=== PATIENT | female | born 1975 ===

== ENCOUNTER 2022-01-13 20:05 | Emergency (ER) | payer OTHER, SELFPAY ==
--- NOTE | ~2022-01-13 | CT_ITS ---
EXAMINATION: CT ANGIOGRAM OF THE CHEST WITH AND WITHOUT CONTRAST (CT PULMONARY ANGIOGRAM FOR PE) CLINICAL INFORMATION: Reason for Exam Syncope elevated D-dimer COMPARISON: None TECHNIQUE: Prior to contrast administration, noncontrast localization images were obtained. Subsequently, multidetector volumetric imaging was performed from the thoracic inlet to below the diaphragms following the administration of 71 mL Omnipaque 350 intravenous contrast. No contrast reaction reported Sagittal, coronal, and MIP oblique sagittal reformatted images were obtained on the CT workstation, uploaded to PACS, and reviewed. This CT examination was performed using dose optimization techniques as appropriate, variously including the following: *Automated exposure control *Adjustment of mA and/or kV according to patient size (this includes techniques or standardized protocols for targeted exams where dose is matched to indication/reason for exam; i.e. extremities or head) *Use of iterative reconstruction technique Total exam dose-length product 375 mGy-cm FINDINGS: QUALITY OF STUDY/CONTRAST BOLUS: Satisfactory. PULMONARY ARTERIES: No central or segmental pulmonary emboli. THORACIC AORTA: No aneurysm or dissection. LUNG: No focal consolidation, nodules or masses. PLEURA: No pleural effusion or pneumothorax. MEDIASTINUM: Normal heart size. No pericardial effusion. No hilar or mediastinal lymphadenopathy. No evidence of septal bowing or right heart strain. CHEST WALL/AXILLA: No axillary or internal mammary lymphadenopathy. OSSEOUS STRUCTURES: No acute or suspicious osseous abnormality. UPPER ABDOMEN: Unremarkable. No reflux of contrast into the hepatic veins to suggest elevated right heart pressures. CT/CT angio chest PE protocol IMPRESSION: No evidence of pulmonary emboli VTE: negative
[2022-01-13 20:19] VITALS: BP 166/106; PULSE 87; O2SAT 100; BMI 42.5
[2022-01-13 20:24] VITALS: BP 145/102; PULSE 74; RESP 16; TEMP 36.8; O2SAT 99
--- NOTE | 2022-01-13 20:36 | ED_ITS ---
HPI - Dizziness General Chief Complaint: Dizziness Stated Complaint: fall dizziness Time Seen by Provider: 01/13/22 20:36 Source: patient Mode of arrival: EMS Limitations: no limitations History of Present Illness HPI Narrative: Patient history of stable hypertension was at work today when she felt dizzy patient stood up felt lightheaded sat down got better an outer few minutes while other doing the chores felt lightheaded again and this time she passed out. 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 Patient complaining of mild headache on the right side blood pressure was elevated 145/102 with pulse rate of 74. No palpitation no chest pain also patient coming right thigh pain after the incident. No fever no cough no shortness of breath Related Data Allergies Allergy/AdvReac Type Severity Reaction Status Date / Time No Known Allergies Allergy Verified 01/13/22 20:54 Review of Systems Review of Systems: Yes all other systems are reviewed and are negative [facility] Social History Social History Alcohol intake: current Alcohol intake frequency: holidays/special occasions only Patient Tobacco Use Status: Former Tobacco user Use of substances other than those prescribed or required for medical reasons: No Advance Directives: No Advance Directives Information Provided: No Physical Exam Vital Signs: Vital Signs: Last Vital Signs Temp 98.2 F 01/13/22 20:24 Pulse 96 01/14/22 00:00 Resp 15 01/13/22 22:55 BP 208/125 H 01/14/22 00:00 Pulse Ox 98 01/13/22 22:55 O2 Del Method 01/13/22 22:55 BMI result Body Mass Index 42.5 Appearance: Alert. Oriented X3. No acute distress. Eyes: No pallor /icterus ENT: Pharynx normal. Oral Mucosa moist Neck: Normal inspection. Neck supple. CVS: Normal heart rate and rhythm. Pulses normal. Respiratory: No respiratory distress. Equal air entry bilateral, no wheezing/rales/rhonchi Abdomen: Soft and nontender. Bowel sounds are present, no mass palpable, no CVA tenderness Skin: Skin warm and dry. Normal skin color. Normal skin turgor. Extremities: No lower extremity edema. No calf tenderness Neuro: Oriented X 3. No motor deficit. No sensory deficit.No cerebellar signs , cranial nerves II-XII intact MDM - Dizziness MDM Narrative Medical decision making narrative: Patient likely with vasovagal episodes as she felt lightheaded with blurred vision before passing of no chest pain or palpitation in the past nursing observed during stay in the ER. Patient has slightly elevated D-dimer CTA chest of the lungs negative for PE patient had normal orthostatics no signs of infection patient feeling much better after arrival to the ER will discharge patient home advised to follow up with PCP likely had vasovagal episode Lab Data Attestation: I reviewed the patient's lab results. Result diagrams: 01/13/22 21:28 01/13/22 21: Labs: Lab Results 01/13/22 01/13/22 01/13/22 Range/Units 21:28 21: 21: WBC 8.7 (4.8-10.8) X10*3/uL RBC 4.64 (4.20-5.50) X10*6/uL Hgb 12.7 (12.0-16.0) g/dl Hct 37.6 (37.0-47.0) % MCV 81.0 (80.0-98.0) fL MCH 27.4 (27.0-33.0) pg MCHC 33.8 (31.0-35.0) g/dl RDW 15.1 (11.0-16.0) % Plt Count 441 H (160-400) X10*3/uL MPV 8.7 L (9.4-12.3) fL Immature Gran % (Auto) 0.3 (0.0-0.4) % Neut % (Auto) 52.3 (45-73) % Lymph % (Auto) 36.6 (20-40) % [place] % (Auto) 5.7 (2-11) % Eos % (Auto) 4.4 H (0-4) % Baso % (Auto) 0.7 (0-2) % Lymph # (Auto) 3.2 (1.2-4.9) X10*3/uL [place] # (Auto) 0.5 (0.1-1.2) X10*3/uL Eos # (Auto) 0.4 (0.0-0.4) X10*3/uL Baso # (Auto) 0.1 (0.0-0.2) X10*3/uL Abs Immat Gran (auto) 0.03 (0.00-0.03) X10*3/uL Absolute Neuts (auto) 4.5 (2.0-8.3) x10*3/uL Absolute Nucleated RBC 0.000 (0.0-0.012) X10*3/uL Nucleated RBC % (auto) 0.0 (0.0-0.2) /100WBC PT Cancelled INR Cancelled D-Dimer High Sensitivty NG/ML Sodium 138 (135-145) mmol/L Potassium 3.9 (3.3-5.1) mmol/L Chloride 102 (96-108) mmol/L Carbon Dioxide 27 (22-29) mmol/L Anion Gap 13 (12-20) BUN 16 (9-16) mg/dL Creatinine 0.80 (0.5-1.4) mg/dL Estim Creat Clear Calc 111.9 Estimated GFR > 60 Random Glucose 97 (60-115) mg/dL Calcium 9.7 (8.4-10.2) mg/dL Total Bilirubin < 0.2 (0.0-1.0) mg/dL AST 18 (5-31) U/L ALT 32 H (0-31) U/L Alkaline Phosphatase 76 (39-117) U/L Troponin I High Sens (<3.5-17.0) ng/L Total Protein 8.1 H (6.5-8.0) g/dL Albumin 4.3 (3.5-5.0) g/dL Urine Color Urine Appearance Urine pH (5.0-8.0) Ur Specific [place] (1.005-1.025) Urine Protein (NEG-TRACE) MG/DL Urine Glucose (UA) (NEG) MG/DL Urine Ketones (NEG) MG/DL Urine Blood (NEG) Urine Nitrite (NEG) Ur Leukocyte Esterase (NEG) COVID-19 (ALECIA) (Negative) COVID-19 Clin Com 01/13/22 01/13/22 01/13/22 Range/Units 21:28 21:28 21:28 WBC (4.8-10.8) X10*3/uL RBC (4.20-5.50) X10*6/uL Hgb (12.0-16.0) g/dl Hct (37.0-47.0) % MCV (80.0-98.0) fL MCH (27.0-33.0) pg MCHC (31.0-35.0) g/dl RDW (11.0-16.0) % Plt Count (160-400) X10*3/uL MPV (9.4-12.3) fL Immature Gran % (Auto) (0.0-0.4) % Neut % (Auto) (45-73) % Lymph % (Auto) (20-40) % [place] % (Auto) (2-11) % Eos % (Auto) (0-4) % Baso % (Auto) (0-2) % Lymph # (Auto) (1.2-4.9) X10*3/uL [place] # (Auto) (0.1-1.2) X10*3/uL Eos # (Auto) (0.0-0.4) X10*3/uL Baso # (Auto) (0.0-0.2) X10*3/uL Abs Immat Gran (auto) (0.00-0.03) X10*3/uL Absolute Neuts (auto) (2.0-8.3) x10*3/uL Absolute Nucleated RBC (0.0-0.012) X10*3/uL Nucleated RBC % (auto) (0.0-0.2) /100WBC PT 9.8 L INR 0.9 D-Dimer High Sensitivty 264 NG/ML Sodium (135-145) mmol/L Potassium (3.3-5.1) mmol/L Chloride (96-108) mmol/L Carbon Dioxide (22-29) mmol/L Anion Gap (12-20) BUN (9-16) mg/dL Creatinine (0.5-1.4) mg/dL Estim Creat Clear Calc Estimated GFR Random Glucose (60-115) mg/dL Calcium (8.4-10.2) mg/dL Total Bilirubin (0.0-1.0) mg/dL AST (5-31) U/L ALT (0-31) U/L Alkaline Phosphatase (39-117) U/L Troponin I High Sens 3.5 (<3.5-17.0) ng/L Total Protein (6.5-8.0) g/dL Albumin (3.5-5.0) g/dL Urine Color Urine Appearance Urine pH (5.0-8.0) Ur Specific [place] (1.005-1.025) Urine Protein (NEG-TRACE) MG/DL Urine Glucose (UA) (NEG) MG/DL Urine Ketones (NEG) MG/DL Urine Blood (NEG) Urine Nitrite (NEG) Ur Leukocyte Esterase (NEG) COVID-19 (ALECIA) Negative (Negative) COVID-19 Clin Com See Note 01/13/22 Range/Units 23:03 WBC (4.8-10.8) X10*3/uL RBC (4.20-5.50) X10*6/uL Hgb (12.0-16.0) g/dl Hct (37.0-47.0) % MCV (80.0-98.0) fL MCH (27.0-33.0) pg MCHC (31.0-35.0) g/dl RDW (11.0-16.0) % Plt Count (160-400) X10*3/uL MPV (9.4-12.3) fL Immature Gran % (Auto) (0.0-0.4) % Neut % (Auto) (45-73) % Lymph % (Auto) (20-40) % [place] % (Auto) (2-11) % Eos % (Auto) (0-4) % Baso % (Auto) (0-2) % Lymph # (Auto) (1.2-4.9) X10*3/uL [place] # (Auto) (0.1-1.2) X10*3/uL Eos # (Auto) (0.0-0.4) X10*3/uL Baso # (Auto) (0.0-0.2) X10*3/uL Abs Immat Gran (auto) (0.00-0.03) X10*3/uL Absolute Neuts (auto) (2.0-8.3) x10*3/uL Absolute Nucleated RBC (0.0-0.012) X10*3/uL Nucleated RBC % (auto) (0.0-0.2) /100WBC PT INR D-Dimer High Sensitivty NG/ML Sodium (135-145) mmol/L Potassium (3.3-5.1) mmol/L Chloride (96-108) mmol/L Carbon Dioxide (22-29) mmol/L Anion Gap (12-20) BUN (9-16) mg/dL Creatinine (0.5-1.4) mg/dL Estim Creat Clear Calc Estimated GFR Random Glucose (60-115) mg/dL Calcium (8.4-10.2) mg/dL Total Bilirubin (0.0-1.0) mg/dL AST (5-31) U/L ALT (0-31) U/L Alkaline Phosphatase (39-117) U/L Troponin I High Sens (<3.5-17.0) ng/L Total Protein (6.5-8.0) g/dL Albumin (3.5-5.0) g/dL Urine Color YELLOW Urine Appearance CLEAR Urine pH 6.0 (5.0-8.0) Ur Specific [place] 1.020 (1.005-1.025) Urine Protein NEG (NEG-TRACE) MG/DL Urine Glucose (UA) NEG (NEG) MG/DL Urine Ketones NEG (NEG) MG/DL Urine Blood NEG (NEG) Urine Nitrite NEG (NEG) Ur Leukocyte Esterase NEG (NEG) COVID-19 ([facility]ECIA) (Negative) COVID-19 Clin Com ECG Data Attestation: I personally reviewed and interpreted this ECG as follows: Interpretation: Normal sinus rhythm heart rate 79 beats per minute normal interval normal axis no acute ST changes no acute ischemia Discharge Plan Discharge Clinical Impression: Syncope Patient Disposition: Home, Self-Care Instructions: Syncope (ED) Additional Instructions: Cause of passing out episode is not clear likely vasovagal Drink plenty of fluids have meals on time Follow with PCP/cardiology for further workup including Holter monitoring Report to the ER if further episodes ofpassing out
--- NOTE | 2022-01-13 20:54 | ECG_ITS ---
Test Reason : DIZZYNESS Blood Pressure : / mmHG Vent. Rate : 079 BPM Atrial Rate : 079 BPM P-R Int : 150 ms QRS Dur : 084 ms QT Int : 378 ms P-R-T Axes : 055 022 066 degrees QTc Int : 433 ms Normal sinus rhythm Nonspecific T wave abnormality Borderline ECG No previous ECGs available Referred By: Bj Sy Electronically Signed By:HEMANT DUMONT
[2022-01-13 21:34] LABS: MANUAL DIFF FLAG NO
[2022-01-13 21:36] LABS: Basophils Absolute Auto 0.1 X10*3/uL (0.0-0.2); Basophils Percent Auto 0.7 % (0-2); Eosinophils Absolute Auto 0.4 X10*3/uL (0.0-0.4); Eosinophils Percent Auto 4.4 % (0-4); Hematocrit 37.6 % (37.0-47.0); Hemoglobin 12.7 g/dl (12.0-16.0); Imm Gran Abs Auto 0.03 X10*3/uL (0.00-0.03); Imm Gran Pct Auto 0.3 % (0.0-0.4); Lymphocytes Absolute Auto 3.2 X10*3/uL (1.2-4.9); Lymphocytes Percent Auto 36.6 % (20-40); Mean Corpuscular HGB Conc 33.8 g/dl (31.0-35.0); Mean Corpuscular Hemoglobin 27.4 pg (27.0-33.0); Mean Platelet Volume 8.7 fL (9.4-12.3); Monocytes Absolute Auto 0.5 X10*3/uL (0.1-1.2); Monocytes Percent Auto 5.7 % (2-11); Neutrophils Absolute Auto 4.5 x10*3/uL (2.0-8.3); Neutrophils Percent Auto 52.3 % (45-73); Platelet Count 441 X10*3/uL (160-400); Red Blood Count 4.64 X10*6/uL (4.20-5.50); Red Cell Distribution Width 15.1 % (11.0-16.0); White Blood Count 8.7 X10*3/uL (4.8-10.8)
[2022-01-13 21:48] LABS: INTERNATIONAL NORM RATIO 0.9 (0.9-1.1); Prothrombin Time 9.8 SEC (10.0-13.1)
[2022-01-13 21:50] LABS: D Dimer High Sensitivity 264 NG/ML
[2022-01-13 21:51] LABS: COVID-19 Test Negative (Negative)
[2022-01-13 21:58] LABS: Alanine Aminotransferase 32 U/L (0-31); Albumin Level 4.3 g/dL (3.5-5.0); Alkaline Phosphatase 76 U/L (39-117); Anion Gap 13 (12-20); Aspartate Amino Transferase 18 U/L (5-31); Bilirubin Total < 0.2 mg/dL (0.0-1.0); Blood Urea Nitrogen 16 mg/dL (9-16); Calcium 9.7 mg/dL (8.4-10.2); Carbon Dioxide 27 mmol/L (22-29); Chloride 102 mmol/L (96-108); Creatinine Clr Calc Pharmacy 111.9; Estimated Glomerular Filt Rate > 60; Glucose Random 97 mg/dL (60-115); Potassium 3.9 mmol/L (3.3-5.1); Sodium 138 mmol/L (135-145); Total Protein 8.1 g/dL (6.5-8.0); Troponin-I High Sensitivity 3.5 ng/L (<3.5-17.0)
[2022-01-13] MEDS: iohexoL 350 MG/ML 100 ML INFUS..BTL IV (22:37)
[2022-01-13 22:55] VITALS: BP 161/95; PULSE 98; RESP 15; O2SAT 98
[2022-01-13 23:11] LABS: Appearance Urine CLEAR; Color Urine YELLOW; Glucose Urine UA NEG (NEG); Leukocyte Esterase Urine NEG (NEG); Nitrite Urine NEG (NEG); Urine Blood NEG (NEG); Urine Ketones NEG (NEG); Urine Protein NEG (NEG-TRACE)
[2022-01-13 23:56] VITALS: BP 190/101; PULSE 86
[2022-01-13 23:59] VITALS: BP 182/113; PULSE 88
[2022-01-14] VITALS: BP 161/98; BP 208/125; PULSE 88; PULSE 96; RESP 25; TEMP 36.9; O2SAT 98
[2022-01-14] MEDS: Losartan Potassium 50 MG TABLET PO (00:23)
== END 2022-01-14 00:28 | disposition home or self-care (01) ==
PROVIDERS: Emergency Provider Internal Medicine
DX: R55 Syncope and collapse (principal); I10 Essential (primary) hypertension; R51.9 Headache, unspecified; M79.651 Pain in right thigh; Z79.899 Other long term (current) drug therapy; Z20.822 Contact with and (suspected) exposure to COVID-19
CPT/HCPCS: 36415; 71275; 80053; 81003; 84484; 85025; 85379; 85610; 87635; 93005; 99284; 99285; Q9967

== ENCOUNTER 2022-06-07 15:03 | Emergency (ER) | payer SELFPAY ==
--- NOTE | ~2022-06-07 | XR_ITS ---
Examination: XR knee RT 4V, XR hip RT w PEL1V Indication: Pain right knee/hip Comparison: No pertinent prior studies are currently available for comparison. Technique: Frontal view the pelvis with coned frontal and frog-leg lateral views of the right hip as well as 4 views of the right knee Findings: Right hip/pelvis: Femoral head is well-seated within the acetabulum. I do not appreciate any cortical disruption or trabecular irregularity to suggest underlying acute fracture. No dislocation. Mild degenerative changes with osteophyte formation along superolateral acetabulum. Contralateral left hip demonstrates mild degenerative changes as well. Unremarkable bowel gas pattern. Right knee: Postoperative changes are seen with 2 cortical screws along the inferior medial femoral articular surface. Mild degenerative changes are seen. There is loss of joint height in the medial compartment with small osteophyte formation. Small degenerative osteophytes seen in the patellofemoral compartment as well XR/XR hip RT w PEL1V Impression: Chronic appearing and degenerative changes but no acute fracture or dislocation seen. Postoperative changes to the right knee as described.
--- NOTE | ~2022-06-07 | XR_ITS ---
Examination: XR knee RT 4V, XR hip RT w PEL1V Indication: Pain right knee/hip Comparison: No pertinent prior studies are currently available for comparison. Technique: Frontal view the pelvis with coned frontal and frog-leg lateral views of the right hip as well as 4 views of the right knee Findings: Right hip/pelvis: Femoral head is well-seated within the acetabulum. I do not appreciate any cortical disruption or trabecular irregularity to suggest underlying acute fracture. No dislocation. Mild degenerative changes with osteophyte formation along superolateral acetabulum. Contralateral left hip demonstrates mild degenerative changes as well. Unremarkable bowel gas pattern. Right knee: Postoperative changes are seen with 2 cortical screws along the inferior medial femoral articular surface. Mild degenerative changes are seen. There is loss of joint height in the medial compartment with small osteophyte formation. Small degenerative osteophytes seen in the patellofemoral compartment as well XR/XR knee RT 4V Impression: Chronic appearing and degenerative changes but no acute fracture or dislocation seen. Postoperative changes to the right knee as described.
[2022-06-07 16:00] VITALS: BP 188/112; PULSE 77; RESP 18; TEMP 36.6; O2SAT 100; BMI 42.9
--- NOTE | 2022-06-07 16:02 | ED_ITS ---
HPI - Extremity Injury (Lower) General Chief Complaint: Extremity Injury, Lower Stated Complaint: knee inj Time Seen by Provider: 06/07/22 18:41 Source: patient Mode of arrival: ambulatory Limitations: no limitations History of Present Illness HPI Narrative: 46yoF c PMHx of a scope to her Right knee presenting to the ED c c/o right knee pain radiating hip x 2 weeks. Reports she does not recall certain injury alt girma might have injured it when she was at work when she stepped on harder was standing for too long. 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 She denies recent falls or any other symptoms complaints or concerns at this time. She reports she is unable to sleep due to this pain. MD complaint: hip injury and knee injury Onset (ago): week(s) (2) Injury: Right: hip and knee Severity: severe Severity scale (1-10): >10 Relieving factors: nothing Exacerbating factors: weight bearing, movement and palpation Context: other (Patient is unsure) Associated symptoms: swelling and able to partially bear weight Other symptoms: none Treatments prior to arrival: cold therapy, heat therapy, bandage, NSAIDS and splint Related Data Previous Rx's Medication Instructions Recorded losartan 50 mg tablet 50 mg PO DAILY #30 tabs 01/14/22 ibuprofen 800 mg tablet 800 mg PO Q8H PRN pain #14 tabs 06/07/22 oxycodone 5 mg tablet 5 mg PO Q6H PRN pain #14 tabs 06/07/22 prednisone 20 mg tablet 40 mg PO DAILY inflammation 5 days 06/07/22 #10 tabs Allergies Allergy/AdvReac Type Severity Reaction Status Date / Time No Known Allergies Allergy Verified 01/13/22 20:54 Review of Systems Review of Systems: Constitutional : No Weight loss, No Fever, No Chills, No Night Sweats, No Fatigue, No Malaise ENT/Mouth : No Hearing loss, No Ear Pain, No Nasal Congestion, No Sinus Pain, No Hoarseness, No sore throat, No Rhinorrhea, No Swallowing Difficulty Eyes: No Eye Pain, No Swelling, No Redness, No Foreign Body, No Discharge, No Vision Changes Cardiovascular : No Chest Pain, No SOB, No Dyspnea on Exertion, No Orthopnea, No Edema, No Palpitations Respiratory : No Cough, No Sputum, No Wheezing, No Smoke Exposure, No Dyspnea Gastrointestinal : No Nausea, No Vomiting, No Diarrhea, No Constipation, No abdominal Pain, No Hematochezia, No Melena Genitourinary : no irregular bleeding, No Dysuria, No Urinary Frequency, No Hematuria, No Urinary Incontinence, No Urgency, No Flank Pain, No Urinary Flow Changes, No Hesitancy Musculoskeletal : + Right hip/knee joint pain, No Myalgias, No Joint Swelling Skin : No Skin Lesions, No rash Neuro : No Weakness, No Numbness, No Paresthesias, No Loss of Consciousness, No Dizziness, No Headache Psych : No Anxiety/Panic, No Depression, No SI/HI/AH/VH, No Social Issues, Heme/Lymph: No Bruising, No Bleeding,No Lymphadenopathy Endocrine : No Polyuria, No Polydipsia, No Temperature Intolerance Yes all other systems are reviewed and are negative [facility] Past Medical History Attestation statement: The following information was validated with the patient. Source: old records reviewed, obtained from family and nursing notes reviewed Social History Social History Alcohol intake: current Alcohol intake frequency: holidays/special occasions only Patient Tobacco Use Status: Former Tobacco user Advance Directives: No Advance Directives Information Provided: No Physical Exam Vital Signs: Vital Signs: Last Vital Signs Temp 97.8 F 06/07/22 16:00 Pulse 77 06/07/22 16:00 Resp 18 06/07/22 16:00 BP 188/112 H 06/07/22 16:00 Pulse Ox 100 06/07/22 16:00 O2 Del Method 06/07/22 16:00 BMI result Body Mass Index 42.9 Vital signs reviewed. Blood pressure 188/112. Pulse normal. Respiration normal. Oxygen normal. Temperature normal. Appearance: Alert. Oriented X3. No acute distress. Head: Normal external exam. Normocephalic. Atraumatic. Eyes: PERRLA. EOMI. Conjunctiva and sclera normal. Eyelids normal. ENT: Pharynx normal. Uvula midline. Moist mucous membranes. No lesions/ulcerations or masses noted on the tongue. Normal voice. No trismus noted. No drooling noted. No muffled voice noted. Neck: Normal inspection. Neck supple. FROM. No adenopathy. Thyroid Normal. No meningeal signs. CVS: Normal heart rate and rhythm. Respiratory: No respiratory distress. Painless inspiration. Back: Nontender. Skin: Skin warm and dry. Normal skin color. Normal skin turgor. No rashes/lesions/lacerations noted. Extremities: Pt c TTP of right hip and Right knee with LROM of Right knee with mild soft tissue swelling. No obvious ligamentous or tendon injury noted although patient does not want to extend her knee completely reported that it was too painful. Not consistent with septic joint. Otherwise all other extremities exhibit normal range of motion and nontender. Neuro: Oriented X 3. No motor deficit. No sensory deficit. No focal neuro deficits noted. CN's II-XII intact bilaterally? Vascular: + radial pulses. Normal cap refill. No cyanosis noted to upper extremity nails Course Course Course Narrative: RME-16PM - 46yoF c PMHx of a scope to her Right knee presenting to the ED c c/o right knee pain radiating hip x 2 weeks. Reports she does not recall certain injury although might have injured it when she was at work when she stepped on harder was standing for too long. 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 She denies recent falls or any other symptoms complaints or concerns at this time. She reports she is u nable to sleep due to this pain. Patient has limited range of motion on extension of the knee due to pain/swelling questioning joint effusion otherwise not consistent with septic joint. She is in a wheelchair therefore gait not tested at this time. No obvious ligamentous or tendon injury noted. Plan: At this time patient will go back to the waiting room to be evaluated in [facility] a right knee and right hip x-ray ordered at this time. Reevaluation(s) Reevaluation #1: X-rays repeated chronic changes no acute processes noted. Therefore will DC home with symptomatic treatment instructions to follow-up with PCP and Orthopedics is symptoms persist. Patient understands agrees with this plan. Time: 20:54 Medications Administered Discontinued Medications Generic Name Dose Route Start Last Admin Trade Name Freq PRN Reason Stop Dose Admin Oxycodone HCl 5 mg 06/07/22 18:42 06/07/22 18:50 Oxycodone Hcl Immed Release 5 Mg Tablet PO 06/07/22 18:43 5 mg ONCE ONE Administration Medical Decision Making Independent Interpretation Interpretation: Right hip/pelvis/right knee x-ray Findings: Right hip/pelvis: Femoral head is well-seated within the acetabulum. I do not appreciate any cortical disruption or trabecular irregularity to suggest underlying acute fracture. No dislocation. Mild degenerative changes with osteophyte formation along superolateral acetabulum. Contralateral left hip demonstrates mild degenerative changes as well. Unremarkable bowel gas pattern. Right knee: Postoperative changes are seen with 2 cortical screws along the inferior medial femoral articular surface. Mild degenerative changes are seen. There is loss of joint height in the medial compartment with small osteophyte formation. Small degenerative osteophytes seen in the patellofemoral compartment as well XR/XR knee RT 4V Impression: Chronic appearing and degenerative changes but no acute fracture or dislocation seen. Postoperative changes to the right knee as described. Discharge Plan Discharge Clinical Impression: Arthritis of right knee, Arthritis of right hip Patient Disposition: Home, Self-Care Instructions: Osteoarthritis (ED) Additional Instructions: Please follow-up with her primary care provider for further evaluation treatment. Prescriptions: New ibuprofen 800 mg tablet 800 mg PO Q8H PRN (Reason: pain) Qty: 14 0RF oxycodone 5 mg tablet 5 mg PO Q6H PRN (Reason: pain) Qty: 14 0RF Rx Instructions: Partial Fill upon patient request. prednisone 20 mg tablet 40 mg PO DAILY 5 Days Qty: 10 0RF No Action losartan 50 mg tablet 50 mg PO DAILY Qty: 30 0RF Referrals: [facility] [place] Orthopedic Surgeons [Provider Group] (If you continue to have pain call to make a follow-up appointment) Stand Alone Forms: Work/School Release Interventions: ED Discharge Assessment Last Done: 06/07/22 18:51 Discharge Date/Time: 06/07/22 18:51
[2022-06-07] MEDS: oxyCODONE HCl Immed Release 5 MG TABLET PO (18:50)
== END 2022-06-07 18:51 | disposition home or self-care (01) ==
PROVIDERS: Emergency Provider Emergency Medicine
DX: M25.561 Pain in right knee (principal); M25.562 Pain in left knee; R10.2 Pelvic and perineal pain
CPT/HCPCS: 73502; 73564; 99283

== ENCOUNTER 2022-11-06 14:00 | Outpatient (REF) | payer MEDICAID, SELFPAY ==
--- NOTE | ~2022-11-06 | US_ITS ---
EXAMINATION: US PELVIS CLINICAL INFORMATION: Menorrhagia; the last menstrual period was on 11/04/2022. COMPARISON: None available. TECHNIQUE: Ultrasound of the pelvis is performed using both transabdominal and transvaginal transducers along with Doppler. Transvaginal imaging is performed due to inadequate visualization transabdominally. FINDINGS: Uterus: The uterus is anteverted and anteflexed. The uterus measures 9.5 x 4.9 x 6.0 cm. Nabothian cysts are seen within the cervix. The double wall endometrial thickness is 1.1 mm. There are endometrial calcifications, the largest measuring 3 mm. The uterus is smooth in contour and has normal myometrial echogenicity. No visible fibroid. Adnexa: Both ovaries are visualized. There is normal color flow to the adnexa. There is no ovarian torsion. There is a small amount of free fluid in the right adnexal region. Right ovary measures 3.1 x 1.5 x 1.5 cm, volume 3.6 mL. There are macrocalcifications, the largest measuring 4 mm. Left ovary measures 2.3 x 2.3 x 1.8 cm, volume 5.0 mL. A 1.8 cm in maximal diameter simple, dominant follicle is noted. US/US pelvic and transvaginal IMPRESSION: 1. Nabothian cysts are seen within the cervix. 2. Rare endometrial calcifications are seen. These are typically benign in etiology. No discrete mass is noted. 3. Ovarian macrocalcifications are noted, the largest measuring 4 mm. These may be associated with prior infection or inflammation, and ovarian calcifications can be seen in association with a dermoid tumor. Gynecology evaluation management is recommended. 4. A 1.8 cm benign, simple dominant left ovarian follicle is seen, for which no imaging follow-up is recommended.
== END 2022-11-06 14:01 | disposition home or self-care (01) ==
LOC: HO.US 14:00
PROVIDERS: Visit Provider Advanced Practice Midwife
DX: N92.0 Excessive and frequent menstruation with regular cycle (principal)
CPT/HCPCS: 76830; 76856

== ENCOUNTER 2022-11-23 | Outpatient (REF) | payer MEDICAID, SELFPAY ==
--- NOTE | ~2022-11-23 | XR_ITS ---
EXAMINATION: XR KNEE, RIGHT CLINICAL INFORMATION: Chronic knee pain. COMPARISON: June 07, 2022. TECHNIQUE: Four views of the right knee. FINDINGS: Examination demonstrates orthopedic screws with associated osteochondral defect at the medial femoral condyle, unchanged. Moderate joint space narrowing is present in this compartment, possibly slightly worse. There may be mild medial subluxation of the femur relative to the proximal tibia, also possibly slightly worse. There may be mild degenerative change at the patellofemoral compartment, similar compared with prior. There may be trace suprapatellar fluid, also similar. No fracture is appreciated. Bony mineralization appears preserved. XR/XR knee RT 4V IMPRESSION: Postoperative changes as seen on June 07, 2022. Degenerative changes, possibly slightly worse.
--- NOTE | ~2022-11-23 | XR_ITS ---
EXAMINATION: XR KNEE, LEFT CLINICAL INFORMATION: Chronic knee pain. COMPARISON: None available. TECHNIQUE: Four views of the left knee. FINDINGS: Examination demonstrates mild to moderate degenerative change predominantly involving the medial and patellofemoral compartments, with joint space narrowing and sclerosis. No effusion is seen. No fracture or dislocation is identified. Bony mineralization appears preserved. The soft tissues appear unremarkable. XR/XR knee LT 4V IMPRESSION: Degenerative changes.
== END 2022-11-23 00:01 ==
LOC: HO.XRAY
PROVIDERS: PCP Registered Nurse; Visit Provider Registered Nurse
DX: M25.561 Pain in right knee (principal); M25.562 Pain in left knee
CPT/HCPCS: 73564

== ENCOUNTER 2022-11-24 13:05 | Outpatient (REF) | payer MEDICAID, SELFPAY ==
--- NOTE | ~2022-11-24 | MM_ITS ---
EXAMINATION: MM DIAGNOSTIC DIGITAL BREAST TOMOSYNTHESIS, BILATERAL US DIAGNOSTIC ULTRASOUND BREAST, BILATERAL CLINICAL INFORMATION: 47-year-old with prior bilateral recurrent breast infection/inflammation with prior surgery/lumpectomy with excision nipples. Patient also notes enlarging chronic palpable area left supraclavicular area. Prior outside mammography from [place] currently unavailable. COMPARISON: None. TECHNIQUE: Digital breast tomosynthesis is performed in both the craniocaudal and mediolateral oblique views along with computer-aided detection (CAD). Synthesized 2D images are generated from the tomosynthesis. Ultrasound bilateral breasts is performed with interrogation of all 4 quadrants using grayscale imaging and color Doppler without and with harmonics. Additional imaging of the left supraclavicular area is included along with comparison imaging right supraclavicular region. FINDINGS: Mammography: There are scattered areas of fibroglandular density (ACR BI-RADS breast composition Category b). There is minor scarring consistent with the prior surgical history. There is no mass or architectural abnormality or abnormal calcifications. Background stromal markings appear normal. Skin contours are unremarkable. There is no skin thickening or coarsening of the Wilton's ligaments. There is benign rim calcification anterior left breast and benign coarse calcification mid 9:00 left breast. The axilla are unremarkable. Ultrasound: Bilateral breast ultrasound demonstrates no cystic or solid mass or architectural abnormality. No focal duct ectasia. No skin thickening or edema tracking in soft tissue planes. No hyperemia. Ultrasound, additional: Additional linear ultrasound chronic increasing soft tissue fullness noted by patient left supraclavicular region demonstrates a nonspecific isoechoic oval area soft tissue thickening measuring approximately 2 x 4 cm in the short axis and extending greater in length from posterior to anterior. Margins are smooth. There are benign-appearing internal stromal tissue planes. Finding is not visible on the contralateral right supraclavicular region. There is no adenopathy. Management: Results are discussed with the patient at time of visit. The mammography and breast ultrasound is unremarkable. There are no inflammatory changes. No mammographic or ultrasound evidence of malignancy. The soft tissue thickness left supraclavicular region is nonspecific, possibly lipoma. This may be further assessed with pre and postcontrast MRI or CT. MM/MM tomosynthesis diagnostic BI IMPRESSION: -No mammographic or ultrasound evidence of malignancy. -The soft tissue thickness left supraclavicular region is nonspecific, possibly lipoma. This may be further characterized with pre and postcontrast MRI or CT. ASSESSMENT: BI-RADS 2: Benign RECOMMENDATION: 1. Patient should be managed based on the clinical impression. The soft tissue thickness left supraclavicular region is nonspecific, possibly lipoma. This may be further characterized with pre and postcontrast MRI or CT. 2. Otherwise, routine annual screening mammography. This patient's information was entered into a reminder system with a target due date for their next mammogram.
== END 2022-11-24 13:06 | disposition home or self-care (01) ==
LOC: HO.MAMMO 13:05
PROVIDERS: PCP Registered Nurse; Visit Provider Registered Nurse
DX: N64.4 Mastodynia (principal)
CPT/HCPCS: 76642; 77062; 77066

== ENCOUNTER 2022-12-11 13:07 | Emergency (ER) | payer MEDICAID, SELFPAY ==
[2022-12-11 13:19] VITALS: BP 143/66; PULSE 85; RESP 18; TEMP 36.8; O2SAT 99; BMI 42.0
--- NOTE | 2022-12-11 13:20 | ED.GENADULT ---
HPI - General Adult General Chief complaint: Extremity Injury, Lower Stated complaint: knee pain Time Seen by Provider: 12/11/22 13:26 Source: patient and other (significant other) Mode of arrival: wheelchair Limitations: no limitations History of Present Illness HPI narrative: Patient is a 47 year old assigned female at with a history of chronic bilateral knee pain presenting to the emergency department today with continued bilateral knee pain. Patient states that the pain has gotten so bad she feels she is unable to walk. Patient states that she had x-rays on her knees done here on 11/23/2022 but has not been told results. Patient states that she does not have an appointment with orthopedics until 01/06/2023. Patient denies any dizziness, lightheadedness, abdominal pain, nausea, vomiting, fever, chills, blurry vision, double vision, loss of vision, chest pain, difficulty breathing, shortness of breath, back pain, night sweats, pain with urination, increased urinary frequency, increased urinary urgency, blood in her urine or stool, syncope or a near syncopal episode, recent trauma or falls, bowel incontinence, bladder incontinence, bowel retention, bladder retention, or any other complaints at this time. Onset (ago): month(s) Location: left, right and lower extremity Radiation: non-radiation Severity: mild Severity scale (1-10): 4 Quality: aching and dull Pain Consistency: constant Relieving factors: none Exacerbating factors: movement Associated symptoms: denies other symptoms Treatments prior to arrival: none Related Data Previous Rx's Medication Instructions Recorded losartan 50 mg tablet 50 mg PO DAILY #30 tabs 01/14/22 ibuprofen 800 mg tablet 800 mg PO Q8H PRN pain #14 tabs 06/07/22 oxycodone 5 mg tablet 5 mg PO Q6H PRN pain #14 tabs 06/07/22 prednisone 20 mg tablet 40 mg PO DAILY inflammation 5 days 06/07/22 #10 tabs Allergies Allergy/AdvReac Type Severity Reaction Status Date / Time No Known Allergies Allergy Verified 12/11/22 13:24 Review of Systems Constitutional: Constitutional: Reports no additional constitutional complaints, Denies chills, Denies fever(s) and Denies night sweats Eyes: Eyes: Reports no additional eye complaints, Denies blurry vision, Denies change in vision, Denies diplopia, Denies eye discharge, Denies loss of vision and Denies eye pain ENT: Denies dizziness Cardiovascular: Cardiovascular: Reports no additional cardiovascular complaints, Denies chest pain, Denies lightheadedness, Denies Loss of Consciousness and Denies dyspnea Respiratory: Respiratory: Reports no additional respiratory complaints and Denies dyspnea Gastrointestinal: Gastrointestinal: Reports no additional gastrointestinal complaints, Denies abdominal pain, Denies melena, Denies hematochezia, Denies change in bowel habits and Denies change in stool character Genitourinary: Genitourinary: Denies hematuria, Denies urinary frequency, Denies dysuria, Denies urinary incontinence, Denies urinary hesitancy and Denies urinary urgency Musculoskeletal: Musculoskeletal: Reports no additional musculoskeletal complaints, Denies numbness and Denies tingling Comments: bilateral knee pain Neurologic: Denies dizziness, Denies loss of vision, Denies numbness and Denies tingling Psychiatric: Psychiatric: Reports no additional psychiatric complaints Endocrine: Endocrine: Reports no additional endocrine complaints Hematologic/Lymphatic: Hematologic/Lymphatic: Reports no additional hematologic/lymphatic complaints Allergic/Immunologic: Allergic/Immunologic: Reports no additional allergic/immunologic complaints PMFSH Past Medical History Attestation statement: The following information was validated with the patient. Source: old records reviewed and nursing notes reviewed Social History Social History Alcohol intake: current Alcohol intake frequency: holidays/special occasions only Patient Tobacco Use Status: Former Tobacco user Advance Directives: No Advance Directives Information Provided: No Physical Exam ED Vital Signs: Vital Signs - 24 hr 12/11/22 13:19 Temperature 98.2 F Pulse Rate 85 Respiratory Rate 18 Blood Pressure 143/66 H Pulse Oximetry 99 Oxygen Delivery Method Room Air BMI result Body Mass Index 42.0 Const General: cooperative, no acute distress, alert and awake Nutritional Appearance: well nourished Orientation/consciousness: patient oriented x3 Limitations: no limitations HENMT Head: Yes normal to inspection and Yes atraumatic Ears: hearing grossly normal bilaterally and external ears normal General nose exam: Normal external nose present, no nasal discharge noted and no epistaxis Face and sinus: Yes normal facial exam, No abrasion and No laceration Mouth: Normal oral and palatal mucosa present, no drooling and no muffled voice Eyes General: appearance normal, both eyes and all related structures Periorbital: periorbital findings normal Eyelids: Yes eyelids normal Conjunctivae: conjunctivae normal Pupils: Equal, round and reactive pupils present EOM: EOMs intact bilaterally Neck Neck: Yes normal visual inspection, Yes full ROM and Yes no lymphadenopathy Chest Chest palpation & inspection: normal inspection of the chest Resp Effort & Inspection: normal respiratory effort and able to speak in complete sentences Auscultation: clear to auscultation bilaterally Cardio Rate: regular rate Rhythm: regular rhythm GI Inspection: Yes normal to inspection Neuro General: patient oriented x3 and moves all extremities Cranial nerves: Yes Equal, round and reactive pupils present Cognition (Neuro): normal cognition Motor exam (neuro): 5/5 motor strength present throughout Sensory Exam: Normal double simultaneous stimulation for sensation Coordination: [id number] test normal Extrem General: Yes normal to inspection, Yes full ROM and Yes capillary refill normal Psych Appearance: grossly normal Mental Status: mental status grossly normal Affect: normal affect Attitude: cooperative Thought process: Normal thought process present Thought content: Normal thought content present Insight: Good insight present (Psych) Medical Decision Making Medical Decision Making MDM Narrative: Patient is a 47 year old assigned female at with a history of bilateral knee pain presenting to the emergency department today with persistent bilateral knee pain. Patient's physical exam was unremarkable. Patient's knee x-rays from 11/23/2022 showed evidence of degenerative changes / osteoarthritis. I explained my physical exam findings as well as all test results to the patient and the patient's significant other. I answered all questions asked by the patient and the patient's significant other. I offered the patient oral NSAIDs and corticosteroids however, the patient declined. Patient states that they are going to a walk in orthopedic provider so they may get joint injections. I stressed the importance of the patient taking her medication as prescribed. I stressed the importance of the patient following up with her primary care provider. I stressed the importance of the patient returning to the emergency department immediately if her symptoms were to worsen or if she were to develop any dizziness, shortness of breath, difficulty breathing, chest pain, blurry vision, loss of vision, nausea, vomiting, abdominal pain, fever, chills, back pain, or any other complaints. Patient and the patient's significant other verbalized agreement and understanding with this treatment plan and discharge. Differential Diagnosis Differential Diagnoses: The differential diagnosis associated with the presentation includes osteoarthritis, chronic knee pain Independent Interpretation I performed an independent interpretation of an: Plain X-Ray Interpretation: My interpretation is in agreement with the radiologist's impression of these imaging studies from 11/23/2022. EXAMINATION: XR KNEE, LEFT CLINICAL INFORMATION: Chronic knee pain.? COMPARISON: None available.? TECHNIQUE: Four views of the left knee. FINDINGS: Examination demonstrates mild to moderate degenerative change predominantly involving the medial and patellofemoral compartments, with joint space narrowing and sclerosis. No effusion is seen. No fracture or dislocation is identified. Bony mineralization appears preserved. The soft tissues appear unremarkable. XR/XR knee LT 4V IMPRESSION: ? Degenerative changes. Dictated By: Justin Cruz Signed By: Electronically signed by Stephanie 12/10/22 1129 EXAMINATION: XR KNEE, RIGHT? CLINICAL INFORMATION: Chronic knee pain.? COMPARISON: June 07, 2022.? TECHNIQUE: Four views of the right knee. FINDINGS: Examination demonstrates orthopedic screws with associated osteochondral defect at the medial femoral condyle, unchanged. Moderate joint space narrowing is present in this compartment, possibly slightly worse. There may be mild medial subluxation of the femur relative to the proximal tibia, also possibly slightly worse. There may be mild degenerative change at the patellofemoral compartment, similar compared with prior. There may be trace suprapatellar fluid, also similar. No fracture is appreciated. Bony mineralization appears preserved. XR/XR knee RT 4V IMPRESSION: ? Postoperative changes as seen on June 07, 2022. ? Degenerative changes, possibly slightly worse. Dictated By: Justin Cruz Signed By: Electronically signed by Justin?Nancy 12/10/22 1134 Independent Historian Clinical information obtained from an independent historian. History obtained from or confirmed by: Other (patient's significant other provided additional history and confirmed the history provided by the patient.) External Record Review External record reviewed: Other (reviewed images from 11/23/2022) Discharge Plan Discharge Clinical Impression: Osteoarthritis Patient Disposition: Home, Self-Care Instructions: Osteoarthritis (DC) Additional Instructions: Follow up with your primary care provider and an orthopedic provider. Return to the emergency department immediately if your symptoms worsen or if you develop any dizziness, shortness of breath, difficulty breathing, chest pain, blurry vision, loss of vision, nausea, vomiting, abdominal pain, fever, chills, back pain, or any other complaints. Prescriptions: No Action ibuprofen 800 mg tablet 800 mg PO Q8H PRN (Reason: pain) Qty: 14 0RF oxycodone 5 mg tablet 5 mg PO Q6H PRN (Reason: pain) Qty: 14 0RF Rx Instructions: Partial Fill upon patient request. prednisone 20 mg tablet 40 mg PO DAILY 5 Days Qty: 10 0RF losartan 50 mg tablet 50 mg PO DAILY Qty: 30 0RF Referrals: [facility] [place]] (Call to establish and follow up with a primary care provider. If you already have a primary care provider, please follow up with them.) [facility] [[place] [facility]] (Call to establish and follow up with a primary care provider. If you already have a primary care provider, please follow up with them.) [facility] [[place] [facility]] (Call to establish and follow up with a primary care provider. If you already have a primary care provider, please follow up with them.) [facility] [place] Group] (Follow up with your orthopedic provider.) Stand Alone Forms: Work/School Release Interventions: ED Discharge Assessment Last Done: 12/11/22 13:35 Discharge Date/Time: 12/11/22 13:36 Print Language: Luxembourgish
== END 2022-12-11 13:36 | disposition home or self-care (01) ==
PROVIDERS: Emergency Provider Emergency Medicine
DX: M17.11 Unilateral primary osteoarthritis, right knee (principal); M25.562 Pain in left knee; Z87.891 Personal history of nicotine dependence
CPT/HCPCS: 99282

== ENCOUNTER 2022-12-28 10:45 | Outpatient (AMB) | payer MEDICAID, SELFPAY ==
[2022-12-28 11:06] VITALS: BP 136/79; PULSE 70; BMI 41.7
--- NOTE | 2022-12-28 11:06 | MHC.OFFVIS ---
Intake Vital Signs 12/28/22 11:06 Height 5 ft 4 in Weight 243 lb BMI 41.7 BP 136/79 Blood Pressure Location Rt brachial Position Sitting Pulse 70 Intake Visit Reasons: Skin nodule Intake Note: This patient presents for an assessment for skin nodule. Patient c/o; left clavicle, denies pain, increased in size. Field Assistant Required: No Accompanied by: Other Relationship Allergies No Known Allergies Allergy (Verified 12/11/22 13:24) Medication List - Last Reconciled 12/28/22 by Remington Boo MD amlodipine 5 mg PO QAM cetirizine 10 mg PO QAM lisinopril-hydrochlorothiazide 20-25 mg 1 tab PO QAM HPI Skin nodule HPI Details 47-year-old female referred for a mass on the left clavicular area. She says that he has had this for a couple of years but she feels that this is slowly increasing in size. She denies any pain or discomfort. She denies any skin changes. She denies any trauma to the area. [facility] Medical History (Updated 12/28/22 @ 11:49 by Remington Boo MD) Hypertension Morbid obesity Supraclavicular mass Family History Other Breast cancer Ovarian cancer Prostate cancer Stomach cancer Social History Alcohol intake: current Alcohol intake frequency: holidays/special occasions only Patient Tobacco Use Status: Former Tobacco user Review of Systems Const Denies chills and Denies fever(s) Card Denies chest pain, Denies dyspnea and Denies dyspnea on exertion Resp Denies cough, Denies dyspnea and Denies dyspnea on exertion GI Denies hematochezia and Denies change in bowel habits Denies hematuria Musc Denies back pain and Denies limited range of motion Neuro Denies focal weakness and Denies convulsions Psych Denies depression and Denies mood swings Physical Exam Vital Signs: Last Vital Signs Pulse 70 12/28/22 11:06 BP 136/79 12/28/22 11:06 BMI result Body Mass Index 41.7 Const Other: Appears morbidly obese General: comfortable and no acute distress Orientation/consciousness: patient oriented x3 Neck Other: Movable mass, well-defined in the subcutaneous layer, about 4 cm in diameter on the area of the clavicle, consistent with lipoma Neck: Yes no lymphadenopathy Resp Auscultation: clear to auscultation bilaterally Cardio Rhythm: regular rhythm GI Palpation (GI): Soft to palpation, nontender and no guarding Neuro General: patient oriented x3 Assessment & Plan Assessment & Plan (1) Supraclavicular mass: Code(s): R22.2 - Localized swelling, mass and lump, trunk Plan: 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 This was seen as well on her breast ultrasound. I am going to order for a CAT scan to further define this stoma and its relations with surrounding organs. I will see her again in the office thereafter. Orders: Orders CT soft tissue neck w IV con Today R22.2 - Localized swelling, mass and lump, trunk Blood Urea Nitrogen Today R22.2 - Localized swelling, mass and lump, trunk Creatinine Today R22.2 - Localized swelling, mass and lump, trunk Coding Level of Care Code New Pt Level 3 (32059) Diagnoses Supraclavicular mass R22.2
== END 2022-12-28 11:49 | disposition home or self-care (01) ==
PROVIDERS: PCP Registered Nurse; Visit Provider Surgery
DX: R22.2 Localized swelling, mass and lump, trunk (principal)
CPT/HCPCS: 99203

== ENCOUNTER 2022-12-28 10:45 | Outpatient (REF) | payer MEDICAID, SELFPAY ==
[2022-12-28 14:26] LABS: Blood Urea Nitrogen 21 mg/dL (9-16); Estimated Glomerular Filt Rate 51
== END 2022-12-28 10:46 | disposition home or self-care (01) ==
LOC: HO.LAB 10:45
PROVIDERS: PCP Registered Nurse; Visit Provider Surgery
DX: R22.2 Localized swelling, mass and lump, trunk (principal)
CPT/HCPCS: 36415; 82565; 84520; 99202

== ENCOUNTER 2022-12-30 08:25 | Outpatient (AMB) | payer MEDICAID, SELFPAY ==
--- NOTE | 2022-12-30 08:29 | MHC.OFFVIS ---
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 A pelvic ultrasound done in 11/11/2022 showed the following: Uterus: The uterus is anteverted and anteflexed. The uterus measures 9.5 x 4.9 x 6.0 cm.? Nabothian cysts are seen within the cervix. The double wall endometrial thickness is 1.1 mm. There are endometrial calcifications, the largest measuring 3 mm. The uterus is smooth in contour and has normal myometrial echogenicity. ? No visible fibroid. Adnexa: Both ovaries are visualized. There is normal color flow to the adnexa. There is no ovarian torsion. There is a small amount of free fluid in the right adnexal region. Right ovary measures 3.1 x 1.5 x 1.5 cm, volume 3.6 mL. There are macrocalcifications, the largest measuring 4 mm. Left ovary measures 2.3 x 2.3 x 1.8 cm, volume 5.0 mL. A 1.8 cm in maximal diameter simple, dominant follicle is noted. Last mammogram was BI-RADS 2 on 11/24/2022 Last co testing was negative on 11/10 GC and chlamydia negative on 11/10 PFSH Medical History Hypertension Morbid obesity Supraclavicular mass Surgical History History of ankle surgery History of tonsillectomy Hx of right knee surgery Hx of tubal ligation Family History Maternal Aunt Breast cancer Colon cancer Other Ovarian cancer Prostate cancer Stomach cancer Social History Alcohol intake: current Alcohol intake frequency: holidays/special occasions only Patient Tobacco Use Status: Former Tobacco user Female Reproductive History Menstrual Age of Menarche: 11 Duration of menses: 3-5 days Date of last menstrual period: 12/27/22 control method: permanent sterilization Total pregnancies: 5 Full term: 3 Number of Living Children: 3 Ab spontaneous: 2 Date of Mammogram: 11/24/22 Review of Systems Const All systems reviewed & are unremarkable except as noted in HPI and below Card Reports as per HPI Resp Reports as per HPI GI Reports as per HPI and Reports no additional complaints Reports as per HPI Physical Exam Vital Signs: Last Vital Signs BP 136/90 H 12/30/22 08:31 BMI result Body Mass Index 41.2 Declined but the patient today would like to have physical exam done next visit Const General: cooperative, healthy appearing and comfortable Chest Chest palpation & inspection: normal inspection of the chest and normal palpation of entire chest wall Breast/axilla inspection: normal inspection of the breasts and normal inspection of the axillae Breast/axilla palpation: normal palpation of the breasts, normal palpation of the axillae and no axillary lymphadenopathy Resp Effort & Inspection: normal respiratory effort Auscultation: clear to auscultation bilaterally Percussion: percussion normal Cardio Palpation: normal PMI Rate: regular rate Rhythm: regular rhythm Heart sounds: no murmurs and no rubs Peripheral pulses: Peripheral pulses 2+ throughout GI Inspection: Yes normal to inspection Palpation (GI): Soft to palpation, nontender, no guarding, not rigid and No hepatosplenomegaly present Percussion: Yes normal to percussion Auscultation: normal bowel sounds Rectal Exam - Female: deferred General: Yes bladder normal to palpation External Female Exam: No lesion Speculum Exam - Vagina: normal appearance of the vagina, normal palpation, normal vaginal discharge and not erythematous Speculum Exam - Cervix: normal appearance of the cervix and normal palpation Bimanual exam- vagina & uterus: normal bimanual exam, normal palpation, uterine size normal, bladder normal to palpation, consistency normal and normal palpation Bimanual Exam- Adnexa, other: normal adnexae, no masses and no tenderness Assessment & Plan Assessment & Plan (1) Abnormal uterine bleeding (AUB): Code(s): N93.9 - Abnormal uterine and vaginal bleeding, unspecified Plan: Co testing with GC and chlamydia and pelvic ultrasound recently done, will order CBC, TSH, HCG, FSH LH and practice. Discussed with the patient the different causes of abnormal bleeding including thyroid disorders, uterine and ovarian pathology, endometrial hyperplasia, carcinoma and other potential causes. Discussed with the patient the work up including CBC (to r/o anemia), TSH, pelvic Ultrasound, endometrial biopsy to r/o endometrial pathology. All questions answered and the patient verbalized understanding. Instructed the patient to schedule an appointment for an endometrial biopsy in 2 weeks. (2) Calcification of ovary: Code(s): N83.8 - Other noninflammatory disorders of ovary, fallopian tube and broad ligament Plan: Discussed with the patient the finding on ultrasound showing a right ovarian calcification, differential diagnosis discussed with the patient include but not limited previous ovarian cyst, scar tissue, infections, dermoid cyst or other precancer cancer , will repeat ultrasound check the results and treat accordingly. All questions answered, the patient verbalized understanding Orders: Orders US pelvic and transvaginal 2 Weeks N83.8 - Other noninflammatory disorders of ovary, fallopian tube and broad ligament Follicle Stimulating Hormone Today N93.9 - Abnormal uterine and vaginal bleeding, unspecified HCG Quantitative Today N93.9 - Abnormal uterine and vaginal bleeding, unspecified Lutenizing Hormone Today N93.9 - Abnormal uterine and vaginal bleeding, unspecified Prolactin Today N93.9 - Abnormal uterine and vaginal bleeding, unspecified TSH reflex Free T4 Today N93.9 - Abnormal uterine and vaginal bleeding, unspecified Complete Blood Count no Diff Today N93.9 - Abnormal uterine and vaginal bleeding, unspecified Coding Level of Care Code New Pt Level 3 (96135) Diagnoses Abnormal uterine bleeding (AUB) N93.9 Calcification of ovary N83.8
[2022-12-30 08:31] VITALS: BP 136/90; BMI 41.2
== END 2022-12-30 09:01 | disposition home or self-care (01) ==
LOC: HO.HWS 08:25
PROVIDERS: PCP Registered Nurse; Visit Provider Obstetrics & Gynecology
DX: N93.9 Abnormal uterine and vaginal bleeding, unspecified (principal); N83.8 Other noninflammatory disorders of ovary, fallopian tube and broad ligament
CPT/HCPCS: 99203

== ENCOUNTER 2022-12-30 08:25 | Outpatient (REF) | payer MEDICAID, SELFPAY ==
[2022-12-30 10:46] LABS: Hematocrit 39.8 % (37.0-47.0); Hemoglobin 13.3 g/dl (12.0-16.0); Mean Corpuscular HGB Conc 33.4 g/dl (31.0-35.0); Mean Corpuscular Hemoglobin 28.6 pg (27.0-33.0); Mean Corpuscular Volume 85.6 fL (80.0-98.0); Mean Platelet Volume 9.1 fL (9.4-12.3); Platelet Count 493 X10*3/uL (160-400); Red Blood Count 4.65 X10*6/uL (4.20-5.50); Red Cell Distribution Width 13.6 % (11.0-16.0); White Blood Count 8.4 X10*3/uL (4.8-10.8)
[2022-12-30 11:35] LABS: HCG Quantitative < 2 mIU/mL
[2022-12-30 11:54] LABS: TSH reflex Free T4 2.37 uIU/mL (0.32-4.0)
[2023-01-01 19:44] LABS: Follicle Stimulating Hormone 30.1 mIU/mL; Lutenizing Hormone 9.5 mIU/mL; Prolactin 7.9 ng/mL
== END 2022-12-30 08:26 | disposition home or self-care (01) ==
LOC: HO.LAB 08:25
PROVIDERS: PCP Registered Nurse; Visit Provider Obstetrics & Gynecology
DX: N93.9 Abnormal uterine and vaginal bleeding, unspecified (principal); N83.8 Other noninflammatory disorders of ovary, fallopian tube and broad ligament
CPT/HCPCS: 36415; 83001; 83002; 84146; 84443; 84702; 85027; 99202

== ENCOUNTER 2023-01-06 11:27 | Outpatient (REF) | payer MEDICAID, SELFPAY | END 2023-01-06 11:28 | disposition home or self-care (01) | LOC: HO.HOSX 11:27 | PROVIDERS: Visit Provider Physician Assistant | DX: Z13.89 Encounter for screening for other disorder (principal) ==

== ENCOUNTER 2023-01-06 13:02 | Outpatient (REF) | payer MEDICAID, SELFPAY ==
--- NOTE | ~2023-01-06 | US_ITS ---
EXAMINATION: US PELVIS CLINICAL INFORMATION: There are noninflammatory disorders of ovary, fallopian tube and broad ligament COMPARISON: Pelvic ultrasound 11/06/2022 TECHNIQUE: Ultrasound of the pelvis is performed using both transabdominal and transvaginal transducers along with Doppler. Transvaginal imaging is performed due to inadequate visualization transabdominally. FINDINGS: Uterus: The uterus is heterogeneous, anteverted and measures 8.5 x 4.2 x 4.7 cm. No focal fibroid The endometrial thickness is 0.7 cm The right adnexa is obscured by bowel gas. The right ovary is not seen. Left ovary is normal in appearance measures 2.1 x 1.9 x 1.6 cm. Volume 3.3 mL. US/US pelvic and transvaginal IMPRESSION: 1. Heterogeneous uterus without a focal fibroid. 2. Normal left ovary. 3. The right ovary is not seen.
== END 2023-01-06 13:03 | disposition home or self-care (01) ==
LOC: HO.US 13:02
PROVIDERS: PCP Registered Nurse; Visit Provider Obstetrics & Gynecology
DX: N83.8 Other noninflammatory disorders of ovary, fallopian tube and broad ligament (principal)
CPT/HCPCS: 76830; 76856

== ENCOUNTER 2023-01-12 14:10 | Outpatient (REF) | payer MEDICAID, SELFPAY ==
--- NOTE | ~2023-01-12 | CT_ITS ---
EXAMINATION: CT SOFT TISSUE NECK WITH CONTRAST CLINICAL INFORMATION: 47-year-old with localized swelling, mass and lump, trunk. COMPARISON: None available. TECHNIQUE: Following the intravenous administration of 100 mL of Omnipaque 350 intravenous contrast, helical imaging was performed in the axial plane with generation of coronal and sagittal reformatted images. This CT examination was performed using dose optimization techniques as appropriate, variously including the following: *Automated exposure control *Adjustment of mA and/or kV according to patient size (this includes techniques or standardized protocols for targeted exams where dose is matched to indication/reason for exam; i.e. extremities or head) *Use of iterative reconstruction technique DLP: 349 mGy-cm FINDINGS: Skull Base: Note is made of opacification of the left petrous apex, measuring 1.5 x 1.1 cm transverse dimension, along the medial border of the left carotid canal. Differential diagnostic considerations would include petrous apex inflammatory disease versus cholesterol granuloma. Recommend MRI of the IACs without and with contrast, including fat saturation postcontrast imaging for further assessment. Otherwise, the visualized intracranial soft tissue structures appear grossly unremarkable within the limitations of the exam. The visualized mastoids and middle ear cavities are otherwise clear. There are retained, partially aerosolized secretions in the right frontal sinus and there are a few opacified ethmoid air cells bilaterally, minor mucosal thickening and a tiny retention cyst in the left maxillary sinus. Suprahyoid Neck: The nasopharynx, retropharynx, bench worker apprentice and parapharyngeal spaces appear symmetric and within normal limits, with a normal appearance to the major salivary glands. The visualized oral tongue, base of the tongue and floor of the mouth structures appear symmetric and intact. The sublingual glands appear to enhance normally. There are small, nonenlarged bilateral submandibular space and submental lymph nodes. There are multiple nonenlarged bilateral IJ chain lymph nodes. Infrahyoid Neck: The hypopharynx is suboptimally evaluated but appears grossly within normal limits with a normal appearance to the larynx, within the limitations of the study. Thyroid gland enhances homogenously. Small, nonenlarged bilateral IJ chain lymph nodes are noted. Vascular: There is opacification of the major arterial and venous structures in the neck. Upper Chest: The visualized lung parenchyma appears grossly unremarkable. Slightly prominent fluid in the aortic recess is noted, which is nonspecific. Skeletal: Mild multilevel cervicothoracic spondylosis is noted. Other Comments: None. CT/CT soft tissue neck w IV con IMPRESSION: 1. No soft tissue mass or lymphadenopathy identified in the neck. 2. Lesion of the left petrous apex, as described above. Differential diagnostic considerations would include inflammatory disease, cholesterol granuloma and neoplasia. Recommend MRI of the IACs without and with contrast including fat saturation postcontrast imaging for further assessment. 3. Paranasal sinus inflammatory changes. 4. Slightly prominent mediastinal fluid in the aortic recess, which is nonspecific, but can be a normal variant. 5. Mild multilevel cervicothoracic spondylosis. The [facility] staff will call to confirm receipt of this report with acknowledgement of the findings and any recommendations.
[2023-01-12] MEDS: iohexoL 350 MG/ML 100 ML INFUS..BTL IV (15:22)
== END 2023-01-12 14:11 | disposition home or self-care (01) ==
LOC: HO.CT 14:10
PROVIDERS: PCP Registered Nurse; Visit Provider Surgery
DX: R22.2 Localized swelling, mass and lump, trunk (principal)
CPT/HCPCS: 70491; Q9967

== ENCOUNTER 2023-01-25 11:03 | Outpatient (AMB) | payer MEDICAID, SELFPAY ==
--- NOTE | 2023-01-25 11:17 | MHC.OFFVIS ---
Intake Intake Visit Reasons: Supraclavicular mass, CT results Intake Note: This patient presents for Ct-Scan results for supraclavicular mass. Patient denie complaints at this time. 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 I had sent for a CT scan in view of this. She is here to discuss the findings She denies any new complaints otherwise. She says she feels well overall. [facility] Medical History Hypertension Morbid obesity Supraclavicular mass Surgical History History of ankle surgery History of tonsillectomy Hx of right knee surgery Hx of tubal ligation Family History Maternal Aunt Breast cancer Colon cancer Other Ovarian cancer Prostate cancer Stomach cancer Social History Alcohol intake: current Alcohol intake frequency: holidays/special occasions only Patient Tobacco Use Status: Former Tobacco user Female Reproductive History Menstrual Age of Menarche: 11 Review of Systems Const Denies chills and Denies fever(s) Card Denies chest pain, Denies dyspnea and Denies dyspnea on exertion Resp Denies cough, Denies dyspnea and Denies dyspnea on exertion GI Denies hematochezia and Denies change in bowel habits Denies hematuria Musc Denies back pain and Denies limited range of motion Neuro Denies focal weakness and Denies convulsions Psych Denies depression and Denies mood swings Physical Exam Const Other: Obese General: comfortable and no acute distress HEENT Other: Soft mobile, well-defined mass on the left supraclavicular area, seems to be a lipoma Resp Effort & Inspection: normal respiratory effort Auscultation: clear to auscultation bilaterally Cardio Rate: regular rate GI Palpation (GI): Soft to palpation, not firm and nontender Assessment & Plan Assessment & Plan (1) Supraclavicular mass: Code(s): R22.2 - Localized swelling, mass and lump, trunk Plan: She has this palpable mass on the left supraclavicular area that seems to be a large subcutaneous lipoma. This is not seen on the CT scan.? Her CAT scan however shows a lesion on the left petrous apex which may be an inflammatory process, granuloma, or neoplasia. The radiologist had recommended an MRI so I am going to order for this. I will see her in the office to discuss the findings thereafter. She understands the plan well. We will hold off on excision of this supraclavicular mass for now. Coding Level of Care Code Est Pt Level 3 (11905) Diagnoses Supraclavicular mass R22.2
== END 2023-01-25 11:27 | disposition home or self-care (01) ==
PROVIDERS: PCP Registered Nurse; Visit Provider Surgery
DX: R22.2 Localized swelling, mass and lump, trunk (principal)
CPT/HCPCS: 99213

== ENCOUNTER → 2023-01-25 11:03 | Outpatient (BNVA) | payer MEDICAID, SELFPAY | PROVIDERS: PCP Registered Nurse; Visit Provider Surgery | DX: R22.2 Localized swelling, mass and lump, trunk (principal) | CPT/HCPCS: 99212 ==

== ENCOUNTER 2023-03-19 13:09 | Outpatient (REF) | payer MEDICAID, SELFPAY ==
--- NOTE | ~2023-03-19 | MR_ITS ---
EXAMINATION: MR BRAIN WITHOUT AND WITH CONTRAST CLINICAL INFORMATION: Lesion of the left petrous apex. COMPARISON: CT neck from 01/12/2023. TECHNIQUE: Multiplanar, multisequence MRI of the brain was obtained using a skull base protocol without and following the administration of 7.5 mL of Gadavist intravenous contrast. FINDINGS: There is nonenhancing opacification of the left petrous apex with material that is T1 isointense and T2 hyperintense with partial loss of signal on fat-saturated imaging, measuring 1.9 x 1.3 x 1.3 cm. No associated restricted diffusion. No focal restricted diffusion is demonstrated to suggest acute or subacute cerebral ischemia. No evidence of acute or chronic hemorrhagic products on heme-sensitive imaging. Normal parenchymal signal characteristics. The ventricles are normal in morphology and size. No abnormal mass effect. No midline shift. Normal appearance of the pituitary gland. Normal positioning of the cerebellar tonsils. No mass of the cerebellopontine angles. Normal appearance of the cranial nerve V, VII, and VIII nerve roots. No edema or vascular loops near the nerve root entry sites. Normal appearance of the internal auditory canals without enhancing mass lesions. No abnormal enhancement along the course of the facial nerves bilaterally. Normal appearance of the labyrinthine structures without loss of T2 signal or abnormal enhancement. Normal arterial and venous vascular flow voids are present. No abnormal intracranial contrast enhancement. Normal, homogeneous marrow signal. Mild mucosal thickening of the paranasal sinuses. No additional signal abnormalities within the mastoids. MR/MR head/brain wo/w con IMPRESSION: 1. Nonenhancing opacification of the left petrous apex with material that is T1 isointense and T2 hyperintense with partial loss of signal on fat-saturated imaging. 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 2. No acute intracranial abnormalities. No abnormal intracranial enhancement. 3. No additional MRI abnormalities to explain the patient's symptoms.
== END 2023-03-19 13:10 | disposition home or self-care (01) ==
LOC: HO.MRI 13:09
PROVIDERS: PCP Registered Nurse; Visit Provider Surgery
DX: R93.89 Abnormal findings on diagnostic imaging of other specified body structures (principal)
CPT/HCPCS: 70553

== ENCOUNTER → 2023-03-31 12:07 | Outpatient (BNVA) | payer MEDICAID, SELFPAY | PROVIDERS: PCP Registered Nurse; Visit Provider Surgery ==

== ENCOUNTER 2023-04-27 10:46 | Outpatient (AMB) | payer MEDICAID, SELFPAY ==
--- NOTE | 2023-04-27 10:55 | A.OFFVIS_ITS ---
Intake Vital Signs 04/27/23 10:56 Height 5 ft 4 in Weight 239 lb BMI 41.0 BP 144/89 H Blood Pressure Location Lt brachial Position Sitting Pulse 83 Intake Visit Reasons: Colonoscopy Screening Intake Note: Patient new consult for 2nd pre colonoscopy screening. Patient cc: abdominal pain with bloating, acid reflex ?? or heartburn on and off, last week she get shock with rice and between loose and hard stool. 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 However she has not had any further she alternating bowel pattern- stressed out- with her job. With works as [employer]- appetite is good- Son 27 y/o- has Crohns- fistula Mat aunt @ 50 colon cancer No nausea, vomiting, hematemesis, hematochezia fever chills She has no respiratory or cardiac issues [facility] Medical History (Updated 04/27/23 @ 11:48 by Ana Velasco PA-C) Cholesterol granuloma Abnormal CT scan Hypertension Morbid obesity Supraclavicular mass Surgical History History of tonsillectomy History of ankle surgery Hx of right knee surgery Hx of tubal ligation Family History Maternal Aunt Breast cancer Colon cancer Son Crohn's disease of both small and large intestine with fistula Other Ovarian cancer Prostate cancer Stomach cancer Social History (Updated 04/27/23 @ 11:27 by Ana Velasco PA-C) Household Members Other:: 3 kids Alcohol intake: current Alcohol intake frequency: holidays/special occasions only Patient Tobacco Use Status: Former Tobacco user Current occupational status: employed Current occupation: [employer] Female Reproductive History Menstrual Age of Menarche: 11 Review of Systems Const All systems reviewed & are unremarkable except as noted in HPI and below Card Denies chest pain and Denies dyspnea Resp Denies dyspnea GI Denies abdominal pain, Denies heartburn, Denies nausea, Denies vomiting and Reports other (ibs) Physical Exam Vital Signs: Last Vital Signs Pulse 83 04/27/23 10:56 BP 144/89 H 04/27/23 10:56 BMI result Body Mass Index 41.0 Const General: cooperative, healthy appearing, comfortable and no acute distress Orientation/consciousness: patient oriented x3 Limitations: no limitations Eyes Conjunctivae: conjunctival abnormal (injected- no drainage) bilateral Resp Effort & Inspection: normal respiratory effort and able to speak in complete sentences Auscultation: clear to auscultation bilaterally, no rales, no rhonchi and no wheezes Cardio Rate: regular rate Rhythm: regular rhythm Heart sounds: S1 normal heart sound present and S2 normal heart sound present GI Palpation (GI): Soft to palpation and nontender Auscultation: normal bowel sounds Skin General skin exam: no rashes or lesions noted Neuro General: patient oriented x3 Extrem General: Yes full ROM Psych Appearance: grossly normal and well kempt Mental Status: mental status grossly normal Speech and movement: Normal speech and movement present and Clear speech present Affect: normal affect Attitude: cooperative Thought process: Normal thought process present Thought content: Normal thought content present Insight: Good insight present (Psych) Judgement: Good judgement present (Psych) Assessment & Plan Assessment & Plan (1) Family history of colon cancer: Comment: Maternal aunt 50s Code(s): Z80.0 - Family history of malignant neoplasm of digestive organs (2) Family history of Crohn's disease: Comment: Son 27-fistulizing Crohn Code(s): Z83.79 - Family history of other diseases of the digestive system (3) Encounter for screening colonoscopy: Comment: History of rectal bleeding many years ago none further, likely hemorrhoid discussed procedure- rare risks, need for escort, prep Code(s): Z12.11 - Encounter for screening for malignant neoplasm of colon Plan Colonoscopy MG prep Orders: Orders Colonoscopy - GI Use Only Today Z12.11 - Encounter for screening for malignant neoplasm of colon, Z80.0 - Family history of malignant neoplasm of digestive organs, Z83.79 - Family history of other diseases of the digestive system Medications: New polyethylene glycol 3350 (Miralax) Take as directed by mouth the day before your procedure. 238 grams PO ONCE 1 day PRN 238 grams 0RF laxative effect bisacodyl (Dulcolax (bisacodyl)) Day before procedure, prep day Take 4 tablets by mouth upon awakening followed by large glass of water 20 mg (4 x 5 mg) PO ONCE 1 day 4 tabs 0RF colonoscopy prep Z12.11 - Encounter for screening for malignant neoplasm of colon Patient Instructions: Very pleasant 47-year-old female referred for screening colonoscopy. Family history internal on colon cancer, son 27 with fistulizing Crohn's. Aside from alternating stool pattern she has no GI complaints She will be scheduled for Colonoscopy Discussed procedure, rare risks, need for escorted due to anesthesia MG prep- literature given Encouraged to call questions or concerns Coding Level of Care Code New Pt Level 3 (98399) Diagnoses Family history of colon cancer Z80.0 Family history of Crohn's disease Z83.79 Encounter for screening colonoscopy Z12.11 Time Spent (min) 30
[2023-04-27 10:56] VITALS: BP 144/89; PULSE 83; BMI 41.0
== END 2023-04-27 11:44 | disposition home or self-care (01) ==
PROVIDERS: PCP Registered Nurse; Visit Provider Physician Assistant
DX: Z80.0 Family history of malignant neoplasm of digestive organs (principal); Z83.79 Family history of other diseases of the digestive system; Z12.11 Encounter for screening for malignant neoplasm of colon
CPT/HCPCS: 99203

== ENCOUNTER → 2023-04-27 10:46 | Outpatient (BNVA) | payer MEDICAID, SELFPAY | PROVIDERS: PCP Registered Nurse; Visit Provider Physician Assistant | DX: Z12.11 Encounter for screening for malignant neoplasm of colon (principal); Z80.0 Family history of malignant neoplasm of digestive organs; Z83.79 Family history of other diseases of the digestive system | CPT/HCPCS: 99212 ==

== ENCOUNTER 2023-06-03 13:18 | Outpatient (AMB) | payer MEDICAID, SELFPAY ==
--- NOTE | 2023-06-03 13:24 | A.OFFVIS_ITS ---
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 (Aidyn) Allergies No Known Allergies Allergy (Verified 06/03/23 13:34) Is last menstrual period known: Yes Last menstrual period: 05/08/23 Post menopausal: No HPI HPI Comments History of Present Illness Details Presenting for endometrial biopsy PFSH Medical History Cholesterol granuloma Abnormal CT scan Hypertension Morbid obesity Supraclavicular mass Surgical History History of tonsillectomy History of ankle surgery Hx of right knee surgery Hx of tubal ligation Family History Maternal Aunt Breast cancer Colon cancer Son Crohn's disease of both small and large intestine with fistula Other Ovarian cancer Prostate cancer Stomach cancer Social History Household Members Other:: 3 kids Alcohol intake: current Alcohol intake frequency: holidays/special occasions only Patient Tobacco Use Status: Former Tobacco user Current occupational status: employed Current occupation: [employer] Female Reproductive History Menstrual Age of Menarche: 11 Date of last menstrual period: 05/08/23 control method: permanent sterilization Review of Systems Const All systems reviewed & are unremarkable except as noted in HPI and below Reports as per HPI and Reports no additional complaints GI Reports no additional complaints Reports no additional complaints Physical Exam Vital Signs: Last Vital Signs BP 124/86 06/03/23 13:26 BMI result Body Mass Index 42.2 Office Procedures Endometrial Biopsy Details: The patient was counseled regarding the indication and benefits of endometrial sampling to rule out endometrial pathology including not limited to endometrial hyperplasia or endometrial cancer and others; The alternatives (Either do nothing vs. hysteroscopy D&C) & the risks were discussed with the patient including but not limited: pain, uterine perforation, bleeding, infection, possible injury to bladder, bowel, ureter, possible need for blood transfusion with all its possible risks. The patient verbalized understanding all questions answered and signed consent. Urine test done in the office was negative The patient was placed into the dorsal lithotomy position; a speculum was inserted in the vagina. Using aseptic technique for the procedure, the cervix was cleansed with Betadine. The anterior lip of the cervix was grasped with a single tooth tenaculum. The uterus was sounded to 7 cm with a 4 mm Pipelle was used. Tissues samples were obtained and placed in formalin, in a patient labeled container and sent to the pathology department. At the end of the procedure, there was minimal bleeding noted The patient tolerated the procedure well and was discharged in good condition with the following instructions: Nothing in the vagina until the bleeding stops. No sex until the bleeding stops, to call if any of the following occurs: fever (>100.4), flu-like symptoms, abdominal pain, heavy bleeding, four smelling vaginal discharge. The patient was instructed to schedule a Follow up appointment in 2 weeks to discuss pathology results of the biopsy and treatment options. This note was generated with a voice recognition program. Some errors may have been overlooked during the review of this note. Sometimes these errors may affect the content or meaning of a given sentence. [id number] Biopsy Assessment & Plan Assessment & Plan (1) Abnormal uterine bleeding (AUB): Code(s): N93.9 - Abnormal uterine and vaginal bleeding, unspecified Plan: EMB done, see procedure note Orders: Orders AMB Endometrial Biopsy Today N93.9 - Abnormal uterine and vaginal bleeding, unspecified Coding Level of Care Code Procedure Only Diagnoses Abnormal uterine bleeding (AUB) N93.9 CPT Codes Endometrial Biopsy - CPT: 01871-[id number] Biopsy ([id number])
[2023-06-03 13:26] VITALS: BP 124/86; BMI 42.2
== END 2023-06-03 15:09 | disposition home or self-care (01) ==
PROVIDERS: PCP Registered Nurse; Visit Provider Obstetrics & Gynecology
DX: Z32.02 Encounter for pregnancy test, result negative (principal); N93.9 Abnormal uterine and vaginal bleeding, unspecified
CPT/HCPCS: 58100

== ENCOUNTER 2023-06-03 13:18 | Outpatient (REF) | payer MEDICAID, SELFPAY | END 2023-06-03 13:19 | disposition home or self-care (01) | LOC: HO.LNP 13:18 | PROVIDERS: PCP Registered Nurse; Visit Provider Obstetrics & Gynecology | DX: N93.9 Abnormal uterine and vaginal bleeding, unspecified (principal) | CPT/HCPCS: 58100; 81025; 88305 ==

== ENCOUNTER 2023-08-25 12:25 | Outpatient (AMB) | payer MEDICAID, SELFPAY ==
[2023-08-25 12:28] VITALS: BP 126/78; BMI 42.2
--- NOTE | 2023-08-25 12:28 | MHC.OFFVIS ---
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 The patient has been struggling with weight loss and is requesting referral to a weight management program. The following workup was done.: H&H= 13.3/39.8 TSH, prolactin, hCG, GC were negative FSH 30.1 in the menopausal range, LH 9.5. Endometrial biopsy pathology showed benign proliferative endometrium with no evidence of hyperplasia and/or malignancy. Co testing was done in 11/10 [facility] was negative. Mammogram was BI-RADS 2 in 12/11. Pelvic ultrasound done in 12/11 showed the following: Uterus: The uterus is heterogeneous, anteverted and measures 8.5 x 4.2 x 4.7 cm. No focal fibroid The endometrial thickness is 0.7 cm The right adnexa is obscured by bowel gas. The right ovary is not seen. Left ovary is normal in appearance measures 2.1 x 1.9 x 1.6 cm. Volume 3.3 mL. [facility] Medical History Cholesterol granuloma Abnormal CT scan Hypertension Morbid obesity Supraclavicular mass Surgical History History of tonsillectomy History of ankle surgery Hx of right knee surgery Hx of tubal ligation Family History Maternal Aunt Breast cancer Colon cancer Son Crohn's disease of both small and large intestine with fistula Other Ovarian cancer Prostate cancer Stomach cancer Social History Household Members Other:: 3 kids Alcohol intake: current Alcohol intake frequency: holidays/special occasions only Patient Tobacco Use Status: Former Tobacco user Patient : No Current occupational status: employed Current occupation: [employer] Female Reproductive History Menstrual Age of Menarche: 11 Date of last menstrual period: 08/08/23 Review of Systems Const All systems reviewed & are unremarkable except as noted in HPI and below Reports as per HPI and Reports no additional complaints GI Reports no additional complaints Reports no additional complaints Physical Exam Vital Signs: Last Vital Signs BP 126/78 08/25/23 12:28 BMI result Body Mass Index 42.2 Assessment & Plan Assessment & Plan (1) Abnormal uterine bleeding (AUB): Code(s): N93.9 - Abnormal uterine and vaginal bleeding, unspecified Plan: Discussed with the patient the results of the work up done and options of treatment including Lysteda, BCP's, Mirena IUD, endometrial ablation and hysterectomy. All pros, cons, risks and benefits if each option was discussed with the patient and the patient decided to think about it and get back to us. All questions answered the patient verbalized understanding. (2) Morbid obesity: Code(s): E66.01 - Morbid (severe) obesity due to excess calories Plan: Since the patient has been struggling with weight loss and is interested in enrolling in a weight management program will refer to bariatric surgery Orders: Referrals Bariatric Surgery Referral E66.01 - Morbid (severe) obesity due to excess calories Coding Level of Care Code Est Pt Level 3 (96716) Diagnoses Abnormal uterine bleeding (AUB) N93.9 Morbid obesity E66.01
== END 2023-08-25 12:43 | disposition home or self-care (01) ==
LOC: HO.HWS 12:26
PROVIDERS: PCP Registered Nurse; Visit Provider Obstetrics & Gynecology
DX: N93.9 Abnormal uterine and vaginal bleeding, unspecified (principal); E66.01 Morbid (severe) obesity due to excess calories
CPT/HCPCS: 99213

== ENCOUNTER → 2023-08-25 12:25 | Outpatient (BNVA) | payer MEDICAID, SELFPAY | PROVIDERS: PCP Registered Nurse; Visit Provider Obstetrics & Gynecology | DX: N93.9 Abnormal uterine and vaginal bleeding, unspecified (principal); E66.01 Morbid (severe) obesity due to excess calories; Z68.41 Body mass index [BMI] 40.0-44.9, adult | CPT/HCPCS: 99212 ==

== ENCOUNTER 2023-08-31 10:58 | Day surgery (SDC) | payer MEDICAID, SELFPAY ==
[2023-08-31 12:50] VITALS: BP 110/64; PULSE 74; RESP 16; TEMP 36.3; O2SAT 98
--- NOTE | 2023-08-31 13:25 | W.PM.OPN ---
Operative Note Operative Note Date of Service: 08/31/23 Narrative: Operative Information Procedure Description: Colonoscopy Indication: screening Anesthesia: MAC COLONOSCOPY Instrument: Olympus variable stiffness pediatric scope 190L Colonoscopy Monitoring: Vital signs and clinical assessment, continuous EKG monitoring, Pulse oximetry, Carbon Dioxide monitoring and blood pressure monitoring were done throughout the procedure. Colon withdrawal time was 14 minutes. Procedure: The patient was placed in the left lateral decubitis position and pre-procedure medications were administered. After a digital rectal examination of the ano-rectum, the video colonoscope was inserted into the rectum and advanced through the colon to the cecum/TI. The colonoscope was slowly withdrawn in a retrograde panoramic fashion and the colon mucosa was carefully examined including a retroflexed view of the rectum. Findings and interventions are described below. Procedure Difficulty: easy Findings: Terminal Ileum-normal Cecum:normal Ascending Colon: normal Transverse Colon - 10 mm sessile polyp removed with cold snare Descending Colon:normal Sigmoid Colon: moderate diverticulosis including inverted tics, 10 mm sessile polyp removed from rectosigmoid junction Rectum: Retroflexion with small internal hemorrhoids seen, grade I Anorectum - normal Intervention: cold snare polypectomy Colon preparation: [place] Bowel Preparation Scale Right colon; 3 Transverse colon: 3 Left colon; 2 (0 = Unprepared colon segment with mucosa not seen due to solid stool that cannot be cleared. 1 = Portion of mucosa of the colon segment seen, but other areas of the colon segment not well seen due to staining, residual stool and/or opaque liquid. 2 = Minor amount of residual staining, small fragments of stool and/or opaque liquid, but mucosa of colon segment seen well. 3 = Entire mucosa of colon segment seen well with no residual staining, small fragments of stool or opaque liquid) Impression and Post Procedure Diagnosis: diverticulosis colon polyps internal hemorrhoids Plan: High fiber diet leaflet Avoid straining at stool, epsom salts and sitz bath, anusol supps or cream Repeat Colonoscopy in 4-5 years due to polyps or earlier if clinically indicated Above findings were reviewed with the patient and relevant handouts were provided if indicated.
--- NOTE | 2023-08-31 13:25 | MHC.SHP ---
Pre-Procedural Eval Section A - 24 Hr Update-Section A only Date of Service: 08/31/23 Section B - Complete if H&P > 30 days Chief Complaint: Family history of malignant neoplasm of digestive Details of Present Illness: maternal aunt CRC Relevant Family History (Specify if Yes): Yes Relevant Social History: None Present Medications: see Short Stay Collaborative assessment Medical History: Significant History (Cholesterol granuloma Abnormal CT scan Hypertension Morbid obesity Supraclavicular mass) History of Previous Operations: Relevant previous surgery/procedure and date(s) ( History of tonsillectomy History of ankle surgery Hx of right knee surgery Hx of tubal ligation) Allergies: Allergies Allergy/AdvReac Type Severity Reaction Status Date / Time No Known Allergies Allergy Verified 08/25/23 12:29 Review of Systems Sugical H&P ROS: Negative: Constitution, Cardiovascular, Respiratory, Neurological, Psychiatric, Hem-Onc, Allergic/Immunologic, Gastrointestinal, Genitourinary, Musculoskeletal, Integumentary, Endocrine and Eyes/Ears/Nose/Throat Exam Surgical H&P Exam: Normal: HEENT, Normal: Heart, Normal: Lungs, Normal: Extremities, Normal: Abdomen, Normal: Skin and Normal: Neurological Plan Diagnosis/Plan: Unchanged I have reviewed the history and physical and performed a pertinent physical examination on my patient. No changes have occurred unless specified. Time Spent With Patient Time: Total time managing care of this patient today ____ minutes.
--- NOTE | 2023-08-31 13:31 | HO.ANESPROP2 ---
HPI - Anesthesia Eval Consult details Narrative: for colon PMFSH Active Problems Active Problems: All Active Problems (Updated 04/27/23 @ 11:48 by Ana Velasco PA-C) Encounter for screening colonoscopy (Acute) Family history of Crohn's disease (Acute) Family history of colon cancer (Acute) Cholesterol granuloma (Acute) Abnormal CT scan (Acute) Calcification of ovary (Acute) Abnormal uterine bleeding (AUB) (Acute) Hypertension (Acute) Morbid obesity (Acute) Supraclavicular mass (Acute) Past Medical History Medical History Cholesterol granuloma Abnormal CT scan Hypertension Morbid obesity Supraclavicular mass Family History Family History Maternal Aunt Breast cancer Colon cancer Son Crohn's disease of both small and large intestine with fistula Other Ovarian cancer Prostate cancer Stomach cancer Family history of problems with anesthesia: No Surgical History Surgical History History of tonsillectomy History of ankle surgery Hx of right knee surgery Hx of tubal ligation History of Problems with Anesthesia: Yes Social History Social History Household Members Other:: 3 kids Alcohol intake: current Alcohol intake frequency: does not drink Patient Tobacco Use Status: Current someday Tobacco user Tobacco use type: Smokeless Tobacco Second Hand Smoke Exposure: No Use of substances other than those prescribed or required for medical reasons: No Are you DNR?: No Advance Directives: No Advance Directives Information Provided: Yes Advance Directives on File: No Current occupational status: employed Current occupation: [employer] Allergies Allergy/AdvReac Type Severity Reaction Status Date / Time No Known Allergies Allergy Verified 08/25/23 12:29 Home Medications Medication Instructions Recorded Confirmed Last Taken Type amlodipine 5 mg tablet 5 mg PO QAM 12/28/22 03/31/23 Unknown History lisinopril 20 1 tab PO QAM 12/28/22 03/31/23 Unknown History mg-hydrochlorothiazide 25 mg tablet Exam Height,Weight and Vital Signs: Height 5 ft 4 in Weight 116.318 kg Last Vital Signs Temp 97.4 F 08/31/23 12:50 Pulse 74 08/31/23 12:50 Resp 16 08/31/23 12:50 BP 110/64 08/31/23 12:50 Pulse Ox 98 08/31/23 12:50 O2 Del Method Room Air 08/31/23 12:50 Airway Mallampati Class: II TM Dist: >3cm Neck ROM: Full Heart: rrr Lungs: cta Assessment and Plan Assessment Anesthesia Assessment: Anesthesia Plan Discussed, Smoking Cess. Discussed (vapes) and Chart Reviewed Final Anesthetic Review Family History of Problems with Anesthesia: No History of Problems with Anesthesia: Yes NPO: Yes ASA Class: III Final Preanesthetic Review: No Changes in Pt Med Stat, Meds/Allgs Chart Reviewed, Consent Obtained/Reviewed and Anes Risks/Benef Reviewed Patient Risk: Intermediate Procedure Risk: Low Anesthetic Plan Anesthetic Plan: MAC: Disposition: Standard PACU
[2023-08-31 14:04] VITALS: BP 134/78; PULSE 94; RESP 18; TEMP 36; O2SAT 100
[2023-08-31 14:19] VITALS: BP 129/83; PULSE 85; RESP 18; TEMP 36.4; O2SAT 100
== END 2023-08-31 14:40 | disposition home or self-care (01) ==
PROVIDERS: PCP Nurse Practitioner Family; Visit Provider Internal Medicine Gastroenterology
PROC: 0DJD8ZZ Inspection of Lower Intestinal Tract, Via Natural or Artificial Opening Endoscopic (ICD-10-PCS; CPT 45378; principal; 2023-08-31 14:00)
DX: Z12.11 Encounter for screening for malignant neoplasm of colon (principal); K63.5 Polyp of colon; K62.1 Rectal polyp; K57.30 Diverticulosis of large intestine without perforation or abscess without bleeding; K64.0 First degree hemorrhoids; Z83.79 Family history of other diseases of the digestive system; I10 Essential (primary) hypertension; E66.9 Obesity, unspecified; Z68.41 Body mass index [BMI] 40.0-44.9, adult; Z87.891 Personal history of nicotine dependence; Z79.899 Other long term (current) drug therapy
CPT/HCPCS: 45385; 88305; J2704

== ENCOUNTER → 2023-08-31 10:58 | Outpatient (BNV) | payer MEDICAID, SELFPAY | PROVIDERS: PCP Nurse Practitioner Family; Visit Provider Internal Medicine Gastroenterology | DX: Z12.11 Encounter for screening for malignant neoplasm of colon (principal); K63.5 Polyp of colon; K57.90 Diverticulosis of intestine, part unspecified, without perforation or abscess without bleeding; K64.8 Other hemorrhoids | CPT/HCPCS: 45385 ==

== ENCOUNTER 2023-09-01 17:40 | Emergency (ER) | payer MEDICAID, SELFPAY ==
--- NOTE | ~2023-09-01 | CT_ITS ---
EXAMINATION: CT head/brain wo IV con CLINICAL INFORMATION: Reason for Exam Headache COMPARISON: MRI of the brain with and without contrast 03/19/2023 TECHNIQUE: Contiguous axial imaging was performed from the skull base to vertex without intravenous contrast. Sagittal and coronal reformatted images were obtained. This CT examination was performed using dose optimization techniques as appropriate, variously including the following: * Automated exposure control * Adjustment of mA and/or kV according to patient size (this includes techniques or standardized protocols for targeted exams where dose is matched to indication/reason for exam; i.e. extremities or head) Use of iterative reconstruction technique DLP: 609 mGy-cm FINDINGS: No acute osseous or soft tissue abnormality. The mastoid air cells and visualized portions of the paranasal sinuses are well aerated. Stable left petrous apex opacification. There is no evidence of acute intracranial hemorrhage or territorial infarction. No abnormal mass effect or midline shift is seen. Connolly to white matter differentiation is well preserved. No extra-axial fluid collections are identified. No hydrocephalus. No significant volume loss. There is no abnormal attenuation within the brain parenchyma. CT/CT head/brain wo IV con IMPRESSION: 1. No acute intracranial abnormality including hemorrhage, mass effect, hydrocephalus, or acute territorial edematous infarction. 2. Stable opacification of the left petrous apex which may reflect proteinaceous trapped fluid or cholesterol granuloma as characterized on prior MRI
[2023-09-01 18:10] VITALS: BP 142/93; PULSE 108; RESP 16; TEMP 36.6; O2SAT 98; BMI 42.0
--- NOTE | 2023-09-01 18:18 | ED.HA ---
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 had MRI 03/13 been followed by ENT nonsurgical not likely causing the headache no hearing deficit Related Data Home Medications Medication Instructions Recorded Confirmed amlodipine 5 mg tablet 5 mg PO QAM 12/28/22 03/31/23 lisinopril 20 1 tab PO QAM 12/28/22 03/31/23 mg-hydrochlorothiazide 25 mg tablet Previous Rx's Medication Instructions Recorded bisacodyl 5 mg tablet,delayed 20 mg (4 x 5 mg) PO ONCE 1 day #4 08/26/23 release (Dulcolax (bisacodyl)) tabs polyethylene glycol 3350 17 238 g PO ONCE 1 day #238 grams 08/26/23 gram/dose oral powder (Miralax) dfwmsatxpw-laqnekqzxbrhs-wmvjxqra 1 tab PO Q6H PRN haeadace #20 tabs 09/01/23 50 mg-325 mg-40 mg tablet Allergies Allergy/AdvReac Type Severity Reaction Status Date / Time No Known Allergies Allergy Verified 08/25/23 12:29 Review of Systems Review of Systems: Yes all other systems are reviewed and are negative PMFSH Past Medical History Medical History Cholesterol granuloma Abnormal CT scan Hypertension Morbid obesity Supraclavicular mass Surgical History History of tonsillectomy History of ankle surgery Hx of right knee surgery Hx of tubal ligation Family History Family History Maternal Aunt Breast cancer Colon cancer Son Crohn's disease of both small and large intestine with fistula Other Ovarian cancer Prostate cancer Stomach cancer Social History Social History Household Members Other:: 3 kids Alcohol intake: current Alcohol intake frequency: a few times a month Alcohol type: wine Patient Tobacco Use Status: Current someday Tobacco user Tobacco use type: Smokeless Tobacco Second Hand Smoke Exposure: No Current occupational status: employed Current occupation: [employer] Physical Exam Vital Signs: Vital Signs: Last Vital Signs Temp 98.1 F 09/01/23 22:15 Pulse 96 09/01/23 22:15 Resp 16 09/01/23 22:15 BP 134/68 09/01/23 22:15 Pulse Ox 100 09/01/23 22:15 O2 Del Method Room Air 09/01/23 22:15 BMI result Body Mass Index 42.0 Appearance: Alert. Oriented X3. No acute distress. Eyes: PERRLA, No Nystagmus ENT: Pharynx normal. Oral Mucosa moist no temporal artery tenderness no sinus tenderness Neck: Normal inspection. Neck supple. CVS: Normal heart rate and rhythm. Pulses normal. Respiratory: No respiratory distress. Equal air entry bilateral, no wheezing/rales/rhonchi Abdomen: Soft and nontender. Bowel sounds are present, no mass palpable, no CVA tenderness Skin: Skin warm and dry. Normal skin color. Normal skin turgor. Extremities: No lower extremity edema. No calf tenderness Neuro: Oriented X 3. No motor deficit. No sensory deficit.No cerebellar signs , cranial nerves II-XII intact Course Course Course Narrative: Patient complains of a left-sided headache over the last several weeks which has become persistent She associates it with a lipoma in her neck which was scanned by Dr. 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 As her headache symptoms over the last several weeks are new CT scan is ordered This is rapid medical exam done in triage pending full evaluation and dispo by ER provider Medical Decision Making Medical Decision Making MDM Narrative: Patient left-sided headache likely complex migraine CT scan negative for acute unlikely temporal arteritis will discharge patient home on [facility] Differential Diagnosis Differential Diagnoses: The differential diagnosis associated with the presentation includes As above Independent Interpretation I performed an independent interpretation of an: CT Scan Radiology Impression Discussion of test interpretation with radiology: I have reviewed the radiologist's reading. Radiologist Impression: CT/CT head/brain wo IV con IMPRESSION: 1. No acute intracranial abnormality including hemorrhage, mass effect, hydrocephalus, or acute territorial edematous infarction. 2. Stable opacification of the left petrous apex which may reflect proteinaceous trapped fluid or cholesterol granuloma as characterized on prior MRI Discharge Plan Discharge Clinical Impression: Headache Patient Disposition: Home, Self-Care Instructions: General Headache (ED) Additional Instructions: Your cause of headache is not clear possible complex migraine CT scan did not show any acute change Take medication for headache as prescribed and follow-up with PCP Prescriptions: New emvvhbomkt-tyohttbvszjah-umej 50-325-40 mg tablet 1 tab PO Q6H PRN (Reason: haeadace) Qty: 20 0RF No Action bisacodyl [Dulcolax (bisacodyl)] 5 mg tablet,delayed release (DR/EC) 20 mg PO ONCE 1 Days Qty: 4 0RF Rx Instructions: take at noon the day before colonoscopy polyethylene glycol 3350 [Miralax] 17 gram/dose powder 238 g PO ONCE 1 Days Qty: 238 0RF Rx Instructions: Take as directed by mouth the day before your procedure. amlodipine 5 mg tablet 5 mg PO QAM lisinopril-hydrochlorothiazide 20-25 mg tablet 1 tab PO QAM
[2023-09-01 20:18] VITALS: BP 133/88; PULSE 87; RESP 16; TEMP 36.7; O2SAT 99
[2023-09-01 22:15] VITALS: BP 134/68; PULSE 96; RESP 16; TEMP 36.7; O2SAT 100
[2023-09-01] MEDS: Ondansetron ODT 4 MG TAB.RAPDIS TRANSLINGU (23:46)
[2023-09-01] MEDS: Butalb/Acetamin/Caff 50/325/40 TABLET 1 TAB PO (23:46)
[2023-09-02 00:02] VITALS: BP 143/78; PULSE 89; RESP 16; TEMP 36.7; O2SAT 100
== END 2023-09-02 00:56 | disposition home or self-care (01) ==
PROVIDERS: Emergency Provider Internal Medicine; PCP Nurse Practitioner Family
DX: R51.9 Headache, unspecified (principal); F17.200 Nicotine dependence, unspecified, uncomplicated; Z71.6 Tobacco abuse counseling; Z79.899 Other long term (current) drug therapy
CPT/HCPCS: 70450; 99284

== ENCOUNTER 2023-10-20 11:36 | Outpatient (REF) | payer MEDICAID, SELFPAY ==
[2023-10-20 13:09] LABS: Estimated Average Glucose 123 mg/dL; Hemoglobin A1c % 5.9 % (<6.0)
== END 2023-10-20 11:37 | disposition home or self-care (01) ==
LOC: HO.HHCL 11:36
PROVIDERS: Visit Provider Advanced Practice Midwife
DX: R09.89 Other specified symptoms and signs involving the circulatory and respiratory systems (principal)
CPT/HCPCS: 36415; 83036

== ENCOUNTER 2023-11-19 12:38 | Outpatient (REF) | payer MEDICAID, SELFPAY ==
--- NOTE | ~2023-11-19 | MM_ITS ---
EXAMINATION: MM SCREENING DIGITAL BREAST TOMOSYNTHESIS, BILATERAL CLINICAL INFORMATION: Screening. Asymptomatic. The patient reports that she has had bilateral nipple surgery for cancer in the past. COMPARISON: Mammography: This study is compared with prior exams dating back to 2022. TECHNIQUE: Digital breast tomosynthesis is performed in both the craniocaudal and mediolateral oblique views along with computer-aided detection (CAD). Synthesized 2D images are generated from the tomosynthesis. FINDINGS: There are scattered areas of fibroglandular density (ACR BI-RADS breast composition Category b). There are no significant masses, abnormal calcifications, or other abnormalities. There are postsurgical changes in both periareolar regions and benign calcifications in each breast. MM/MM tomosynthesis screening BI IMPRESSION: No mammographic evidence of malignancy. ASSESSMENT: BI-RADS BI-RADS 2 - Benign Findings RECOMMENDATION: Routine annual mammography screening. 1 year F/U This examination should not preclude the clinical evaluation of a suspicious palpable abnormality. This patient's information was entered into a reminder system with a target due date for their next mammogram.
== END 2023-11-19 12:39 | disposition home or self-care (01) ==
LOC: HO.MAMMO 12:38
PROVIDERS: PCP Nurse Practitioner Family; Visit Provider Advanced Practice Midwife
DX: Z12.31 Encounter for screening mammogram for malignant neoplasm of breast (principal)
CPT/HCPCS: 77063; 77067

== ENCOUNTER → 2023-11-19 13:00 | Outpatient (BNV) | payer MEDICAID, SELFPAY | PROVIDERS: PCP Nurse Practitioner Family; Visit Provider Radiology Diagnostic Radiology | DX: Z12.31 Encounter for screening mammogram for malignant neoplasm of breast (principal) | CPT/HCPCS: 77063; 77067 ==

== ENCOUNTER 2023-11-30 10:57 | Outpatient (AMB) | payer MEDICAID, SELFPAY ==
--- NOTE | 2023-11-30 11:04 | MHC.OFFVIS ---
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 Complaining of pelvic pain more on the right side that started few weeks ago no associated symptoms no urinary frequency or dysuria no vaginal discharge or bleeding, no other associated symptoms. In addition the patient is complaining of perirectal hemorrhoids heavy use [id number] preparation at and hemorrhoidal medication to no avail. Last Pap/HPV was negative at [facility] in 11/10 Last Mammogram was done in 11/19/2023, the results are still pending Last Colonoscopy was done in 09/11, the recommendation was to repeat in 4-5 years [facility] Medical History Cholesterol granuloma Abnormal CT scan Hypertension Morbid obesity Supraclavicular mass Surgical History History of tonsillectomy History of ankle surgery Hx of right knee surgery Hx of tubal ligation Family History Maternal Aunt Breast cancer Colon cancer Son Crohn's disease of both small and large intestine with fistula Other Ovarian cancer Prostate cancer Stomach cancer Social History Household Members Other:: 3 kids Alcohol intake: current Alcohol intake frequency: a few times a month Alcohol type: wine Patient Tobacco Use Status: Current someday Tobacco user Tobacco use type: Smokeless Tobacco Second Hand Smoke Exposure: No Current occupational status: employed Current occupation: [employer] Female Reproductive History Menstrual Age of Menarche: 11 control method: permanent sterilization Total pregnancies: 4 Full term: 3 Number of Living Children: 3 Ab spontaneous: 1 Date of Mammogram: 11/19/23 Review of Systems Const All systems reviewed & are unremarkable except as noted in HPI and below Card Reports as per HPI Resp Reports as per HPI GI Reports as per HPI and Reports no additional complaints Reports as per HPI Physical Exam Vital Signs: BMI result Body Mass Index 42.0 Const General: cooperative, healthy appearing and comfortable Chest Chest palpation & inspection: normal inspection of the chest and normal palpation of entire chest wall Breast/axilla inspection: normal inspection of the breasts and normal inspection of the axillae Breast/axilla palpation: normal palpation of the breasts, normal palpation of the axillae and no axillary lymphadenopathy Resp Effort & Inspection: normal respiratory effort Auscultation: clear to auscultation bilaterally Percussion: percussion normal Cardio Palpation: normal PMI Rate: regular rate Rhythm: regular rhythm Heart sounds: no murmurs and no rubs Peripheral pulses: Peripheral pulses 2+ throughout GI Inspection: Yes normal to inspection Palpation (GI): Soft to palpation, nontender, no guarding, not rigid and No hepatosplenomegaly present Percussion: Yes normal to percussion Auscultation: normal bowel sounds Rectal Exam - Female: deferred Other: External hemorrhoids General: Yes bladder normal to palpation External Female Exam: No lesion Speculum Exam - Vagina: normal appearance of the vagina, normal palpation, normal vaginal discharge and not erythematous Speculum Exam - Cervix: normal appearance of the cervix and normal palpation Bimanual exam- vagina & uterus: normal bimanual exam, normal palpation, uterine size normal, bladder normal to palpation, consistency normal and normal palpation Bimanual Exam- Adnexa, other: normal adnexae, no masses and no tenderness Results AMB Urinalysis Dipstick UR Leukocytes Negative Last Edit by Caroline Mata CMA on 11/30/23 11:24 UR Nitrite Negative Last Edit by Caroline Mata CMA on 11/30/23 11:24 UR Urobilinogen Normal Last Edit by Caroline Mata CMA on 11/30/23 11:24 UR Protein Negative Last Edit by Caroline Mata CMA on 11/30/23 11:24 UR Ph 6.0 Last Edit by Caroline Mata CMA on 11/30/23 11:24 UR Blood Trace Last Edit by Caroline Mata CMA on 11/30/23 11:24 UR Specific [place] 1.015 Last Edit by Caroline Mata CMA on 11/30/23 11:24 UR Ketone Negative Last Edit by Caroline Mata CMA on 11/30/23 11:24 UR Bilirubin Negative Last Edit by Caroline Mata CMA on 11/30/23 11:24 UR Glucose Negative Last Edit by Caroline Mata CMA on 11/30/23 11:24 Assessment & Plan Assessment & Plan (1) Well woman exam: Code(s): Z01.419 - Encounter for gynecological examination (general) (routine) without abnormal findings Category: Medical Plan: Co testing not indicated this year. Counseled the patient about the recommended dietary allowance of 1200 mg of Calcium & 600 IU of vitamin D. Instructions given the patient to schedule next screening Mammogram in 11/12. The patient was instructed to perform monthly self-breast exams and schedule annual exam in a year. All questions answered and the patient verbalized understanding. (2) Microscopic hematuria: Code(s): R31.29 - Other microscopic hematuria Category: Medical Plan: Urine dip showed microscopic hematuria, urine culture sent. Will repeat urine dip in 2 weeks. Discussed with the patient the possible causes of microscopic hematuria including but not limited to: interstitial cystitis, polyps, stones, masses, urethral inflammatory processes and others. If Urine Culture is negative and repeat urine dip in 2 weeks shows persistent microscopic hematuria, will proceed with CT abdomen/pelvis and urology referral. Instructions given the patient to schedule a 2 week urine dip follow-up appointment. All questions answered and the patient verbalized understanding. (3) Pelvic pain: Code(s): R10.2 - Pelvic and perineal pain Category: Medical Plan: Urine dip showed microscopic hematuria. Urine test done in the office was negative. GC and chlamydia taken and pelvic ultrasound ordered. Discussed with the patient the differential diagnosis of pelvic pain including but not limited to adnexal, uterine masses, pelvic infections (PID), GI the (Irritable bowel syndrome, diverticulitis, others), musculoskeletal, myofascial pain abdominal wall , adhesions, endometriosis, psychological and others causes. Will check results and treat accordingly. All questions answered, the patient verbalized understanding. Instructed the patient to schedule follow-up appointment in 2 weeks (4) Hemorrhoids: Code(s): K64.9 - Unspecified hemorrhoids Category: Medical Plan: Will refer to general surgery for further management Orders: Orders Urine Culture Today R31.29 - Other microscopic hematuria AMB Urinalysis Dipstick Today R31.29 - Other microscopic hematuria US pelvic and transvaginal Today R10.2 - Pelvic and perineal pain Referrals General Surgery Referral K64.9 - Unspecified hemorrhoids Coding Level of Care Code Est Pt Prev Care 40-64y(72206) Diagnoses Well woman exam Z01.419 Microscopic hematuria R31.29 Pelvic pain R10.2 Hemorrhoids K64.9
[2023-11-30 11:05] VITALS: BP 110/72; BMI 42.0
== END 2023-11-30 11:45 | disposition home or self-care (01) ==
PROVIDERS: PCP Registered Nurse; Visit Provider Obstetrics & Gynecology
DX: Z01.419 Encounter for gynecological examination (general) (routine) without abnormal findings (principal); R31.29 Other microscopic hematuria; R10.2 Pelvic and perineal pain; K64.9 Unspecified hemorrhoids
CPT/HCPCS: 99396

== ENCOUNTER 2023-11-30 10:57 | Outpatient (REF) | payer MEDICAID, SELFPAY ==
[2023-11-30 18:41] LABS: CT PCR NOT DETECTED (Not Detect.); NG PCR NOT DETECTED (Not Detect.)
== END 2023-11-30 10:58 | disposition home or self-care (01) ==
LOC: HO.LNP 10:57
PROVIDERS: PCP Registered Nurse; Visit Provider Obstetrics & Gynecology
DX: Z01.419 Encounter for gynecological examination (general) (routine) without abnormal findings (principal); R31.29 Other microscopic hematuria; R10.2 Pelvic and perineal pain
CPT/HCPCS: 0353U; 81002; 87086; 99396

== ENCOUNTER 2023-12-06 13:04 | Outpatient (REF) | payer MEDICAID, SELFPAY ==
--- NOTE | ~2023-12-06 | US_ITS ---
EXAMINATION: US PELVIS CLINICAL INFORMATION: Pelvic and perineal pain. COMPARISON: Pelvic ultrasound 01/06/2023. TECHNIQUE: Ultrasound of the pelvis is performed using both transabdominal and transvaginal transducers along with Doppler. Transvaginal imaging is performed due to inadequate visualization transabdominally. FINDINGS: Uterus: The uterus is anteverted. The uterus measures 10.5 x 5.4 x 5.8 cm. The endometrial stripe is 7 mm. Heterogeneous myometrium without discrete fibroid. Adnexa: The right ovary measures 2.7 x 2.4 x 1.8 cm, volume 6 mL. Nonspecific 3 mm calcification is seen in the right ovary. Normal color flow is seen in the right ovary. Left ovary measures 2.8 x 1.5 x 1.4 cm, volume 3 mL. Normal color flow is seen in the left ovary. No free fluid. US/US pelvic and transvaginal IMPRESSION: Heterogeneous myometrium is nonspecific, but can be seen with adenomyosis. The appearance is similar to the pelvic ultrasound from 01/06/2023.
== END 2023-12-06 13:05 | disposition home or self-care (01) ==
LOC: HO.HMGCX 13:04
PROVIDERS: PCP Registered Nurse; Visit Provider Obstetrics & Gynecology
DX: R10.2 Pelvic and perineal pain (principal)
CPT/HCPCS: 76830; 76856

== ENCOUNTER 2023-12-16 09:20 | Outpatient (AMB) | payer MEDICAID, SELFPAY ==
[2023-12-16 09:26] VITALS: BP 128/84; BMI 42.0
--- NOTE | 2023-12-16 09:26 | A.OFFVIS_ITS ---
Vital Signs 12/16/23 09:26 Height 5 ft 4 in Weight 245 lb BMI 42.0 BP 128/84 Blood Pressure Location Rt brachial Position Sitting Intake Visit Reasons: Urine dip Allergies No Known Allergies Allergy (Verified 12/16/23 09:26) HPI Comments Details: The patient is presenting for ultrasound follow-up regarding pelvic pain and repeat urine dip. Last visit urine dip was positive for microscopic hematuria, urine culture was negative. GC/CT were negative. Pelvic ultrasound done recently showed the following: IMPRESSION: Heterogeneous myometrium is nonspecific, but can be seen with adenomyosis. The appearance is similar to the pelvic ultrasound from 01/06/2023. The patient is doing well with no complaints, her pelvic pain has completely resolved. [facility] Medical History Cholesterol granuloma Abnormal CT scan Hypertension Morbid obesity Supraclavicular mass Surgical History History of tonsillectomy History of ankle surgery Hx of right knee surgery Hx of tubal ligation Family History Maternal Aunt Breast cancer Colon cancer Son Crohn's disease of both small and large intestine with fistula Other Ovarian cancer Prostate cancer Stomach cancer Social History Household Members Other:: 3 kids Alcohol intake: current Alcohol intake frequency: a few times a month Alcohol type: wine Patient Tobacco Use Status: Current someday Tobacco user Tobacco use type: Smokeless Tobacco Second Hand Smoke Exposure: No Current occupational status: employed Current occupation: [employer] Female Reproductive History Menstrual Age of Menarche: 11 Review of Systems Const All systems reviewed & are unremarkable except as noted in HPI and below Reports as per HPI and Reports no additional complaints GI Reports no additional complaints Reports no additional complaints Physical Exam Vital Signs: Last Vital Signs BP 128/84 12/16/23 09:26 BMI result Body Mass Index 42.0 Results AMB Urinalysis, Automated UA Leukoctes 0 Bradley/uL Last Edit by Jenni Martinez CMA on 12/16/23 09:35 UA Nitrite Negative Last Edit by Jenni Martinez CMA on 12/16/23 09:35 UA Urobilinogen 3.5 mg/dL Last Edit by Jenni Martinez CMA on 12/16/23 09:35 UA Protein 0 mg/dL Last Edit by Jenni Martinez CMA on 12/16/23 09:35 UA pH 6.0 Last Edit by Jenni Martinez CMA on 12/16/23 09:35 UA Blood 0 Jovanny/uL Last Edit by Jenni Martinez CMA on 12/16/23 09:35 UA Specific [place] 1.015 Last Edit by Jenni Martinez CMA on 12/16/23 09:35 UA Ketone Negative Last Edit by Jenni Martinez CMA on 12/16/23 09:35 UA Bilirubin 0 mg/dL Last Edit by Jenni Martinez CMA on 12/16/23 09:35 UA Glucose 0 mg/dL Last Edit by Jenni Martinez CMA on 12/16/23 09:35 Results Reviewed Results Reviewed: Laboratory Last Values Urine pH (Auto) 6.0 12/16/23 09:34 Specific Shade (Auto) 1.015 12/16/23 09:34 Urine Protein (Auto) 0 mg/dL 12/16/23 09:34 Glucose (UA)(Auto) 0 mg/dL 12/16/23 09:34 Urine Ketones (Auto) Negative 12/16/23 09:34 Urine Blood (Auto) 0 Jovanny/uL 12/16/23 09:34 Urine Nitrite (Auto) Negative 12/16/23 09:34 Urine Bilirubin (Auto) 0 mg/dL 12/16/23 09:34 Urine Urobilinogen (Auto) 3.5 mg/dL 12/16/23 09:34 Leukocyte Esterase (Auto) 0 Bradley/uL 12/16/23 09:34 Assessment & Plan Assessment & Plan (1) Microscopic hematuria: Code(s): R31.29 - Other microscopic hematuria Category: Medical Plan: Repeat urine dip showed no evidence of microscopic hematuria, the patient was reassured. (2) Pelvic pain: Code(s): R10.2 - Pelvic and perineal pain Category: Medical Plan: Discussed with the patient the results of pelvic ultrasound, GC /CT and urine dip. Instructions given to patient to call in case of recurrence of her pelvic pain. All questions answered, the patient verbalized understanding Orders: Orders AMB Urinalysis Automated Today Z13.9 - Encounter for screening, unspecified Coding Level of Care Code Est Pt Level 3 (10987) Diagnoses Microscopic hematuria R31.29 Pelvic pain R10.2
== END 2023-12-16 09:48 | disposition home or self-care (01) ==
LOC: HO.HWS 09:20
PROVIDERS: PCP Registered Nurse; Visit Provider Obstetrics & Gynecology
DX: R31.29 Other microscopic hematuria (principal); R10.2 Pelvic and perineal pain; Z13.9 Encounter for screening, unspecified
CPT/HCPCS: 99213

== ENCOUNTER → 2023-12-16 09:20 | Outpatient (BNVA) | payer MEDICAID, SELFPAY | PROVIDERS: PCP Registered Nurse; Visit Provider Obstetrics & Gynecology | DX: R31.29 Other microscopic hematuria (principal); R10.2 Pelvic and perineal pain | CPT/HCPCS: 81003; 99212 ==

== ENCOUNTER 2023-12-20 10:47 | Outpatient (AMB) | payer MEDICAID, SELFPAY ==
[2023-12-20 10:49] VITALS: BP 138/82; PULSE 87; BMI 41.7
--- NOTE | 2023-12-20 10:49 | A.OFFVIS_ITS ---
Vital Signs 12/20/23 10:49 Height 5 ft 4 in Weight 243 lb BMI 41.7 BP 138/82 Blood Pressure Location Rt brachial Position Sitting Pulse 87 Intake Visit Reasons: Hemorrhoids Intake Note: This patient presents for an assessment for hemorrhoids. Pt c/o; reports mild constipation, reports no rectal bleeding at this time, reports occasional straining with bowel movements. Physician Primary Care Sports Medicine Required: No Guidance Services Coordinator: Guidance Services Coordinator Present (Jocelyne-YOCASTA) Accompanied by: Self / Same As Patient Allergies No Known Allergies Allergy (Verified 12/20/23 10:59) Medication List - Last Reconciled 12/20/23 by Remington Boo MD amlodipine 5 mg PO QAM bisacodyl (Dulcolax (bisacodyl)) 20 mg (4 x 5 mg) PO ONCE 1 day ejpuccuxam-myghcdvlpocpd-zmdd 50-325-40 mg 1 tab PO Q6H PRN lisinopril-hydrochlorothiazide 20-25 mg 1 tab PO QAM polyethylene glycol 3350 (Miralax) 238 grams PO ONCE 1 day HPI HPI Hemorrhoids: Details: [age] year old female referred for hemorrhoids. She says that she has had hemorrhoid issues for over 5 years. She describes frequent swelling and pain of her hemorrhoids and she feels these outside her anus.. She says that at times, she is unable to sit down comfortably. She says that her symptoms have been worsening over the years. She occasionally sees small amounts of blood on w iping. She denies being chronically constipated. She says that she wants her hemorrhoids removed because of the above symptoms. [facility] Medical History (Updated 12/20/23 @ 11:26 by Remington Boo MD) External hemorrhoids with complication Cholesterol granuloma Abnormal CT scan Hypertension Morbid obesity Supraclavicular mass Surgical History History of tonsillectomy History of ankle surgery Hx of right knee surgery Hx of tubal ligation Family History Maternal Aunt Breast cancer Colon cancer Son Crohn's disease of both small and large intestine with fistula Other Ovarian cancer Prostate cancer Stomach cancer Social History Household Members Other:: 3 kids Alcohol intake: current Alcohol intake frequency: a few times a month Alcohol type: wine Patient Tobacco Use Status: Current someday Tobacco user Tobacco use type: Smokeless Tobacco Second Hand Smoke Exposure: No Current occupational status: employed Current occupation: [employer] Female Reproductive History Menstrual Age of Menarche: 11 Review of Systems Const Denies chills and Denies fever(s) Card Denies chest pain, Denies dyspnea and Denies dyspnea on exertion Resp Denies cough, Denies dyspnea and Denies dyspnea on exertion GI Denies hematochezia and Denies change in bowel habits Denies hematuria Musc Denies back pain and Denies limited range of motion Neuro Denies focal weakness and Denies convulsions Psych Denies depression and Denies mood swings Physical Exam Vital Signs: Last Vital Signs Pulse 87 12/20/23 10:49 BP 138/82 12/20/23 10:49 BMI result Body Mass Index 41.7 Const Other: Morbidly obese General: comfortable and no acute distress Orientation/consciousness: patient oriented x3 Neck Neck: Yes no lymphadenopathy Resp Auscultation: clear to auscultation bilaterally Cardio Rhythm: regular rhythm GI Other: Rectal exam shows large external hemorrhoids, anteriorly and posteriorly Palpation (GI): Soft to palpation, nontender and no guarding Neuro General: patient oriented x3 Office Procedures Anoscopy She was in grisel-knife position. The anoscope was gently inserted. A full examination of the anal canal was done. There were small internal hemorrhoids. There were no other lesions. There was no fissure or any ulcer. There was no induration on digital exam. There were large external hemorrhoids on the anterior and posterior areas of the distal anal canal upon withdrawal of the scope. [id number] Assessment & Plan Assessment & Plan (1) External hemorrhoids with complication: Code(s): K64.4 - Residual hemorrhoidal skin tags Category: Medical Plan: She has large external hemorrhoids with worsening pain, bleeding and swelling. She wants to proceed with hemorrhoidectomy. I reviewed with the technique of exam under anesthesia and hemorrhoidectomy. I discussed the risks including but not limited to bleeding, infections, postop pain, as well as the benefits and alternatives. I reviewed with her what to expect postoperatively She says she really wants to proceed with hemorrhoidectomy because of her worsening symptoms. Coding Level of Care Code New Pt Level 3 (86859) Diagnoses External hemorrhoids with complication K64.4 CPT Codes Details - CPT: 00113-Flctxvds ([id number])
== END 2023-12-20 11:24 | disposition home or self-care (01) ==
PROVIDERS: PCP Registered Nurse; Referring Provider Obstetrics & Gynecology; Visit Provider Surgery
DX: K64.4 Residual hemorrhoidal skin tags (principal); K64.8 Other hemorrhoids
CPT/HCPCS: 46600; 99213

== ENCOUNTER → 2023-12-20 10:47 | Outpatient (BNVA) | payer MEDICAID, SELFPAY | PROVIDERS: PCP Registered Nurse; Referring Provider Obstetrics & Gynecology; Visit Provider Surgery | DX: K64.4 Residual hemorrhoidal skin tags (principal) | CPT/HCPCS: 46600; 99212 ==

== ENCOUNTER 2023-12-21 14:35 | Emergency (ER) | payer MEDICAID, SELFPAY ==
[2023-12-21 15:02] VITALS: BP 152/102; PULSE 90; RESP 18; TEMP 36.2; O2SAT 98; BMI 40.4
--- NOTE | 2023-12-21 15:09 | ED.GENADULT ---
HPI - General Adult General Chief complaint: General Medical Stated complaint: Nail inj Time Seen by Provider: 12/21/23 15:07 Source: patient Mode of arrival: ambulatory Limitations: no limitations History of Present Illness ED Provider: festus [facility] narrative: Patient is a 48-year-old right-hand dominant female presenting to the emergency department with complaint of partial avulsion of nail to left ring finger. Tripped last night and when she landed, put her hands out and the nail was pulled back. She taped it in place until today. Unknown last Tdap. Denies decreased ROM to finger. complaint: fingernail injury Onset (ago): hour(s) Severity: moderate Quality: aching Treatments prior to arrival: none Related Data Home Medications ?Medication ?Instructions ?Recorded ?Confirmed amlodipine 5 mg tablet 5 mg PO QAM 12/28/22 12/20/23 lisinopril 20 1 tab PO QAM 12/28/22 12/20/23 mg-hydrochlorothiazide 25 mg tablet Previous Rx's ?Medication ?Instructions ?Recorded bisacodyl 5 mg tablet,delayed 20 mg (4 x 5 mg) PO ONCE 1 day #4 08/26/23 release (Dulcolax (bisacodyl)) tabs polyethylene glycol 3350 17 238 g PO ONCE 1 day #238 grams 08/26/23 gram/dose oral powder (Miralax) uxkzekgfqo-vldictgnupnrs-lkxdslfk 1 tab PO Q6H PRN haeadace #20 tabs 09/01/23 50 mg-325 mg-40 mg tablet Allergies Allergy/AdvReac Type Severity Reaction Status Date / Time No Known Allergies Allergy Verified 12/21/23 15:05 Review of Systems Review of Systems: As per HPI. Yes all other systems are reviewed and are negative Constitutional: Constitutional: Reports as per HPI [facility] Past Medical History Medical History (Updated 12/21/23 @ 15:14 by Lakeisha Reddy NP) External hemorrhoids with complication Cholesterol granuloma Abnormal CT scan Hypertension Morbid obesity Supraclavicular mass Surgical History History of tonsillectomy History of ankle surgery Hx of right knee surgery Hx of tubal ligation Family History Family History Maternal Aunt Breast cancer Colon cancer Son Crohn's disease of both small and large intestine with fistula Other Ovarian cancer Prostate cancer Stomach cancer Social History Social History Household Members Other:: 3 kids Alcohol intake: current Alcohol intake frequency: a few times a month Alcohol type: wine Patient Tobacco Use Status: Current someday Tobacco user Tobacco use type: Smokeless Tobacco Second Hand Smoke Exposure: No Advance Directives: No Advance Directives Information Provided: No Do you have a plan to hurt others: No Plan Current occupational status: employed Current occupation: [employer] Physical Exam ED Vital Signs: Vital Signs - 24 hr 12/21/23 15:02 12/21/23 15:18 Temperature 97.1 F 97.1 F Pulse Rate 90 90 Respiratory Rate 18 18 Blood Pressure 152/102 H 152/102 H Pulse Oximetry 98 98 Oxygen Delivery Method Room Air Room Air BMI result Body Mass Index 40.4 Vital signs have been reviewed and appear to be correct. Blood pressure elevated. Heart rate normal. Respiratory rate normal. Temperature normal. Oxygen saturation normal. Const General: cooperative, healthy appearing and no acute distress Orientation/consciousness: oriented to person, oriented to place, oriented to time and patient oriented x3 Limitations: no limitations HENMT Head: Yes normocephalic and Yes atraumatic Ears: external ears normal General nose exam: Normal external nose present Face and sinus: Yes face symmetric Mouth: oropharynx normal and moist mucous membranes Throat: Yes uvula midline Eyes Pupils: Equal, round and reactive pupils present Neck Neck: Yes normal visual inspection and Yes supple Resp Effort & Inspection: normal respiratory effort and able to speak in complete sentences Auscultation: clear to auscultation bilaterally Cardio Rate: regular rate Rhythm: regular rhythm Heart sounds: S1 normal heart sound present and S2 normal heart sound present Skin General skin exam: elasticity normal and turgor normal Neuro General: oriented to person, oriented to place, oriented to time, patient oriented x3, moves all extremities, no focal motor deficits and CN's II-XI intact bilaterally Cranial nerves: Yes Equal, round and reactive pupils present Cognition (Neuro): normal cognition Extrem General: Yes full ROM, Yes no pedal edema and Yes no calf tenderness Hand/finger images: 1. Near partial avulsion of fingernail, still attached at cuticle, no surrounding erythema or warmth, no drainage Psych Mental Status: mental status grossly normal Affect: normal affect Thought process: Normal thought process present Medications Administered Discontinued Medications Generic Name Dose Route Start Last Admin Trade Name Jimmy PRN Reason Stop Dose Admin Diphtheria/Tetanus/Acell Pertussis 0.5 ml 12/21/23 15:07 12/21/23 15:11 Diphth,Pertus(Acell),Tet Adult 0.5 Ml Syringe IM 12/21/23 15:08 0.5 ml .ONCE ONE Administration Medical Decision Making Medical Decision Making [facility] Narrative: Patient is a 48-year-old right-hand dominant female presenting to the emergency department with complaint of partial avulsion of nail to left ring finger. On exam patient is awake, A+Ox3, VS WNL, afebrile, normal neurological exam without focal deficits, physical exam findings as above. Given reported symptoms and physical exam findings, initial differential includes fingernail avulsion. Discussed with patient that the most effective treatment is keeping the nail taped in place. Discussed that the nail will likely fall off on it's own in the upcoming days/weeks. Tdap updated. Advised patient to avoid submerging finger in water until healed. Return precautions discussed. Patient verbalized understanding of and agreement with plan. Differential Diagnosis Differential Diagnoses: The differential diagnosis associated with the presentation includes As per [facility] External Record Review External record reviewed: Inpatient record, Office record and Outpatient record Discharge Plan Discharge Clinical Impression: Avulsion of fingernail of left hand Patient Disposition: Home, Self-Care Instructions: Nail Avulsion (ED), Nail Removal (ED) Additional Instructions: You were seen in the emergency department for a fingernail injury. It is best to keep the nail in place with tape or band-aids. Avoid submerging this nail in water. Keep the area as clean as possible and assess the area daily for swelling, redness, thick yellow drainage and return if this occurs. Your tetanus vaccine (Tdap) was updated at today's visit. The nail will fall off on it's own in the next few days to weeks. Follow up with your PCP or return here if signs of infection occur. Prescriptions: No Action bisacodyl [Dulcolax (bisacodyl)] 5 mg tablet,delayed release (DR/EC) 20 mg PO ONCE 1 Days Qty: 4 0RF Rx Instructions: take at noon the day before colonoscopy polyethylene glycol 3350 [Miralax] 17 gram/dose powder 238 g PO ONCE 1 Days Qty: 238 0RF Rx Instructions: Take as directed by mouth the day before your procedure. ddxhllqpru-efxxucayixpmm-ihen 50-325-40 mg tablet 1 tab PO Q6H PRN (Reason: haeadace) Qty: 20 0RF amlodipine 5 mg tablet 5 mg PO QAM lisinopril-hydrochlorothiazide 20-25 mg tablet 1 tab PO QAM Interventions: ED Discharge Assessment Last Done: 12/21/23 15:18 Discharge Date/Time: 12/21/23 15:19 Print Language: [place]
[2023-12-21] MEDS: Diphth,Pertus(ACell),Tet Adult 0.5 ML SYRINGE IM (15:11)
[2023-12-21 15:18] VITALS: BP 152/102; PULSE 90; RESP 18; TEMP 36.2; O2SAT 98
== END 2023-12-21 15:19 | disposition home or self-care (01) ==
PROVIDERS: Emergency Provider Emergency Medicine; PCP Registered Nurse
DX: S61.305A Unspecified open wound of left ring finger with damage to nail, initial encounter (principal); X58.XXXA Exposure to other specified factors, initial encounter; Y93.9 Activity, unspecified; Y92.9 Unspecified place or not applicable; Y99.9 Unspecified external cause status; Z23 Encounter for immunization
CPT/HCPCS: 90471; 90715; 99282; 99284

== ENCOUNTER 2023-12-24 07:01 | Emergency (ER) | payer MEDICAID, SELFPAY ==
--- NOTE | ~2023-12-24 | XR_ITS ---
EXAMINATION: XR ANKLE, RIGHT CLINICAL INFORMATION: Status post fall. Right ankle pain. COMPARISON: None available. TECHNIQUE: AP, lateral, and mortise views of the right ankle. FINDINGS: Mildly displaced oblique fracture of the distal fibula above the level of the syndesmosis. 2 mm displacement at the fracture site. Marked lateral soft tissue swelling. Ankle mortise is maintained. The talar dome is intact. Posterior and plantar calcaneal spurs. XR/XR ankle RT 2V IMPRESSION: Mildly displaced fracture of the distal fibula above the syndesmosis.
[2023-12-24 07:13] VITALS: BP 116/78; PULSE 78; RESP 16; TEMP 36.9; O2SAT 97; BMI 40.3
[2023-12-24 09:24] VITALS: BP 129/84; PULSE 94; RESP 20; TEMP 36.3; O2SAT 93
[2023-12-24] MEDS: oxyCODONE HCl Immed Release 5 MG TABLET PO (09:44)
--- NOTE | 2023-12-24 09:52 | ED_ITS ---
HPI - General Adult General Chief complaint: Extremity Injury, Lower Stated complaint: R leg pain - fell down stairs Time Seen by Provider: 12/24/23 08:06 Source: patient Mode of arrival: ambulatory Limitations: no limitations History of Present Illness ED Provider: Mina Vela PA-C HPI narrative: 48-year-old female history of high blood pressure presents to ED for right ankle pain. Patient states while going up the stairs last night do twisted her ankle and felt pain immediately. Patient states not able to bear weight. Patient states [facility] but she was not [facility] so she came this ED. patient denies hitting head or loss of consciousness. Patient denies being on any blood thinners. Patient denies any chest pain, abdominal pain, or shortness of breath. Related Data Home Medications ?Medication ?Instructions ?Recorded ?Confirmed amlodipine 5 mg tablet 5 mg PO QAM 12/28/22 12/20/23 lisinopril 20 1 tab PO QAM 12/28/22 12/20/23 mg-hydrochlorothiazide 25 mg tablet Previous Rx's ?Medication ?Instructions ?Recorded bisacodyl 5 mg tablet,delayed 20 mg (4 x 5 mg) PO ONCE 1 day #4 08/26/23 release (Dulcolax (bisacodyl)) tabs polyethylene glycol 3350 17 238 g PO ONCE 1 day #238 grams 08/26/23 gram/dose oral powder (Miralax) [id number]-gyjgtsgghuenv-pibxvcae 1 tab PO Q6H PRN haeadace #20 tabs 09/01/23 50 mg-325 mg-40 mg tablet naproxen 500 mg tablet 500 mg PO BID PRN pain 7 days #14 12/24/23 tabs oxycodone 5 mg capsule 5 mg PO Q8H PRN pain 3 days #9 caps 12/24/23 Allergies Allergy/AdvReac Type Severity Reaction Status Date / Time No Known Allergies Allergy Verified 12/24/23 07:15 Review of Systems 2 Review of Systems: Right ankle pain Yes all other systems are reviewed and are negative PMF Past Medical History Medical History (Updated 12/25/23 @ 00:01 by Stone Crocker) External hemorrhoids with complication Cholesterol granuloma Abnormal CT scan Hypertension Morbid obesity Supraclavicular mass Surgical History History of tonsillectomy History of ankle surgery Hx of right knee surgery Hx of tubal ligation Family History Family History Maternal Aunt Breast cancer Colon cancer Son Crohn's disease of both small and large intestine with fistula Other Ovarian cancer Prostate cancer Stomach cancer Social History Social History Household Members Other:: 3 kids Alcohol intake: current Alcohol intake frequency: a few times a month Alcohol type: wine Patient Tobacco Use Status: Current someday Tobacco user Tobacco use type: Smokeless Tobacco Second Hand Smoke Exposure: No Advance Directives: Yes Advance Directives Information Provided: Yes Advance Directives on File: No Current occupational status: employed Current occupation: [employer] Physical Exam ED Vital Signs: Vital Signs - 24 hr 12/24/23 07:13 12/24/23 09:24 12/24/23 11:05 Temperature 98.5 F 97.4 F 98.4 F Pulse Rate 78 94 106 H Respiratory Rate 16 20 19 Blood Pressure 116/78 129/84 150/93 H Pulse Oximetry 97 93 98 Oxygen Delivery Method Room Air Room Air Room Air BMI result Body Mass Index 40.3 Const General: cooperative, healthy appearing, comfortable, no acute distress and well developed Orientation/consciousness: patient oriented x3 HENMT Head: Yes normal to inspection, Yes No palpable skull fracture present, Yes normocephalic, Yes atraumatic and No abrasion Eyes General: appearance normal, both eyes and all related structures Neck Neck: Yes normal visual inspection, Yes full ROM, Yes no lymphadenopathy, Yes no meningeal signs, Yes trachea midline, Yes supple, No anterior neck swelling and No tender Chest Chest palpation & inspection: normal inspection of the chest and normal palpation of entire chest wall Resp Effort & Inspection: normal respiratory effort and able to speak in complete sentences Auscultation: clear to auscultation bilaterally Cardio Jugular venous distension: no JVD Heart sounds: S1 normal heart sound present and S2 normal heart sound present GI Inspection: Yes normal to inspection Palpation (GI): Soft to palpation, not firm, nontender, no guarding and not rigid General: No CVA tenderness and Yes no CVA tenderness Back/Spine/Pelvis Back: no CVA tenderness, No CVA tenderness and No back tenderness Skin General skin exam: no rashes or lesions noted, elasticity normal and turgor normal Neuro General: patient oriented x3, gait normal, tone normal, moves all extremities, no meningeal signs, no focal motor deficits, CN's II-XI intact bilaterally and normal sensation to monofilament Extrem General: Yes normal to inspection, Yes full ROM and Yes capillary refill normal Ankle/foot/toe images: 2 1. positive for tenderness on palpation and swelling. negative for crepitus redness, bleeding, or deformity. Motor exam limited due to pain. vascular and neuro exam is intact. Psych Appearance: grossly normal, well kempt and not disheveled Medications Administered Discontinued Medications Generic Name Dose Route Start Last Admin Trade Name Freq PRN Reason Stop Dose Admin Ketorolac Tromethamine 30 mg 12/24/23 10:54 12/24/23 11:01 Ketorolac Tromethamine 30 Mg/Ml Vial IM 12/24/23 10:55 30 mg ONCE ONE Administration Ondansetron HCl 4 mg 12/24/23 11:36 12/24/23 11:41 Ondansetron Odt 4 Mg Tab.Rapdis TRANSLINGU 12/24/23 11:37 4 mg ONCE ONE Administration Oxycodone HCl 5 mg 12/24/23 09:40 12/24/23 09:44 Oxycodone Hcl Immed Release 5 Mg Tablet PO 12/24/23 09:41 5 mg ONCE ONE Administration Medical Decision Making Medical Decision Making [facility] Narrative: 48-year-old female presents to the ED increased pain. X-ray shows mildly displaced distal fibular fracture. Patient placed in posterior splint. Patient given oxycodone for pain. Patient given crutches. Patient informed to follow- up with orthopedic surgeon. Patient explained worrisome signs and informed to return to ED immediately if she has them Differential Diagnosis Differential Diagnoses: The differential diagnosis associated with the presentation includes ( ankle fracture. Ankle dislocation.) Admission/Observation Consideration of admission/observation: Escalation of care including admission/observation considered Independent Interpretation I performed an independent interpretation of an: Plain X-Ray Radiology Impression Discussion of test interpretation with radiology: I have reviewed the radiologist's reading. Independent Historian Clinical information obtained from an independent historian. History obtained from or confirmed by: Other ( Patient) External Record Review External record reviewed: Other ( prior visits) Prescription Management I considered prescription management with: Pain Medication Discharge Plan Discharge Clinical Impression: Fracture of distal end of fibula Patient Disposition: Home, Self-Care Instructions: Leg Fracture (ED), Crutch Instructions (ED) Additional Instructions: Recommend follow up with orthopedic surgeon. Return to the ED immediately for severe pain, leg swelling, bluish black discoloration of toes, numbness/ tingling, fever, chills, chest pain, shortness of breath, or any other concerning symptoms. Prescriptions: New naproxen 500 mg tablet 500 mg PO BID PRN (Reason: pain) 7 Days Qty: 14 0RF oxycodone 5 mg capsule 5 mg PO Q8H PRN (Reason: pain) 3 Days Qty: 9 0RF Rx Instructions: Partial Fill upon patient request. Side effects is drowsiness. do not take at work or while driving No Action bisacodyl [Dulcolax (bisacodyl)] 5 mg tablet,delayed release (DR/EC) 20 mg PO ONCE 1 Days Qty: 4 0RF Rx Instructions: take at noon the day before colonoscopy polyethylene glycol 3350 [Miralax] 17 gram/dose powder 238 g PO ONCE 1 Days Qty: 238 0RF Rx Instructions: Take as directed by mouth the day before your procedure. qcidmegphi-fglxoujizfogh-dkix 50-325-40 mg tablet 1 tab PO Q6H PRN (Reason: haeadace) Qty: 20 0RF amlodipine 5 mg tablet 5 mg PO QAM lisinopril-hydrochlorothiazide 20-25 mg tablet 1 tab PO QAM Referrals: [facility] [Provider Group] ( right distal fibular nondisplaced fracture.) Interventions: ED Discharge Assessment Last Done: 12/24/23 13:17 Discharge Date/Time: 12/24/23 13:18 Print Language: Slovenian
[2023-12-24] MEDS: Ketorolac Tromethamine 30 MG/ML VIAL IM (11:01)
[2023-12-24 11:05] VITALS: BP 150/93; PULSE 106; RESP 19; TEMP 36.9; O2SAT 98
[2023-12-24] MEDS: Ondansetron ODT 4 MG TAB.RAPDIS TRANSLINGU (11:41)
--- NOTE | 2023-12-24 11:42 | PC.NURSE ---
pt medicated per order
--- NOTE | 2023-12-24 11:50 | PC.NURSE ---
pt was to discharge when she began c/o nausea and feeling as though she was going to vomit. provider notified pt medicated with zofran. additionally pt was attempting to call for a ride to be picked up and her cell phone before being able to do so and does not have the number memorized and it is not listed in our system as a contact. the patients cell phone was brought to the secretaries desk in the main ed to charge for a period of time so she is able to make a call. in the mean time pt will remain in emc to observe and make sure her nausea resolves as well. pt had RLE splint placed by provider and crutch training performed.
[2023-12-24 13:17] VITALS: BP 138/76; PULSE 96; RESP 18; TEMP 36.8; O2SAT 97
== END 2023-12-24 13:18 | disposition home or self-care (01) ==
PROVIDERS: Emergency Provider Emergency Medicine Emergency Medical Services; PCP Registered Nurse
DX: S82.431A Displaced oblique fracture of shaft of right fibula, initial encounter for closed fracture (principal); X50.1XXA Overexertion from prolonged static or awkward postures, initial encounter; Y93.89 Activity, other specified; Y92.9 Unspecified place or not applicable; Y99.9 Unspecified external cause status
CPT/HCPCS: 29515; 73600; 96372; 99284; J1885

== ENCOUNTER 2023-12-31 11:42 | Outpatient (AMB) | payer MEDICAID, SELFPAY ==
--- NOTE | 2023-12-31 12:01 | MHC.OFFVIS ---
Vital Signs 12/31/23 12:03 Height 5 ft 5 in Weight 243 lb BMI 40.4 Intake Visit Reasons: FC - Right Fx of distal end of fibula-DOI 12/24/23 Intake Note: Yue is a 48 year old female who presents today with her fiance for right Fracture of distal end of fibula s/p DOI: 12/23/23. Patient reports she was walking up the stairs the on 12/23/23 when she twisted her ankle resulting in immediate pain after and she was unable to bear weight after. She was seen in [facility] ED on 12/24/23 for this injury where they placed her in a splint, gave her crutches and advised her to remain NWB until her follow up with orthopedics. Patient is afraid she may need surgery and does not want that. Says she will do any other treatment to get better. Accompanied by: Significant Other Allergies No Known Allergies Allergy (Verified 12/31/23 12:07) HPI HPI FC - Right Fx of distal end of fibula-DOI 12/24/23: Details: Patient is a 48-year-old female who presents for evaluation of right distal fibula fracture, date of injury 12/23/2023. patient reports that she tripped while going flight of stairs, and proceeded to fall down said stairs. Patient immediately began to experience right lower extremity pain, and presented to the emergency room the following day for evaluation, and was placed in a splint and made nonweightbearing. Patient was put in a X-rays taken in the emergency room revealed minimally displaced Swartz C fracture of the distal fibula, with no widening of the ankle mortise noted. Today, the patient reports that she has been totally nonweightbearing since evaluation in the emergency department, has remained in the splint at all times, and then her pain and swelling have decreased significantly since date of injury. [facility] Medical History (Updated 12/31/23 @ 15:59 by RANULFO Apple) External hemorrhoids with complication Cholesterol granuloma Abnormal CT scan Hypertension Morbid obesity Supraclavicular mass Surgical History History of tonsillectomy History of ankle surgery Hx of right knee surgery Hx of tubal ligation Family History Maternal Aunt Breast cancer Colon cancer Son Crohn's disease of both small and large intestine with fistula Other Ovarian cancer Prostate cancer Stomach cancer Social History Household Members Other:: 3 kids Alcohol intake: current Alcohol intake frequency: a few times a month Alcohol type: wine Patient Tobacco Use Status: Current someday Tobacco user Tobacco use type: Smokeless Tobacco Second Hand Smoke Exposure: No Current occupational status: employed Current occupation: [employer] Female Reproductive History Menstrual Age of Menarche: 11 Review of Systems Const All systems reviewed & are unremarkable except as noted in HPI and below Physical Exam Vital Signs: BMI result Body Mass Index 40.4 Const Other: Patient is alert, oriented, cooperative, and in no acute distress HEENT Head: Yes normocephalic and Yes atraumatic Resp Effort & Inspection: normal respiratory effort and able to speak in complete sentences Cardio Jugular venous distension: no JVD Neuro General: gait normal Cognition (Neuro): normal cognition Extrem Other: Patient is alert, oriented, and in no acute distress. Neuro: Sensation to the distal right lower extremity full and intact Vascular: Cap refill brisk Pain: Patient reports tenderness to palpation over the lateral distal right lower extremity, over the fracture site. Patient reports no other pain at this time ROM: Patient is able to flex and extend her toes fully and without difficulty Skin: No lacerations or abrasions. General: Noted ecchymosis and edema on the lateral aspect of the patient's right lower extremity and ankle Psych: Appears grossly normal Affect normal Attitude cooperative Psych Appearance: grossly normal Mental Status: mental status grossly normal Results Reviewed Results Reviewed: X-rays obtained in the office today and independently reviewed by me, Sourav Perez PA-C, demonstrate displaced fracture of the distal fibula with no mortise widening on stress view, slightly more displaced than previous films from the ED. Assessment & Plan Assessment & Plan (1) Fracture of distal end of right fibula: Code(s): S82.831A - Other fracture of upper and lower end of right fibula, initial encounter for closed fracture Category: Medical Qualifiers: Encounter type: initial encounter Fracture type: closed Fracture morphology: unspecified fracture morphology Qualified Code(s): S82.831A - Other fracture of upper and lower end of right fibula, initial encounter for closed fracture Plan 1. Right distal fibula fracture Date of injury 12/23/2023 Patient was discussed and evaluated with Dr. Nguyen, and a collaborative treatment plan was formed: Patient is educated on this fracture, and the complications associated with it Due to lack of mortise widening on stress view, surgery is not immediately indicated in this patient at this time Patient will be placed in a short-leg cast for 2 weeks Absolutely no weight-bearing on right lower extremity Patient is educated on cast care and precautions Patient will be seen in the office in 2 weeks for cast off, repeat x-rays and reassessment of fracture and ankle alignment. Orders: Orders XR ankle LT min 3V Today M25.572 - Pain in left ankle and joints of left foot XR ankle RT min 3V Today M25.571 - Pain in right ankle and joints of right foot Coding Level of Care Code New Pt Level 4 (98661) Diagnoses Closed fracture of distal end of right fibula, unspecified fracture morphology, initial encounter S82.831A Encounter type: initial encounter Fracture type: closed Fracture morphology: unspecified fracture morphology
[2023-12-31 12:03] VITALS: BMI 40.4
== END 2023-12-31 13:41 | disposition home or self-care (01) ==
PROVIDERS: PCP Registered Nurse
DX: S82.831A Other fracture of upper and lower end of right fibula, initial encounter for closed fracture (principal)
CPT/HCPCS: 27786; 99204

== ENCOUNTER 2023-12-31 12:39 | Outpatient (REF) | payer MEDICAID, SELFPAY ==
--- NOTE | ~2023-12-31 | XR_ITS ---
EXAMINATION: XR ANKLE, RIGHT CLINICAL INFORMATION: Pain in left ankle and joints of foot, distal fibula fracture. COMPARISON: 12/24/2023 TECHNIQUE: AP, lateral, and mortise views of the left ankle. FINDINGS: Redemonstration of mildly displaced oblique fracture of the distal shaft of the fibula, above the level of the syndesmosis. There is increased overriding and displacement of fracture fragments. Fracture lines are less distinct, suggesting some mild bridging callus formation. Soft tissue swelling and joint effusion. Plantar and posterior calcaneal spurs. XR/XR ankle LT min 3V IMPRESSION: Redemonstration of mildly displaced oblique fracture of the distal shaft of the fibula, above the level of the syndesmosis. There is increased overriding and displacement of fracture fragments. Fracture lines are less distinct, suggesting some mild bridging callus formation.
--- NOTE | ~2023-12-31 | XR_ITS ---
EXAMINATION: XR ANKLE, RIGHT CLINICAL INFORMATION: Pain in right ankle and joints of foot, stress view with technologist and Dr. Nguyen holding position. COMPARISON: 12/31/2023. TECHNIQUE: Single stress view obtained of the right ankle. FINDINGS: Redemonstration of mildly displaced oblique fracture of the distal shaft of the fibula, above the level of the syndesmosis. There is increased override and displacement of fracture fragments. Predominantly lateral soft tissue swelling. XR/XR ankle RT min 3V IMPRESSION: Redemonstration of mildly displaced oblique fracture of the distal shaft of the fibula, above the level of the syndesmosis. There is increased override and displacement of fracture fragments.
== END 2023-12-31 12:40 | disposition home or self-care (01) ==
LOC: HO.HOSX 12:39
DX: M25.572 Pain in left ankle and joints of left foot (principal); S82.831A Other fracture of upper and lower end of right fibula, initial encounter for closed fracture; W10.9XXA Fall (on) (from) unspecified stairs and steps, initial encounter; Y93.9 Activity, unspecified; Y92.9 Unspecified place or not applicable; Y99.9 Unspecified external cause status
CPT/HCPCS: 27786; 73610; 99212

== ENCOUNTER 2024-01-14 09:25 | Day surgery (SDC) | payer MEDICAID, SELFPAY ==
--- NOTE | 2024-01-12 13:18 | HO.ANESPROP2 ---
Documented by User: Erin Stephens NP 01/12/24 13:19 HPI - Anesthesia Eval Consult details Narrative: 48yo F for EUA,Hemorrhoidectomy 12/24/23 mildly displaced distal fibular fracture PMFSH Active Problems Active Problems: All Active Problems Fracture of distal end of right fibula (Acute) External hemorrhoids with complication (Acute) Hemorrhoids (Acute) Pelvic pain (Acute) Microscopic hematuria (Acute) Well woman exam (Acute) Encounter for screening colonoscopy (Acute) Family history of Crohn's disease (Acute) Family history of colon cancer (Acute) Cholesterol granuloma (Acute) Abnormal CT scan (Acute) Calcification of ovary (Acute) Abnormal uterine bleeding (AUB) (Acute) Hypertension (Acute) Morbid obesity (Acute) Supraclavicular mass (Acute) Past Medical History Medical History (Updated 12/31/23 @ 15:59 by RANULFO Apple) External hemorrhoids with complication Cholesterol granuloma Abnormal CT scan Hypertension Morbid obesity Supraclavicular mass Family History Family History Maternal Aunt Breast cancer Colon cancer Son Crohn's disease of both small and large intestine with fistula Other Ovarian cancer Prostate cancer Stomach cancer Family history of problems with anesthesia: No Surgical History Surgical History History of tonsillectomy History of ankle surgery Hx of right knee surgery Hx of tubal ligation History of Problems with Anesthesia: Yes Social History Social History Household Members Other:: 3 kids Alcohol intake: current Alcohol intake frequency: a few times a month Alcohol type: wine Patient Tobacco Use Status: Current someday Tobacco user Tobacco use type: Smokeless Tobacco Second Hand Smoke Exposure: No Advance Directives: No Advance Directives Information Provided: Yes Current occupational status: employed Current occupation: [employer] Allergies Allergy/AdvReac Type Severity Reaction Status Date / Time No Known Allergies Allergy Verified 12/31/23 12:07 Home Medications ?Medication ?Instructions ?Recorded ?Confirmed ?Last Taken ?Type amlodipine 5 mg tablet 5 mg PO QAM 12/28/22 01/14/24 01/14/24 History lisinopril 20 1 tab PO QAM 12/28/22 01/14/24 01/14/24 History mg-hydrochlorothiazide 25 mg tablet Assessment and Plan Assessment Anesthesia Assessment: Chart Reviewed Final Anesthetic Review Family History of Problems with Anesthesia: No History of Problems with Anesthesia: Yes Documented by User: Malorie Olvera MD 01/14/24 11:16 [facility] Past Medical History Medical History (Updated 12/31/23 @ 15:59 by RANULFO Apple) External hemorrhoids with complication Cholesterol granuloma Abnormal CT scan Hypertension Morbid obesity Supraclavicular mass Family History Family History Maternal Aunt Breast cancer Colon cancer Son Crohn's disease of both small and large intestine with fistula Other Ovarian cancer Prostate cancer Stomach cancer Surgical History Surgical History History of tonsillectomy History of ankle surgery Hx of right knee surgery Hx of tubal ligation Social History Social History Household Members Other:: 3 kids Alcohol intake: current Alcohol intake frequency: a few times a month Alcohol type: wine Patient Tobacco Use Status: Current someday Tobacco user Tobacco use type: Smokeless Tobacco Second Hand Smoke Exposure: No Advance Directives: No Advance Directives Information Provided: Yes Current occupational status: employed Current occupation: [employer] Allergies Allergy/AdvReac Type Severity Reaction Status Date / Time No Known Allergies Allergy Verified 12/31/23 12:07 Home Medications ?Medication ?Instructions ?Recorded ?Confirmed ?Last Taken ?Type amlodipine 5 mg tablet 5 mg PO QAM 12/28/22 01/14/24 01/14/24 History lisinopril 20 1 tab PO QAM 12/28/22 01/14/24 01/14/24 History mg-hydrochlorothiazide 25 mg tablet Exam Airway Mallampati Class: III (missing couple tteth) TM Dist: >3cm Neck ROM: Full Heart: rrr Lungs: cta Assessment and Plan Assessment Anesthesia Assessment: Anesthesia Plan Discussed Final Anesthetic Review NPO: Yes ASA Class: III Final Preanesthetic Review: No Changes in Pt Med Stat, Meds/Allgs Chart Reviewed and Consent Obtained/Reviewed Patient Risk: Low Procedure Risk: Low Anesthetic Plan Anesthetic Plan: GA Disposition: Standard PACU
[2024-01-12 13:56] VITALS: BMI 41.7
[2024-01-14] VITALS (9 sets, daily range): BP systolic 112–132; BP diastolic 63–89; PULSE 78–92; RESP 16–22; TEMP 36.1–36.9; O2SAT 94–100
--- NOTE | 2024-01-14 11:04 | MHC.SHP ---
Pre-Procedural Eval Section A - 24 Hr Update-Section A only Date of Service: 01/14/24 The patient is an INPATIENT: No Changes since office visit: No Cold of Flu in the past 2 weeks, No New Medical Problems, No Changes in Medication and No Patient answered all questions The patient has been examined within 24 hours of the surgical procedure. The History & Physical has been completed within 30 days and I have reviewed it.: Yes Section B - Complete if H&P > 30 days Chief Complaint: Residual hemorrhoidal skin tags Allergies: Allergies Allergy/AdvReac Type Severity Reaction Status Date / Time No Known Allergies Allergy Verified 12/31/23 12:07 Plan I have reviewed the history and physical and performed a pertinent physical examination on my patient. No changes have occurred unless specified. Time Spent With Patient Time: Total time managing care of this patient today ____ minutes.
[2024-01-14] MEDS: Lactated Ringers 1,000 ML 100 ML IVCONT (11:17)
--- NOTE | 2024-01-14 12:04 | P.OP_ITS ---
Operative Note Operative Note Date of Service: 01/14/24 Narrative: Preop diagnosis: Large external hemorrhoids, with pain Postop diagnosis: The same Procedure: Exam under anesthesia hemorrhoidectomy x2 columns Surgeon: Remington Boo MD Front Desk Supervisor: Charles Tony MS III The patient is a 48-year-old female with a long history of pain and discomfort with her large external internal hemorrhoids. She wanted to proceed with hemorrhoidectomy. She understood the technique of the planned procedure as well as the risks, benefits, and alternatives She was brought to the operating room. She was placed in prone grisel-knife position under general anesthesia via endotracheal tube. The buttocks were retracted with wide tape laterally. The perianal area was prepped and draped in usual sterile fashion. A surgical time-out was done. The patient received Cefotan 2 g IV preoperatively Examination of the anal orifice revealed large external hemorrhoids on the posterior aspect and anterior aspect. I inserted the Josep Carlisle retractor. I examined the anal canal circumferentially. There were no other lesions. There was no fissure or ulceration. These hemorrhoids as above were noted to be external with no significant internal component I applied a Murphy grasper at the hemorrhoidal column on the posterior aspect. I made a rakblj-fh-bamlj stitch at the pedicle at around the dentate line. I made an incision around this hemorrhoidal column to the perianal skin with a blade 15. I excised this hemorrhoidal column above the plane of the sphincters along this incision with scissors. I closed the incision with a running chromic 3-0 stitch. Additional hemostatic sutures were placed The same procedure was duplicated on the hemorrhoidal column anteriorly. Again this was retracted with a Murphy grasper. I made a etjujh-kt-dbhck stitch at the pedicle and made an incision around this hemorrhoidal column to the perianal skin with a blade 15. I excised this hemorrhoidal column above the plane of the sphincters with scissors and closed the incision with a running chromic 3-0 stitch. Additional hemostatic yowrol-vi-sozmx sutures were placed This hemostasis was confirmed, I proceeded to then infiltrated the perianal area with Marcaine 0.5% for postop analgesia. A rolled Gelfoam was applied into the anal canal. The procedure was completed The patient tolerated procedure well. There were no immediate complications. Estimated blood loss about 25 cc. The patient was extubated without difficulty and transferred to the recovery room with stable vital signs.
[2024-01-14] MEDS: fentaNYL citrate/PF 100 MCG/2 ML VIAL 50 MCG IVPUSH ×2 (12:36→12:41)
[2024-01-14] MEDS: diphenhydrAMINE HCL 50 MG/ML VIAL 12.5 MG IVPUSH (13:04)
[2024-01-14] MEDS: oxyCODONE HCl Immed Release 5 MG TABLET PO (13:10)
== END 2024-01-14 13:50 | disposition home or self-care (01) ==
PROVIDERS: PCP Registered Nurse; Visit Provider Surgery
PROC: (CPT 46250; principal; 2024-01-14 11:30)
DX: K64.4 Residual hemorrhoidal skin tags (principal); I10 Essential (primary) hypertension; H71.93 Unspecified cholesteatoma, bilateral; E66.01 Morbid (severe) obesity due to excess calories; Z68.41 Body mass index [BMI] 40.0-44.9, adult; Z79.899 Other long term (current) drug therapy; Z98.890 Other specified postprocedural states; F17.290 Nicotine dependence, other tobacco product, uncomplicated
CPT/HCPCS: 46250; 88304; J0330; J1100; J1200; J1885; J2250; J2405; J2704; J2795; J3010

== ENCOUNTER → 2024-01-14 09:25 | Outpatient (BNV) | payer MEDICAID, SELFPAY | PROVIDERS: PCP Registered Nurse; Visit Provider Surgery | DX: K64.8 Other hemorrhoids (principal) | CPT/HCPCS: 46250 ==

== ENCOUNTER 2024-01-17 08:13 | Outpatient (REF) | payer MEDICAID, SELFPAY ==
--- NOTE | ~2024-01-17 | XR_ITS ---
EXAMINATION: XR ANKLE, RIGHT CLINICAL INFORMATION: Pain in right ankle COMPARISON: Prior x-rays most recent 12/31/2023 TECHNIQUE: AP, lateral, and mortise views of the right ankle. FINDINGS: The minimally displaced spiral oblique fracture the distal diametaphysis of the fibula is redemonstrated with unchanged in alignment and overall appearance. Callus formation detected. The ankle mortise is intact. No additional fractures noted. XR/XR ankle RT min 3V IMPRESSION: distal fibular fracture unchanged in appearance and alignment.
== END 2024-01-17 08:14 | disposition home or self-care (01) ==
LOC: HO.HOSX 08:13
DX: S82.831A Other fracture of upper and lower end of right fibula, initial encounter for closed fracture (principal)
CPT/HCPCS: 29405; 73610; 99212

== ENCOUNTER 2024-01-17 11:39 | Outpatient (AMB) | payer MEDICAID, SELFPAY ==
--- NOTE | 2024-01-17 12:02 | MHC.OFFVIS ---
Vital Signs 01/17/24 12:03 Height 5 ft 4 in Weight 243 lb BMI 41.7 Intake Visit Reasons: Rt Fx of distal end of fibula w/ xray Intake Note: Yue is a 48 year old female who presents today for cast removal, reassessment of fracture and ankle alignment s/p right fracture of distal end of fibula, DOI: 12/23/23. Patient reports minimal pain, 2 on 0-10 pain scale. Previously taking Percocet for pain, now only using ibuprofen PRN with relief. Redness visible at the top of the right foot. Allergies No Known Allergies Allergy (Verified 01/17/24 12:09) HPI HPI Rt Fx of distal end of fibula w/ xray: Details: Patient is a 48-year-old female who presents for 2 week follow-up status post right distal fibula fracture, Swartz class C. The patient reports that she is feeling much better today than she did at previous presentation, and her pain is now controlled well with ibuprofen as needed. The patient reports that she has been totally nonweightbearing since last visit, and inquires if her x-rays reflect this, or if the bone has displaced. The patient also reports that her edema has gone down significantly since date of injury and date of presentation to the office previously. Denies any numbness or tingling in the distal right lower extremity. No other complaints or concerns at this time [facility] Medical History (Updated 12/31/23 @ 15:59 by RANULFO Apple) External hemorrhoids with complication Cholesterol granuloma Abnormal CT scan Hypertension Morbid obesity Supraclavicular mass Surgical History History of tonsillectomy History of ankle surgery Hx of right knee surgery Hx of tubal ligation Family History Maternal Aunt Breast cancer Colon cancer Son Crohn's disease of both small and large intestine with fistula Other Ovarian cancer Prostate cancer Stomach cancer Social History Household Members Other:: 3 kids Alcohol intake: current Alcohol intake frequency: former alcohol drinker Alcohol type: wine Patient Tobacco Use Status: Former Tobacco user Tobacco use type: Smokeless Tobacco Second Hand Smoke Exposure: No Current occupational status: employed Current occupation: [employer] Female Reproductive History Menstrual Age of Menarche: 11 Physical Exam Vital Signs: BMI result Body Mass Index 41.7 Extrem Other: On inspection, there is still edema on the lateral aspect of the right foot and ankle, but this has improved significantly since last presentation to the office. There is also still mild ecchymosis present on the lateral aspect of the right foot, also improved from last visit On palpation, there is tenderness over the R fibula at the level of the fracture No tenderness anywhere else ROM at the right foot intact Distal sensation intact Capillary refill brisk Office Procedures Fracture Care Details: Right distal fibula fracture Fracture Billing Code: Fracture Billing Code Results Reviewed Results Reviewed: X-rays obtained in the office today and independently reviewed by me, Sourav Perez PA-C, demonstrate minimally displaced Swartz class C distal fibula fracture on the right, largely unchanged from previous x-rays. Assessment & Plan Assessment & Plan (1) Fracture of distal end of right fibula: Code(s): S82.831A - Other fracture of upper and lower end of right fibula, initial encounter for closed fracture Category: Medical Qualifiers: Encounter type: initial encounter Fracture morphology: unspecified fracture morphology Fracture type: closed Qualified Code(s): S82.831A - Other fracture of upper and lower end of right fibula, initial encounter for closed fracture Plan 1. Swartz C right distal fibula fracture Date of injury 12/23/2023 Patient appears to be recovering well from her injury Patient is educated about the typical recovery course Patient is informed that she will be placed back into a cast for 4 more weeks Patient will also be totally nonweightbearing during this time Patient is amenable to this plan, and states that she has been able to get by fairly well with nonweightbearing measures Patient is educated about proper cast care and precautions Patient will follow-up in 4 weeks with repeat x-rays for reassessment of fracture, sooner with any acute concerns Orders: Orders XR ankle RT min 3V 01/17/24 M25.571 - Pain in right ankle and joints of right foot Coding Level of Care Code Est Pt Level 3 (55444) Diagnoses Closed fracture of distal end of right fibula, unspecified fracture morphology, initial encounter S82.831A Encounter type: initial encounter Fracture morphology: unspecified fracture morphology Fracture type: closed CPT Codes Fracture Care - Fracture Billing Code: Fracture Billing Code ([id number])
[2024-01-17 12:03] VITALS: BMI 41.7
== END 2024-01-17 13:02 | disposition home or self-care (01) ==
LOC: HO.HOS 11:39
PROVIDERS: PCP Registered Nurse
DX: S82.831A Other fracture of upper and lower end of right fibula, initial encounter for closed fracture (principal)
CPT/HCPCS: 29405; 99024

== ENCOUNTER 2024-01-27 11:23 | Outpatient (AMB) | payer MEDICAID, SELFPAY ==
--- NOTE | 2024-01-27 11:32 | A.OFFVIS_ITS ---
Intake Visit Reasons: S/P hemorrhoidectomy Intake Note: This patient presents for a post-op assessment status post hemorrhoidectomy. Pt c/o; reports no complaints. Marketing Automation Specialist Required: No Accompanied by: Other Relationship Allergies No Known Allergies Allergy (Verified 01/27/24 11:45) HPI HPI S/P hemorrhoidectomy: Details: She underwent hemorrhoidectomy x2 columns last 01/14/2024. She tolerated the procedure well. She says she had significant pain on the 1st few days postop This has been improving well. She denies any significant bleeding. [facility] Medical History External hemorrhoids with complication Cholesterol granuloma Abnormal CT scan Hypertension Morbid obesity Supraclavicular mass Surgical History (Updated 01/27/24 @ 11:46 by Jocelyne Porras [facility]) History of hemorrhoidectomy (~01/14/24) History of tonsillectomy History of ankle surgery Hx of right knee surgery Hx of tubal ligation Family History Maternal Aunt Breast cancer Colon cancer Son Crohn's disease of both small and large intestine with fistula Other Ovarian cancer Prostate cancer Stomach cancer Social History Household Members Other:: 3 kids Alcohol intake: current Alcohol intake frequency: former alcohol drinker Alcohol type: wine Patient Tobacco Use Status: Former Tobacco user Tobacco use type: Smokeless Tobacco Second Hand Smoke Exposure: No Current occupational status: employed Current occupation: [employer] Female Reproductive History Menstrual Age of Menarche: 11 Physical Exam Const General: comfortable and no acute distress GI Other: Rectal exam shows the hemorrhoidectomy sites to be healing well, dry, not infected with note of edema of the procedure area Assessment & Plan Assessment & Plan (1) External hemorrhoids with complication: Code(s): K64.4 - Residual hemorrhoidal skin tags Category: Medical Plan: Status post hemorrhoidectomy. Her surgical sites are healing well. She still has significant edema on the posterior perianal area. I will therefore see her again in about a month for another wound check. Her path report shows hemorrhoid tissue. I advised her to continue doing hot Sitz baths or warm soaks. I advised her to avoid straining and constipation. Coding Level of Care Code Global (47986) Diagnoses External hemorrhoids with complication K64.4
== END 2024-01-27 11:58 | disposition home or self-care (01) ==
PROVIDERS: PCP Registered Nurse; Visit Provider Surgery
DX: K64.4 Residual hemorrhoidal skin tags (principal)
CPT/HCPCS: 99024

== ENCOUNTER → 2024-01-27 11:23 | Outpatient (BNVA) | payer MEDICAID, SELFPAY | PROVIDERS: PCP Registered Nurse; Visit Provider Surgery | DX: K64.4 Residual hemorrhoidal skin tags (principal) | CPT/HCPCS: 99212 ==

== ENCOUNTER 2024-02-14 09:20 | Outpatient (AMB) | payer MEDICAID, SELFPAY ==
--- NOTE | 2024-02-14 09:30 | A.OFFVIS_ITS ---
Intake Visit Reasons: OV-Rt Fx of distal end of fibula-F/U Intake Note: Yue is a 48 year old female who presents to the office today for Rt Fx of distal end of fibula-F/U. Cast removed and Xrays updated. Pt states the pain has gotten better since last time and states she has been non weight bearing. Allergies No Known Allergies Allergy (Verified 02/14/24 09:31) HPI HPI OV-Rt Fx of distal end of fibula-F/U: Details: Patient is a 48 YO F who presents for 4 week follow-up of fracture of distal right fibula, date of injury 12/23/2023. Today, the patient reports that she is feeling very well, and is experiencing no pain at baseline in her right ankle. The patient does report that she feels a sensation of ?decompression? in her right ankle after removal from cast, But says that she would not describe this as pain. The patient reports that she has been compliant with nonweightbearing measures, with only 1 or 2 exceptions when she fell she lost her balance and needed to use the toes of her right foot to prevent herself from falling. The patient inquires if she will be able to be removed from a cast at this time. Patient denies any numbness or tingling in the distal right lower extremity. No other acute complaints or concerns at this time. [facility] Medical History External hemorrhoids with complication Cholesterol granuloma Abnormal CT scan Hypertension Morbid obesity Supraclavicular mass Surgical History (Updated 01/27/24 @ 11:46 by YOCASTA Bowman) History of hemorrhoidectomy (~01/14/24) History of tonsillectomy History of ankle surgery Hx of right knee surgery Hx of tubal ligation Family History Maternal Aunt Breast cancer Colon cancer Son Crohn's disease of both small and large intestine with fistula Other Ovarian cancer Prostate cancer Stomach cancer Social History Household Members Other:: 3 kids Alcohol intake: current Alcohol intake frequency: former alcohol drinker Alcohol type: wine Patient Tobacco Use Status: Former Tobacco user Tobacco use type: Smokeless Tobacco Second Hand Smoke Exposure: No Current occupational status: employed Current occupation: [employer] Female Reproductive History Menstrual Age of Menarche: 11 Review of Systems Const All systems reviewed & are unremarkable except as noted in HPI and below Physical Exam Extrem Other: On inspection, there is noted to be ieyl-cz-dlfzxgms edema about the lateral malleolus of the right ankle There is also some old, yellowed ecchymosis noted in the area. No erythema noted No lacerations, abrasions, open areas noted No evidence of infection Patient reports very mild tenderness to palpation at the level of the fracture in the distal right fibula No tenderness to palpation of the areas proximal or distal to the fracture No tenderness to palpation of the medial malleolus No tenderness to palpation of the foot noted Patient is able to flex and extend the digits of the right foot without difficulty During exam, patient plantar flexes and dorsiflexes the right foot without difficulty Distal sensation intact Capillary refill brisk Results Reviewed Results Reviewed: X-rays obtained in the office today and independently reviewed by me, Sourav Perez PA-C, demonstrate minimally displaced fracture of the distal right fibula, Swartz class C, with evidence of interval bony healing. Assessment & Plan Assessment & Plan (1) Fracture of distal end of right fibula: Code(s): S82.831A - Other fracture of upper and lower end of right fibula, initial encounter for closed fracture Category: Medical Qualifiers: Encounter type: initial encounter Fracture type: closed Fracture morphology: unspecified fracture morphology Qualified Code(s): S82.831A - Other fracture of upper and lower end of right fibula, initial encounter for closed fracture Plan 1. Fracture of distal right fibula Date of injury 12/23/2023 Patient was discussed with Dr. Nguyen, who was not available to see the patient in clinic at this time, and a collaborative treatment plan was formed: Patient appears to be recovering well from her injury Patient is educated about the typical recovery course At this time, patient is removed from a cast and is placed in a walking boot Patient can weight bear as tolerated on the right lower extremity Patient is educated that she should be in the boot whenever she is weight- bearing, but does not need to be in the boot for activities such as sleeping, resting, or bathing Patient is amenable to this plan Patient will follow-up in 4 weeks with repeat x-rays, sooner with any acute concerns Orders: Orders XR ankle RT min 3V Today M25.571 - Pain in right ankle and joints of right foot Coding Level of Care Code Global (52860) Diagnoses Closed fracture of distal end of right fibula, unspecified fracture morphology, initial encounter S82.831A Encounter type: initial encounter Fracture type: closed Fracture morphology: unspecified fracture morphology
== END 2024-02-14 11:09 | disposition home or self-care (01) ==
PROVIDERS: PCP Registered Nurse
DX: S82.831A Other fracture of upper and lower end of right fibula, initial encounter for closed fracture (principal)
CPT/HCPCS: 99024

== ENCOUNTER 2024-02-14 09:55 | Outpatient (REF) | payer MEDICAID, SELFPAY ==
--- NOTE | ~2024-02-14 | XR_ITS ---
EXAMINATION: XR ANKLE, RIGHT CLINICAL INFORMATION: Fracture. COMPARISON: Most recent right ankle radiographs dated 01/17/2024. TECHNIQUE: AP, lateral, and mortise views of the right ankle. FINDINGS: Oblique distal fibular metaphyseal fracture in unchanged anatomic alignment with interval new bone/callus formation when compared to the prior examination. The persistent fracture gap measures up to 0.3 cm distally. No new fracture or dislocation. The ankle mortise is maintained. No joint space narrowing or marginal osteophytes. Plantar and dorsal calcaneal spurs. Increased circumferential soft tissue swelling, most prominent laterally. XR/XR ankle RT min 3V IMPRESSION: 1. Distal fibular fracture in unchanged anatomic alignment with interval new bone/callus formation when compared to the prior examination. 2. Increased circumferential soft tissue swelling, most prominent laterally. Electronically signed by: Adryan Pino MD 02/18/2024 10:15 AM EDT
== END 2024-02-14 09:56 | disposition home or self-care (01) ==
LOC: HO.HOSX 09:55
PROVIDERS: PCP Internal Medicine
DX: M25.571 Pain in right ankle and joints of right foot (principal); S82.831D Other fracture of upper and lower end of right fibula, subsequent encounter for closed fracture with routine healing
CPT/HCPCS: 73610; 99212

== ENCOUNTER 2024-03-13 10:30 | Outpatient (REF) | payer MEDICAID, SELFPAY ==
--- NOTE | ~2024-03-13 | XR_ITS ---
EXAMINATION: XR ANKLE, RIGHT CLINICAL INFORMATION: Pain. COMPARISON: None available. TECHNIQUE: AP, lateral, and mortise views of the right ankle. FINDINGS: Bony alignment and mineralization are normal. There is a stable mild displacement of an oblique, spiral-type fracture of the distal right fibula. There is adjacent periosteal callus formation. The ankle mortise is intact. No fracture, dislocation or right ankle joint effusion is seen. Boehler's angle is normal. There are moderate posterior and minimal plantar calcaneal spurs. There is mild soft tissue swelling adjacent to the lateral malleolus. No soft tissue gas or foreign body is seen. XR/XR ankle RT min 3V IMPRESSION: 1. There is stable alignment of an oblique, spiral-type fracture of the distal right fibula. There is good periosteal callus formation. There is mild adjacent soft tissue swelling. 2. The ankle mortise is intact. 3. There are moderate posterior and minimal plantar calcaneal spurs. Electronically signed by: Zachary Baker MD 03/13/2024 05:27 PM EDT
== END 2024-03-13 10:31 | disposition home or self-care (01) ==
LOC: HO.HOSX 10:30
PROVIDERS: PCP Registered Nurse
DX: M25.571 Pain in right ankle and joints of right foot (principal); S82.831A Other fracture of upper and lower end of right fibula, initial encounter for closed fracture
CPT/HCPCS: 73610; 99212

== ENCOUNTER 2024-03-13 10:55 | Outpatient (AMB) | payer MEDICAID, SELFPAY ==
--- NOTE | 2024-03-13 11:05 | MHC.OFFVIS ---
Intake Visit Reasons: OV-Rt Fx of distal end of fibula w/ X-Rays Intake Note: Yue is a 48 year old female who presents today for a follow up of her right distal end of right fibula fracture, DOI: 12/23/2023. Patient reports she has not been having pain in her right ankle. Today she crossed her leg over her knee to put on her sock and says the pressure of her knee on her ankle caused some discomfort. She expresses she is always wearing her boot, when ever the boot is not on she says she doesn't have any pain. She would like to make sure her right ankle is healing correctly and she would like to discuss work status today. Allergies No Known Allergies Allergy (Verified 03/13/24 11:11) HPI HPI OV-Rt Fx of distal end of fibula w/ X-Rays: Details: Patient is a 48-year-old female who presents for follow-up evaluation of right distal fibula fracture, date of injury 12/23/2023. Today, the patient reports that she is feeling very well, and experiences no pain at baseline in her right ankle. Patient reports that she did have 1 episode of acute pain when she attempted to cross the right leg while sitting upright, and her right lateral malleolus was pressing against her left knee, but states that this resolved almost immediately when she got out of this position. The patient reports that she is looking to return to work at this time, as her job has assured her that they will be willing to accommodate any restrictions placed on her. No other acute complaints or concerns at this time. [facility] Medical History External hemorrhoids with complication Cholesterol granuloma Abnormal CT scan Hypertension Morbid obesity Supraclavicular mass Surgical History History of hemorrhoidectomy (~01/14/24) History of tonsillectomy History of ankle surgery Hx of right knee surgery Hx of tubal ligation Family History Maternal Aunt Breast cancer Colon cancer Son Crohn's disease of both small and large intestine with fistula Other Ovarian cancer Prostate cancer Stomach cancer Social History Household Members Other:: 3 kids Alcohol intake: current Alcohol intake frequency: former alcohol drinker Alcohol type: wine Patient Tobacco Use Status: Former Tobacco user Tobacco use type: Smokeless Tobacco Second Hand Smoke Exposure: No Current occupational status: employed Current occupation: [employer] Female Reproductive History Menstrual Age of Menarche: 11 Physical Exam Extrem Other: On inspection, there is noted to be no erythema, edema, ecchymosis of the right lateral malleolus No lacerations, abrasions, open areas noted No evidence of infection Patient reports no tenderness to palpation at the level of the fracture in the distal right fibula No tenderness to palpation of the areas proximal or distal to the fracture No tenderness to palpation of the medial malleolus No tenderness to palpation of the foot noted Patient is able to flex and extend the digits of the right foot without difficulty During exam, patient plantar flexes and dorsiflexes the right foot without difficulty Distal sensation intact Capillary refill brisk Results Reviewed Results Reviewed: X-rays obtained in the office today and independently reviewed by me, Sourav Perez PA-C, demonstrate minimally displaced fracture of the right distal fibula with evidence of good interval bony healing. Assessment & Plan Assessment & Plan (1) Fracture of distal end of right fibula: Code(s): S82.831A - Other fracture of upper and lower end of right fibula, initial encounter for closed fracture Category: Medical Qualifiers: Encounter type: initial encounter Fracture morphology: unspecified fracture morphology Fracture type: closed Qualified Code(s): S82.831A - Other fracture of upper and lower end of right fibula, initial encounter for closed fracture Plan 1. Fracture of right distal fibula Date of injury 12/23/2023 Patient appears to be recovering well from her injury Patient is educated about the typical recovery course At this time, the patient is educated that she no longer needs to wear the boot, and then she will be provided with a lace-up ankle brace to be worn during daytime activities Patient is advised that she can return to work on a limited basis, with frequent sitting breaks and times of nonweightbearing Patient is advised that if she begins to experience increases in pain, increases in swelling, or has any injury, she should immediately stop working and call our office for repeat evaluation Patient is also referred to physical therapy for range of motion, strengthening, stabilization of the right ankle Patient is amenable to this plan Patient will follow-up in 3-4 weeks with repeat x-rays if she is still experiencing any symptoms, sooner with any acute concerns Orders: Orders PT Evaluation and Treatment 03/13/24 S82.831A - Other fracture of upper and lower end of right fibula, initial encounter for closed fracture XR ankle RT min 3V 03/13/24 M25.571 - Pain in right ankle and joints of right foot Coding Level of Care Code Global (34130) Diagnoses Closed fracture of distal end of right fibula, unspecified fracture morphology, initial encounter S82.831A Encounter type: initial encounter Fracture morphology: unspecified fracture morphology Fracture type: closed
== END 2024-03-13 11:56 | disposition home or self-care (01) ==
PROVIDERS: PCP Internal Medicine
DX: S82.831A Other fracture of upper and lower end of right fibula, initial encounter for closed fracture (principal)
CPT/HCPCS: 99024

== ENCOUNTER 2024-04-10 08:29 | Outpatient (REF) | payer MEDICAID, SELFPAY | END 2024-04-10 08:30 | disposition home or self-care (01) | LOC: HO.HOSX 08:29 | DX: Z13.89 Encounter for screening for other disorder (principal) ==

== ENCOUNTER 2024-04-18 11:40 | Outpatient (REF) | payer MEDICAID, SELFPAY ==
[2024-04-18 13:25] LABS: MANUAL DIFF FLAG NO
[2024-04-18 13:46] LABS: Basophils Absolute Auto 0.1 X10*3/uL (0.0-0.2); Eosinophils Absolute Auto 0.6 X10*3/uL (0.0-0.4); Eosinophils Percent Auto 9.4 % (0-4); Hematocrit 34.5 % (37.0-47.0); Hemoglobin 11.7 g/dl (12.0-16.0); Imm Gran Abs Auto 0.02 X10*3/uL (0.00-0.03); Imm Gran Pct Auto 0.3 % (0.0-0.4); Lymphocytes Absolute Auto 2.6 X10*3/uL (1.2-4.9); Lymphocytes Percent Auto 38.5 % (20-40); Mean Corpuscular HGB Conc 33.9 g/dl (31.0-35.0); Mean Corpuscular Volume 85.4 fL (80.0-98.0); Mean Platelet Volume 9.5 fL (9.4-12.3); Monocytes Absolute Auto 0.4 X10*3/uL (0.1-1.2); Monocytes Percent Auto 5.6 % (2-11); Neutrophils Absolute Auto 3.1 x10*3/uL (2.0-8.3); Neutrophils Percent Auto 45.2 % (45-73); Platelet Count 410 X10*3/uL (160-400); Red Blood Count 4.04 X10*6/uL (4.20-5.50); Red Cell Distribution Width 14.2 % (11.0-16.0); White Blood Count 6.8 X10*3/uL (4.8-10.8)
[2024-04-18 13:58] LABS: Alanine Aminotransferase 50 U/L (0-31); Albumin Level 3.8 g/dL (3.5-5.0); Alkaline Phosphatase 80 U/L (39-117); Anion Gap 11 (12-20); Aspartate Amino Transferase 49 U/L (5-31); Bilirubin Total 0.1 mg/dL (0.0-1.0); Blood Urea Nitrogen 15 mg/dL (9-16); Calcium 8.8 mg/dL (8.4-10.2); Carbon Dioxide 22 mmol/L (22-29); Chloride 110 mmol/L (96-108); Cholesterol 186 mg/dL (<200); Estimated Glomerular Filt Rate > 60; Glucose Random 111 mg/dL (60-115); HDL Cholesterol 63 mg/dL (>40); LDL Cholesterol Calculated 105 mg/dL (<100); Sodium 139 mmol/L (135-145); Total Protein 7.3 g/dL (6.5-8.0); Triglycerides 91 mg/dL (<150)
[2024-04-18 14:13] LABS: Vitamin D 25-OH Total 39.5 ng/mL (>30)
[2024-04-18 18:46] LABS: Free T4 (Free Thyroxine) 0.89 ng/dL (0.71-1.85)
[2024-04-18 18:47] LABS: Reflex LDLD? No
[2024-04-19 10:13] LABS: HBS Num1 44.17 mIU/mL (0-7.99); HBc Num1 0.19 S/CO (0.00-0.79); Hepatitis B Core Antibody Nonreactive (Nonreactive); Hepatitis B Surface Antigen Negative (Negative); ~Hepatitis B Surface Antibody REACTIVE (Nonreactive)
[2024-04-20 08:17] LABS: Hepatitis A Antibody IgM 0.15 Index (0-0.79); ~HepC Num1 0.33 S/CO (0.00-0.79); ~Hepatitis A Antibody IgM Nonreactive (Nonreactive); ~Hepatitis C Antibody Nonreactive (Nonreactive)
== END 2024-04-18 11:41 | disposition home or self-care (01) ==
LOC: HO.HHCL 11:40
PROVIDERS: Visit Provider Internal Medicine
DX: E66.813 Obesity, class 3 (principal); E66.01 Morbid (severe) obesity due to excess calories; Z68.41 Body mass index [BMI] 40.0-44.9, adult; I10 Essential (primary) hypertension; R73.03 Prediabetes
CPT/HCPCS: 36415; 80053; 80061; 82306; 84439; 84443; 85025; 86704; 86706; 86709; 86803; 87340

== ENCOUNTER 2024-05-11 09:55 | Outpatient (REF) | payer MEDICAID, SELFPAY ==
[2024-05-11 12:00] LABS: Alanine Aminotransferase 34 U/L (0-31); Aspartate Amino Transferase 25 U/L (5-31); Gamma Glutamyl Transpeptidase 61 U/L (7-33)
[2024-05-11 12:07] LABS: Free T4 (Free Thyroxine) 1.08 ng/dL (0.71-1.85); T4 Thyroxine 8.1 ug/dL (4.5-12.0); Thyroid Stimulating Hormone 3.34 uIU/mL (0.32-4.0)
[2024-05-13 05:09] LABS: Triiodothyronine T3 Free 3.6 pg/mL (2.3-4.2); Triiodothyronine T3 Total 122 ng/dL (76-181)
== END 2024-05-11 09:56 | disposition home or self-care (01) ==
LOC: HO.HHCL 09:55
PROVIDERS: Visit Provider Internal Medicine
DX: R74.01 Elevation of levels of liver transaminase levels (principal); R94.6 Abnormal results of thyroid function studies
CPT/HCPCS: 36415; 82977; 84436; 84439; 84443; 84450; 84460; 84480; 84481

== ENCOUNTER 2024-07-03 15:19 | Outpatient (REF) | payer MEDICAID, SELFPAY | END 2024-07-03 15:20 | disposition home or self-care (01) | LOC: HO.HOSX 15:19 | DX: Z13.89 Encounter for screening for other disorder (principal) ==

== ENCOUNTER → 2024-07-26 07:49 | Outpatient (BNV) | payer MEDICAID, SELFPAY | PROVIDERS: PCP Internal Medicine; Visit Provider Internal Medicine Cardiovascular Disease | DX: I49.3 Ventricular premature depolarization (principal) | CPT/HCPCS: 93227; 93306 ==

== ENCOUNTER 2024-08-24 07:56 | Outpatient (REF) | payer MEDICAID, SELFPAY ==
--- NOTE | 2024-08-24 08:02 | EEG_ITS ---
This is a 16-channel EEG with an EKG lead. The patient is reported awake during the tracing. Background EEG rhythm is low amplitude fast with no obvious asymmetry or paroxysmal tendency. Photic stimulation does not produce any significant abnormality. Hyperventilation is unremarkable. No sharp wave spikes or paroxysmal tendency noted. Cardiac lead does not reveal any significant abnormality. IMPRESSION: Unremarkable EEG. MD ARCHANA Chase/GLORIA / [id number]
--- OUTSIDE RECORDS SUMMARY | 2024-08-24 08:03 | XMS_ITS | Encounter Summary ---
Author Organization [employer] Address [address] [facility] 7t [place] [address] Care Team Providers Care Direct Marketing Executive Name Role Phone Johana Allen MD Primary Care Provider + Blade Noel RN Unavailable [phone] Reason for Visit * Reason Comments Care Coordination SDOH Encounter Details Date Type Department Care Team (Latest Contact Info) Description 08/15/2024 Patient Outreach [facility] [address] [place], [place] [phone] Johana Allen MD 230 [place] [address] Care Coordination (SDOH) Social History Tobacco Use Types Packs/Day Years Used Date Smoking Tobacco: Former Smokeless Tobacco: Never Alcohol Use Standard Drinks/Week Comments Not Currently 0 (1 standard drink = 0.6 oz pur e alcohol) Depression Answer Date Recorded Patient Health Questionnaire-9 Score 0 08/01/2024 Patient Health Questionnaire-9 Score 0 08/01/2024 Last PHQ-9: Questionnaire Data Not on file 0 08/01/2024 Housing Stability Answer Date Recorded What is your housing situation today? I have ronni knowles 03/20/[address] you li ve. Do you have problems with any of the following? None of the above 03/20/2024 Food Insecurity Answer Date Recorded Within the past 12 months, y ou worried that your food would run out before you got money to buy more: Never True 03/20/2024 Within the past 12 months,th e food you bought just didn't last and you didn't have enough money to get more: Never True Transportation Answer Date Recorded In the past 12 months, has l ack of transportation kept you from medical appts, meetings, work or from getting things needed for daily living? No 03/20/2024 Utilities Answer Date Recorded In the past 12 months, has t he electric, gas, oil or water company threatened to shut off services in your home? No 03/20/2024 Depression Answer Date Recorded Patient Health Questionnaire-2 Score 0 08/01/2024 Internet Access Answer Date Recorded Internet Access Q1 Yes 08/01/2024 Internet Access Q2 I do not want or need it 07/22 Comments No Sex and Gender Information Value Date Recorded Sex Assigned at Female 10/09/2022 1:35 PM EDT Legal Sex Female 3:34 PM EST Gender Identity Female 10/09/2022 1:35 PM EDT Sexual Orientation Choose not to disclose 2022 5:26 PM EDT documented as of this encounter Progress Notes * Chiquita Thomason - 08/15/2024 9:46 AM EST CHW Chiquita Thomason/VANE Noel RN placed outbound call to patient to follow up on SDOH needs.Patient's name, and address confirmed. Patient states is doing well. No SDOH needed at this time. No further questions or concerns. CHW reinforced direct contact information or CM for any additional questions or concerns and extended clinic hours on Mondays and Wednesdays, and Walk-In Urgent Care Located in [facility] of [facility]. Patient provided with after-hours line for [facility], , which offer night time triage service and option to transfer to data acquisition technician provider if needed. Patient verbalizes understanding, and able to repeat back to senior writer. A follow up call willbe placed within 10 days, patient agrees with plan. documented in this encounter Plan of Treatment Upcoming Encounters Date Type Department Care Team (Late st Contact Info) Description 09/29/2024 9:45 AM EDT Office Visit [facility] [address] [place] [address] Johana Allen MD [address] [place] [address] documented as of this encounter Visit Diagnoses Not on filedocumented in this encounter Additional Health Concerns Assessment Noted Time PHQ-9 Depression Total Score: 0 08/01/19 25 9:09 AM EST documented as of this encounter Care Teams Direct Marketing Executive Relationship Specialty Start Date End Date Johana Allen MD [address] [place] [address] PCP - General Internal Medicine 12/20/23 Blade Noel RN [address] [place] [phone] Pbx MechanicAssistant Director 06/09/24 documented as of this encounter
--- OUTSIDE RECORDS SUMMARY | 2024-08-24 08:03 | XMS_ITS | Encounter Summary ---
Author Organization [employer] Address [address] [facility] [address] 7t [place] [address] Care Team Providers Care Operations Boardman Name Role Phone Johana Allen MD Primary Care Provider + Blade Noel RN Unavailable [phone] Reason for Visit * Reason Onset Date Comments Chart prep 07/28/2024 Encounter Details Date Type Department Care Team ([facility] st Contact Info) Description 07/28/2024 Telephone [facility] 230 [place] [address] Krista Méndez MA Chart prep Social History Tobacco Use Types Packs/Day Years Used Date Smoking Tobacco: Former Smokeless Tobacco: Never Alcohol Use Standard Drinks/Week Comments Not Currently 0 (1 standard drink = 0.6 oz pur e alcohol) Depression Answer Date Recorded Patient Health Questionnaire-9 Score 11 12/23/2022 Housing Stability Answer Date Recorded What is [...] Date Recorded Patient Health Questionnaire-2 Score 0 03/31/2024 Internet Access Answer Date Recorded Internet Access Q1 No 03/31/2024 Internet Access Q2 I do not want or need it 03/21 Comments No Sex and Gender Information Value Date Recorded Sex Assigned at Female 10/09/2022 1:35 PM EDT Legal Sex Female 3:34 PM EST Gender Identity Female 10/09/2022 1:35 PM EDT Sexual Orientation Choose not to disclose 2022 5:26 PM EDT documented as of this encounter Miscellaneous Notes * Telephone Encounter - Krista Méndez MA - 07/28/2024 3:24 PM EST Chart Prep Labs: done Images: done Vaccines due: yes Referrals: complete Screenings: colonoscopy Overdue care gaps: Up to date documented in this encounter Plan of Treatment Upcoming Encounters Date Type Department Care Team (Late st Contact Info) Description 09/29/2024 9:45 AM EDT Office Visit [facility] MEDICINE [address] [place] [address] Johana Allen MD [address] [place] [address] documented as of this encounter Visit Diagnoses Not on filedocumented in this encounter Additional Health Concerns Assessment Noted Time PHQ-9 Depression Total Score: 11 023 8:15 AM EDT documented as of this encounter Care Teams Operations Boardman Relationship Specialty Start Date End Date Johana Allen MD [address] [place] [address] PCP - General Internal Medicine 12/20/23 Blade Noel RN [address] [place] [phone] High School Business TeacherOracle R12 Developer 06/09/24 documented as of this encounter
--- OUTSIDE RECORDS SUMMARY | 2024-08-24 08:03 | XMS_ITS | Encounter Summary ---
Author Organization [facility] [employer] Address [address] [place] [address] 7t [place] [address] Care Team Providers Care Graphics Specialist Name Role Phone Lucrecia Mejia [facility] Primary Care Provider [phone] Gladys Sibley CHLOROBUTADIENE SCRUBBER OPERATOR Primary Care Provider [phone] Johana Allen MD Primary Care Provider + Blade Noel RN Unavailable [phone] Reason for Visit * Reason Onset Date Comments Med Refill 01/12/2023 Encounter Details Date Type Department Care Team (Late st Contact Info) Description 01/12/2023 Refill [facility] MED[facility]INE [address] [place] [address] Lucrecia Mejia [facility] [address] [facility] [place] [address] Primary hypertension Social History Tobacco Use Types Packs/Day Years Used Date Smoking Tobacco: Former Cigarettes Q uit: 10/20/2019 Smokeless Tobacco: Never Alcohol Use Standard Drinks/Week Comments Not Currently 0 (1 standard drink = 0.6 oz pur e alcohol) Depression Answer Date Recorded Patient Health Questionnaire-9 Score 11 12/23/2022 Depression Answer Date Recorded Patient Health Questionnaire-2 Score 2 12/23/2022 Comments No Sex and Gender Information Value Date Recorded Sex Assigned at Female 10/09/2022 1:35 PM EDT Legal Sex Female 3:34 PM EST Gender Identity Female 10/09/2022 1:35 PM EDT Sexual Orientation Choose not to disclose 2022 5:26 PM EDT COVID-19 Exposure Response Date Recorded In the last 10 days, have yo u been in contact with someone who was confirmed or suspected to have Coronavirus/COVID-19? No / Unsure 12/21/2022 10:23 AM EDT documented as of this encounter Plan of Treatment Upcoming Encounters Date Type Department Care Team (Late st Contact Info) Description 09/29/2024 9:45 AM EDT Office Visit [facility]INE [address] [place] [address] Johana Allen MD 230 [place] [address] documented as of this encounter Visit Diagnoses Diagnosis Primary hypertension Unspecified essential hypertension documented in this encounter Additional Health Concerns Assessment Noted Time PHQ-9 Depression Total Score: 11 023 8:15 AM EDT documented as of this encounter Care Teams Graphics Specialist Relationship Specialty Start Date End Date Lucrecia Mejia FNP PCP - General Family Medicine 11/18/22 03/29/23 Gladys Sibley FNP [address] [place] [address] PCP - General Family Medicine 03/30/23 12/19/23 Johana Allen MD 230 [place] [address] PCP - General Internal Medicine 12/20/23 Blade Noel RN [address] [place] [phone] Pollution Control EngineerArmament Repairer 06/09/24 documented as of this encounter
--- OUTSIDE RECORDS SUMMARY | 2024-08-24 08:03 | XMS_ITS | Encounter Summary ---
Author Organization [employer] Address [address] [facility] 7t [place] [address] Care Team Providers Care E Commerce Analyst Name Role Phone Johana Allen MD Primary Care Provider + Blade Noel RN Unavailable [phone] Encounter Details Date Type Department Care Team (Latest Contact Info) Description 08/01/2024 Travel Social History Tobacco Use Types Packs/Day Years [...] PM EDT documented as of this encounter Plan of Treatment Upcoming Encounters Date Type Department Care Team (Late st Contact Info) Description 09/29/2024 9:45 AM EDT Office Visit [facility] MED[facility]INE [address] [place] [address] Johana Allen MD [address] [place] [address] documented as of this encounter Visit Diagnoses Not on filedocumented in this encounter Additional Health Concerns Assessment Noted Time PHQ-9 Depression Total Score: 0 08/01/19 9:09 AM EST documented as of this encounter Care Teams E Commerce Analyst Relationship Specialty Start Date End Date Johana Allen MD [address] [place] [address] PCP - General Internal Medicine 12/20/23 Blade Noel, NANCY [address] [place] [phone] Demand Equipment RepairerCook Helper Meat 06/09/24 documented as of this encounter
--- OUTSIDE RECORDS SUMMARY | 2024-08-24 08:03 | XMS_ITS | Encounter Summary ---
Author Organization [employer] Address [address] [facility] 7t [place] [address] Care Team Providers Care Brattice Builder Name Role Phone Johana Allen MD Primary Care Provider + Blade Noel RN Unavailable [phone] Reason for Visit * Reason Comments Care Coordination Appt reminder Encounter Details Date Type Department Care Team (Latest Contact Info) Description 08/23/2024 Patient Outreach [facility] [address] [place], [place] [phone] Johana Allen MD [address] [place] [address] Care Coordination (Appt reminder) Social History Tobacco Use Types Packs/Day Years [...] encounter Progress Notes * Chiquita Thomason - 08/23/2024 1:06 PM EST CHW Chiquita Thomason placed call to patient to remind patient of appointment for EEG at [facility] on 08/24/24at 8:00am, patient stated she will attend. documented in this encounter Plan of Treatment Upcoming Encounters Date Type Department Care Team (Late st Contact Info) Description 09/29/2024 9:45 AM EDT Office Visit [facility] MED[facility]INE [address] [place] [address] Johana Allen MD [address] [place] [address] documented as of this encounter Visit Diagnoses Not on filedocumented in this encounter Additional Health Concerns Assessment Noted Time PHQ-9 Depression Total Score: 0 08/01/19 9:09 AM EST documented as of this encounter Care Teams Brattice Builder Relationship Specialty Start Date End Date Johana Allen MD [address] [place] [address] PCP - General Internal Medicine 12/20/23 Blade Noel RN [address] [place] [phone] Applications Project ManagerHealth Promotion Officer 06/09/24 documented as of this encounter
--- OUTSIDE RECORDS SUMMARY | 2024-08-24 08:03 | XMS_ITS | Encounter Summary ---
Author Organization [employer] Address [address] [facility] 7t [place] [address] Care Team Providers Care Dial Marker Name Role Phone Johana Allen MD Primary Care Provider + Blade Noel RN Unavailable Reason for Visit * Reason Onset Date Comments Med Refill 04/06/2024 Encounter Details Date Type Department Care Team ([facility] st Contact Info) Description 04/06/2024 Refill [facility] [address] [place], [place] [phone] Johana Allen MD 230 [place], [place] [phone] Class 3 severe obesity due to excess calories with serious comorbidity and body mass index (BMI) of 40.0 to 44.9 in adult (CMS/HCC) Social History Tobacco Use Types Packs/Day Years [...] 09/29/2024 9:45 AM EDT Office Visit [facility] [address] [place] [address] Johana Allen MD [address] [place] [address] documented as of this encounter Visit Diagnoses Diagnosis Class 3 severe obesity due to excess calories with serious comorbidity and body mass index (BMI) of 40.0 to 44.9 in adult (CMS/HCC) documented in this encounter Additional Health Concerns Assessment Noted Time PHQ-9 Depression Total Score: 11 023 8:15 AM EDT documented as of this encounter Care Teams Dial Marker Relationship Specialty Start Date End Date Johana Allen MD [address] [place] [address] PCP - General Internal Medicine 12/20/23 Blade Noel RN [address] [place] [phone] Welding Machine OperatorPricer 06/09/24 documented as of this encounter
--- OUTSIDE RECORDS SUMMARY | 2024-08-24 08:03 | XMS_ITS | Encounter Summary ---
Author Organization [employer] Address [address] [facility] 7t [place] [address] Care Team Providers Care Watch Train Assembler Name Role Phone Johana Allen MD Primary Care Provider + Blade Noel RN Unavailable [phone] Reason for Visit * Reason Onset Date Comments Care Management 08/15/2024 C3CM- f/u call Encounter Details Date Type Department Care Team ([facility] Contact Info) Description 08/15/2024 Telephone [facility]INE 230 [place], [place] [phone] Johana Allen MD [address] [place] [address] Care Management (C3CM- f/u call) Social History Tobacco Use Types Packs/Day Years [...] is your housing situation today? I have ronin knowles 03/20/[address] you [...] encounter Miscellaneous Notes * Telephone Encounter - Denice eSrrano RN - 08/17/2024 9:26 AM EST TC placed to pt to inform of below PCP message. RN informed pt of PCP message. Pt states she made an appointment with the suspect artist supervisor for October 26. RN stressed the importance of taking BP medicationsas prescribed and following up in WIC or ED for if having recurrent chest pain or palpitations. Advised pt to call office with any questions or concerns. Pt verbalized understanding and denies questions at this time. Johana Allen MD: Please call patient regarding Holter monitor on 07/26/2024 showed rare extra beats, no heart blocks or significant arrhythmias, underlying rhythm was normal (NSR at 93 bpm). Those extra beat sometimes could be related to severe pain, caffeine. Echocardiogram on 07/26/2024 showed mild , otherwise normal, I had discussed findings with the patient at last visit on 08/01/2024 and explained to her that that is the reason why her refer her to cardiology. Please tell her that I do not think there is a significant arrhythmia responsible for her syncope, however given mild aortic stenosis, she needs to follow-up with suspect artist supervisor to have additional testing. Please emphasize importance of taking BP meds and follow-up as needed walk-in center or ED if she has recurrent chest pain worsening NELSON or palpitations. * Telephone Encounter - Mile Barrett RN - 08/16/2024 1:42 PM EST TC placed to patient [phone] however no answer, RN left requesting CB to red team nurses. RN will re-attempt in AM. * Telephone Encounter - Johana Allen MD - 08/15/2024 6:26 PM EST Please call patient regarding Holter monitor on 07/26/2024 showed rare extra beats, no heart blocks or significant arrhythmias, underlying rhythm was normal (NSR at 93 bpm). Those extra beat sometimes could be related to severe pain, caffeine. Echocardiogram on 07/26/2024 showed mild , otherwise normal, I had discussed findings with the patient at last visit on 08/01/2024 and explained to her that that is the reason why her refer her to cardiology. Please tell her that I do not think there is a significant arrhythmia responsible for her syncope, however given mild aortic stenosis, she needs to follow-up with suspect artist supervisor to have additional testing. Please emphasize importance of taking BP meds and follow-up as needed walk-in center or ED if she has recurrent chest pain worsening NELSON or palpitations. * Telephone Encounter - Blade Noel RN - 08/15/2024 9:55 AM EST CM Blade Noel RN and MALINDA Thomason placed outbound call to patient. Patient's name, and address confirmed. Patient states is doing well with no recent illnesses or emergency room visits.Per patient, doing well emotionally. She states she missed her visit with her therapist yesterday but called the office and was able to reschedule the visit. Patient confirms that she completed the echo and holter. She states she has not been contacted with results. CM will forward to PCP to reviewand patient to be contacted with results. She agrees. Per patient, has not been contacted by Endo or Cardiology with appt. CM will contact the offices and will assist with appt scheduling. Will contact patient with appt details once available. She agrees. Patient states she started the increased dose of the Zepbound last week. She states she is taking the medication every Wednesday. Per patient, didexperience some abdominal pain and constipation last week. She states she was on her menstrual cycle so is not sure if the symptoms were related to her being on her menstrual or from the medication. Per patient, also recently started taking multivitamins and states she was not hydrating well last week. She is agreeable to increase fluid and fiber intake. Will continue to monitor and will f/u if symptoms persist or worsen. Per patient, working on diet and lifestyle modifications. She states she recently started prepping her meals and is also working on a fasting schedule. Patient states her blood pressure has been well controlled. She reports taking her medications as directed and denies anyconcerns or side effects. Patient is aware of her scheduled visit with PCP on 09/29/24 and denies any barriers to attending. Patient denies any immediate needs or concerns. She denies any SDOH needs. Based on CM assessment, patient does not need LTSS referral at this time. CM will continue to re- evaluate patient during subsequent telephone call and place a referral if needed. No further questions or concerns. CM reinforced direct contact information for any additional questions or concerns. Education provided on Walk-In Urgent Care located in [facility]. Patient provided with after-hours line for [facility], , which offer night time triage service and option to transfer to surgery consultant provider if needed. Patient verbalizes understanding, and able to r epeat back to underwriter solicitation director. A follow up call will be placed within 10 days, patient agrees with plan. CM called [facility] Endo. Left v/m requesting return call. Call to [facility] Cardiology. Informed the referral was received and advised that patient call the office directly to schedule an appt. CM contacted patient and advised that she contact each office to schedule an appt. CM provided her with office contact information and advised that she please contact CM if she is having any difficulties. She agrees. documented in this encounter Plan of Treatment Upcoming Encounters Date Type Department Care Team (Late st Contact Info) Description 09/29/2024 9:45 AM EDT Office Visit [facility] MEDICINE [address] [place] [address] Johana Allen MD [address] [place] [address] documented as of this encounter Visit Diagnoses Not on filedocumented in this encounter Additional Health Concerns Assessment Noted Time PHQ-9 Depression Total Score: 0 08/01/19 25 9:09 AM EST documented as of this encounter Care Teams Watch Train Assembler Relationship Specialty Start Date End Date Johana Allen MD [address] [place] [address] PCP - General Internal Medicine 12/20/23 Blade Noel RN [address] [place] [phone] Spinneret PersonLine Maintenance Technician 06/09/24 documented as of this encounter
--- OUTSIDE RECORDS SUMMARY | 2024-08-24 08:03 | XMS_ITS | Encounter Summary ---
Author Organization [employer] Address [address] [facility] 7t [place] [address] Care Team Providers Care Workers' Compensation Claims Examiner Name Role Phone Lucrecia Mejia Lamar SUPERIOR COURT CLERK Primary Care Provider [phone] CLERK Primary Care Provider [phone] Johana Allen MD Primary Care Provider + Blade Noel RN Unavailable [phone] Reason for Visit * Reason Onset Date Comments Med Refill 01/12/2023 Encounter Details Date Type Department Care Team (Late st Contact Info) Description 01/12/2023 Refill [facility] [address] [place] [phone] Keisha Gannon ANP 230 [place], [place] [phone] Primary hypertension Social History Tobacco Use Types [...] Description 09/29/2024 9:45 AM EDT Office Visit [facility] MEDICINE [address] [place] [address] Johana Allen MD [address] [place] [place] [phone] documented as of this encounter Visit Diagnoses Diagnosis Primary hypertension Unspecified essential hypertension documented in this encounter Additional Health Concerns Assessment Noted Time PHQ-9 Depression Total Score: 11 023 8:15 AM EDT documented as of this encounter Care Teams Workers' Compensation Claims Examiner Relationship Specialty Start Date End Date Lucrecia Mejia FNP PCP - General Family Medicine 11/18/22 03/29/23 Gladys Sibley FNP [address] [place] [phone] PCP - General Family Medicine 03/30/23 12/19/23 Johana Allen MD [address] [place] [address] PCP - General Internal Medicine 12/20/23 Blade Noel RN [address] [place] [phone] Gang Knife Fish ChopperEmployee Relations Specialist 06/09/24 documented as of this encounter
--- OUTSIDE RECORDS SUMMARY | 2024-08-24 08:03 | XMS_ITS | Clinical Summary ---
Author Organization [employer] Address [address] [place] [address] [address] [place] [address] Care Team Providers Care Earth Science Technician Name Role Phone Johana Allen MD Primary Care Provider + Blade Noel RN Unavailable [phone] Allergies No known active allergies Medications * This document contains information received from the source organization and may not represent a complete record from that organization. cetirizine (ZyrTEC) 10 MG tabletIndication s:Seasonal allergic rhinitis, unspecified trigger Take 1 tablet (10 mg) by mouth in the morning. 90 tablet 2 11/19/19 23 Active butalbital-aceta minophen-caffein e 50-325-40 MG tablet TAKE 1 TABLET BY MOUTH EVERY 6 HOURS NEEDED FOR HEADACHE 09/02/19 24 Active lisinopril-hydro CHLOROthiazide 20-25 MG tabletIndication s:Primary hypertension Take 1 tablet by mouth Once per day. 90 tablet 3 03/31/20 24 025 Active amLODIPine (Norvasc) 5 MG tabletIndication s:Primary hypertension Take 1 tablet (5 mg) by mouth Once per day. 90 tablet 2 03/31/20 24 Active fluticasone (Flonase) 50 MCG/ACT nasal spray Administer 1 spray into each nostril Once per day. 16 g 06/15/20 24 Active senna-docusate sodium (Senokot-S) 8.6-50 MG tablet Take 1 tablet by mouth Once per day. 90 tablet 06/16/20 24 025 Active Tirzepatide-Weig ht Management (Zepbound) 5 MG/0.5ML solution auto-injector Inject 0.5 mL (5 mg) under the skin 1 (one) time per week. 2 mL 1 08/01/19 25 025 Active Tirzepatide-Weig ht Management (Zepbound) 2.5 MG/0.5ML solution auto-injector Inject 0.5 mL (2.5 mg) under the skin 1 (one) time per week. 2 mL 06/15/20 025 Discontinued Active Problems Problem Noted Date Diagnosed Date Acanthosis nigricans 08/01/2024 Assessment & Plan (08/01/2024 9:37 AM EST): I discussed with pt that it is a marker for insulin resistance, will refer to mortgage underwriter and rule out hyper cortisol conditions. Nonrheumatic aortic valve stenosis 08/01/2024 Assessment & Plan (08/01/2024 12:50 PM EST): Mild, due to hx syncope, I will refer to cardiology. Syncope 06/15/2024 Assessment & Plan (06/15/2024 1:17 PM EST): Unclear if pt has seizures/absent seizure versus an Arrhythmia. Order EEG, Holter, and Echo. Advised pt to remain hydrated and avoid driving. Viral upper respiratory tract infection 06/15/20 Assessment & Plan (06/15/2024 2:17 PM EST): Viral tests were negative. Rest (sleep at least 8 hours a night). Hydrate with plenty of water (avoid caffeine and alcohol). Use saline nose drops to loosen mucus Take Acetaminophen (Tylenol??)/Ibuprofen as needed to reduce fever, headache, body aches or discomfort Gargle with salt water and use throat sprays/lozenges for throat pain. Use heated, humidified air. If you do not have a humidifier, take hot showers. Cover coughs and sneezes using the crook of your elbow. If you have a fever, stay home and away from others (self isolation) until fever-free for 72 hours (temperature should be less than 100??F without medication). High liver transaminase level 04/19/2024 Assessment & Plan (05/11/2024 3:44 PM EST): Likely related to fatty liver, advised to repeat labs today with addtl tests. Advised re weight reduction, avoid ETOH and continue working on decreasing risk of DM (see Pre DM) Abnormal thyroid function test 04/19/2024 Assessment & Plan (05/11/2024 3:44 PM EST): Repeat tests fasting. Prediabetes 04/06/2024 Assessment & Plan (08/01/2024 9:36 AM EST): Pt has associated Acanthosis nigricans which confirms diagnosis of insulin resistance, unclear if she has another associated hyper cortisol conditions, will refer to mortgage underwriter. Assessment & Plan (06/15/2024 1:13 PM EST): Controlled. A1c is at goal. No medications. Counseled re more frequent low calorie/carb meals. Encouraged physical activity as tolerated. FU in 6 months. Assessment & Plan (05/11/2024 3:42 PM EST): Controlled. A1c is at goal. Counseled re more frequent low calorie/carb meals. Encouraged physical activity as tolerated. FU in 6 months. Assessment & Plan (04/06/2024 4:26 PM EDT): I have discussed with patient regarding increasing physicial activity and decrease calorie intake I'll check FBS with next set of labs. To check RBS at next visit. FU with me next visit Class 3 severe obesity due t o excess calories with serious comorbidity and body mass index (BMI) of 40.0 to 44.9 in adult 04/06/2024 Assessment & Plan (08/01/2024 9:27 AM EST): Pt tolerating low dose of Zepbound with no side effects, will increase to 5 mg and FU in 6 weeks. Assessment & Plan (06/15/2024 1:20 PM EST): Pt has lost 8 pounds since last month, unfortunately Wegovy is no longer covered by her insurance, will switch to Zepbound and adjust those every 4-6 weeks if pt tolerates it. Assessment & Plan (05/11/2024 1:33 PM EST): Discussed re weight reduction options including exercise, life style modifications, and diet. Recommended to decrease soda and sugary beverage consumption, increase protein intake with meals (at least 1 portion of protein with each meal) to assist with satiety, increase dietary fiber Recommended at least 150 min/week of moderate intensity exercise. Tolerates Semaglutide, increase 0.5 mg x 1 month, then will increase to 1 mg per week. Fu with me in 2 months. Assessment & Plan (04/06/2024 4:26 PM EDT): Discussed re weight reduction options including exercise, life style modifications, diet and referral to engineer specialist. She has tried all that and is currently on a administrative personal assistant program. Recommended to decrease soda and sugary beverage consumption, increase protein intake with meals (at least 1 portion of protein with each meal) to assist with satiety, increase dietary fiber Recommended at least 150 min/week of moderate intensity exercise. We discussed re medication therapy, ideally Semaglutide due to co morbidities specially HTN and pre DM. I will rx initial dose and fu in 4w, Phentermine is contraindicated due to HTN. Abnormal uterine bleeding (AUB) 12/30/2022 Overview (01/04/2023): 12/30/22 Probation Officer visit: Co testing with GC and chlamydia and pelvic ultrasound recently done, will order CBC, TSH, HCG, FSH LH and practice. Discussed with the patient the different causes of abnormal bleeding including thyroid disorders, uterine and ovarian pathology, endometrial hyperplasia, carcinoma and other potential causes. Discussed with the patient the work up including CBC (to r/o anemia), TSH, pelvic Ultrasound, endometrial biopsy to r/o endometrial pathology. All questions answered and the patient verbalized understanding. Instructed the patient to schedule an appointment for an endometrial biopsy in 2 weeks. Discussed with the patient the finding on ultrasound showing a right ovarian calcification, differential diagnosis discussed with the patient include but not limited previous ovarian cyst, scar tissue, infections, dermoid cyst or other precancer cancer , will repeat ultrasound check the results and treat accordingly. Other noninflammatory disord ers of ovary, fallopian tube and broad ligament 12/30/2022 Overview (12/30/2022): Discussed with the patient the finding on ultrasound showing a right ovarian calcification, differential diagnosis discussed with the patient include but not limited previous ovarian cyst, scar tissue, infections, dermoid cyst or other precancer cancer , will repeat ultrasound check the results and treat accordingly. All questions answered, the patient verbalized understanding Supraclavicular mass 12/28/2022 Overview (03/26/2023): 12/28/22: Appt with Gen surg Movable mass, well-defined in the subcutaneous layer, about 4 cm in diameter on the area of the clavicle, consistent with lipoma Ordered CT scan w/ contrast to further evaluate surrounding structures. Creatinine and Bun assessed prior to using contrast. Cr WNL, BUN slightly elevated. Safe to use contrast 01/25/23: Gen Surg appt: She has this palpable mass on the left supraclavicular area that seems to be a large subcutaneous lipoma. This is not seen on the CT scan.? Her CAT scan however shows a lesion on the left petrous apex which may be an inflammatory process, granuloma, or neoplasia. The radiologist had recommended an MRI so I am going to order for this. I will see her in the office to discuss the findings thereafter. She understands the plan well. We will hold off on excision of this supraclavicular mass for now. Bilateral primary osteoarthritis of knee 023 Overview (12/19/2022): Care managed by [facility] Appt 12/16/22 Received steroid injection bilat knees Pain of both breasts 11/19/2022 Depression, unspecified 11/19/2022 Healthcare maintenance 11/19/2022 Overview (01/04/2023): Last mammogram was BI-RADS 2 on 11/24/2022 Last Pap co testing was negative on 11/10 GC and chlamydia negative on 11/10 Family hx of colon cancer 11/18/2022 Seasonal allergic rhinitis 11/18/2022 Primary hypertension 10/09/2022 Assessment & Plan (04/06/2024 4:23 PM EDT): She's out of meds today. She will take her meds as soon as she gets home. She will call back if BP >150/100 or she develops CP, NAVAS, weakness, blurred vision, SOB. Order labs and fu with me in 4-6w Advised re weight reduction, low salt intake. Muscle weakness 06/19/2017 Difficulty walking 06/19/2017 Pain in right leg 06/19/2017 Acute cartilage injury of knee, right, initial e ncounter 06/18/2017 Resolved Problems Problem Noted Date Diagnosed Date Resolved Date Chronic pain of both knees 11/18/2022 0 12/19/2022 Encounters Date Type Department Care Team Description 08/23/2024 Patient Outreach [address] [phone] Johana Allen MD Care Coordination (Appt reminder) 08/16/2024 Patient Outreach [address] [address] Johana Allen MD Care Coordination (Upcoming appts) 08/15/[address] [address] Johana Allen MD Care Management (C3- f/u call) 08/15/2024 Patient Outreach [address] [address] Johana Allen MD Care Coordination (SDOH) 08/02/2024 Patient Outreach [address] [address] Johana Allen MD Care Coordination (SDOH f/u) 08/02/[address] [address] Johana Allen MD Care Management ([facility]- f/u call #2 lvm) 08/01/2024 9:00 AM EST Telemedicine [address] [address] Johana Allen MD Class 3 severe obesity due to excess calories with serious comorbidity and body mass index (BMI) of 40.0 to 44.9 in adult ([facility]) (Primary Dx); Prediabetes; Acanthosis nigricans; Nonrheumatic aortic valve stenosis 08/01/2024 Travel 07/28/[address] [address] Honey Krista, [place] Chart prep 07/18/2024 Patient Outreach [address] [address] Johana Allen MD Care Coordination (sdoh) 07/18/[address] [address] Blade Noel RN Care Management (C3[facility]- f/u call lvm) 07/06/[address] [address] Blade Noel RN Care Management (C3CM- f/u call) 06/27/2024 Patient Outreach [address] [address] Johana Allen MD Care Coordination ([facility] f/u) 06/27/[address] [address] Blade Noel RN Care Management (C3CM- f/u call lvm) 06/15/2024 12:15 PM EST Office Visit [address] [address] Johana Allen MD Syncope, unspecified syncope type (Primary Dx); Viral upper respiratory tract infection; Class 3 severe obesity due to excess calories with serious comorbidity and body mass index (BMI) of 40.0 to 44.9 in adult ([facility]); Prediabetes 06/15/2024 Travel 06/12/2024 Patient Outreach [address] [address] Johana Allen MD Care Coordination (Appt reminder and pt1) 06/09/[address] [address] Blade Noel RN Care Management (C3- initial assessment/ enrollment) 06/09/2024 Patient Outreach [address] [address] Johana Allen MD Care Coordination (PT1) 06/08/2024 Patient Outreach [address] [address] Johana Allen MD Care Coordination (CM/CHW appt reminder) 06/06/2024 Patient Outreach [address] [address] Johana Allen MD Care Coordination (CM/CHW outreach) 06/01/2024 Patient Outreach [address] [address] Johana Allen MD Care Coordination (CM/CHW outreach) from Last 3 Months Immunizations Name Administration Dates Next Due Influenza Injectable Quadriv alant Preservative Free IIV4 MDCK 04/16/2023 Influenza, seasonal, injectable, preservative fr ee 03/31/2024 Tdap 12/21/2023 Family History Medical History Relation Name Comments No Known Problems Mother killed at age 26 Breast cancer Mother's Sister 1 Delicia Colon cancer Mother's Sister 1 Delicia Breast cancer Mother's Sister 2 Nhung Breast cancer Other Relation Name Status Comments Mother Mother's Sister 1 Delicia Mother's Sister 2 Nhung Other Maternal great aunt Social History Tobacco Use Types Packs/Day Years Used Date Smoking Tobacco: Former Smokeless Tobacco: Never Tobacco Cessation:Counseling Given: Not Answered Alcohol Use Standard Drinks/Week Comments Not Currently [...] not to disclose 2022 5:26 PM EDT Last Filed Vital Signs Vital Sign Reading Time Taken Comments Blood Pressure 131/80 06/15/2024 12:13 PM EST Pulse 93 06/15/2024 12:13 PM EST Temperature 36.9 ??C (98.5 ??F) 06/15/2024 12:[address] Respiratory Rate 16 05/11/2024 9:29 AM EST Oxygen Saturation 100% 06/15/2024 12:13 PM EST Inhaled Oxygen Concentration - - Weight 109 kg (240 lb 4 oz) 06/15/2024 12:13 PM EST Height 165.1 cm (5' 5 ) 06/15/2024 12:13 PM EST Body Mass Index 39.98 06/15/2024 12:13 PM EST Plan of Treatment Upcoming Encounters Date Type Department Care Team (Late st Contact Info) Description 09/29/2024 9:45 AM EDT Office Visit [facility] [address], [place] [phone] Johana Allen MD [address] [place] [address] Health Maintenance Due Date Last Done Comments CT Colonography 1975 Colonoscopy 1975 Colorectal Cancer Screening 1975 FIT DNA/Cologuard 1975 FIT 1975 FOBT 1975 Sigmoidoscopy 1975 Family Planning (PISQ) 1990 Hepatitis B Vaccines (1 of 3 - 19+ 3-dose series) 1994 Pneumococcal Vaccine: Pediatrics (0 to 5 Years) and At-Risk Patients (6 to 49) Years) (1 of 2 - PCV) 1994 COVID-19 Vaccine (4 - season) 2024 08/18/2021, 03/02/2021, 02/09/2021 Mammogram 11/18/2024 11/19/2023, 12/2022, 11/25/2022, Additional history exists Diabetes: Hemoglobin A1C 03/31/2025 024, 10/20/2023, 11/18/2022 Alcohol/Substance Use Screening 08/01/2025 08/01/2024 Depression Screening 08/01/2025 08/01/2024, 08/01/19 25 SDOH Screening 08/01/2025 08/01/2024 Tobacco Screening 08/01/2025 08/01/2024 Zoster Vaccines (1 of 2) 2025 Pap Smear 10/22/2025 10/22/2022, 10/22/2022 Cervical Cancer Screening 10/23/2027 HPV/Cotest 10/23/2027 10/22/2022 Lipid Panel 04/18/2029 04/18/2024, 11/18/2022 DTaP/Tdap/Td Vaccines (2 - Td or Tdap) 12/20/2033 12/21/2023 RSV Patients and Patients Aged 60 years or older (1 - 1-dose 75+ series) 2050 HIV Screening Completed 11/18/2022 Influenza Vaccine Completed 03/31/2024, 04/16/2023 Hepatitis C Screening Completed 04/18/2024, 023 HIB Vaccines Aged Out No longer eligi ble based on patient's age to complete this topic HPV Vaccines Aged Out No longer eligi ble based on patient's age to complete this topic Hepatitis A Vaccines Aged Out No long er eligible based on patient's age to complete this topic IPV Vaccines Aged Out No longer eligi ble based on patient's age to complete this topic Meningococcal Vaccine Aged Out No tia lula eligible based on patient's age to complete this topic RSV under 20 months Aged Out No longe r eligible based on patient's age to complete this topic Rotavirus Vaccines Aged Out No longer eligible based on patient's age to complete this topic Procedures Procedure Name Priority Date/Time Associated Diagnosis Comments POCT RAPID COVID ANTIGEN Routine 06/15/2024 1:07 PM EST Viral upper respiratory tract infection POCT INFLUENZA B Routine 06/15/2024 1:07 PM EST Viral upper respiratory tract infection POCT INFLUENZA A Routine 06/15/2024 1:07 PM EST Viral upper respiratory tract infection HEPATITIS PANEL, GENERAL Routine 04/18/2024 11:45 AM EDT Class 3 severe obesity due to excess calories with serious comorbidity and body mass index (BMI) of 40.0 to 44.9 in adult (CMS/HCC) LIPID PANEL WITH REFLEX TO DIRECT LDL Routine 04/18/2024 11:45 AM EDT Class 3 severe obesity due to excess calories with serious comorbidity and body mass index (BMI) of 40.0 to 44.9 in adult (CMS/HCC) POCT GLYCATED HEMOGLOBIN, TOTAL Routine 03/31/2024 10:54 AM EDT Prediabetes BI MAMMOGRAM SCREENING TOMOSYNTHESIS BILATERAL Routine 11/19/2023 1:12 PM EDT Family history of breast cancer Breast cancer screening by mammogram HIV 1/2 ANTIGEN/ANTIBODY, FOURTH GENERATION W/RFL Routine 11/18/2022 11:55 AM EDT Routine screening for STI (sexually transmitted infection) IMAGE-GUIDED PAP W/AGE BASED SCR,W/CT/NG/TRICH Routine 10/22/2022 10:08 AM EDT Cervical cancer screening Encntr screen for infections w sexl mode of transmiss from Last 3 Months or Most Recently Relevant to Health Maintenance Results * POCT Rapid Covid-19 BinaxNOW (06/15/2024 1:07 PM EST) [facility] Rapid COVID Ag Negative QC Media Lot # [id number] Lot# Expiration Date [id number] Swab 06/15/2024 1:07 PM EST Johana Allen MD POINT OF CARE TEST ENTER /EDIT ORDERABLES Final Result * POCT Rapid Influenza B OSOM (06/15/2024 1:07 PM EST) [facility] Rapid Influenza B Ag Negative Negative, Indeterminate QC Media Lot # [id number] Lot# Expiration Date ,025 Swab 06/15/2024 1:07 PM EST Result [facility] [place] MD POINT OF CARE TEST ENTER /EDIT ORDERABLES Final Result * POCT Rapid Influenza A OSOM (06/15/2024 1:07 PM EST) [facility] Rapid Influenza A Ag Negative Negative, Indeterminate QC Media Lot # [id number] Lot# Expiration Date ,025 Swab Nasopharyngeal structure / Unknown 06/15/2024 1:07 PM EST Result [facility] [place] Allen MD POINT OF CARE TEST ENTER /EDIT ORDERABLES Final Result * (ABNORMAL) Lipid Panel with Reflex to Direct LDL (04/18/2024 11:45 AM EDT) [facility] Triglycerides 91 <150 mg/dL [facility] Comment:Desirable Triglyceri de: less than 150 mg/dLBorderline High Triglyceride 150-199 mg/dLHigh Triglyceride: 200-499 mg/dLVery High Triglyceride: greater than or equal to 5OO mg/dL Cholesterol 186 <200 mg/dL [facility] Comment:Desirable Cholestero l: less than 200 mg/dLBorderline High Cholesterol: 200-239 mg/dLHigh Cholesterol: greater than 239 mg/dL LDL Cholesterol Calculated 105(H) <100 mg/dL [facility] Comment:Desirable LDL: less than 100 mg/dLNear Optimal/Above Optimal LDL: 110- 129 mg/dLBorderline High LDL: 130-159 mg/dLHigh LDL: 160-189 mg/dLVery High LDL: greater than or equal to 190 mg/dL HDL Cholesterol 63 >40 mg/dL [facility] Comment:Desirable HDL: great er than 40 mg/dL Note: This HDL assay may give artificially low results in patients with liver disease. Blood 04/18/2024 11:4 5 AM EDT 04/18/2024 1:24 PM EDT Johana Allen MD LAB BLOOD ORDERABLES Fin al Result Performing Organization Address [facility] de Phone Number [facility] [address] [place] [phone] * Hepatitis Panel, General (04/18/2024 11:45 AM EDT) Hepatitis A IgM Nonreactive Nonreactive [facility] Comment:IgM antibodies to NAVAS V not detected; does not exclude earlyacute or recovered HAV infection. ~Hepatitis B Surface Antibody REACTIVE Nonreactive [facility] Comment:REACTIVE: > 11.99 mI U/mL Hepatitis B Core Antibody Nonreactive Nonreactive [facility] Hepatitis C Antibody Nonreactive Nonreactive [facility] Comment:Antibodies to HCV no t detected; does not exclude early acuteHCV infection. Hepatitis B Surface Ag Negative Negative [facility] Blood 04/18/2024 11:4 5 AM EDT 04/18/2024 1:24 PM EDT Johana Allen MD LAB BLOOD ORDERABLES Fin al Result Performing Organization Address [facility] Co de Phone Number [facility] [address] [place] [phone] * POCT HGB A1C (03/31/2024 10:54 AM EDT) Hemoglobin A1C 5.8 4.0 - 6.0 % QC Media Lot # [id number] Lot# Expiration Date ,234 Blood 03/31/2024 10:5 4 AM EDT Johana Allen MD POINT OF CARE TEST ENTER /EDIT ORDERABLES Final Result * BI Mammogram Screening Tomosynthesis Bilateral (11/19/2023 1:12 PM EDT) Anatomical Region Laterality Modality Breast Bilateral Mammography 11/19/2023 1:12 PM EDT Narrative 12/07/2023 1:53 PM EDT ? [facility] ? [address] ?[place] [address] ? Mammography Report ? Signed ? Patient: Swan,Yue ?MR#: [id number] ?? [id number] ? : 1975 ?Acct:[id number] ? Age/Sex: 48 / F ?ADM Date: 11/19/23 ? Loc: HO.MAMMO ? Attending Dr: Jeannine Umana CNM ? Ordering Physician: JEANNINE UMANA CNM ?Results: 2 ?? Benign Findings ? Date of Service: 11/19/23 ?Follow Up: 1 Year From Orig ?? inal Mammogram ? Procedure(s): MM tomosynthesis screening BI ?? Accession Number(s): [id number] ? cc: Gladys Sibley PHARMACY TECH CUSTOMER SERVICE; JEANNINE UMANA CNM ? EXAMINATION: ?? MM SCREENING DIGITAL BREAST TOMOSYNTHESIS, BILATERAL ? CLINICAL INFORMATION: ? Screening. Asymptomatic. ? The patient reports that she has had bilateral nipple surgery for ?? cancer in the past. ? COMPARISON: ?? Mammography: This study is compared with prior exams dating back to ?? 2022. ? TECHNIQUE: ?? Digital breast tomosynthesis is performed in both the craniocaudal and ?? mediolateral oblique views along with computer-aided detection (CAD). ?? Synthesized 2D images are generated from the tomosynthesis. ? FINDINGS: ?? There are scattered areas of fibroglandular density (ACR BI-RADS breast ?? composition Category b). ? There are no significant masses, abnormal calcifications, or other ?? abnormalities. ?? There are postsurgical changes in both periareolar regions and benign ?? calcifications in each breast. ? MM/MM tomosynthesis screening BI ?? IMPRESSION: ?? No mammographic evidence of malignancy. ? ASSESSMENT: ? BI-RADS BI-RADS 2 - Benign Findings ? RECOMMENDATION: ?? Routine annual mammography screening. ? 1 year F/U ? This examination should not preclude the clinical evaluation of a ?? suspicious palpable abnormality. ? This patient's information was entered into a reminder system with a ?? target due date for their next mammogram. ? Dictated By: ?Meg Solis MD ? Signed By: ?<Electronically signed by Meg Solis MD in OV> ? 12/07/23 1349 ? DD/ 1312 ? TD/TT: ? [employer]: ? Procedure Note Paola Bal - 12/07/2023 [facility] [address] [place], [place] [address] Mammography Report Signed Patient: Yue Swan#: [id number] : 1975Acct:[id number] Age/Sex: 48 / FADM Date: 11/19/23 Loc: HO.MAMMO Attending Dr: Jeannine Umana CNM Ordering Physician: JEANNINE UMANAesults: 2 Benign Findings Date of Service: 11/19/23Follow Up: 1 Year From [facility] Mammogram Procedure(s): MM tomosynthesis screening BI Accession Number(s): [id number] cc: Gladys Sibley PHARMACY TECH CUSTOMER SERVICE; JEANNINE UMANA CNM EXAMINATION: MM SCREENING DIGITAL BREAST TOMOSYNTHESIS, BILATERAL CLINICAL INFORMATION: Screening. Asymptomatic. The patient reports that she has had bilateral nipple surgery for cancer in the past. COMPARISON: Mammography: This study is compared with prior exams dating back to 2022. TECHNIQUE: Digital breast tomosynthesis is performed in both the craniocaudal and mediolateral oblique views along with computer-aided detection (CAD). Synthesized 2D images are generated from the tomosynthesis. FINDINGS: There are scattered areas of fibroglandular density (ACR BI-RADS breast composition Category b). There are no significant masses, abnormal calcifications, or other abnormalities. There are postsurgical changes in both periareolar regions and benign calcifications in each breast. MM/MM tomosynthesis screening BI IMPRESSION: No mammographic evidence of malignancy. ASSESSMENT: BI-RADS BI-RADS 2 - Benign Findings RECOMMENDATION: Routine annual mammography screening. 1 year F/U This examination should not preclude the clinical evaluation of a suspicious palpable abnormality. This patient's information was entered into a reminder system with a target due date for their next mammogram. Dictated By: Meg Solis MD Signed By: <Electronically signed by Meg Solis MD in OV> 12/07/23 1349 DD/ 1312 TD/TT: [employer]: Jeannine Umana CNM IM BI PROCEDURES Final R esult * HIV-1/2 Antigen and Antibodies, Fourth Generation, with Reflexes (11/18/2022 11:55 AM EDT) HIV Antigen/Antibody, 4th Generation NON-REAC TIVE NON-REAC TIVE [facility] Comment: HIV-1 antigen and HIV-1/HIV-2 antibodies were not detected. There is no laboratory evidence of HIV infection. PLEASE NOTE: This information has been disclosed to you from records whose confidentiality may be protected by state law. ??If your state requires such protection, then the state law prohibits you from making any further disclosure of the information without the specific written consent of the person to whom it pertains, or as otherwise permitted by law. A general authorization for the release of medical or other information is NOT sufficient for this purpose. ?? For additional information please refer to http://education.[employer] Publishing/faq/JWO683 (This link is being provided for informational/ educational purposes only.) The performance of this assay has not been clinically validated in patients less than 2 years old. Blood Venous blood specimen / Unknown 11/18/2022 11:55 AM EDT 11/18/2022 11:56 AM EDT Narrative [facility] - 11/19/2022 6:04 PM EDT FASTING:YES FASTING: YES [facility]ly [facility] LAB BLOOD ORDERABLES Final Resul t [facility] [address], [place] [address] [facility] [address] [place] [address] * Image-Guided Pap with Age-Based Screening??with CT/NG,??Trichomonas (10/22/2022 10:08 AM EDT) Comment [facility] Comment: This order for age-based cervical cancer and STI screening follows ACOG guidelines(PB 168, 140, MWY059). See individual assays for performing site location. Clinical Information: HX ABNORMAL [facility] LMP: NONE GIVEN [facility] [employer] Prev. PAP: NONE GIVEN [facility] [employer] Prev. BX: NONE GIVEN [facility] SOURCE: None given [facility] [employer] Statement Of Adequacy: [employer] [facility] Comment: Satisfactory for evaluation. Endocervical/transformation zone component present. Interpretation/Re sult: Negative for intraepithelial lesion or malignancy. [employer] [place] [employer] COMMENT: This Pap test has been evaluated with computer assisted technology. [employer] [place] [employer] Gasket Former: Rachid [employer] [place] [employer] Comment: DMM, CT(ASCP) CT screening location: [address] ??[address] Review Gasket Former: [facility] Comment: JXM, CT(ASCP) CT screening location: [address] ??[address] (Always Message) Que [facility] Comment: EXPLANATORY NOTE: The Pap is a screening test for cervical cancer. It is not a diagnostic test and is subject to false negative and false positive results. It is most reliable when a satisfactory sample, regularly obtained, is submitted with relevant clinical findings and history, and when the Pap result is evaluated along with historic and current clinical information. HPV nRNA E6/E7 Not Detected Not Detected [facility] Comment: Methodology: Med Admin-Mediated Amplification This assay detects E6/E7 viral messenger RNA (mRNA) from 14 high-risk HPV types (16,18,31,33,35,39,45,51,52,56,58,59,66,68). Cervical sources are required for HPV testing. If a vaginal source from a patient who has had a total hysterectomy with removal of cervix was submitted, please contact the testing laboratory for alternative testing options. For additional information, please refer to http://education.[employer] Publishing/faq/QCU978d4 (This link if provided for information/ educational purposes only.) Chlamydia trachomatis RNA, TMA, Urogenital NOT DETECTED NOT DETECTED [facility] Neisseria gonorrhoeae RNA, TMA, Urogenital NOT DETECTED NOT DETECTED [employer] (Always Message) Que [facility] Comment: The analytical performance characteristics of this assay, when used to test SurePath(TM) specimens have been determined by [employer] The modifications have not been cleared or approved by the FDA. This assay has been validated pursuant to the CLIA regulations and is used for clinical purposes. For additional information, please refer to https://Immunetrics.[employer] Publishing/faq/WSS239 (This link is being provided for information/ educational purposes only.) Trichomonas vaginalis, QL, TMA, PAP Vial NOT DETECTED NOT DETECTED [employer] Comment: The analytical performance characteristics of this assay have been determined by [employer] The modifications have not been cleared or approved by the FDA. This assay has been validated pursuant to the CLIA regulations and is used for clinical purposes. For additional information, please refer to http://Immunetrics.[employer]/ faq/Trichomonastma (This link is being provided for information/ educational purposes only.) Pap Vial 10/22/2022 10:0 8 AM EDT 10/23/2022 2:07 AM EDT Jeannine Umana [facility] LAB CYTOLOGY ORDERABLES F inal Result [facility] [address], [place] [address] [employer] [place] [employer] [address] [place] [address] from Last 3 Months or Most Recently Relevant to Health Maintenance Insurance [facility] C3 HS FULL Care Teams Earth Science Technician Relationship Specialty Start Date End Date Johana Allen MD [address] [place] [address] PCP - General Internal Medicine 12/20/23 Blade Noel RN [address] [place] [address] Correctional Counselor/Case ManagerFreedom Of Information Officer 06/09/24
--- OUTSIDE RECORDS SUMMARY | 2024-08-24 08:03 | XMS_ITS | Encounter Summary ---
Author Organization [employer] Address [address] [facility] 7t [place] [address] Care Team Providers Care Preanalytics Team Lead Name Role Phone Johana Allen MD Primary Care Provider + Blade Noel RN Unavailable [phone] Reason for Visit * Reason Onset Date Comments Care Management 08/02/2024 C3CM- f/u call # 2 lvm Encounter Details Date Type Department Care Team ([facility] Contact Info) Description 08/02/2024 Telephone [facility] [address] [place], [place] [phone] Johana Allen MD [address] [place] [address] Care Management (C3CM- f/u call #2 lvm) Social History Tobacco Use Types Packs/Day Years [...] encounter Miscellaneous Notes * Telephone Encounter - Blade Noel RN - 08/02/2024 9:29 AM EST CM Blade Noel RN placed outbound call with CHW Chiquita Thomason to patient for follow up call. Noanswer at this time. LVM introducing herself from [facility] CM Department. Requested call back. CM reinforced direct contact information or CHW for any additional questions or concerns. Education provided on Walk-In Urgent Care located in [facility] of [facility]. Patient provided with after-hours line for [facility], , which offer night time triage service and option to transfer to concrete pipe machine operator provider if needed. CM will attempt another follow up call within 10 days. documented in this encounter Plan of Treatment Upcoming Encounters Date Type Department Care Team (Late st Contact Info) Description 09/29/2024 9:45 AM EDT Office Visit [facility] [address] [place] [address] Johana Allen MD [address] [place] [address] documented as of this encounter Visit Diagnoses Not on filedocumented in this encounter Additional Health Concerns Assessment Noted Time PHQ-9 Depression Total Score: 0 08/01/19 25 9:09 AM EST documented as of this encounter Care Teams Preanalytics Team Lead Relationship Specialty Start Date End Date Johana Allen MD [address] [place] [address] PCP - General Internal Medicine 12/20/23 Blade Noel, NANCY [address] [place] [address] Building Services EngineerLivestock Showman 06/09/24 documented as of this encounter
--- OUTSIDE RECORDS SUMMARY | 2024-08-24 08:03 | XMS_ITS | Encounter Summary ---
Author Organization [employer] Address 75 [facility] 7t [place] [address] Care Team Providers Care Neurosurgery Spine Physician Name Role Phone Johana Allen MD Primary Care Provider + Blade Noel RN Unavailable [phone] Reason for Visit * Reason Comments Care Coordination SDOH f/u Encounter Details Date Type Department Care Team (Latest Contact Info) Description 08/02/2024 Patient Outreach [facility] 230 [place], [place] [phone] Johana Allen MD [address] [place] [address] Care Coordination (SDOH f/u) Social History Tobacco Use Types Packs/Day Years [...] encounter Progress Notes * Chiquita Thomason - 08/02/2024 9:38 AM EST CHW Chiquita Thomason/CM Blade Noel RN placed outbound call to patient for follow up call on SDOH needs. No answer at this time. LVM introducing herself from [facility] CM Department. Requested call back. CHW reinforced direct contact information or CM for any additional questions or concerns and extended clinic hours on Mondays and Wednesdays, and Walk-In Urgent Care Located in [facility] of [facility]. Patient provided with after-hours line for [facility], , which offer night time triage service and option to transfer to net developer contract provider if needed. CHW will attempt another follow up call within 10 days. documented in this encounter Plan of Treatment Upcoming Encounters Date Type Department Care Team (Late st Contact Info) Description 09/29/2024 9:45 AM EDT Office Visit [facility] [address] [place] [address] Johana Allen MD [address] [place], [place] [phone] documented as of this encounter Visit Diagnoses Not on filedocumented in this encounter Additional Health Concerns Assessment Noted Time PHQ-9 Depression Total Score: 0 08/01/19 25 9:09 AM EST documented as of this encounter Care Teams Neurosurgery Spine Physician Relationship Specialty Start Date End Date Johana Allen MD [address] [place] [address] PCP - General Internal Medicine 12/20/23 Blade Noel RN [address] [place] [address] Application IntegratorCable Placer 06/09/24 documented as of this encounter
--- OUTSIDE RECORDS SUMMARY | 2024-08-24 08:03 | XMS_ITS | Encounter Summary ---
Author Organization [employer] Address [address] [place] [address] 7t [place] [address] Care Team Providers Care Internet Sourcer Name Role Phone Johana Allen MD Primary Care Provider + Blade Noel RN Unavailable [phone] Reason for Referral * Consultation (Routine) - Authorized Specialty Diagnoses / Procedures Referred By Vu cárdenas Referred To Contact Cardiology Diagnoses Nonrheumatic aortic valve stenosis Johana Allen MD [address] [place] [address] Phone: tel: fax: [facility] Referral ID Status Reason Start Date Expiration Date Visits Requested Visits Authorized [id number] Authorized Specialty Services Required 08/10/2024 08/10/2025 6 6 * Consultation (Routine) - Authorized Specialty Diagnoses / Procedures Referred By Vu cárdenas Referred To Contact Endocrinology Diagnoses Class 3 severe obesity due to excess calories with serious comorbidity and body mass index (BMI) of 40.0 to 44.9 in adult (CMS/[facility]) Prediabetes Acanthosis nigricans Johana Allen MD [address] [place] [address] Phone: tel: fax: [facility] Endocrinology [address] [place], [place] Phone: tel: fax: Referral ID Status Reason Start Date Expiration Date Visits Requested Visits Authorized [id number] Authorized Specialty Services Required 2024 2025 6 6 Reason for Visit * Reason Comments Telelvisit Encounter Details Date Type Department Care Team (Late st Contact Info) Description 08/01/2024 9:00 AM EST Telemedicine [facility] [address] [facility] [place] [address] Johana Allen MD [address] [facility] [place] [address] Class 3 severe obesity due to excess calories with serious comorbidity and body mass index (BMI) of 40.0 to 44.9 in adult (CMS/[facility]) (Primary Dx); Prediabetes; Acanthosis nigricans; Nonrheumatic aortic valve stenosis Social History Tobacco Use Types Packs/Day Years [...] as of this encounter Progress Notes * Johana Allen MD - 08/01/2024 9:00 AM EST SUBJECTIVE: Yue Swan is a 48 y.o. year old female who presents for follow up. Denies recent illness, injury, or hospitalization. Patient today on a telehealth visit for fu on weight. Echo on 07/26/24 showed mild , otherwise LVEF 60% with no WM abnormalities, essentially within normal limits. She reports having had the heart monitor from the Echo and has already turned it back in. Pt reports getting Zepbound and took her most recent injection yesterday. She reports having no more refills and will call for a refill for next week. She denies constipation, vomiting, or abdominal bloating. She tolerates the dosage and has not noticed a decrease in appetite but is trying to eat in smaller and healthier fractions. She feels hungry most of the time. Acute Concerns: Pt complains of a darkness pigmentation on skin around her neck, accompanied by hair, which has reportedly gotten worse and progressed to her face under her eyes and on her cheeks. She feels physicaldiscomfort. Social History Social History Narrative Not on file Patient Active Problem List Diagnosis Muscle weakness Primary hypertension Acute cartilage injury of knee, right, initial encounter Difficulty walking Pain in right leg Family hx of colon cancer Seasonal allergic rhinitis Pain of both breasts Depression, unspecified Healthcare maintenance Bilateral primary osteoarthritis of knee Supraclavicular mass Abnormal uterine bleeding (AUB) Other noninflammatory disorders of ovary, fallopian tube and broad ligament Prediabetes Class 3 severe obesity due to excess calories with serious comorbidity and body mass index (BMI) of40.0 to 44.9 in adult (CMS/HCC) High liver transaminase level Abnormal thyroid function test Syncope Viral upper respiratory tract infection Acanthosis nigricans Nonrheumatic aortic valve stenosis Family History Problem Relation Name Age of Onset No Known Problems Mother killed at age 26 Breast cancer Mother's Sister Delicia Colon cancer Mother's Sister Delicia Breast cancer Mother's Sister Nhung Breast cancer Other Review of Systems Constitutional: Negative for chills, fatigue and fever. HENT: Negative for congestion, ear pain, nosebleeds, rhinorrhea, sinus pressure, sore throat and trouble swallowing. Eyes: Negative for pain and discharge. Respiratory: Negative for cough, chest tightness and shortness of breath. Cardiovascular: Negative for chest pain, palpitations and leg swelling. Gastrointestinal: Negative for abdominal pain, blood in stool, constipation, diarrhea and nausea. Endocrine: Negative for polydipsia and polyuria. Genitourinary: Negative for dysuria, frequency, genital sores, pelvic pain and vaginal discharge. Musculoskeletal: Negative for back pain and neck pain. Skin: Positive for color change. Negative for rash. Allergic/Immunologic: Negative for environmental allergies. Neurological: Negative for dizziness, seizures, weakness, light-headedness and headaches. Hematological: Negative for adenopathy. Psychiatric/Behavioral: Negative for agitation, behavioral problems, self-injury and suicidal ideas. The patient is nervous/anxious. OBJECTIVE: There were no vitals filed for this visit. Physical Exam Problem List Items Addressed This Visit Class 3 severe obesity due to excess calories with serious comorbidity and body mass index (BMI) of40.0 to 44.9 in adult ([facility]) - Primary Pt tolerating low dose of Zepbound with no side effects, will increase to 5 mg and FU in 6 weeks. Relevant Orders Referral to Endocrinology Prediabetes Pt has associated Acanthosis nigricans which confirms diagnosis of insulin resistance, unclear if she has another associated hyper cortisol conditions, will refer to air duct mechanic. Relevant Orders Referral to Endocrinology Acanthosis nigricans I discussed with pt that it is a marker for insulin resistance, will refer to air duct mechanic and rule out hyper cortisol conditions. Relevant Orders Referral to Endocrinology Nonrheumatic aortic valve stenosis Mild, due to hx syncope, I will refer to cardiology. Relevant Orders Referral to Cardiology Follow Up: Current Outpatient Medications on File Prior to Visit Medication Sig Dispense Refill amLODIPine (Norvasc) 5 MG tablet Take 1 tablet (5 mg) by mouth Once per day. 90 tablet 2 qncyarsdai-gbxmisnejijth-drbwwics 50-325-40 MG tablet TAKE 1 TABLET BY MOUTH EVERY 6 HOURS NEEDED FOR HEADACHE cetirizine (ZyrTEC) 10 MG tablet Take 1 tablet (10 mg) by mouth in the morning. 90 tablet 2 fluticasone (Flonase) 50 MCG/ACT nasal spray Administer 1 spray into each nostril Once per day. 16 g 0 lisinopril-hydroCHLOROthiazide 20-25 MG tablet Take 1 tablet by mouth Once per day. 90 tablet 3 senna-docusate sodium (Senokot-S) 8.6-50 MG tablet Take 1 tablet by mouth Once per day. 90 tablet 0 No current facility-administered medications on file prior to visit. I, Guera Babb, am serving as a scribe to document services personally performed by Dr. Johana Allen, based on the patient's response to questions by provider and provider's statements to me. documented in this encounter Miscellaneous Notes * Assessment & Plan Note - Johana Allen MD - 08/01/2024 12:50 PM EST Associated Problem(s): Nonrheumatic aortic valve stenosis Mild, due to hx syncope, I will refer to cardiology. * Assessment & Plan Note - Guera Babb - 08/01/2024 9:37 AM ESTAssociated Problem(s): Acanthosis nigricans I discussed with pt that it is a marker for insulin resistance, will refer to air duct mechanic and rule out hyper cortisol conditions. * Assessment & Plan Note - Guera Babb - 08/01/2024 9:36 AM ESTAssociated Problem(s): Prediabetes Pt has associated Acanthosis nigricans which confirms diagnosis of insulin resistance, unclear if she has another associated hyper cortisol conditions, will refer to air duct mechanic. * Assessment & Plan Note - Guera Babb - 08/01/2024 9:27 AM ESTAssociated Problem(s): Class 3 severe obesity due to excess calories with serious comorbidity and body mass index (BMI) of 40.0 to 44.9 in adult ([facility]) Pt tolerating low dose of Zepbound with no side effects, will increase to 5 mg and FU in 6 weeks. documented in this encounter Plan of Treatment Upcoming Encounters Date Type Department Care Team (Late st Contact Info) Description 09/29/2024 9:45 AM EDT Office Visit [facility] [address] [place] [address] Johana Allen MD [address] [place] [address] Scheduled Referrals Name Type Priority Associated Diagnoses Order Schedule Referral to Endocrinology Outpatient Referral Routine Class 3 severe obesity due to excess calories with serious comorbidity and body mass index (BMI) of 40.0 to 44.9 in adult ([facility]) Prediabetes Acanthosis nigricans Expected: 08/01/2024 (Approximate), Expires: 08/01/2025 Referral to Cardiology Outpatient Referral Routine Nonrheumatic aortic valve stenosis Expected: 08/01/2024 (Approximate), Expires: 08/01/2025 documented as of this encounter Visit Diagnoses Diagnosis Class 3 severe obesity due to excess calories with serious comorbidity and body mass index (BMI) of 40.0 to 44.9 in adult ([facility])- Primary Prediabetes Other abnormal glucose Acanthosis nigricans Acquired acanthosis nigricans Nonrheumatic aortic valve stenosis documented in this encounter Additional Health Concerns Assessment Noted Time PHQ-9 Depression Total Score: 0 08/01/19 25 9:09 AM EST documented as of this encounter Care Teams Internet Sourcer Relationship Specialty Start Date End Date Johana Allen MD [address] [place], [place] [phone] PCP - General Internal Medicine 12/20/23 Blade Noel RN [address] [place] [address] Candy FeederPulp Screen Operator 06/09/24 documented as of this encounter
--- OUTSIDE RECORDS SUMMARY | 2024-08-24 08:03 | XMS_ITS | Encounter Summary ---
Author Organization [employer] Address [address] [facility] 7t [place] [address] Care Team Providers Care Photograph Mounter Name Role Phone Johana Allen MD Primary Care Provider + Blade Noel RN Unavailable [phone] Reason for Visit * Reason Comments Care Coordination Upcoming appts Encounter Details Date Type Department Care Team (Latest Contact Info) Description 08/16/2024 Patient Outreach [facility] [address] [place], [place] [phone] Johana Allen MD [address] [place] [address] Care Coordination (Upcoming appts) Social History Tobacco Use Types Packs/Day Years [...] encounter Progress Notes * Chiquita Thomason - 08/16/2024 11:30 AM EST CHW let patient know that CM scheduled her Endo appt for 08/31/24 at 2:00pm with Dr. Núñez. [address], Patient agreed and has transportation. Patient also scheduled her appt for cardio which is on 10/26/24 115pm. CHW will remind patient of upcoming appts. documented in this encounter Plan of Treatment Upcoming Encounters Date Type Department Care Team (Late st Contact Info) Description 09/29/2024 9:45 AM EDT Office Visit [facility] [address] [place] [address] Johana Allen MD [address] [place] [address] documented as of this encounter Visit Diagnoses Not on filedocumented in this encounter Additional Health Concerns Assessment Noted Time PHQ-9 Depression Total Score: 0 08/01/19 9:09 AM EST documented as of this encounter Care Teams Photograph Mounter Relationship Specialty Start Date End Date Johana Allen MD [address] [place] [address] PCP - General Internal Medicine 12/20/23 Blade Noel RN [address] [place] [address] Retort SetterDaycare Director 06/09/24 documented as of this encounter
== END 2024-08-24 07:57 | disposition home or self-care (01) ==
LOC: HO.NEURO 07:56
PROVIDERS: PCP Internal Medicine; Visit Provider Internal Medicine
DX: R55 Syncope and collapse (principal)
CPT/HCPCS: 95816

== ENCOUNTER 2024-08-31 13:54 | Outpatient (AMB) | payer MEDICAID, SELFPAY ==
--- NOTE | 2024-08-31 13:59 | MHC.OFFVIS ---
Vital Signs 08/31/24 14:01 Height 5 ft 4 in Weight 239 lb 10.279 oz BMI 41.1 BP 108/76 Blood Pressure Location Rt brachial Position Sitting Pulse 98 Pulse Source Pulse Oximeter Pulse Oximetry (%) 97 Oxygen Delivery Method Room Air Intake Visit Reasons: Obesity Intake Note: New patient externally referred by PCP for Obesity. Patient reports she has been taking Zepbound for a couple weeks. Patient stated Wegovy was not covered by insurance. Feed Elevator Worker Required: No Accompanied by: Self / Same As Patient Allergies No Known Allergies Allergy (Verified 08/31/24 14:02) Medication List - Last Reconciled 08/31/24 by Isaias Núñez MD amlodipine 5 mg PO QAM ibuprofen 600 mg PO Q6H PRN lisinopril-hydrochlorothiazide 20-25 mg 1 tab PO QAM tirzepatide (weight loss) (Zepbound) 5 mg subcut QWEEK HPI Comments Details: This is a 49-year-old female sent to endocrinology for evaluation of obesity. Took Wegovy for 4 wks. Tried dietary attempts prior. On Zepbound since 07/2024. On 5 mg 3 wks ago. Not seen a tanker truck driver. Zepbound has not changed appetite or choice of foods . Walks 30 min/day. No family hx of DM. Noticed increased brsing and hair growth on face but no specific symptoms of Seneca syndrome. Snores at night. Not been worked up for sleep apnea. Still gets menses irregular 2 mos ago. 3 children - no diabetes during . She has tried cutting back on portion size increase fluids without any effect. [facility] Medical History External hemorrhoids with complication Cholesterol granuloma Abnormal CT scan Hypertension Morbid obesity Supraclavicular mass Surgical History History of hemorrhoidectomy (~01/14/24) History of tonsillectomy History of ankle surgery Hx of right knee surgery Hx of tubal ligation Family History Maternal Aunt Breast cancer Colon cancer Son Crohn's disease of both small and large intestine with fistula Other Ovarian cancer Prostate cancer Stomach cancer Social History Household Members Other:: 3 kids Alcohol intake: current Alcohol intake frequency: former alcohol drinker Alcohol type: wine Patient Tobacco Use Status: Former Tobacco user Tobacco use type: Smokeless Tobacco Second Hand Smoke Exposure: No Current occupational status: employed Current occupation: [employer] Female Reproductive History Menstrual Age of Menarche: 11 Physical Exam Vital Signs: BMI result Body Mass Index 41.1 Const Other: No cushingoid features on examination. Thyroid gland is normal size weighs about 15 g. There is a presence of acanthosis nigricans behind the neck region Assessment & Plan Assessment & Plan (1) Morbid obesity: Code(s): E66.01 - Morbid (severe) obesity due to excess calories Category: Medical Plan This is a 49-year-old black female with a history of obesity and insulin resistance. There was no clear underlying endocrine etiology behind the obesity. She appears to be clinically and biochemically euthyroid. Plan is to continue dietary attempts. I will increase the Zepbound to 7.5 mg Q weekly. I will make a referral to tanker truck driver. We will check 24 hour urine for free cortisol and creatinine. I have also suggested that the primary care provider send the patient for a sleep study to rule out sleep apnea . Lastly, I have asked the patient to follow up with Brooke Call NP in 6 wks. Orders: Orders Cortisol, Free 24Hr Urine Today E66.01 - Morbid (severe) obesity due to excess calories Creatinine, 24 Hr Group Today E66.01 - Morbid (severe) obesity due to excess calories Referrals Nutrition/Dietitian Referral E66.01 - Morbid (severe) obesity due to excess calories Medications: New tirzepatide (weight loss) (Zepbound) 7.5 mg (0.5 mL) subcut QWEEK 2 mL 3RF Coding Level of Care Code New Pt Level 4 (44883) Diagnoses Morbid obesity E66.01
[2024-08-31 14:01] VITALS: BP 108/76; PULSE 98; O2SAT 97; BMI 41.1
--- OUTSIDE RECORDS SUMMARY | 2024-08-31 17:40 | XMS_ITS | Encounter Summary ---
Author Organization [employer] Address [address] [facility] 7t [place] [address] Care Team Providers Care Gas Mask Assembler Name Role Phone Johana Allen MD Primary Care Provider + Blade Noel RN Unavailable [phone] Reason for Visit * Reason Onset Date Comments Care Management 08/02/2024 C3CM- f/u call # 2 lvm Encounter Details Date Type Department Care Team ([facility] Contact Info) Description 08/02/2024 Telephone [facility] MEDICINE [address] [place], [place] [phone] Johana Allen MD [address] [place] [address] Care Management (C3CM- f/u call #2 lvm) [...] at this time. LVM introducing herself from [facility] CM Department. Requested call back. CM reinforced direct contact information or CHW for any additional questions or concerns. Education provided on Walk-In Urgent Care located in [facility] of [facility]. Patient provided with after-hours line for [facility], , which offer night time triage service and option to transfer to nurseryperson provider if needed. CM will attempt another follow up call within 10 days. documented in this encounter Plan of Treatment Upcoming Encounters Date Type Department Care Team (Late st Contact Info) Description 09/29/2024 9:45 AM EDT Office Visit [facility] MEDICINE [address] [place] [address] Johana Allen MD [address] [place] [address] documented as of this encounter Visit Diagnoses Not on filedocumented in this encounter Additional Health Concerns Assessment Noted Time PHQ-9 Depression Total Score: 0 08/01/19 25 9:09 AM EST documented as of this encounter Care Teams Gas Mask Assembler Relationship Specialty Start Date End Date Johana Allen MD [address] [place] [address] PCP - General Internal Medicine 12/20/23 Blade Noel, NANCY [address] [place] [address] Gang WorkerMatrix Worker 06/09/24 documented as of this encounter
--- OUTSIDE RECORDS SUMMARY | 2024-08-31 17:40 | XMS_ITS | Encounter Summary ---
Author Organization [employer] Address [address] [facility] 7t [place] [address] Care Team Providers Care Solar System Designer Name Role Phone Johana Allen MD Primary Care Provider + Blade Noel RN Unavailable [phone] Reason for Visit * Reason Onset Date Comments Care Management 08/25/2024 C3CM- f/u call l Encounter Details Date Type Department Care Team ([facility] Contact Info) Description 08/25/2024 Telephone [facility] MEDICINE [address] [place], [place] [phone] Johana Allen MD [address] [place] [address] Care Management (C3CM- f/u call lvm) Social History Tobacco Use Types Packs/Day [...] Telephone Encounter - Blade Noel RN - 08/25/2024 9:41 AM EST CM Blade Noel RN placed outbound call with CHW Chiuqita Thomason to patient for follow up call. Noanswer at this time. LVM introducing herself from [facility] CM Department. Requested call back. CM reinforced direct contact information or CHW for any additional questions or concerns. Education provided on Walk-In Urgent Care located in [facility] of [facility]. Patient provided with after-hours line for [facility], , which offer night time triage service and option to transfer to long line teamster provider if needed. CM will attempt another follow up call within 10 days. documented in this encounter Plan of Treatment Upcoming Encounters Date Type Department Care Team (Late st Contact Info) Description 09/29/2024 9:45 AM EDT Office Visit [facility] MEDICINE [address] [place] [address] Johana Allen MD [address] [place] [address] documented as of this encounter Visit Diagnoses Not on filedocumented in this encounter Additional Health Concerns Assessment Noted Time PHQ-9 Depression Total Score: 0 08/01/19 25 9:09 AM EST documented as of this encounter Care Teams Solar System Designer Relationship Specialty Start Date End Date Johana Allen MD [address] [place] [address] PCP - General Internal Medicine 12/20/23 Blade Noel RN [address] [place] [address] Election WatcherSuperintendent Meters 06/09/24 documented as of this encounter
--- OUTSIDE RECORDS SUMMARY | 2024-08-31 17:40 | XMS_ITS | Encounter Summary ---
Author Organization [employer] Address [address] [facility] 7t [place] [address] Care Team Providers Care Veneer Taping Machine Offbearer Name Role Phone Johana Allen MD Primary Care Provider + Blade Noel RN Unavailable [phone] Reason for Visit * Reason Comments Care Coordination SDOH f/u Encounter Details Date Type Department Care Team (Latest Contact Info) Description 08/02/2024 Patient Outreach [facility] MEDICINE [address] [place], [place] [phone] Johana Allen MD [address] [place] [address] Care Coordination (SDOH f/u) Social History Tobacco [...] at this time. LVM introducing herself from [facility] CM Department. Requested call back. CHW reinforced direct contact information or CM for any additional questions or concerns and extended clinic hours on Mondays and Wednesdays, and Walk-In Urgent Care Located in [facility] of [facility]. Patient provided with after-hours line for [facility], , which offer night time triage service and option to transfer to reception interviewer provider if needed. CHW will attempt another follow up call within 10 days. documented in this encounter Plan of Treatment Upcoming Encounters Date Type Department Care Team (Late st Contact Info) Description 09/29/2024 9:45 AM EDT Office Visit [facility] MEDICINE [address] [place] [address] Johana Allen MD [address] [place], [place] [phone] documented as of this encounter Visit Diagnoses Not on filedocumented in this encounter Additional Health Concerns Assessment Noted Time PHQ-9 Depression Total Score: 0 08/01/19 25 9:09 AM EST documented as of this encounter Care Teams Veneer Taping Machine Offbearer Relationship Specialty Start Date End Date Johana Allen MD [address] [place] [address] PCP - General Internal Medicine 12/20/23 Blade Noel RN [address] [place] [address] Panel MonitorCustomer Acquisition Manager 06/09/24 documented as of this encounter
--- OUTSIDE RECORDS SUMMARY | 2024-08-31 17:40 | XMS_ITS | Encounter Summary ---
Author Organization [employer] Address [address] [facility] 7t [place] [address] Care Team Providers Care Property Manager Name Role Phone Johana Allen MD Primary Care Provider + Blade Noel RN Unavailable [phone] Reason for Visit * Reason Onset Date Comments Med Refill 04/06/2024 Encounter Details Date Type Department Care Team ([facility] st Contact Info) Description 04/06/2024 Refill [facility] MEDICINE [address] [place], [place] [phone] Johana Allen MD [address] [place], [place] [phone] Class 3 severe obesity due to excess [...] Description 09/29/2024 9:45 AM EDT Office Visit [facility] MEDICINE [address] [place] [address] Johana Allen MD [address] [place] [address] documented as of this encounter Visit Diagnoses Diagnosis Class 3 severe obesity due to excess calories with serious comorbidity and body mass index (BMI) of 40.0 to 44.9 in adult (CMS/HCC) documented in this encounter Additional Health Concerns Assessment Noted Time PHQ-9 Depression Total Score: 11 023 8:15 AM EDT documented as of this encounter Care Teams Property Manager Relationship Specialty Start Date End Date Johana Allen MD [address] [place] [address] PCP - General Internal Medicine 12/20/23 Blade Noel RN [address] [place] [address] Hard Metals Engraver HandCattle Tester 06/09/24 documented as of this encounter
--- OUTSIDE RECORDS SUMMARY | 2024-08-31 17:40 | XMS_ITS | Encounter Summary ---
Author Organization [employer] Address [address] [facility] 7t [place] [address] Care Team Providers Care Frame Table Operator Helper Name Role Phone Johana Allen MD Primary Care Provider + Blade Noel RN Unavailable [phone] Reason for Visit * Reason Comments Care Coordination Upcoming appts Encounter Details Date Type Department Care Team (Latest Contact Info) Description 08/16/2024 Patient Outreach [facility] MEDICINE [address] [place], [place] [phone] Johana Allen MD [address] [place] [address] Care Coordination (Upcoming appts) Social History Tobacco [...] 08/31/24 at 2:00pm with Dr. Núñez. [address], Patient agreed and has transportation. Patient also scheduled her appt for cardio which is on 10/26/24 115pm. CHW will remind patient of upcoming appts. documented in this encounter Plan of Treatment Upcoming Encounters Date Type Department Care Team (Late st Contact Info) Description 09/29/2024 9:45 AM EDT Office Visit [facility] MEDICINE [address] [place] [address] Johana Allen MD [address] [place] [address] documented as of this encounter Visit Diagnoses Not on filedocumented in this encounter Additional Health Concerns Assessment Noted Time PHQ-9 Depression Total Score: 0 08/01/19 9:09 AM EST documented as of this encounter Care Teams Frame Table Operator Helper Relationship Specialty Start Date End Date Johana Allen MD [address] [place] [address] PCP - General Internal Medicine 12/20/23 Blade Noel RN [address] [place] [address] Fruit WorkerRocket Engine Mechanic 06/09/24 documented as of this encounter
--- OUTSIDE RECORDS SUMMARY | 2024-08-31 17:40 | XMS_ITS | Encounter Summary ---
Author Organization [employer] Address [address] [place] [address] 7t [place] [address] Care Team Providers Care Regional Forester Name Role Phone Johana Allen MD Primary Care Provider + Blade Noel RN Unavailable [phone] Reason for Referral * Consultation (Routine) - Authorized Specialty Diagnoses / Procedures Referred By Vu cárdenas Referred To Contact Cardiology Diagnoses Nonrheumatic aortic valve stenosis Johana Allen MD [address] [place] [address] Phone: tel: fax: [facility] Referral ID Status Reason Start Date Expiration Date Visits Requested Visits Authorized [id number] Authorized Specialty Services Required 08/10/2024 08/10/2025 6 6 * Consultation (Routine) - Authorized Specialty Diagnoses / Procedures Referred By Vu cárdenas Referred To Contact Endocrinology Diagnoses Class 3 severe obesity due to excess calories with serious comorbidity and body mass index (BMI) of 40.0 to 44.9 in adult (CMS/[facility]) Prediabetes Acanthosis nigricans Johana Allen MD [address] [place] [address] Phone: tel: fax: [facility] Endocrinology [address] [place], [place] Phone: tel: fax: Referral ID Status Reason Start Date Expiration Date Visits Requested Visits Authorized [id number] Authorized Specialty Services Required 2024 2025 6 6 Reason for Visit * Reason Comments Telelvisit Encounter Details Date Type Department Care Team (Late st Contact Info) Description 08/01/2024 9:00 AM EST Telemedicine [facility] MEDICINE [address] [place] [address] Johana Allen MD [address] [facility] [place] [address] Class 3 severe obesity due to excess calories with serious comorbidity and body mass index (BMI) of 40.0 to 44.9 in adult (CMS/[facility]) (Primary Dx); Prediabetes; Acanthosis nigricans; Nonrheumatic aortic [...] index (BMI) of40.0 to 44.9 in adult ([facility]) - Primary Pt tolerating low dose of Zepbound with no side effects, will increase to 5 mg and FU in 6 weeks. Relevant Orders Referral to Endocrinology Prediabetes Pt has associated Acanthosis nigricans which confirms diagnosis of insulin resistance, unclear if she has another associated hyper cortisol conditions, will refer to museum assistant. Relevant Orders Referral to Endocrinology Acanthosis nigricans I discussed with pt that it is a marker for insulin resistance, will refer to museum assistant and rule out hyper cortisol conditions. Relevant Orders Referral to Endocrinology Nonrheumatic aortic valve stenosis Mild, due to hx syncope, I will refer to cardiology. Relevant Orders Referral to Cardiology Follow Up: Current Outpatient Medications on File Prior to Visit Medication Sig Dispense Refill amLODIPine (Norvasc) 5 MG tablet Take 1 tablet (5 mg) by mouth Once per day. 90 tablet 2 xsrhphtcnv-shvktfxefyfeq-kouhpdgj 50-325-40 MG tablet TAKE 1 TABLET BY [...] marker for insulin resistance, will refer to museum assistant and rule out hyper cortisol conditions. * Assessment & Plan Note - Guera Babb - 08/01/2024 9:36 AM ESTAssociated Problem(s): Prediabetes Pt has associated Acanthosis nigricans which confirms diagnosis of insulin resistance, unclear if she has another associated hyper cortisol conditions, will refer to museum assistant. * Assessment & Plan Note - Guera Babb - 08/01/2024 9:27 AM ESTAssociated Problem(s): Class 3 severe obesity due to excess calories with serious comorbidity and body mass index (BMI) of 40.0 to 44.9 in adult ([facility]) Pt tolerating low dose of Zepbound with no side effects, will increase to 5 mg and FU in 6 weeks. documented in this encounter Plan of Treatment Upcoming Encounters Date Type Department Care Team (Late st Contact Info) Description 09/29/2024 9:45 AM EDT Office Visit [facility] MEDICINE [address] [place] [address] Johana Allen MD [address] [place] [address] Scheduled Referrals Name Type Priority Associated Diagnoses Order Schedule Referral to Endocrinology Outpatient Referral Routine Class 3 severe obesity due to excess calories with serious comorbidity and body mass index (BMI) of 40.0 to 44.9 in adult ([facility]) Prediabetes Acanthosis nigricans Expected: 08/01/2024 (Approximate), Expires: 08/01/2025 Referral to Cardiology Outpatient Referral Routine Nonrheumatic aortic valve stenosis Expected: 08/01/2024 (Approximate), Expires: 08/01/2025 documented as of this encounter Visit Diagnoses Diagnosis Class 3 severe obesity due to excess calories with serious comorbidity and body mass index (BMI) of 40.0 to 44.9 in adult ([facility])- Primary Prediabetes Other abnormal glucose Acanthosis nigricans Acquired acanthosis nigricans Nonrheumatic aortic valve stenosis documented in this encounter Additional Health Concerns Assessment Noted Time PHQ-9 Depression Total Score: 0 08/01/19 25 9:09 AM EST documented as of this encounter Care Teams Regional Forester Relationship Specialty Start Date End Date Johana Allen MD [address] [place], [place] [phone] PCP - General Internal Medicine 12/20/23 Blade Noel RN [address] [place] [address] Rod WelderFamily Partner 06/09/24 documented as of this encounter
--- OUTSIDE RECORDS SUMMARY | 2024-08-31 17:40 | XMS_ITS | Encounter Summary ---
Author Organization [email or web address] Address [address] [facility] 7t [place] [address] Care Team Providers Care Industrial Staff Nurse Name Role Phone Jhoana Allen MD Primary Care Provider + Blade Noel RN Unavailable [phone] Reason for Visit * Reason Comments Care Coordination Appt reminder Encounter Details Date Type Department Care Team (Latest Contact Info) Description 08/23/2024 Patient Outreach [facility] MEDICINE [address] [place], [place] [phone] Johana Allen MD [address] [place] [address] Care Coordination (Appt reminder) Social History Tobacco [...] remind patient of appointment for EEG at [facility] on 08/24/24at 8:00am, patient stated she will attend. documented in this encounter Plan of Treatment Upcoming Encounters Date Type Department Care Team (Late st Contact Info) Description 09/29/2024 9:45 AM EDT Office Visit [facility] MEDICINE [address] [place] [address] Johana Allen MD [address] [place] [address] documented as of this encounter Visit Diagnoses Not on filedocumented in this encounter Additional Health Concerns Assessment Noted Time PHQ-9 Depression Total Score: 0 08/01/19 9:09 AM EST documented as of this encounter Care Teams Industrial Staff Nurse Relationship Specialty Start Date End Date Johana Allen MD [address] [place] [address] PCP - General Internal Medicine 12/20/23 Blade Noel RN [address] [place] [address] Well Services OperatorLine Haul Owner Operator 06/09/24 documented as of this encounter
--- OUTSIDE RECORDS SUMMARY | 2024-08-31 17:40 | XMS_ITS | Encounter Summary ---
Author Organization [employer] Address [address] [facility] 7t [place] [address] Care Team Providers Care Dry House Worker Name Role Phone Johana Allen MD Primary Care Provider + Blade Noel RN Unavailable [phone] Reason for Visit * Reason Onset Date Comments Care Management 08/15/2024 C3CM- f/u call Encounter Details Date Type Department Care Team ([facility] Contact Info) Description 08/15/2024 Telephone [facility] MEDICINE [address] [place], [place] [phone] Johana Allen MD [address] [place] [address] Care Management (C3CM- f/u call) Social History [...] Miscellaneous Notes * Telephone Encounter - Denice Serrano RN - 08/17/2024 9:26 AM EST TC placed to pt to inform of below PCP message. RN informed pt of PCP message. Pt states she made an appointment with the perioperative tech for October 26. RN stressed the importance [...] aortic stenosis, she needs to follow-up with perioperative tech to have additional testing. Please emphasize importance of taking BP meds and follow-up as needed walk-in center or ED if she has recurrent chest pain worsening NELSON or palpitations. * Telephone Encounter - Mile Barrett RN - 08/16/2024 1:42 PM EST TC placed to patient [phone] however no answer, RN left requesting CB [...] aortic stenosis, she needs to follow-up with perioperative tech to have additional testing. Please emphasize importance [...] provided on Walk-In Urgent Care located in [facility] of [facility]. Patient provided with after-hours line for [facility], , which offer night time triage service and option to transfer to music rehabilitation therapist provider if needed. Patient verbalizes understanding, and able to r epeat back to machine sign writer. A follow up call will be placed within 10 days, patient agrees with plan. CM called [facility] Endo. Left v/m requesting return call. Call to [facility] Cardiology. Informed the referral was received and [...] Description 09/29/2024 9:45 AM EDT Office Visit [facility] MEDICINE [address] [place] [address] Johana Allen MD [address] [place] [address] documented as of this encounter Visit Diagnoses Not on filedocumented in this encounter Additional Health Concerns Assessment Noted Time PHQ-9 Depression Total Score: 0 08/01/19 25 9:09 AM EST documented as of this encounter Care Teams Dry House Worker Relationship Specialty Start Date End Date Johana Allen MD [address] [place] [address] PCP - General Internal Medicine 12/20/23 Blade Noel RN [address] [place] [phone] Administrative ManagerCarton Making Machinist 06/09/24 documented as of this encounter
--- OUTSIDE RECORDS SUMMARY | 2024-08-31 17:40 | XMS_ITS | Encounter Summary ---
Author Organization [employer] Address [address] [facility] 7t [place] [address] Care Team Providers Care Water Filter Cleaner Name Role Phone Johana Allen MD Primary Care Provider + Blade Noel RN Unavailable [phone] Encounter Details Date Type Department Care [...] Description 09/29/2024 9:45 AM EDT Office Visit [facility] MEDICINE [address] [place] [address] Johana Allen MD 230 [place] [address] documented as of this encounter Visit Diagnoses Not on filedocumented in this encounter Additional Health Concerns Assessment Noted Time PHQ-9 Depression Total Score: 0 08/01/19 9:09 AM EST documented as of this encounter Care Teams Water Filter Cleaner Relationship Specialty Start Date End Date Johana Allen MD [address] [place] [address] PCP - General Internal Medicine 12/20/23 Blade Noel, NANCY [address] [place] [address] Timber Management TechnicianHot Oiler 06/09/24 documented as of this encounter
--- OUTSIDE RECORDS SUMMARY | 2024-08-31 17:40 | XMS_ITS | Encounter Summary ---
Author Organization [employer] Address 75 [facility] 7t [place] [address] Care Team Providers Care Zookeeper Name Role Phone Johana Allen MD Primary Care Provider + Blade Noel RN Unavailable [phone] Reason for Visit * Reason Comments Care Coordination SDOH Encounter Details Date Type Department Care Team (Latest Contact Info) Description 08/15/2024 Patient Outreach [facility] MEDICINE [address] [place], [place] [phone] Johana Allen MD 230 [place] [address] Care Coordination (SDOH) Social History Tobacco Use [...] Wednesdays, and Walk-In Urgent Care Located in [facility] of [facility]. Patient provided with after-hours line for [facility], , which offer night time triage service and option to transfer to electronic prepress technician provider if needed. Patient verbalizes understanding, and able to repeat back to bond underwriter. A follow up call willbe placed within 10 days, patient agrees with plan. documented in this encounter Plan of Treatment Upcoming Encounters Date Type Department Care Team (Late st Contact Info) Description 09/29/2024 9:45 AM EDT Office Visit [facility] MEDICINE [address] [place] [address] Johana Allen MD [address] [place] [address] documented as of this encounter Visit Diagnoses Not on filedocumented in this encounter Additional Health Concerns Assessment Noted Time PHQ-9 Depression Total Score: 0 08/01/19 25 9:09 AM EST documented as of this encounter Care Teams Zookeeper Relationship Specialty Start Date End Date Johana Allen MD [address] [place] [address] PCP - General Internal Medicine 12/20/23 Blade Noel RN [address] [place] [address] Director Of Recruitment And AdmissionsPhotographer Scientific 06/09/24 documented as of this encounter
--- OUTSIDE RECORDS SUMMARY | 2024-08-31 17:40 | XMS_ITS | Clinical Summary ---
Author Organization [employer] Address [address] [facility] 7t [place] [address] Care Team Providers Care Banquet Supervisor Name Role Phone Johana Allen MD Primary Care Provider + Blade Noel RN Unavailable [phone] Allergies No known active allergies Medications * This document contains information received from the source organization and may not represent a complete record from that organization. cetirizine (ZyrTEC) 10 MG tabletIndications :Seasonal allergic rhinitis, unspecified trigger Take 1 tablet (10 mg) by mouth in the morning. 90 tablet 2 3 Active butalbital-acetam inophen-caffeine 50-325-40 MG tablet TAKE 1 TABLET BY MOUTH EVERY 6 HOURS NEEDED FOR HEADACHE 4 Active lisinopril-hydroC HLOROthiazide 20-25 MG tabletIndications :Primary hypertension Take 1 tablet by mouth Once per day. 90 tablet 3 4 03/26/20 25 Active amLODIPine (Norvasc) 5 MG tabletIndications :Primary hypertension Take 1 tablet (5 mg) by mouth Once per day. 90 tablet 2 4 Active fluticasone (Flonase) 50 MCG/ACT nasal spray Administer 1 spray into each nostril Once per day. 16 g 4 Active senna-docusate sodium (Senokot-S) 8.6-50 MG tablet Take 1 tablet by mouth Once per day. 90 tablet 4 06/16/20 25 Active Tirzepatide-Weigh t Management (Zepbound) 5 MG/0.5ML solution auto-injector Inject 0.5 mL (5 mg) under the skin 1 (one) time per week. 2 mL 1 02/11/09/27/19 Active Active Problems Problem Noted Date Diagnosed Date Acanthosis nigricans 08/01/2024 Assessment & Plan (08/01/2024 9:37 AM EST): I discussed with pt that it is a marker for insulin resistance, will refer to engineering research manager and rule out hyper cortisol conditions. Nonrheumatic [...] associated hyper cortisol conditions, will refer to engineering research manager. Assessment & Plan (06/15/2024 1:13 PM EST): [...] life style modifications, diet and referral to air cargo specialist supervisor. She has tried all that and is currently on a corporate sales trainer program. Recommended to decrease soda and sugary [...] uterine bleeding (AUB) 12/30/2022 Overview (01/04/2023): 12/30/22 Mastic Man visit: Co testing with GC and chlamydia [...] knee 023 Overview (12/19/2022): Care managed by [facility] App[facility] 12/16/22 Received steroid injection bilat [...] Encounters Date Type Department Care Team Description 08/25/[address] [address] Johana Allen MD Care Management (C3CM- f/u call lvm) 08/23/2024 Patient Outreach [address] [address] Johana Allen MD Care Coordination (Appt reminder) 08/16/2024 Patient Outreach [address] [address] Johana Allen MD Care Coordination (Upcoming appts) 08/15/[address] [address] Johana Allen MD Care Management (C3CM- f/u call) 08/15/2024 Patient Outreach [address] [address] Johana Allen MD Care Coordination (SDOH) 08/02/2024 Patient Outreach [address] [address] Johana Allen MD Care Coordination (SDOH f/u) 08/02/[address] [address] Johana Allen MD Care Management (C3CM- f/u call #2 lvm) 08/01/2024 9:00 AM EST Telemedicine [address] [address] Johana Allen MD Class 3 severe obesity due to excess calories with serious comorbidity and body mass index (BMI) of 40.0 to 44.9 in adult ([facility]) (Primary Dx); Prediabetes; Acanthosis nigricans; Nonrheumatic aortic valve stenosis 08/01/2024 Travel 07/28/[address] [address] Krista Méndez MA Chart prep 07/18/2024 Patient Outreach [address] [address] Johana Allen MD Care Coordination (sdoh) 07/18/[address] [address] Blade Noel, NANCY Care Management (C3CM- f/u call lvm) 07/06/[address] [address] Blade Noel RN Care Management (C3CM- f/u call) 06/27/2024 Patient Outreach [address] [address] Johana Allen MD Care Coordination (SDOH f/u) 06/27/[address] [address] Blade Noel RN Care Management (C3CM- f/u call lvm) 06/15/2024 12:15 PM EST Office Visit [address] [address] Johana Allen MD Syncope, unspecified syncope type (Primary Dx); Viral upper respiratory tract infection; Class 3 severe obesity due to excess calories with serious comorbidity and body mass index (BMI) of 40.0 to 44.9 in adult ([facility]); Prediabetes 06/15/2024 Travel 06/12/2024 Patient Outreach [address] [address] Johana Allen MD Care Coordination (Appt reminder and pt1) 06/09/[address] [address] Blade Noel RN Care Management (C3CM- initial assessment/ enrollment) 06/09/2024 Patient Outreach [address] [phone] Johana Allen MD Care Coordination (PT1) 06/08/2024 Patient Outreach [facility] MEDICINE [address] [place] [address] Johana Allen MD Care Coordination (CM/CHW appt reminder) 06/06/2024 Patient Outreach [facility] MEDICINE [address] [place] [address] Johana Allen MD Care Coordination (CM/CHW outreach) [...] 9:45 AM EDT Office Visit [facility] MEDICINE [address] [place] [address] Johana Allen MD [address] [place] [address] Health Maintenance Due Date Last Done Comments [...] 2024 08/18/2021, 03/02/2021, 02/09/2021 Mammogram 11/18/2024 11/19/2023, 06/0 12/2022, 11/25/2022, Additional history exists Diabetes: Hemoglobin A1C 03/31/2025 024, 10/20/2023, 11/18/2022 Alcohol/Substance Use Screening 08/01/2025 08/01/2024 Depression Screening 08/01/2025 08/01/2024, 08/01/19 SDOH Screening 08/01/2025 08/01/2024 Tobacco Screening 08/01/2025 [...] Rapid Covid-19 BinaxNOW (06/15/2024 1:07 PM EST) Pathologist [facility] Rapid COVID Ag Negative QC Media Lot # [id number] Lot# Expiration Date 3,026 Swab 06/15/2024 1:07 PM EST Johana Allen MD POINT OF CARE TEST ENTER /EDIT ORDERABLES Final Result * POCT Rapid Influenza B OSOM (06/15/2024 1:07 PM EST) Rapid Influenza B Ag Negative Negative, Indeterminate QC Media Lot # [id number] Lot# Expiration Date , Swab 06/15/2024 1:07 PM EST Johana Allen MD POINT OF CARE TEST ENTER /EDIT ORDERABLES Final Result * POCT Rapid Influenza A OSOM (06/15/2024 1:07 PM EST) Rapid Influenza A Ag Negative Negative, Indeterminate QC Media Lot # [id number] Lot# Expiration Date , Swab Nasopharyngeal structure / Unknown 06/15/2024 1:07 PM EST Johana Allen MD POINT OF CARE TEST ENTER /EDIT ORDERABLES Final Result * (ABNORMAL) Lipid Panel with Reflex to Direct LDL (04/18/2024 11:45 AM EDT) Triglycerides 91 <150 mg/dL [facility] Comment:Desirable Triglyceri de: less than 150 mg/dLBorderline High Triglyceride 150-199 mg/dLHigh Triglyceride: 200-499 mg/dLVery High Triglyceride: greater than or equal to 5OO mg/dL Cholesterol 186 <200 mg/dL [facility] Comment:Desirable Cholestero l: less than 200 mg/dLBorderline High Cholesterol: 200-239 mg/dLHigh Cholesterol: greater than 239 mg/dL LDL Cholesterol Calculated 105(H) <100 mg/dL [facility] Comment:Desirable LDL: less than 100 mg/dLNear Optimal/Above Optimal LDL: 110- 129 mg/dLBorderline High LDL: 130-159 mg/dLHigh LDL: 160-189 mg/dLVery High LDL: greater than or equal to 190 mg/dL HDL Cholesterol 63 >40 mg/dL [facility] Comment:Desirable HDL: great er than 40 mg/dL Note: This HDL assay may give artificially low results in patients with liver disease. Blood 04/18/2024 11:4 5 AM EDT 04/18/2024 1:24 PM EDT Johana Allen MD LAB BLOOD ORDERABLES Fin al Result Performing Organization Address [facility] Co de Phone Number [facility] [address] [place] [address] [phone] * Hepatitis Panel, General (04/18/2024 11:45 AM EDT) Hepatitis A IgM Nonreactive Nonreactive [facility] Comment:IgM antibodies to NAVAS V not detected; does not exclude earlyacute or recovered HAV infection. ~Hepatitis B Surface Antibody REACTIVE Nonreactive [facility] Comment:REACTIVE: > 11.99 mI U/mL Hepatitis B Core Antibody Nonreactive Nonreactive [facility] Hepatitis C Antibody Nonreactive Nonreactive [facility] Comment:Antibodies to HCV no t detected; does not exclude early acuteHCV infection. Hepatitis B Surface Ag Negative Negative [facility] Blood 04/18/2024 11:4 5 AM EDT 04/18/2024 1:24 PM EDT Johana Allen MD LAB BLOOD ORDERABLES Fin al Result Performing Organization Address [facility] Co de Phone Number [facility] [address] [place] [address] [phone] * POCT HGB A1C (03/31/2024 10:54 AM EDT) Hemoglobin A1C 5.8 4.0 - 6.0 % QC Media Lot # [id number] Lot# Expiration Date [id number] Blood 03/31/2024 10:5 4 AM EDT us Johana Allen MD POINT OF CARE TEST ENTER /EDIT ORDERABLES Final Result * BI Mammogram Screening Tomosynthesis Bilateral (11/19/2023 1:12 PM EDT) Anatomical Region Laterality Modality Breast Bilateral Mammography 11/19/2023 1:12 PM EDT Narrative 12/07/2023 1:53 PM EDT ? [facility] ? [address] ?[place], [place] [address] ? Mammography Report ? Signed ? Patient: Swan,Yue ?MR#: [id number] ?? [id number] ? : 1975 ?Acct:[id number] ? Age/Sex: 48 / F ?ADM Date: 11/19/23 ? Loc: HO.MAMMO ? Attending Dr: Jeannine Umana CNM ? Ordering Physician: JEANNINE UMANA CNM ?Results: 2 ?? Benign Findings ? Date of Service: 11/19/23 ?Follow Up: 1 Year From Orig ?? inal Mammogram ? Procedure(s): MM tomosynthesis screening BI ?? Accession Number(s): [id number] ? cc: Gladys Sibley WEAVING TEACHER; JEANNINE UMANA CNM ? EXAMINATION: ?? MM [...] 1349 ? DD/ 1312 ? TD/TT: ? Liquid Center Assembler: ? Procedure Note Valeriano, Paola - 12/07/2023 [facility] [address] [place] [address] Dr. [place], [place] [address] Mammography Report Signed Patient: Blake Swan#: [id number] : 1975Acct:[id number] Age/Sex: 48 / FADM Date: 11/19/23 Loc: HO.MAMMO Attending Dr: Jeannine Umana CNM Ordering Physician: JEANNINE UMANAesults: 2 Benign Findings Date of Service: 11/19/23Follow Up: 1 Year From [facility] ina Mammogram Procedure(s): MM tomosynthesis screening BI Accession Number(s): [id number] cc: Gladys Sibley WEAVING TEACHER; JEANNINE UMANA CNM EXAMINATION: MM SCREENING DIGITAL [...] in OV> 12/07/23 1349 DD/ 1312 TD/TT: Liquid Center Assembler: Jeannine Umana CNM [facility] BI PROCEDURES Final R esult * HIV-1/2 Antigen and Antibodies, Fourth Generation, with Reflexes (11/18/2022 11:55 AM EDT) HIV Antigen/Antibody, 4th Generation NON-REAC TIVE NON-REAC TIVE [facility] Comment: HIV-1 antigen and HIV-1/HIV-2 antibodies were [...] ?? For additional information please refer to http://education.Connequity/faq/MQI239 (This link is being provided for informational/ educational purposes only.) The performance of this assay has not been clinically validated in patients less than 2 years old. Blood Venous blood specimen / Unknown 11/18/2022 11:55 AM EDT 11/18/2022 11:56 AM EDT Narrative [facility] - 11/19/2022 6:04 PM EDT FASTING:YES FASTING: YES [facility] LAB BLOOD ORDERABLES Final Resul t [facility] [address], [place] [address] [facility] [address] [place] [address] * Image-Guided Pap with Age-Based Screening??with CT/NG,??Trichomonas (10/22/2022 10:08 AM EDT) Comment [facility] Comment: This order for age-based cervical cancer and STI screening follows ACOG guidelines(PB 168, 140, KFR382). See individual assays for performing site location. Clinical Information: HX ABNORMAL [facility] LMP: NONE GIVEN [facility] Prev. PAP: NONE GIVEN [facility] Prev. BX: NONE GIVEN [facility] SOURCE: None given [facility] Statement Of Adequacy: [facility] Comment: Satisfactory for evaluation. Endocervical/transformation zone component present. Interpretation/Re sult: Negative for intraepithelial lesion or malignancy. [facility] COMMENT: This Pap test has been evaluated with computer assisted technology. [facility] Slitter Helper: [facility] Comment: DMM, CT(ASCP) CT screening location: [address] ??[address] Review Slitter Helper: [facility] [place] [facility] Comment: JXM, CT(ASCP) CT screening location: [address] ??[address] (Always Message) [facility] [employer] [place] [facility] Comment: EXPLANATORY NOTE: The Pap is a [...] HPV nRNA E6/E7 Not Detected Not Detected [facility] Comment: Methodology: Business Analytics Director-Mediated Amplification This assay detects E6/E7 viral messenger RNA (mRNA) from 14 high-risk HPV types (16,18,31,33,35,39,45,51,52,56,58,59,66,68). Cervical sources are required for HPV testing. If a vaginal source from a patient who has had a total hysterectomy with removal of cervix was submitted, please contact the testing laboratory for alternative testing options. For additional information, please refer to http://Bumpr.Connequity/faq/CRA584p4 (This link if provided for information/ educational purposes only.) Chlamydia trachomatis RNA, TMA, Urogenital NOT DETECTED NOT DETECTED [facility] Neisseria gonorrhoeae RNA, TMA, Urogenital NOT DETECTED NOT DETECTED [facility] [place] [facility] (Always Message) [employer] [facility] [place] [facility] Comment: The analytical performance characteristics of this assay, when used to test SurePath(TM) specimens have been determined by [facility]. The modifications have not been cleared or approved by the FDA. This assay has been validated pursuant to the CLIA regulations and is used for clinical purposes. For additional information, please refer to https://Bumpr.Connequity/faq/VSC720 (This link is being provided for information/ educational purposes only.) Trichomonas vaginalis, QL, TMA, PAP Vial NOT DETECTED NOT DETECTED [facility] Comment: The analytical performance characteristics of this assay have been determined by [facility]. The modifications have not been cleared or approved by the FDA. This assay has been validated pursuant to the CLIA regulations and is used for clinical purposes. For additional information, please refer to http://education.Connequity/ faq/Trichomonastma (This link is being provided for information/ educational purposes only.) Pap Vial 10/22/2022 10:0 8 AM EDT 10/23/2022 2:07 AM EDT Jeannine Umana [facility] CYTOLOGY ORDERABLES F inal Result [facility] [address], [place] [address] [facility] [address] [place] [address] from Last 3 Months or Most Recently Relevant to Health Maintenance Insurance [facility] C3 HSN FULL Care Teams Banquet Supervisor Relationship Specialty Start Date End Date Johana Allen MD [address] [place] [address] PCP - General Internal Medicine 12/20/23 Blade Noel RN [address] [place] [phone] Survey RodmanDairy Department Manager 06/09/24
--- OUTSIDE RECORDS SUMMARY | 2024-08-31 17:40 | XMS_ITS | Encounter Summary ---
Author Organization [facility] [employer] Address [address] [place] [address] 7t [place] [address] Care Team Providers Care Card Placer Name Role Phone Lucrecia Mejia [facility] Primary Care Provider [phone] Gladys Sibley [employer] Primary Care Provider [phone] Johana Allen MD Primary Care Provider + Blade Noel RN Unavailable [phone] Reason for Visit * Reason Onset Date Comments Med Refill 01/12/2023 Encounter Details Date Type Department Care Team (Late st Contact Info) Description 01/12/2023 Refill [facility] MEDICINE [address] [place] [address] Lucrecia Mejia [facility] [address] [facility] [place] [address] Primary hypertension Social History Tobacco Use Types [...] 09/29/2024 9:45 AM EDT Office Visit [facility] [address] [place] [address] Johana Allen MD [address] [place] [address] documented as of this encounter Visit Diagnoses Diagnosis Primary hypertension Unspecified essential hypertension documented in this encounter Additional Health Concerns Assessment Noted Time PHQ-9 Depression Total Score: 11 023 8:15 AM EDT documented as of this encounter Care Teams Card Placer Relationship Specialty Start Date End Date Lucrecia Mejia FNP PCP - General Family Medicine 11/18/22 03/29/23 Gladys Sibley FNP [address] [place] [address] PCP - General Family Medicine 03/30/23 12/19/23 Johana Allen MD [address] [place] [address] PCP - General Internal Medicine 12/20/23 Blade Noel RN [address] [place] [address] Heavy Equipment Engine MechanicAluminum Molding Machine Operator 06/09/24 documented as of this encounter
--- OUTSIDE RECORDS SUMMARY | 2024-08-31 17:40 | XMS_ITS | Encounter Summary ---
Author Organization [employer] Address [address] [facility] 7t [place] [address] Care Team Providers Care Abalone Sheller Name Role Phone Lucrecia Mejia Lamar RIVETING MACHINE OPERATOR AUTOMATIC Primary Care Provider [phone] Gladys Sibley RIVETING MACHINE OPERATOR AUTOMATIC Primary Care Provider [phone] Johana Allen MD Primary Care Provider + Blade Noel RN Unavailable [phone] Reason for Visit * Reason Onset Date Comments Med Refill 01/12/2023 Encounter Details Date Type Department Care Team (Late st Contact Info) Description 01/12/2023 Refill [facility] [address] [place] [phone] Keisha Gannon ANP [address] [place], [place] [phone] Primary hypertension Social History Tobacco Use Types [...] Description 09/29/2024 9:45 AM EDT Office Visit [facility] [address] [place] [address] Johana Allen MD [address] [place] [address] documented as of this encounter Visit Diagnoses Diagnosis Primary hypertension Unspecified essential hypertension documented in this encounter Additional Health Concerns Assessment Noted Time PHQ-9 Depression Total Score: 11 023 8:15 AM EDT documented as of this encounter Care Teams Abalone Sheller Relationship Specialty Start Date End Date Lucrecia Mejia FNP PCP - General Family Medicine 11/18/22 03/29/23 Gladys Sibley FNP [address] [place] [address] PCP - General Family Medicine 03/30/23 12/19/23 Johana Allen MD [address] [place] [address] PCP - General Internal Medicine 12/20/23 Blade Noel RN [address] [place] [address] Eligibility AnalystEtcher Machine 06/09/24 documented as of this encounter
== END 2024-08-31 14:38 | disposition home or self-care (01) ==
LOC: HO.ENCR 13:55
PROVIDERS: PCP Internal Medicine; Visit Provider Internal Medicine Endocrinology, Diabetes & Metabolism
DX: E66.01 Morbid (severe) obesity due to excess calories (principal)
CPT/HCPCS: 99204

== ENCOUNTER → 2024-08-31 13:54 | Outpatient (BNVA) | payer MEDICAID, SELFPAY | PROVIDERS: PCP Internal Medicine; Visit Provider Internal Medicine Endocrinology, Diabetes & Metabolism | DX: E66.01 Morbid (severe) obesity due to excess calories (principal); Z68.41 Body mass index [BMI] 40.0-44.9, adult | CPT/HCPCS: 99202 ==

== ENCOUNTER 2024-09-06 10:33 | Outpatient (REF) | payer MEDICAID, SELFPAY ==
[2024-09-06 11:51] LABS: Creatinine, mg/dL 144.09
[2024-09-06 14:36] LABS: Creatinine, 24Hr Urine 1.6 G/Day (1.0-2.0); Total Volume 24 Hour Urine 1100 mL
[2024-09-12 17:43] LABS: Cortisol Free, 24 Hr Urine 22.4 mcg/24 h (4.0-50.0); Creatinine, 24 Hr Urine 1.56 g/24 h (0.50-2.15); Total Volume, 24 Hr Urine 1100 mL
== END 2024-09-06 10:34 | disposition home or self-care (01) ==
LOC: HO.10HDLNP 10:33
PROVIDERS: Visit Provider Internal Medicine Endocrinology, Diabetes & Metabolism
DX: E66.01 Morbid (severe) obesity due to excess calories (principal)
CPT/HCPCS: 82530; 82570

== ENCOUNTER 2024-09-27 10:30 | Outpatient (AMB) | payer MEDICAID, SELFPAY ==
[2024-09-27 10:40] VITALS: BMI 39.8
--- NOTE | 2024-09-27 10:40 | A.OFFVIS_ITS ---
VS Expanded 09/27/24 10:40 09/27/24 10:48 Height 5 ft 4 in 5 ft 4 in Weight 231 lb 11.293 oz 232 lb BMI 39.8 39.8 Intake Visit Reasons: Obesity Allergies No Known Allergies Allergy (Verified 08/31/24 14:02) Nutrition Presentation Details: Pt presents for MNT for morbid obesity Pt was referred by music store manager food frequency fruits: 0-1/d ve x/wk dairy: 2/d starches > 20 /d fish 0-1/wk physical activity: ADL and gradually increasing on walking etoh/smoking--- Pt reports , having kameron and taking on and off MVI, biotin, magnesium BS Monitoring Most Recent Diabetes Results: Cholesterol 186 mg/dL (<200) 04/18/24 HDL Cholesterol 63 mg/dL (>40) 04/18/24 Triglycerides 91 mg/dL (<150) 04/18/24 Creatinine 0.91 mg/dL (0.5-1.4) 04/18/24 Blood Urea Nitrogen 15 mg/dL (9-16) 04/18/24 Sodium 139 mmol/L (135-145) 04/18/24 Potassium 4.0 mmol/L (3.3-5.1) 04/18/24 Chloride 110 mmol/L (96-108) H 04/18/24 Carbon Dioxide 22 mmol/L (22-29) 04/18/24 Calcium 8.8 mg/dL (8.4-10.2) 04/18/24 AST 25 U/L (5-31) 05/11/24 ALT 34 U/L (0-31) H 05/11/24 Total Protein 7.3 g/dL (6.5-8.0) 04/18/24 Albumin 3.8 g/dL (3.5-5.0) 04/18/24 VGW-Weakycl-Az.Jeor Equation Height: 5 ft 4 in Weight: 232 lb Resting Metabolic Rate: 1665.20 Calculated Activity Level: Sedentary Calories Needed to Maintain Weight: Diagnosis Nutrition problem #1: overweight/obesity and food nutri know defi As related to (etiology) #1: diagnosis As evidenced by (sign/symptom) #1: knowledge deficit of diet [facility] History External hemorrhoids with complication Cholesterol granuloma Abnormal CT scan Hypertension Morbid obesity Supraclavicular mass Surgical History History of hemorrhoidectomy (~01/14/24) History of tonsillectomy History of ankle surgery Hx of right knee surgery Hx of tubal ligation Family History Maternal Aunt Breast cancer Colon cancer Son Crohn's disease of both small and large intestine with fistula Other Ovarian cancer Prostate cancer Stomach cancer Social History Household Members Other:: 3 kids Alcohol intake: current Alcohol intake frequency: former alcohol drinker Alcohol type: wine Patient Tobacco Use Status: Former Tobacco user Tobacco use type: Smokeless Tobacco Second Hand Smoke Exposure: No Current occupational status: employed Current occupation: [employer] Female Reproductive History Menstrual Age of Menarche: 11 Assessment & Plan Assessment & Plan (1) Morbid obesity: Code(s): E66.01 - Morbid (severe) obesity due to excess calories Category: Medical Plan: Wt: 105 Kg ( 10/13 ) Est kcal needs as per MSJ: 2000 (40% carb, 30% protein/fat) Est fluid needs as per 25-30 ml/d: 3200 Est prot per day as per 1 g/kg bw: 100 Recommend fiber intake : 8-10 g per day and gradually increase to 25-28 g per day for women and 35-38 g for men or as tolerated Recommend sodium intake per day : less than 2000 mg Educated patient on: ( R = reviewed V = verbalizes understanding N/R = needs review N/A = not applicable * Food sources of carbohydrate, adequate serving sizes and its role in various health conditions: R V N/R * Differences between complex carbohydrates a simple carbohydrates, role of fiber in diet: R * Lean protein sources of foods: R * Differences between types of fats and role in diet (mono on saturated fat fatty acids, saturated fatty acids, trans fats): R V N/R * Food sources of sodium in salt and healthy modifications for heart health in kidney health: R V R/V * Vitamins and minerals: R V N/R * Healthy plate method concept: R V N/R * Physical activity: Benefits a precaution: R V N/R Patient Instructions: Work on having 3 meals/day following healthy plate method, choosing whole grain foods 60 g carb per meal and and 3-4 oz of lean protein foods see meal ideas as example Coding Level of Care Code Nutr Indiv Intake (28654) Diagnoses Morbid obesity E66.01 Time Spent (min) 30
--- OUTSIDE RECORDS SUMMARY | 2024-09-27 11:56 | XMS_ITS | Encounter Summary ---
Author Organization [employer] Address [address] [facility] 7t [place] [address] Care Team Providers Care Bearing Inspector Name Role Phone Johana Allen MD Primary Care Provider + Reason for Visit * Reason Onset Date Comments Chart prep 09/27/2024 Encounter Details Date Type Department Care Team ([facility] st Contact Info) Description 09/27/2024 Telephone [facility] [address] [place], [place] [phone] Johana Allen MD [address] [place], [place] [phone] Chart prep Social History Tobacco Use Types [...] Telephone Encounter - Krista Méndez [place] - 09/27/2024 10:22 AM EDT Chart Prep Labs: done Images: done Vaccines due: yes Referrals: appointment pending Screenings: colonoscopy Overdue care gaps: Disability screen documented in this encounter Plan of Treatment Upcoming Encounters Date Type Department Care Team (Late st Contact Info) Description 09/29/2024 9:45 AM EDT Office Visit [facility] [address] [place] [address] Johana Allen MD [address] [place] [address] documented as of this encounter Visit Diagnoses Not on filedocumented in this encounter Additional Health Concerns Assessment Noted Time PHQ-9 Depression Total Score: 0 08/01/19 25 9:09 AM EST documented as of this encounter Care Teams Bearing Inspector Relationship Specialty Start Date End Date Johana Allen MD [address] [place] [phone] PCP - General Internal Medicine 12/20/23 documented as of this encounter
--- OUTSIDE RECORDS SUMMARY | 2024-09-27 11:56 | XMS_ITS | Clinical Summary ---
Author Organization [employer] Address [address] [place] [address] 7t [place] [address] Care Team Providers Care Ticket Sales Supervisor Name Role Phone Johana Allen MD Primary Care Provider + Allergies No known active allergies Medications * This document contains information received from the source organization and may not represent a complete record from that organization. cetirizine (ZyrTEC) 10 MG tabletIndication s:Seasonal allergic rhinitis, unspecified trigger Take 1 tablet (10 mg) by mouth in the morning. 90 tablet 2 3 Active butalbital-aceta minophen-caffein e 50-325-40 MG tablet TAKE 1 TABLET BY MOUTH EVERY 6 HOURS NEEDED FOR HEADACHE 4 Active lisinopril-hydro CHLOROthiazide 20-25 MG tabletIndication s:Primary hypertension Take 1 tablet by mouth Once per day. 90 tablet 3 4 03/26/20 25 Active amLODIPine (Norvasc) 5 MG tabletIndication s:Primary hypertension Take 1 tablet (5 mg) by mouth Once per day. 90 tablet 2 4 Active fluticasone (Flonase) 50 MCG/ACT nasal spray Administer 1 spray into each nostril Once per day. 16 g 4 Active senna-docusate sodium (Senokot-S) 8.6-50 MG tablet Take 1 tablet by mouth Once per day. 90 tablet 4 06/16/20 25 Active Tirzepatide-Weig ht Management (Zepbound) 5 MG/0.5ML solution auto-injector Inject 0.5 mL (5 mg) under the skin 1 (one) time per week. 2 mL 1 5 09/27/19 25 Active Problems Problem Noted Date Diagnosed Date Acanthosis nigricans 08/01/2024 Assessment & Plan (08/01/2024 9:37 AM EST): I discussed with pt that it is a marker for insulin resistance, will refer to equine vet and rule out hyper cortisol conditions. Nonrheumatic [...] associated hyper cortisol conditions, will refer to equine vet. Assessment & Plan (06/15/2024 1:13 PM EST): [...] life style modifications, diet and referral to customer resolution specialist. She has tried all that and is currently on a personal banking representative program. Recommended to decrease soda and sugary [...] uterine bleeding (AUB) 12/30/2022 Overview (01/04/2023): 12/30/22 Rn Correctional visit: Co testing with GC and chlamydia [...] Encounters Date Type Department Care Team Description 09/27/[address] [address] Johana Allen MD Chart prep 09/04/2024 Patient Outreach [address] [address] Johana Allen MD Care Coordination (W outreach) 09/04/[address] [address] Johana Allen MD Care Management (C3CM- f/u call lvm) 09/01/2024 Population Health Risk Score [facility] () [address] [address] Provider, Population Health Generic 08/25/[address] [address] Johana Allen MD Care Management (C3CM- f/u call lvm) 08/23/2024 Patient Outreach [address] [address] Johana Allen MD Care Coordination (Appt reminder) 08/16/2024 Patient Outreach [address] [address] Johana Allen MD Care Coordination (Upcoming appts) 08/15/[address] [address] Johana Allen MD Care Management (C3- f/u call) 08/15/2024 Patient Outreach [address] [address] Johana Allen MD Care Coordination (SDOH) 08/02/2024 Patient Outreach [address] [address] Johana Allen MD Care Coordination (SDOH f/u) 08/02/[address] [address] Johana Allen MD Care Management (C3- f/u call #2 lvm) 08/01/2024 9:00 AM EST Telemedicine [address] [address] Johana Allen MD Class 3 severe obesity due to excess calories with serious comorbidity and body mass index (BMI) of 40.0 to 44.9 in adult (CMS/[facility]) (Primary Dx); Prediabetes; Acanthosis nigricans; Nonrheumatic aortic valve stenosis 08/01/2024 Travel 07/28/[address] [address] Krista Méndez MA Chart prep 07/18/2024 Patient Outreach [address] [address] Johana Allen MD Care Coordination (sdoh) 07/18/[address] [address] Blade Noel RN Care Management (C3CM- f/u call lvm) 07/06/[address] [address] Blade Noel, NANCY Care Management (C3CM- f/u call) from Last 3 Months Immunizations Name Administration [...] Description 09/29/2024 9:45 AM EDT Office Visit [facility] [address] [place], [place] [phone] Johana Allen MD [address] [place], [place] [phone] Health Maintenance Due Date Last Done Comments CT Colonography 1975 Colonoscopy 1975 Colorectal Cancer Screening 1975 FIT DNA/Cologuard 1975 FIT 1975 FOBT 1975 Sigmoidoscopy 1975 Family Planning (PISQ) 1990 Hepatitis B Vaccines (1 of 3 - 19+ 3-dose series) 1994 Pneumococcal Vaccine: Pediatrics (0 to 5 Years) and At-Risk Patients (6 to 49) Years) (1 of 2 - PCV) 1994 COVID-19 Vaccine ( season) 2024 08/18/2021, 03/02/2021, 02/09/2021 Mammogram 11/18/2024 [...] Procedure Name Priority Date/Time Associated Diagnosis Comments HEPATITIS PANEL, GENERAL Routine 04/18/2024 11:45 AM EDT Class 3 severe obesity due to excess calories with serious comorbidity and body mass index (BMI) of 40.0 to 44.9 in adult ([facility]/HCC) LIPID PANEL WITH REFLEX TO DIRECT LDL [...] Recently Relevant to Health Maintenance Results * (ABNORMAL) Lipid Panel with Reflex to Direct LDL (04/18/2024 11:45 AM EDT) Triglycerides 91 <150 mg/dL [facility] Comment:Desirable Triglyceri de: less than 150 mg/dLBorderline High Triglyceride 150-199 mg/dLHigh Triglyceride: 200-499 mg/dLVery High Triglyceride: greater than or equal to 5OO mg/dL Cholesterol 186 <200 mg/dL [facility] Comment:Desirable Cholestero l: less than 200 mg/dLBorderline High Cholesterol: 200-239 mg/dLHigh Cholesterol: greater than 239 mg/dL LDL Cholesterol Calculated 105(H) <100 mg/dL [facility] Comment:Desirable LDL: less than 100 mg/dLNear Optimal/Above Optimal LDL: 110- 129 mg/dLBorderline High LDL: 130-159 mg/dLHigh LDL: 160-189 mg/dLVery High LDL: greater than or equal to 190 mg/dL HDL Cholesterol 63 >40 mg/dL [facility] Comment:Desirable HDL: great er than 40 mg/dL Note: This HDL assay may give artificially low results in patients with liver disease. Blood 04/18/2024 11:4 5 AM EDT 04/18/2024 1:24 PM EDT us Johana Allen MD LAB BLOOD ORDERABLES Fin al Result [facility] [address] [place] [address] [phone] * Hepatitis Panel, General (04/18/2024 11:45 AM EDT) Hepatitis A IgM Nonreactive Nonreactive [facility] Comment:IgM antibodies to NAVAS V not detected; does not exclude earlyacute or recovered HAV infection. ~Hepatitis B Surface Antibody REACTIVE Nonreactive [facility] Comment:REACTIVE: > 11.99 mI U/mL Hepatitis B Core Antibody Nonreactive Nonreactive [facility] Hepatitis C Antibody Nonreactive Nonreactive [facility] Comment:Antibodies to HCV no t detected; does not exclude early acuteHCV infection. Hepatitis B Surface Ag Negative Negative [facility] Blood 04/18/2024 11:4 5 AM EDT 04/18/2024 1:24 PM EDT Johana Allen MD LAB BLOOD ORDERABLES Fin al Result [facility] [address] [place] [phone] * POCT HGB A1C (03/31/2024 10:54 AM EDT) Hemoglobin A1C 5.8 4.0 - 6.0 % QC Media Lot # [id number] Lot# Expiration Date Blood 03/31/2024 10:5 4 AM EDT Johana Allen MD POINT OF CARE TEST ENTER /EDIT ORDERABLES Final Result * BI Mammogram Screening Tomosynthesis Bilateral (11/19/2023 1:12 PM EDT) Anatomical Region Laterality Modality Breast Bilateral Mammography 11/19/2023 1:12 PM EDT Narrative 12/07/2023 1:53 PM EDT ? [facility] ? [address] ?[place] [address] ? Mammography Report ? Signed ? Patient: Swan,Yue ?MR#: [id number] ?? [id number] ? : 1975 ?Acct:[id number] ? Age/Sex: 48 / F ?ADM Date: 05/31/24 ? Loc: HO.MAMMO ? Attending Dr: Jeannine Umana CNJitendra ? Ordering Physician: JEANNINE UMANA CNM ?Results: 2 ?? Benign Findings ? Date of Service: 11/19/23 ?Follow Up: 1 Year From Orig ?? inal Mammogram ? Procedure(s): MM tomosynthesis screening BI ?? Accession Number(s): [id number] ? cc: Gladys Sibley SIGNALS COLLECTION TECHNICIAN; JEANNINE UMANA CNM ? EXAMINATION: ?? MM [...] 1349 ? DD/ 1312 ? TD/TT: ? Cashier Wrapper: ? Procedure Note Donotjiinterpreter, Image - 12/07/2023 [facility] [address] [place] [address] Mammography Report Signed Patient: Yue SwanMR#: [id number] : 1975Acct:[id number] Age/Sex: 48 / FADM Date: 11/19/23 Loc: HO.MAMMO Attending Dr: Jeannine Umana CNM Ordering Physician: JEANNINE UMANAesults: 2 Benign Findings Date of Service: 11/19/23Follow Up: 1 Year From Orig inal Mammogram Procedure(s): MM tomosynthesis screening BI Accession Number(s): [id number] cc: Gladys Sibley SIGNALS COLLECTION TECHNICIAN; JEANNINE UMANA CNM EXAMINATION: MM SCREENING DIGITAL [...] in OV> 12/07/23 1349 DD/ 1312 TD/TT: Cashier Wrapper: Jeannine Umana CN IMG BI PROCEDURES Final R esult * HIV-1/2 Antigen and Antibodies, Fourth Generation, with Reflexes (11/18/2022 11:55 AM EDT) Pathologist [facility] HIV Antigen/Antibody, 4th Generation NON-REAC TIVE NON-REAC TIVE [employer] [facility] Comment: HIV-1 antigen and HIV-1/HIV-2 antibodies [...] ?? For additional information please refer to http://education.[employer].AmpIdea/faq/RSI626 (This link is being provided for informational/ educational purposes only.) The performance of this assay has not been clinically validated in patients less than 2 years old. Blood Venous blood specimen / Unknown 11/18/2022 11:55 AM EDT 11/18/2022 11:56 AM EDT Narrative [facility] - 11/19/2022 6:04 PM EDT FASTING:YES FASTING: YES Keisha CUEVAS LAB BLOOD ORDERABLES Final Resul t [facility] [address] [facility], [place] [address] [email or web address] [address] [place] [address] * Image-Guided Pap with Age-Based Screening??with CT/NG,??Trichomonas (10/22/2022 10:08 AM EDT) Comment [employer] Comment: This order for age-based cervical cancer and STI screening follows ACOG guidelines(PB 168, 140, OER967). See individual assays for performing site location. Clinical Information: HX ABNORMAL [email or web address] LMP: NONE GIVEN [email or web address] Prev. PAP: NONE GIVEN [email or web address] Prev. BX: NONE GIVEN [facility] SOURCE: None given [email or web address] Statement Of Adequacy: [employer] Comment: Satisfactory for evaluation. Endocervical/transformation zone component present. Interpretation/Re sult: Negative for intraepithelial lesion or malignancy. [email or web address] COMMENT: This Pap test has been evaluated with computer assisted technology. [employer] Philanthropy Officer: [employer] Comment: DMJitendra CT(ASCP) CT screening location: [address] ??[address] Review Philanthropy Officer: [email or web address] Comment: TomyXM CT(ASCP) CT screening location: [address] ??[phone] (Always Message) Que [employer] Comment: EXPLANATORY NOTE: The Pap is a [...] HPV nRNA E6/E7 Not Detected Not Detected [email or web address] Comment: Methodology: Non Ferrous Material Handler-Mediated Amplification This assay detects E6/E7 viral messenger RNA (mRNA) from 14 high-risk HPV types (16,18,31,33,35,39,45,51,52,56,58,59,66,68). Cervical sources are required for HPV testing. If a vaginal source from a patient who has had a total hysterectomy with removal of cervix was submitted, please contact the testing laboratory for alternative testing options. For additional information, please refer to http://ImpulseFlyer.Equity Endeavor/faq/QGI923k8 (This link if provided for information/ educational purposes only.) Chlamydia trachomatis RNA, TMA, Urogenital NOT DETECTED NOT DETECTED [employer] Neisseria gonorrhoeae RNA, TMA, Urogenital NOT DETECTED NOT DETECTED [employer] (Always Message) [employer] Comment: The analytical performance characteristics of this assay, when used to test SurePath(TM) specimens have been determined by [employer]. The modifications have not been cleared or approved by the FDA. This assay has been validated pursuant to the CLIA regulations and is used for clinical purposes. For additional information, please refer to https://Fitmo/faq/FLU686 (This link is being provided for information/ educational purposes only.) Trichomonas vaginalis, QL, TMA, PAP Vial NOT DETECTED NOT DETECTED [employer] Comment: The analytical performance characteristics of this assay have been determined by [employer]. The modifications have not been cleared or approved by the FDA. This assay has been validated pursuant to the CLIA regulations and is used for clinical purposes. For additional information, please refer to http://ImpulseFlyer.[employer]deavor/ faq/Trichomonastma (This link is being provided for information/ educational purposes only.) Pap Vial 10/22/2022 10:0 8 AM EDT 10/23/2022 2:07 AM EDT Jeannine Umana CNM LAB CYTOLOGY ORDERABLES F inal Result [facility] [address], [place] [address] [employer] [address] [place] [address] from Last 3 Months or Most Recently Relevant to Health Maintenance Insurance [facility] C3 HS FULL Care Teams Ticket Sales Supervisor Relationship Specialty Start Date End Date Johana Allen MD [address] [place] [phone] PCP - General Internal Medicine 12/20/23
--- OUTSIDE RECORDS SUMMARY | 2024-09-27 11:56 | XMS_ITS | Encounter Summary ---
Author Organization [employer] Address [address] [facility] 7t [place] [address] Care Team Providers Care Scrap Sawyer Name Role Phone Lucrecia Mejia Lamar ANATOMIC PATHOLOGY ASSISTANT Primary Care Provider [phone] Gladys Sibley ANATOMIC PATHOLOGY ASSISTANT Primary Care Provider [phone] Johana Allen MD Primary Care Provider + Blade Noel RN Unavailable [phone] Reason for Visit * Reason Onset Date Comments Med Refill 01/12/2023 Encounter Details Date Type Department Care Team (Late st Contact Info) Description 01/12/2023 Refill [facility] [address] [place] [phone] Keisha Gannon ANP [address] [place], [place] [phone] Primary hypertension Social History Tobacco Use Types [...] Description 09/29/2024 9:45 AM EDT Office Visit [facility] [address] [place] [address] Johana Allen MD [address] [place] [address] documented as of this encounter Visit Diagnoses Diagnosis Primary hypertension Unspecified essential hypertension documented in this encounter Additional Health Concerns Assessment Noted Time PHQ-9 Depression Total Score: 11 023 8:15 AM EDT documented as of this encounter Care Teams Scrap Sawyer Relationship Specialty Start Date End Date Lucrecia Mejia FNP PCP - General Family Medicine 11/18/22 03/29/23 Gladys Sibley FNP [address] [place] [address] PCP - General Family Medicine 03/30/23 12/19/23 Johana Allen MD [address] [place] [address] PCP - General Internal Medicine 12/20/23 Blade Noel RN [address] [place] [phone] Net Developer ConsultantFood Clerk 06/09/24 09/03/24 documented as of this encounter
--- OUTSIDE RECORDS SUMMARY | 2024-09-27 11:56 | XMS_ITS | Encounter Summary ---
Author Organization [facility] [employer] Address [address] [place] [address] 7t [place] [address] Care Team Providers Care Associate Artistic Director Name Role Phone Lucrecia Mejia [facility] Primary Care Provider [phone] Gladys Sibley WEB PRODUCTION ASSISTANT Primary Care Provider [phone] Johana Allen MD Primary Care Provider + Blade Noel RN Unavailable [phone] Reason for Visit * Reason Onset Date Comments Med Refill 01/12/2023 Encounter Details Date Type Department Care Team (Late st Contact Info) Description 01/12/2023 Refill [facility] [address] [place] [address] Lucrecia Mejia [facility] [address] [facility] Dept [place] [address] Primary hypertension Social History Tobacco Use Types [...] Office Visit [facility] [address] [place] [address] Johana Allen MD [address] [place] [address] documented as of this encounter Visit Diagnoses Diagnosis Primary hypertension Unspecified essential hypertension documented in this encounter Additional Health Concerns Assessment Noted Time PHQ-9 Depression Total Score: 11 023 8:15 AM EDT documented as of this encounter Care Teams Associate Artistic Director Relationship Specialty Start Date End Date Lucrecia Mejia FNP PCP - General Family Medicine 11/18/22 03/29/23 Gladys Sibley FNP [address] [place] [address] PCP - General Family Medicine 03/30/23 12/19/23 Johana Allen MD 230 [place] [address] PCP - General Internal Medicine 12/20/23 Blade Noel RN [address] [place] [phone] Director Of PlanningFilament Maker 06/09/24 09/03/24 documented as of this encounter
--- OUTSIDE RECORDS SUMMARY | 2024-09-27 11:56 | XMS_ITS | Encounter Summary ---
Author Organization [employer] Address [address] [facility] 7t [place] [address] Care Team Providers Care Design Painter Name Role Phone Johana Allen MD Primary Care Provider + Blade Noel RN Unavailable [phone] Reason for Visit * Reason Onset Date Comments Med Refill 04/06/2024 Encounter Details Date Type Department Care Team ([facility] st Contact Info) Description 04/06/2024 Refill [facility] [address] [place], [place] [phone] Johana Allen MD 230 [place], [place] [phone] Class 3 severe obesity due to excess [...] Description 09/29/2024 9:45 AM EDT Office Visit [facility] [address] [place] [address] Johana Allen MD [address] [place] [address] documented as of this encounter Visit Diagnoses Diagnosis Class 3 severe obesity due to excess calories with serious comorbidity and body mass index (BMI) of 40.0 to 44.9 in adult (CMS/HCC) documented in this encounter Additional Health Concerns Assessment Noted Time PHQ-9 Depression Total Score: 11 023 8:15 AM EDT documented as of this encounter Care Teams Design Painter Relationship Specialty Start Date End Date Johana Allen MD [address] [place] [address] PCP - General Internal Medicine 12/20/23 Blade Noel RN [address] [place] [address] Private AdvisorCertified Fire Investigator 06/09/24 09/03/24 documented as of this encounter
[2024-10-11 13:24] VITALS: BMI 39.8
== END 2024-09-27 11:15 | disposition home or self-care (01) ==
LOC: HO.ENCR 10:30
PROVIDERS: PCP Internal Medicine; Visit Provider Dietitian, Registered
DX: E66.01 Morbid (severe) obesity due to excess calories (principal)

== ENCOUNTER → 2024-09-27 10:30 | Outpatient (BNVA) | payer MEDICAID, SELFPAY | PROVIDERS: PCP Internal Medicine; Visit Provider Dietitian, Registered | DX: E66.01 Morbid (severe) obesity due to excess calories (principal); Z71.3 Dietary counseling and surveillance; Z68.39 Body mass index [BMI] 39.0-39.9, adult | CPT/HCPCS: 97802 ==

== ENCOUNTER 2024-10-19 10:35 | Outpatient (AMB) | payer MEDICAID, SELFPAY ==
--- NOTE | 2024-10-18 20:40 | A.OFFVIS_ITS ---
Vital Signs 10/19/24 10:38 Height 5 ft 4 in Weight 227 lb 1.218 oz BMI 39.0 BP 130/76 Blood Pressure Location Rt brachial Position Sitting Pulse 96 Pulse Source Pulse Oximeter Pulse Oximetry (%) 96 Oxygen Delivery Method Room Air Intake Visit Reasons: Obesity Intake Note: Patient presents here today for a follow-up on Obesity, last seen by DR Isaias Núñez. Flat Spring Assembler Required: No Accompanied by: Self / Same As Patient Allergies No Known Allergies Allergy (Verified 10/19/24 10:40) HPI Comments Details: This is a 49-year-old female sent to endocrinology for evaluation of obesity. She was seen by Dr. Núñez 08/31/2024. In the past she took Wegovy for 4 wks. Tried dietary attempts prior to this but was unsuccessful. Has been on Zepbound since 07/2024. Started on 5 mg dosing 4th week of July then advanced to 7.5mg. She has 1 more shot of 7.5 mg left. weight today: 08/31/24 239 10oz 10/18/24 227 She was seen by nutrition earlier this month with the recommendations to consume 60 carbs per meal, 2000 calorie diet and increase fiber. Weighs herself daily She following closely the diet given by nutrition. When she is unable to cook, she will use healthy choice. Exercise: you tube videos varied exercise, treadmill has a home gym Walks 30 min/day. 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 Has minimal constipation which she has increased water, fiber and activia yogurt and is doing well on this. Per Dr. Núñez's previous note: Noticed increased bruising and hair growth on face but no specific symptoms of Nel syndrome. Snores at night. Has not been worked up for sleep apnea. She reports her has noticed that she does stop breathing during the night. Still gets menses irregular 2 mos ago. 3 children - no diabetes during . She has tried cutting back on portion size in the past and had increased fluids without any effect. Has family h/o dm in younger brother PFSH Medical History External hemorrhoids with complication Cholesterol granuloma Abnormal CT scan Hypertension Morbid obesity Supraclavicular mass Surgical History History of hemorrhoidectomy (~01/14/24) History of tonsillectomy History of ankle surgery Hx of right knee surgery Hx of tubal ligation Family History Maternal Aunt Breast cancer Colon cancer Son Crohn's disease of both small and large intestine with fistula Other Ovarian cancer Prostate cancer Stomach cancer Social History Household Members Other:: 3 kids Alcohol intake: current Alcohol intake frequency: former alcohol drinker Alcohol type: wine Patient Tobacco Use Status: Former Tobacco user Tobacco use type: Smokeless Tobacco Second Hand Smoke Exposure: No Current occupational status: employed Current occupation: [employer] Female Reproductive History Menstrual Age of Menarche: 11 Physical Exam Vital Signs: Last Vital Signs Pulse 96 10/19/24 10:38 BP 130/76 10/19/24 10:38 Pulse Ox 96 10/19/24 10:38 Oxygen Delivery Method Room Air 10/19/24 10:38 BMI result Body Mass Index 39.0 Const Other: Absence of Cushingoid features. Absence of acromegalic features. Neck exam reveals nl size thyroid about 15 gms. No thyroid nodules palpable. Heart S1 S2, Reg R/R. No M/R G. Skin exam reveals absence of vitiligo. Marked acanthosis nigricans. No edema Assessment & Plan Assessment & Plan (1) Morbid obesity: Code(s): E66.01 - Morbid (severe) obesity due to excess calories Category: Medical Plan: 49-year-old obese female with prediabetes he was started on set bound several months ago. She has been doing well with this and we will advance Zepbound to 10 mg. She was advised to watch for increase in any symptoms particularly constipation and notify us if she is unable to tolerate the higher dose. She has not had a midnight salivary cortisol and she was asked to go to the lab to pickling tank operator both the tube and directions. She does snore and her has noticed that she does stop breathing at night. She has an upcoming appointment with her primary care doctor and I recommended as to Dr. Núñez in his last visit that she have a sleep study ordered through her PCP. I reviewed that untreated sleep apnea can cause damage to the heart, and treating sleep apnea can assist with a blood sugars and weight loss. She will purchased the [employer] program for weight management and go through this is a self help manual over the next 3 months. Continue her current exercise and diet. Plan . Orders: Orders Saliva Cortisol Today E66.01 - Morbid (severe) obesity due to excess calories Medications: New Zepbound (tirzepatide (weight loss)) 10 mg (0.5 mL) subcut QWEEK 30 days 2.5 mL 3RF NS Discontinued tirzepatide (weight loss) (Zepbound) Discontinued Reason: Doctor's Order 7.5 mg (0.5 mL) subcut QWEEK 2 mL 3RF Coding Level of Care Code Est Pt Level 3 (54595) Complex EM visit Add On G2211 Diagnoses Morbid obesity E66.01 Time Spent (min) 30 Comment Time spent reviewing labs/provider notes, face to face, chart doc
[2024-10-19 10:38] VITALS: BP 130/76; PULSE 96; O2SAT 96; BMI 39.0
--- OUTSIDE RECORDS SUMMARY | 2024-10-19 12:10 | XMS_ITS | Encounter Summary ---
Author Organization [facility] [employer] Address [address] [place] [address] [address] [place] [address] Care Team Providers Care Physical Anthropologist Name Role Phone Lucrecia Mejia [facility] Primary Care Provider [phone] Gladys Sibley GRAIN BROKER AND MARKET OPERATOR Primary Care Provider [phone] Johana Allen MD Primary Care Provider + Blade Noel RN Unavailable Reason for Visit * Reason Onset Date Comments Med Refill 01/12/2023 Encounter Details Date Type Department Care Team (Late st Contact Info) Description 01/12/[address] [facility] [address] [place] [id number] Lucrecia Mejia [facility] [address] [facility] [place] [address] Primary hypertension Social History Tobacco Use Types [...] as of this encounter Plan of Treatment Not on file documented as of this encounter Visit Diagnoses Diagnosis Primary hypertension Unspecified essential hypertension documented in this encounter Additional Health Concerns Assessment Noted Time PHQ-9 Depression Total Score: 11 023 8:15 AM EDT documented as of this encounter Care Teams Physical Anthropologist Relationship Specialty Start Date End Date Lucrecia Mejia FNP PCP - General Family Medicine 11/18/22 03/29/23 Gladys Sibley FNP [address] [place] [address] PCP - General Family Medicine 03/30/23 12/19/23 Johana Allen MD [address] [place] [address] PCP - General Internal Medicine 12/20/23 Blade Noel RN [address] [place] [address] Ground WorkerClaim Processing Specialist 06/09/24 09/03/24 documented as of this encounter
--- OUTSIDE RECORDS SUMMARY | 2024-10-19 12:10 | XMS_ITS | Clinical Summary ---
Author Organization [employer] Address [address] [place] [address] 7[address] [place] [address] Care Team Providers Care Food And Beverage Associate Name Role Phone Johana Allen MD Primary Care Provider + Allergies No known active allergies Medications * This document contains information received from the source organization and may not represent a complete record from that organization. butalbital-acet aminophen-caffe ine 50-325-40 MG tablet TAKE 1 TABLET BY MOUTH EVERY 6 HOURS NEEDED FOR HEADACHE 09/02/19 24 Active lisinopril-hydr oCHLOROthiazide 20-25 MG tabletIndicatio ns:Primary hypertension Take 1 tablet by mouth Once per day. 90 tablet 3 03/31/20 24 025 Active amLODIPine (Norvasc) 5 MG tabletIndicatio ns:Primary hypertension Take 1 tablet (5 mg) by mouth Once per day. 90 tablet 2 03/31/20 24 Active senna-docusate sodium (Senokot-S) 8.6-50 MG tablet Take 1 tablet by mouth Once per day. 90 tablet 06/16/20 24 025 Active fluticasone (Flonase) 50 MCG/ACT nasal spray Administer 1 spray into each nostril Once per day. 16 g 1 09/30/19 25 025 Active cetirizine (ZyrTEC) 10 MG tabletIndicatio ns:Seasonal allergic rhinitis, unspecified trigger Take 1 tablet (10 mg) by mouth Once per day. 90 tablet 2 09/30/19 25 Active cetirizine (ZyrTEC) 10 MG tabletIndicatio ns:Seasonal allergic rhinitis, unspecified trigger Take 1 tablet (10 mg) by mouth in the morning. 90 tablet 2 11/19/19 23 025 Discontinued(R eorder (will not trigger notification to Pharmacy)) fluticasone (Flonase) 50 MCG/ACT nasal spray Administer 1 spray into each nostril Once per day. 16 g 06/15/20 24 025 Discontinued(R eorder (will not trigger notification to Pharmacy)) Tirzepatide-Ed ght Management (Zepbound) 5 MG/0.5ML solution auto-injector Inject 0.5 mL (5 mg) under the skin 1 (one) time per week. 2 mL 1 08/01/19 25 025 Active Problems Problem Noted Date Diagnosed Date Perimenopause 09/29/2024 Assessment & Plan (09/29/2024 3:20 PM EDT): Advised re use of OTC soy based supplements, dress in layers PAP smear and mammogram up-to-date FU with me in 3 months Will consider HRT Class 2 severe obesity due t o excess calories with serious comorbidity and body mass index (BMI) of 39.0 to 39.9 in adult 09/29/2024 Assessment & Plan (09/29/2024 3:19 PM EDT): Doing well on Zepbound 7.5 mg Discussed re weight reduction options including exercise, life style modifications, diet. Recommended to decrease soda and sugary beverage consumption, increase protein intake with meals (at least 1 portion of protein with each meal) to assist with satiety, increase dietary fiber Recommended at least 150 min/week of moderate intensity exercise. FU with endocrinology and their slasher hand Witnessed episode of apnea 09/29/2024 Acanthosis nigricans 08/01/2024 Assessment & Plan (08/01/2024 9:37 AM EST): I discussed with pt that it is a marker for insulin resistance, will refer to black oxide operator and rule out hyper cortisol conditions. Nonrheumatic [...] associated hyper cortisol conditions, will refer to black oxide operator. Assessment & Plan (06/15/2024 1:13 PM EST): [...] next visit. FU with me next visit Abnormal uterine bleeding (AUB) 12/30/2022 Overview (01/04/2023): 12/30/22 Cheese Sprayer visit: Co testing with GC and chlamydia [...] ultrasound check the results and treat accordingly. Assessment & Plan (09/29/2024 3:18 PM EDT): Patient has some perimenopausal symptoms at this time. I advised regarding OTC soy-based, may need HRT Other noninflammatory disord ers of ovary, fallopian [...] knee 023 Overview (12/19/2022): Care managed by [facility] 12/16/22 Received steroid injection bilat knees Pain of both breasts 11/19/2022 Depression, unspecified 11/19/2022 Healthcare maintenance 11/19/2022 Overview (01/04/2023): Last mammogram was BI-RADS 2 on 11/24/2022 Last Pap co testing was negative on 11/10 GC and chlamydia negative on 11/10 Family hx of colon cancer 11/18/2022 Seasonal allergic rhinitis 11/18/2022 Assessment & Plan (09/29/2024 3:20 PM EDT): Refill for Flonase and Zyrtec Reconsult as needed Primary hypertension 10/09/2022 Assessment & Plan (09/29/2024 3:16 PM EDT): Controlled. Continue lisinopril/hctz + amlodipine same dose Counseled re low salt diet/increase moderate physical activity. Check home BP BIW and prn CP/NAVAS/NELSON Non smoking patient. I discussed with patient regarding the potential need of less BP medication as she is losing weight. She will check her BP daily and follow-up with me or black oxide operator. Assessment & Plan (04/06/2024 4:23 PM EDT): [...] Problem Noted Date Diagnosed Date Resolved Date Class 3 severe obesity due t o [...] life style modifications, diet and referral to personalization specialist. She has tried all that and is currently on a personal lines insurance advisor program. Recommended to decrease soda and sugary [...] 4w, Phentermine is contraindicated due to HTN. Chronic pain of both knees 11/18/2022 0 12/19/2022 Encounters Date Type Department Care Team Description 09/29/2024 9:45 AM EDT Office Visit [facility] [address] [place] [phone] Johana Allen MD Witnessed episode of apnea (Primary Dx); Class 2 severe obesity due to excess calories with serious comorbidity and body mass index (BMI) of 39.0 to 39.9 in adult (CMS/[facility]); Primary hypertension; Abnormal uterine bleeding (AUB); Perimenopause; Seasonal allergic rhinitis, unspecified trigger; Dietary counseling; Exercise counseling 09/29/[address] [address] Johana Allen MD 09/29/2024 Travel 09/27/[address] [address] Johana Allen MD Chart prep 09/04/2024 Patient Outreach [address] [address] Johana Allen MD Care Coordination (CHW outreach) 09/04/[address] [address] Johana Allen MD Care Management (C3- f/u call lvm) 09/01/2024 Population Health Risk Score [facility] (C3) Department [address] [place] [phone] Provider, Population Health Generic 08/25/[address] [address] Johana Allen MD Care Management (C3CM- f/u call lvm) 08/23/2024 Patient Outreach [address] [address] Johana Allen MD Care Coordination (Appt reminder) 08/16/2024 Patient Outreach [address] [address] Johana Allen MD Care Coordination (Upcoming appts) 08/15/[address] [address] Johana Allen MD Care Management (C3CM- f/u call) 08/15/2024 Patient Outreach [address] [address] Johana Allen MD Care Coordination (SDOH) 08/02/2024 Patient Outreach [address] [address] Johana Allen MD Care Coordination (SDOH f/u) 08/02/[address] [address] Johana Allen MD Care Management (C3CM- f/u call #2 lvm) 08/01/2024 9:00 AM EST Telemedicine [address] [address] Johana Allen MD Class 3 severe obesity due to excess calories with serious comorbidity and body mass index (BMI) of 40.0 to 44.9 in adult (CMS/[facility]) (Primary Dx); Prediabetes; Acanthosis nigricans; Nonrheumatic aortic valve stenosis 08/01/2024 Travel 07/28/[address] [address] Krista Méndez MA Chart prep from Last 3 Months Immunizations Name Administration [...] Sign Reading Time Taken Comments Blood Pressure 121/80 09/29/2024 10:17 AM EDT Pulse 80 09/29/2024 10:17 AM EDT Temperature 36.8 ??C (98.2 ??F) 09/29/2024 10:17 AM E DT Respiratory Rate 16 09/29/2024 10:17 AM EDT Oxygen Saturation 100% 09/29/2024 10:17 AM EDT Inhaled Oxygen Concentration - - Weight 107 kg (235 lb 8 oz) 09/29/2024 10:17 AM EDT Height 165.1 cm (5' 5 ) 09/29/2024 10:17 AM EDT Body Mass Index 39.19 09/29/2024 10:17 AM EDT Plan of Treatment Health Maintenance Due Date Last Done Comments CT Colonography 1975 FIT DNA/Cologuard 1975 FIT 1975 FOBT [...] 08/01/2024, 08/01/19 25 SDOH Screening 08/01/2025 08/01/2024 Zoster Vaccines (1 of 2) 2025 Tobacco Screening 09/29/2025 09/29/2024 Pap Smear 10/22/2025 10/22/2022, 10/22/2022 Cervical Cancer Screening 10/23/2027 HPV/Cotest 10/23/2027 10/22/2022 Colonoscopy 08/30/2028 08/31/2023 Colorectal Cancer Screening 08/30/2028 Lipid Panel 04/18/2029 04/18/2024, 11/18/2022 DTaP/Tdap/Td Vaccines [...] Procedure Name Priority Date/Time Associated Diagnosis Comments AMB REFERRAL TO ENDOCRINOLOGY Routine 09/27/2024 Class 3 severe obesity due to excess calories with serious comorbidity and body mass index (BMI) of 40.0 to 44.9 in adult Prediabetes Acanthosis nigricans HEPATITIS PANEL, GENERAL Routine 04/18/2024 11:45 AM [...] breast cancer Breast cancer screening by mammogram HM COLONOSCOPY Routine 08/31/2023 HIV 1/2 ANTIGEN/ANTIBODY, FOURTH GENERATION W/RFL Routine 11/18/2022 11:55 AM EDT Routine screening for STI (sexually transmitted infection) IMAGE-GUIDED PAP W/AGE BASED SCR,W/CT/NG/TRICH Routine 10/22/2022 10:08 AM EDT Cervical cancer screening Encntr screen for infections w sexl mode of transmiss from Last 3 Months or Most Recently Relevant to Health Maintenance Results * Referral to Endocrinology (09/27/2024) Johana Allen MD OUTPATIENT REFERRAL [place] Final Result * (ABNORMAL) Lipid Panel with Reflex to Direct LDL (04/18/2024 11:45 AM EDT) Triglycerides 91 <150 mg/dL [facility] Comment:Desirable Triglyceri de: less than 150 mg/dLBorderline High Triglyceride 150-199 mg/dLHigh Triglyceride: 200-499 mg/dLVery High Triglyceride: greater than or equal to 5OO mg/dL Cholesterol 186 <200 mg/dL [facility] Comment:Desirable Cholestero l: less than 200 mg/dLBorderline High Cholesterol: 200-239 mg/dLHigh Cholesterol: greater than 239 mg/dL LDL Cholesterol Calculated 105(H) <100 mg/dL [facility] Comment:Desirable LDL: less than 100 mg/dLNear Optimal/Above Optimal LDL: 110- 129 mg/dLBorderline High LDL: 130-159 mg/dLHigh LDL: 160-189 mg/dLVery High LDL: greater than or equal to 190 mg/dL HDL Cholesterol 63 >40 mg/dL [facility] Comment:Desirable HDL: great er than 40 mg/dL Note: This HDL assay may give artificially low results in patients with liver disease. Blood 04/18/2024 11:4 5 AM EDT 04/18/2024 1:24 PM EDT Johana Allen MD LAB BLOOD ORDERABLES Fin al Result Performing Organization Address [facility] de Phone Number [facility] [address] [place] [phone] * Hepatitis Panel, General (04/18/2024 11:45 AM EDT) Hepatitis A IgM Nonreactive Nonreactive [facility] Comment:IgM antibodies to NAVAS V not detected; does not exclude earlyacute or recovered HAV infection. ~Hepatitis B Surface Antibody REACTIVE Nonreactive [facility] Comment:REACTIVE: > 11.99 mI U/mL Hepatitis B Core Antibody Nonreactive Nonreactive [facility] Hepatitis C Antibody Nonreactive Nonreactive [facility] Comment:Antibodies to HCV no t detected; does not exclude early acuteHCV infection. Hepatitis B Surface Ag Negative Negative [facility] Blood 04/18/2024 11:4 5 AM EDT 04/18/2024 1:24 PM EDT Johana Allen MD LAB BLOOD ORDERABLES Fin al Result Performing Organization Address [facility] Phone Number [facility] [address] [place] [phone] * POCT HGB A1C (03/31/2024 10:54 AM EDT) Hemoglobin A1C 5.8 4.0 - 6.0 % QC Media Lot # [id number] Lot# Expiration Date [id number] Blood 03/31/2024 10:5 4 AM EDT Johana Allen MD POINT OF CARE TEST ENTER /EDIT ORDERABLES Final Result * BI Mammogram Screening Tomosynthesis Bilateral (11/19/2023 1:12 PM EDT) Anatomical Region Laterality Modality Breast Bilateral Mammography 11/19/2023 1:12 PM EDT Narrative 12/07/2023 1:53 PM EDT ? [facility] ? [address] ?[place] [address] ? Mammography Report ? Signed ? Patient: Swan,Yue ?MR#: [id number] ?? [id number] ? : 1975 ?Acct:[id number] ? Age/Sex: 48 / F ?ADM Date: 11/19/23 ? Loc: HO.MAMMO ? Attending Dr: Jeannine Umana CNM ? Ordering Physician: JEANNINE UMANA CNM ?Results: 2 ?? Benign Findings ? Date of Service: 11/19/23 ?Follow Up: 1 Year From Orig ?? inal Mammogram ? Procedure(s): MM tomosynthesis screening BI ?? Accession Number(s): [id number] ? cc: Gladys Sibley ANALOG IC DESIGN ENGINEER; JEANNINE UMANA CNM ? EXAMINATION: ?? MM [...] 1349 ? DD/ 1312 ? TD/TT: ? Maintenance Person: ? Procedure Note Valeriano, Paola - 12/07/2023 [facility] [address] [place] [address] Mammography Report Signed Patient: Blake Swan#: [id number] : 1975Acct:[id number] Age/Sex: 48 / FADM Date: 11/19/23 Loc: HO.MAMMO Attending Dr: Jeannine Umana CNM Ordering Physician: JEANNINE UMANAesults: 2 Benign Findings Date of Service: 11/19/23Follow Up: 1 Year From Orig inal Mammogram Procedure(s): MM tomosynthesis screening BI Accession Number(s): [id number] cc: Gladys Sibley ANALOG IC DESIGN ENGINEER; JEANNINE UMANA CNM EXAMINATION: MM SCREENING DIGITAL [...] in OV> 12/07/23 1349 DD/ 1312 TD/TT: Maintenance Person: Jeannine DRISCOLL IMG BI PROCEDURES Final R esult * Hm Colonoscopy (08/31/2023) Colonoscopy Normal Normal Johana Allen MD HEALTH MAINTENANCE Final Result * HIV-1/2 Antigen and Antibodies, Fourth Generation, with Reflexes (11/18/2022 11:55 AM EDT) HIV Antigen/Antibody, 4th Generation NON-REAC TIVE NON-REAC TIVE [facility] Comment: HIV-1 antigen and HIV-1/HIV-2 antibodies were [...] ?? For additional information please refer to http://education.Expect [facility]/faq/UPT780 (This link is being provided for informational/ educational purposes only.) The performance of this assay has not been clinically validated in patients less than 2 years old. Blood Venous blood specimen / Unknown 11/18/2022 11:55 AM EDT 11/18/2022 11:56 AM EDT Narrative [facility] - 11/19/2022 6:04 PM EDT FASTING:YES FASTING: YES [facility] LAB BLOOD ORDERABLES Final Resul t [address], [place] [address] [facility] [employer] [address] [place] [phone] * Image-Guided Pap with Age-Based Screening??with CT/NG,??Trichomonas (10/22/2022 10:08 AM EDT) Comment [employer] [facility] Comment: This order for age-based cervical cancer and STI screening follows ACOG guidelines(PB 168, 140, CKT902). See individual assays for performing site location. Clinical Information: HX ABNORMAL [facility] LMP: NONE GIVEN [facility] Prev. PAP: NONE GIVEN [facility] Prev. BX: NONE GIVEN [employer] [facility] SOURCE: None given [facility] Statement Of Adequacy: [facility] Comment: Satisfactory for evaluation. Endocervical/transformation zone component present. Interpretation/Re sult: Negative for intraepithelial lesion or malignancy. [facility] COMMENT: This Pap test has been evaluated with computer assisted technology. [employer] [facility] Gasoline Service Attendant: Rachid [facility] Comment: DMM, CT(ASCP) CT screening location: [address] ??[phone] Review Gasoline Service Attendant: [facility] [facility] Comment: DEMETRIO CT(ASCP) CT screening location: [address] ??[address] (Always Message) [facility] [place] [facility] [employer] [facility] Comment: EXPLANATORY NOTE: The Pap is a [...] HPV nRNA E6/E7 Not Detected Not Detected [facility] [employer] [facility] Comment: Methodology: Warehouse Shipper-Mediated Amplification This assay detects E6/E7 viral messenger RNA (mRNA) from 14 high-risk HPV types (16,18,31,33,35,39,45,51,52,56,58,59,66,68). Cervical sources are required for HPV testing. If a vaginal source from a patient who has had a total hysterectomy with removal of cervix was submitted, please contact the testing laboratory for alternative testing options. For additional information, please refer to http://[email or web address] [facility]/faq/QAM110n0 (This link if provided for information/ educational purposes only.) Chlamydia trachomatis RNA, TMA, Urogenital NOT DETECTED NOT DETECTED [facility] [facility] Neisseria gonorrhoeae RNA, TMA, Urogenital NOT DETECTED NOT DETECTED [facility] [employer] [facility] (Always Message) [facility] [employer] [facility] Comment: The analytical performance characteristics of this assay, when used to test SurePath(TM) specimens have been determined by [facility]. The modifications have not been cleared or approved by the FDA. This assay has been validated pursuant to the CLIA regulations and is used for clinical purposes. For additional information, please refer to https://[email or web address] [facility]/faq/DQG452 (This link is being provided for information/ educational purposes only.) Trichomonas vaginalis, QL, TMA, PAP Vial NOT DETECTED NOT DETECTED [facility] [employer] [facility] Comment: The analytical performance characteristics of this assay have been determined by [facility]. The modifications have not been cleared or approved by the FDA. This assay has been validated pursuant to the CLIA regulations and is used for clinical purposes. For additional information, please refer to http://education.Snapcious.Hassle.com/ faq/Trichomonastma (This link is being provided for information/ educational purposes only.) Pap Vial 10/22/2022 10:0 8 AM EDT 10/23/2022 2:07 AM EDT Jeannine Umana [facility] CYTOLOGY ORDERABLES F inal Result [facility] [address], [place] [address] [facility] [address] [place] [address] from Last 3 Months or Most Recently Relevant to Health Maintenance Insurance [facility] C3 HS FULL Care Teams Food And Beverage Associate Relationship Specialty Start Date End Date Johana Allen MD [address] [place] [address] PCP - General Internal Medicine 12/20/23
--- OUTSIDE RECORDS SUMMARY | 2024-10-19 12:10 | XMS_ITS | Encounter Summary ---
Author Organization [employer] Address [address] [facility] 7t [place] [address] Care Team Providers Care Sexual Assault Nurse Name Role Phone Johana Allen MD Primary Care Provider + Blade Noel RN Unavailable [phone] Reason for Visit * Reason Onset Date Comments Med Refill 04/06/2024 Encounter Details Date Type Department Care Team ([facility] st Contact Info) Description 04/06/2024 Refill [facility] [address] [place], [place] [phone] Johana Allen MD [address] [place], [place] [phone] Class 3 severe obesity due to excess [...] (BMI) of 40.0 to 44.9 in adult documented in this encounter Additional Health Concerns Assessment Noted Time PHQ-9 Depression Total Score: 11 023 8:15 AM EDT documented as of this encounter Care Teams Sexual Assault Nurse Relationship Specialty Start Date End Date Johana Allen MD [address] [place] [address] PCP - General Internal Medicine 12/20/23 Blade Noel RN [address] [place] [phone] Solder Making LaborerBander And Cellophaner Machine Helper 06/09/24 09/03/24 documented as of this encounter
--- OUTSIDE RECORDS SUMMARY | 2024-10-19 12:10 | XMS_ITS | Encounter Summary ---
Author Organization [employer] Address [address] [facility] 7t [place] [address] Care Team Providers Care Endless Track Vehicle Mechanic Name Role Phone Lucrecia Mejia Lamar CREATIVE PERFUMER Primary Care Provider [phone] Gladys Sibley CREATIVE PERFUMER Primary Care Provider [phone] Johana Allen MD Primary Care Provider + Blade Noel RN Unavailable [phone] Reason for Visit * Reason Onset Date Comments Med Refill 01/12/2023 Encounter Details Date Type Department Care Team (Late st Contact Info) Description 01/12/2023 Refill [facility] [address] [place] [phone] Keisha Gannon ANP [address] [place], [place] [phone] Primary hypertension Social History Tobacco Use Types [...] documented as of this encounter Care Teams Endless Track Vehicle Mechanic Relationship Specialty Start Date End Date Lucrecia Mejia FNP PCP - General Family Medicine 11/18/22 03/29/23 Gladys Sibley FNP [address] [place] [address] PCP - General Family Medicine 03/30/23 12/19/23 Johana Allen MD [address] [place] [address] PCP - General Internal Medicine 12/20/23 Blade Noel, NANCY [address] [place] [phone] Line Clearance ForemanInterior Design Professor 06/09/24 09/03/24 documented as of this encounter
== END 2024-10-19 11:06 | disposition home or self-care (01) ==
LOC: HO.ENCR 10:36
PROVIDERS: PCP Internal Medicine; Visit Provider Nurse Practitioner Adult Health
DX: E66.01 Morbid (severe) obesity due to excess calories (principal)
CPT/HCPCS: 99213

== ENCOUNTER → 2024-10-19 10:35 | Outpatient (BNVA) | payer MEDICAID, SELFPAY | PROVIDERS: PCP Internal Medicine; Visit Provider Nurse Practitioner Adult Health | DX: E66.01 Morbid (severe) obesity due to excess calories (principal); Z68.39 Body mass index [BMI] 39.0-39.9, adult | CPT/HCPCS: 99212 ==

== ENCOUNTER 2024-10-26 10:52 | Outpatient (REF) | payer MEDICAID, SELFPAY ==
--- OUTSIDE RECORDS SUMMARY | 2024-10-26 12:23 | XMS_ITS | Encounter Summary ---
Author Organization [employer] Address [address] [facility] 7t [place] [address] Care Team Providers Care Atomic Process Engineer Name Role Phone Lucrecia Mejia Lamar ALUMINUM FABRICATION SUPERVISOR Primary Care Provider [phone] Gladys Sibley ALUMINUM FABRICATION SUPERVISOR Primary Care Provider [phone] Johana Allen MD Primary Care Provider + Blade Noel RN Unavailable [phone] Reason for Visit * Reason Onset Date Comments Med Refill 01/12/2023 Encounter Details Date Type Department Care Team (Late st Contact Info) Description 01/12/2023 Refill [facility] [address] [place] [phone] Keisha Gannon ANP [address] [place], [place] [phone] Primary hypertension Social History Tobacco Use Types [...] documented as of this encounter Care Teams Atomic Process Engineer Relationship Specialty Start Date End Date Lucrecia Mejia FNP PCP - General Family Medicine 11/18/22 03/29/23 Gladys Sibley FNP [address] [place] [address] PCP - General Family Medicine 03/30/23 12/19/23 Johana Allen MD [address] [place] [address] PCP - General Internal Medicine 12/20/23 Blade Noel RN [address] [place] [phone] Brick WheelerWire Chief 06/09/24 09/03/24 documented as of this encounter
--- OUTSIDE RECORDS SUMMARY | 2024-10-26 12:23 | XMS_ITS | Clinical Summary ---
Author Organization [employer] Address [address] [place] [address] 7t [place] [address] Care Team Providers Care Turkey Picker Name Role Phone Johana Allen MD Primary [...] intensity exercise. FU with endocrinology and their court abstractor Witnessed episode of apnea 09/29/2024 Acanthosis nigricans 08/01/2024 Assessment & Plan (08/01/2024 9:37 AM EST): I discussed with pt that it is a marker for insulin resistance, will refer to roller inspector and rule out hyper cortisol conditions. Nonrheumatic [...] associated hyper cortisol conditions, will refer to roller inspector. Assessment & Plan (06/15/2024 1:13 PM EST): [...] uterine bleeding (AUB) 12/30/2022 Overview (01/04/2023): 12/30/22 Sessions Clerk visit: Co testing with GC and chlamydia [...] knee 023 Overview (12/19/2022): Care managed by [facility] 12/16/22 Received steroid injection bilat [...] BP daily and follow-up with me or roller inspector. Assessment & Plan (04/06/2024 4:23 PM EDT): [...] life style modifications, diet and referral to medical reimbursement specialist. 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 Recommended to decrease soda and [...] Description 09/29/2024 9:45 AM EDT Office Visit [facility] [address] [place] [address] Johana Allen MD Witnessed episode of apnea (Primary Dx); Class 2 severe obesity due to excess calories with serious comorbidity and body mass index (BMI) of 39.0 to 39.9 in adult (CMS/[facility]); Primary hypertension; Abnormal uterine bleeding (AUB); Perimenopause; Seasonal allergic rhinitis, unspecified trigger; Dietary counseling; Exercise counseling 09/29/[address] [address] Johana Allen MD 09/29/2024 Travel 09/27/[address] [address] Johana Allen MD Chart prep 09/04/2024 Patient Outreach [address] [address] Johana Allen MD Care Coordination (CHW outreach) 09/04/[address] [address] Johana Allen MD Care Management (C3- f/u call lvm) 09/01/2024 Population Health Risk Score Community Care [facility] (C3) Department [address] [place] [phone] Provider, Population Health Generic 08/25/[address] [address] Johana Allen MD Care Management (C3CM- f/u call lvm) 08/23/2024 Patient Outreach [address] [address] Johana Allen MD Care Coordination (Appt reminder) 08/16/2024 Patient Outreach [address] [address] Johana Allen MD Care Coordination (Upcoming appts) 08/15/[address] [address] Johana Allen MD Care Management (C3CM- f/u call) 08/15/2024 Patient Outreach [address] [address] Johana Allen MD Care Coordination (SDOH) 08/02/2024 Patient Outreach [address] [address] Johana Allen MD Care Coordination (SDOH f/u) 08/02/[address] [address] Johana Allen MD Care Management (C3CM- f/u call #2 lvm) 08/01/2024 9:00 AM EST Telemedicine [address] [address] Johana Allen MD Class 3 severe obesity due to excess calories with serious comorbidity and body mass index (BMI) of 40.0 to 44.9 in adult (CMS/[facility]) (Primary Dx); Prediabetes; Acanthosis nigricans; Nonrheumatic aortic valve stenosis 08/01/2024 Travel from Last 3 Months Immunizations Name Administration [...] is your housing situation today? I have ronnijanet knowles 03/20/[address] you [...] 2 - PCV) 1994 COVID-19 Vaccine ( - season) 2024 08/18/2021, 03/02/2021, 02/09/2021 Mammogram [...] Maintenance Results * Referral to Endocrinology (09/27/2024) us Johana Allen MD OUTPATIENT REFERRAL [facility] Final Result * (ABNORMAL) Lipid Panel with Reflex to Direct LDL (04/18/2024 11:45 AM EDT) Triglycerides 91 <150 mg/dL [facility] Comment:Desirable Triglyceri de: less than 150 mg/dLBorderline High Triglyceride 150-199 mg/dLHigh Triglyceride: 200-499 mg/dLVery High Triglyceride: greater than or equal to 5OO mg/dL Cholesterol 186 <200 mg/dL [facility] Comment:Desirable Cholestero l: less than 200 mg/dLBorderline High Cholesterol: 200-239 mg/dLHigh Cholesterol: greater than 239 mg/dL LDL Cholesterol Calculated 105(H) <100 mg/dL [facility] Comment:Desirable LDL: less than 100 mg/dLNear Optimal/Above Optimal LDL: 110- 129 mg/dLBorderline High LDL: 130-159 mg/dLHigh LDL: 160-189 mg/dLVery High LDL: greater than or equal to 190 mg/dL HDL Cholesterol 63 >40 mg/dL [facility] Comment:Desirable HDL: great er than 40 mg/dL Note: This HDL assay may give artificially low results in patients with liver disease. Blood 04/18/2024 11:4 5 AM EDT 04/18/2024 1:24 PM EDT us Johana Allen MD LAB BLOOD ORDERABLES Fin al Result Performing Organization Address [facility] Co de Phone Number [facility] [address] [place] [phone] * Hepatitis Panel, General (04/18/2024 11:45 AM EDT) Hepatitis A IgM Nonreactive Nonreactive [facility] Comment:IgM antibodies to NAVAS V not detected; does not exclude earlyacute or recovered HAV infection. ~Hepatitis B Surface Antibody REACTIVE Nonreactive [facility] Comment:REACTIVE: > 11.99 mI U/mL Hepatitis B Core Antibody Nonreactive Nonreactive [facility] Hepatitis C Antibody Nonreactive Nonreactive [facility] Comment:Antibodies to HCV no t detected; does not exclude early acuteHCV infection. Hepatitis B Surface Ag Negative Negative [facility] Blood 04/18/2024 11:4 5 AM EDT 04/18/2024 1:24 PM EDT us Johana Allen MD LAB BLOOD ORDERABLES Fin al Result Performing Organization Address [facility] Co de Phone Number [facility] [address] [place] [phone] * POCT HGB A1C (03/31/2024 10:54 AM EDT) Hemoglobin A1C 5.8 4.0 - 6.0 % QC Media Lot # [id number] Lot# Expiration Date ,[id number] Blood 03/31/2024 10:5 4 AM EDT Johana Allen MD POINT OF CARE TEST ENTER /EDIT ORDERABLES Final Result * BI Mammogram Screening Tomosynthesis Bilateral (11/19/2023 1:12 PM EDT) Anatomical Region Laterality Modality Breast Bilateral Mammography 11/19/2023 1:12 PM EDT Narrative 12/07/2023 1:53 PM EDT ? [facility] ? [address] ?[place] [address] ? Mammography Report ? Signed ? Patient: Swan,Yue ?MR#: [id number] ?? [id number] ? : 1975 ?Acct:[id number] ? Age/Sex: 48 / F ?ADM Date: 11/19/23 ? Loc: HO.MAMMO ? Attending Dr: Jeannine Umana CNM ? Ordering Physician: JEANNINE UMANA CNM ?Results: 2 ?? Benign Findings ? Date of Service: 11/19/23 ?Follow Up: 1 Year From Orig ?? inal Mammogram ? Procedure(s): MM tomosynthesis screening BI ?? Accession Number(s): [id number] ? cc: Gladys Sibley WATER AND SEWER SYSTEMS SUPERINTENDENT; JEANNINE UMANAM ? EXAMINATION: ?? MM SCREENING DIGITAL BREAST [...] 1349 ? DD/ 1312 ? TD/TT: ? Global Logistics Analyst: ? Procedure Note Valeriano, Image - 12/07/2023 Nery [facility] [address] [place], [place] [address] Mammography Report Signed Patient: Blake Swan#: [id number] : 1975Acct:[id number] Age/Sex: 48 / FADM Date: 11/19/23 Loc: HO.MAMMO Attending Dr: Jeannine DRISCOLL Ordering Physician: JEANNINE UMANAesults: 2 Benign Findings Date of Service: 11/19/23Follow Up: 1 Year From Orig inal Mammogram Procedure(s): MM tomosynthesis screening BI Accession Number(s): [id number] cc: Gladys Sibley WATER AND SEWER SYSTEMS SUPERINTENDENT; JEANNINE UMANA CNM EXAMINATION: MM SCREENING DIGITAL [...] in OV> 12/07/23 1349 DD/ 1312 TD/TT: Global Logistics Analyst: Jeannine Umana CN IMG BI PROCEDURES Final R esult * Hm Colonoscopy (08/31/2023) Colonoscopy Normal Normal Johana Allen MD HEALTH MAINTENANCE Final Result * HIV-1/2 Antigen and Antibodies, Fourth Generation, with Reflexes (11/18/2022 11:55 AM EDT) HIV Antigen/Antibody, 4th Generation NON-REAC TIVE NON-REAC TIVE [facility] Comment: HIV-1 antigen and HIV-1/HIV-2 antibodies [...] ?? For additional information please refer to http://education.questdiagnostics.com/faq/KXU978 (This link is being provided for informational/ educational purposes only.) The performance of this assay has not been clinically validated in patients less than 2 years old. Blood Venous blood specimen / Unknown 11/18/2022 11:55 AM EDT 11/18/2022 11:56 AM EDT Narrative [facility] - 11/19/2022 6:04 PM EDT FASTING:YES FASTING: YES [facility] LAB BLOOD ORDERABLES Final Resul t [facility] [address], [place] [address] [facility] [address] [place] [address] * Image-Guided Pap with Age-Based Screening??with CT/NG,??Trichomonas (10/22/2022 10:08 AM EDT) Comment [facility] Comment: This order for age-based cervical cancer and STI screening follows ACOG guidelines(PB 168, 140, OKS161). See individual assays for performing site location. Clinical Information: HX ABNORMAL [facility] LMP: NONE GIVEN [facility] Prev. PAP: NONE GIVEN [facility] Prev. BX: NONE GIVEN [facility] SOURCE: None given [facility] Statement Of Adequacy: [employer] Comment: Satisfactory for evaluation. Endocervical/transformation zone component present. Interpretation/Re sult: Negative for intraepithelial lesion or malignancy. [employer] COMMENT: This Pap test has been evaluated with computer assisted technology. [employer] Back Hanger: Rachid [employer] Comment: DMM, CT(ASCP) CT screening location: [address] ??[phone] Review Back Hanger: [employer] Comment: JXM, CT(ASCP) CT screening location: [address] ??[phone] (Always Message) [employer] [place] [employer] Comment: EXPLANATORY NOTE: The Pap is a [...] HPV nRNA E6/E7 Not Detected Not Detected [facility] Comment: Methodology: Certified Welding Inspector-Mediated Amplification This assay detects E6/E7 viral messenger RNA (mRNA) from 14 high-risk HPV types (16,18,31,33,35,39,45,51,52,56,58,59,66,68). Cervical sources are required for HPV testing. If a vaginal source from a patient who has had a total hysterectomy with removal of cervix was submitted, please contact the testing laboratory for alternative testing options. For additional information, please refer to http://[employer]k[facility]/faq/POP874x1 (This link if provided for information/ educational purposes only.) Chlamydia trachomatis RNA, TMA, Urogenital NOT DETECTED NOT DETECTED [employer] Neisseria gonorrhoeae RNA, TMA, Urogenital NOT DETECTED NOT DETECTED [employer] (Always Message) [employer] [place] [employer] Comment: The analytical performance characteristics of this assay, when used to test SurePath(TM) specimens have been determined by [facility]. The modifications have not been cleared or approved by the FDA. This assay has been validated pursuant to the CLIA regulations and is used for clinical purposes. For additional information, please refer to https://ShareDesk.[facility]/faq/ALP034 (This link is being provided for information/ educational purposes only.) Trichomonas vaginalis, QL, TMA, PAP Vial NOT DETECTED NOT DETECTED [employer] Comment: The analytical performance characteristics of this assay have been determined by [facility]. The modifications have not been cleared or approved by the FDA. This assay has been validated pursuant to the CLIA regulations and is used for clinical purposes. For additional information, please refer to http://ShareDesk.[facility]/ faq/Trichomonastma (This link is being provided for information/ educational purposes only.) Pap Vial 10/22/2022 10:0 8 AM EDT 10/23/2022 2:07 AM EDT Jeannine Adam CN LAB CYTOLOGY ORDERABLES F inal Result [facility] [address], [place] [address] [facility] [address] [place] [address] from Last 3 Months or Most Recently Relevant to Health Maintenance Insurance [facility] C3 HSN FULL Care Teams Turkey Picker Relationship Specialty Start Date End Date Johana Allen MD [address] [place] [address] PCP - General Internal Medicine 12/20/23
--- OUTSIDE RECORDS SUMMARY | 2024-10-26 12:23 | XMS_ITS | Encounter Summary ---
Author Organization [facility] [employer] Address [address] [place] [address] 7t [place] [address] Care Team Providers Care Outside Sales Inspector Name Role Phone Lucrecia Mejia [facility] Primary Care Provider [phone] Gladys Sibley APPLICATION CONSULTANT Primary Care Provider [phone] Johana Allen MD Primary Care Provider + Blade Noel RN Unavailable [phone] Reason for Visit * Reason Onset Date Comments Med Refill 01/12/2023 Encounter Details Date Type Department Care Team (Late st Contact Info) Description 01/12/2023 Refill [facility] [address] [place] [phone] Lucrecia Mejia APPLICATION CONSULTANT [address] [facility] Dept [place] [address] Primary hypertension Social History Tobacco Use Types [...] documented as of this encounter Care Teams Outside Sales Inspector Relationship Specialty Start Date End Date Lucrecia Mejia FNP PCP - General Family Medicine 11/18/22 03/29/23 Gladys Sibley FNP [address] [place] [address] PCP - General Family Medicine 03/30/23 12/19/23 Johana Allen MD [address] [place] [address] PCP - General Internal Medicine 12/20/23 Blade Noel RN [address] [place] [address] Environment Friendly Landscape DesignerAutomatic Spinning Lathe Setter 06/09/24 09/03/24 documented as of this encounter
--- OUTSIDE RECORDS SUMMARY | 2024-10-26 12:23 | XMS_ITS | Encounter Summary ---
Author Organization [employer] Address [address] 7t [place] [address] Care Team Providers Care Quality Assurance Supervisor Name Role Phone Johana Allen MD Primary Care Provider + Blade Noel RN Unavailable [phone] Reason for Visit * Reason Onset Date Comments Med Refill 04/06/2024 Encounter Details Date Type Department Care Team ([facility] st Contact Info) Description 04/06/2024 Refill [facility] [address] [place], [place] [phone] Johana Allen MD [address] [place], [place] [phone] Class 3 severe obesity due to excess [...] documented as of this encounter Care Teams Quality Assurance Supervisor Relationship Specialty Start Date End Date Johana Allen MD [address] [place] [address] PCP - General Internal Medicine 12/20/23 Blade Noel RN [address] [place] [address] Manager LoanFood Technician 06/09/24 09/03/24 documented as of this encounter
== END 2024-10-26 10:53 | disposition home or self-care (01) ==
LOC: HO.LNP 10:52
PROVIDERS: Visit Provider Nurse Practitioner Adult Health
DX: R55 Syncope and collapse (principal); I35.0 Nonrheumatic aortic (valve) stenosis; I10 Essential (primary) hypertension; E66.01 Morbid (severe) obesity due to excess calories; Z68.39 Body mass index [BMI] 39.0-39.9, adult
CPT/HCPCS: 82530; 93005; 99212

== ENCOUNTER 2024-10-26 13:12 | Outpatient (AMB) | payer MEDICAID, SELFPAY ==
[2024-10-26 13:15] VITALS: BP 120/68; PULSE 85; BMI 39.0
--- NOTE | 2024-10-26 13:15 | MHC.OFFVIS ---
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 These syncopal events, accompanied by a fluttering sensation in the chest, have increased in frequency over the last year. They are described as occurring in various postures, including standing, walking, and sitting. She has experienced a notable episode upon bending followed by standing, indicative of potential orthostatic blood pressure changes. Regular blood pressure readings are in the normotensive range, but these measurements usually do not occur during episodes. She exhibits occasional sharp chest pains, unrelated to exertion, as well as exertional dyspnea, but no stable angina symptoms are reported. The episodes are further complicated by pre-existing hypertension, managed with long-term lisinopril and amlodipine therapy, potentially implicating these medications in orthostatic hypotension. A recent echocardiogram indicates aortic valve stenosis, though it is not currently deemed clinically significant to her syncope. No prior cardiac issues like coronary disease or myocardial infarction or cardiomyopathy. [facility] Medical History External hemorrhoids with complication Cholesterol granuloma Abnormal CT scan Hypertension Morbid obesity Supraclavicular mass Surgical History History of hemorrhoidectomy (~01/14/24) History of tonsillectomy History of ankle surgery Hx of right knee surgery Hx of tubal ligation Family History Maternal Aunt Breast cancer Colon cancer Son Crohn's disease of both small and large intestine with fistula Other Ovarian cancer Prostate cancer Stomach cancer Social History Household Members Other:: 3 kids Alcohol intake: current Alcohol intake frequency: former alcohol drinker Alcohol type: wine Patient Tobacco Use Status: Former Tobacco user Tobacco use type: Smokeless Tobacco Second Hand Smoke Exposure: No Current occupational status: employed Current occupation: [employer] Female Reproductive History Menstrual Age of Menarche: 11 Review of Systems Const Denies weakness ENT Denies dizziness Card Reports chest pain, Denies chest pain with activity, Denies syncope, Denies rapid heart rate, Denies pedal edema, Denies edema, Denies leg edema, Denies lightheadedness, Reports palpitations, Denies dyspnea, Denies dyspnea on exertion and Denies orthopnea Resp Denies cough, Denies dyspnea and Denies dyspnea on exertion GI Denies hematochezia and Denies change in stool character Musc Denies abnormal gait, Denies muscle cramps, Denies muscle weakness, Denies numbness, Denies radiating pain into limb and Denies tingling Neuro Denies abnormal gait, Denies dizziness, Denies syncope, Denies numbness, Denies tingling and Denies weakness Endo Reports palpitations Physical Exam Vital Signs: Last Vital Signs Pulse 85 10/26/24 13:15 BP 120/68 10/26/24 13:15 BMI result Body Mass Index 39.0 Const General: comfortable and no acute distress Orientation/consciousness: patient oriented x3 HEENT Other: Unremarkable Head: Yes normal to inspection Neck Neck: Yes normal visual inspection Chest Chest palpation & inspection: normal inspection of the chest Resp Auscultation: clear to auscultation bilaterally Cardio Palpation: normal PMI Heart sounds: S1 normal heart sound present, S2 normal heart sound present, no gallops, Murmur heart sound present systolic II/ and at the right sternal border and no rubs GI Palpation (GI): Soft to palpation Back/Spine/Pelvis Other: unremarkable Skin General skin exam: no rashes or lesions noted Neuro General: patient oriented x3 Extrem General: Yes normal to inspection Psych Mental Status: mental status grossly normal Office Procedures EKG Details: EKG with underlying sinus rhythm at 85/Min; no significant ST-T changes and otherwise unremarkable[place]. [id number], Complete Assessment & Plan Assessment & Plan (1) Syncope and collapse: Code(s): R55 - Syncope and collapse Category: Medical Plan: Possible orthostatic hypotension but not clear. Check tilt-table test. She describes some associated palpitations during that time but still less likely arrhythmogenic. We will do a 30 day monitor for completion. (2) Non-rheumatic aortic stenosis: Code(s): I35.0 - Nonrheumatic aortic (valve) stenosis Category: Medical Plan: In the echocardiogram, preserved LVEF at 55-60%. Mild aortic stenosis. We discussed about this today. No specific interventions for number needs periodic follow-up. (3) Hypertension: Code(s): I10 - Essential (primary) hypertension Category: Medical Plan: On lisinopril/hydrochlorothiazide and amlodipine. No changes. Orders: Orders ECG 30 day event monitor Today R55 - Syncope and collapse ECG Tilt Table Test Today R55 - Syncope and collapse Coding Level of Care Code New Pt Level 4 (05422) Complex EM visit Add On G2211 Diagnoses Syncope and collapse R55 Non-rheumatic aortic stenosis I35.0 Hypertension I10 CPT Codes EKG - CPT: 49097-Gjglcvaajompbhmeg, Complete ([id number])
--- OUTSIDE RECORDS SUMMARY | 2024-10-26 14:17 | XMS_ITS | Encounter Summary ---
Author Organization [facility] [employer] Address [address] [place] [address] 7t [place] [address] Care Team Providers Care Sheep And Wheat Farmer Name Role Phone Lucrecia Mejia [facility] Primary Care Provider [phone] Gladys Sibley REACH LIFT TRUCK DRIVER Primary Care Provider [phone] Johana Allen MD Primary Care Provider + Blade Noel RN Unavailable [phone] Reason for Visit * Reason Onset Date Comments Med Refill 01/12/2023 Encounter Details Date Type Department Care Team (Late st Contact Info) Description 01/12/2023 Refill [facility] [address] [place] [phone] Lucrecia Mejia REACH LIFT TRUCK DRIVER [address] [facility] Dept [place] [address] Primary hypertension Social History Tobacco Use Types [...] documented as of this encounter Care Teams Sheep And Wheat Farmer Relationship Specialty Start Date End Date Lucrecia Mejia FNP PCP - General Family Medicine 11/18/22 03/29/23 Gladys Sibley FNP [address] [place] [address] PCP - General Family Medicine 03/30/23 12/19/23 Johana Allen MD [address] [place] [address] PCP - General Internal Medicine 12/20/23 Blade Noel RN [address] [place] [address] Concrete Rod BusterIssue Clerk 06/09/24 09/03/24 documented as of this encounter
--- OUTSIDE RECORDS SUMMARY | 2024-10-26 14:17 | XMS_ITS | Encounter Summary ---
Author Organization [employer] Address [address] [facility] 7t [place] [address] Care Team Providers Care Vaccine Key Customer Leader Name Role Phone Lucrecia Mejia Lamar SAFETY REPRESENTATIVE Primary Care Provider [phone] Gladys Sibley SAFETY REPRESENTATIVE Primary Care Provider [phone] Johana Allen MD Primary Care Provider + Blade Noel RN Unavailable [phone] Reason for Visit * Reason Onset Date Comments Med Refill 01/12/2023 Encounter Details Date Type Department Care Team (Late st Contact Info) Description 01/12/2023 Refill [facility] [address] [place] [phone] Keisha Gannon ANP [address] [place], [place] [phone] Primary hypertension Social History Tobacco Use Types [...] documented as of this encounter Care Teams Vaccine Key Customer Leader Relationship Specialty Start Date End Date Lucrecia Mejia FNP PCP - General Family Medicine 11/18/22 03/29/23 Gladys Sibley FNP [address] [place] [address] PCP - General Family Medicine 03/30/23 12/19/23 Johana Allen MD [address] [place] [address] PCP - General Internal Medicine 12/20/23 Blade Noel RN [address] [place] [phone] Maintenance And Utilities SupervisorPipe Production Worker 06/09/24 09/03/24 documented as of this encounter
--- OUTSIDE RECORDS SUMMARY | 2024-10-26 14:17 | XMS_ITS | Clinical Summary ---
Author Organization [employer] Address [address] [place] [address] 7t [place] [address] Care Team Providers Care School Commissioner Name Role Phone Johana Allen MD Primary [...] intensity exercise. FU with endocrinology and their hostess host Witnessed episode of apnea 09/29/2024 Acanthosis nigricans 08/01/2024 Assessment & Plan (08/01/2024 9:37 AM EST): I discussed with pt that it is a marker for insulin resistance, will refer to customer security clerk and rule out hyper cortisol conditions. Nonrheumatic [...] associated hyper cortisol conditions, will refer to customer security clerk. Assessment & Plan (06/15/2024 1:13 PM EST): [...] uterine bleeding (AUB) 12/30/2022 Overview (01/04/2023): 12/30/22 Operator Maintainer visit: Co testing with GC and chlamydia [...] knee 023 Overview (12/19/2022): Care managed by [email or web address] 12/16/22 Received steroid injection bilat [...] BP daily and follow-up with me or customer security clerk. Assessment & Plan (04/06/2024 4:23 PM EDT): [...] life style modifications, diet and referral to drilling fluids specialist. She has tried all that and is currently on a manager personal program. Recommended to decrease soda and sugary [...] 09/29/2024 9:45 AM EDT Office Visit [facility] [address] [place] [address] Johana Allen MD Witnessed episode of apnea (Primary Dx); Class 2 severe obesity due to excess calories with serious comorbidity and body mass index (BMI) of 39.0 to 39.9 in adult (CMS/[facility]); Primary hypertension; Abnormal uterine bleeding (AUB); Perimenopause; Seasonal allergic rhinitis, unspecified trigger; Dietary counseling; Exercise counseling 09/29/[address] [address] Johana Allen MD 09/29/2024 Travel 09/27/[address] [address] Johana Allen MD Chart prep 09/04/2024 Patient Outreach [address] [address] Johana Allen MD Care Coordination (CHW outreach) 09/04/[address] [address] Johana Allen MD Care Management (C3- f/u call lvm) 09/01/2024 Population Health Risk Score Community Care [facility] (C3) Department [address] [place] [phone] Provider, Population Health Generic 08/25/[address] [address] Johana Allen MD Care Management (C3CM- f/u call lvm) 08/23/2024 Patient Outreach [address] [address] Johana Allen MD Care Coordination (Appt reminder) 08/16/2024 Patient Outreach [address] [address] Johana Allen MD Care Coordination (Upcoming appts) 08/15/[address] [address] Johana Allen MD Care Management (C3CM- f/u call) 08/15/2024 Patient Outreach [address] [address] Johana Allen MD Care Coordination (SDOH) 08/02/2024 Patient Outreach [address] [address] Johana Allen MD Care Coordination (SDOH f/u) 08/02/[address] [address] Johana Allen MD Care Management (C3CM- f/u call #2 lvm) 08/01/2024 9:00 AM EST Telemedicine [address] [address] Johana Allen MD Class 3 severe obesity due to excess calories with serious comorbidity and body mass index (BMI) of 40.0 to 44.9 in adult (CMS/[facility]) (Primary Dx); Prediabetes; Acanthosis nigricans; Nonrheumatic aortic [...] us Johana Allen MD [facility] Final Result * (ABNORMAL) Lipid Panel with Reflex to Direct LDL (04/18/2024 11:45 AM EDT) Triglycerides 91 <150 mg/dL [facility] Comment:Desirable Triglyceri de: less than 150 mg/dLBorderline High Triglyceride 150-199 mg/dLHigh Triglyceride: 200-499 mg/dLVery High Triglyceride: greater than or equal to 5OO mg/dL Cholesterol 186 <200 mg/dL [facility] Comment:Desirable Cholestero l: less than 200 mg/dLBorderline High Cholesterol: 200-239 mg/dLHigh Cholesterol: greater than 239 mg/dL LDL Cholesterol Calculated 105(H) <100 mg/dL [facility] Comment:Desirable LDL: less than 100 mg/dLNear Optimal/Above Optimal LDL: 110- 129 mg/dLBorderline High LDL: 130-159 mg/dLHigh LDL: 160-189 mg/dLVery High LDL: greater than or equal to 190 mg/dL HDL Cholesterol 63 >40 mg/dL [facility] Comment:Desirable HDL: great er than 40 mg/dL Note: This HDL assay may give artificially low results in patients with liver disease. Blood 04/18/2024 11:4 5 AM EDT 04/18/2024 1:24 PM EDT us Johana Allen MD LAB BLOOD ORDERABLES Fin al Result Performing Organization Address [facility] Co de Phone Number [facility] [address] [place] [phone] * Hepatitis Panel, General (04/18/2024 11:45 AM EDT) Hepatitis A IgM Nonreactive Nonreactive [facility] Comment:IgM antibodies to NAVAS V not detected; does not exclude earlyacute or recovered HAV infection. ~Hepatitis B Surface Antibody REACTIVE Nonreactive [facility] Comment:REACTIVE: > 11.99 mI U/mL Hepatitis B Core Antibody Nonreactive Nonreactive [facility] Hepatitis C Antibody Nonreactive Nonreactive [facility] Comment:Antibodies to HCV no t detected; does not exclude early acuteHCV infection. Hepatitis B Surface Ag Negative Negative [facility] Blood 04/18/2024 11:4 5 AM EDT 04/18/2024 1:24 PM EDT us Johana Allen MD LAB BLOOD ORDERABLES Fin al Result Performing Organization Address [facility] Co de Phone Number [facility] [address] [place] [phone] * POCT HGB A1C (03/31/2024 10:54 AM EDT) Hemoglobin A1C 5.8 4.0 - 6.0 % QC Media Lot # [id number] Lot# Expiration Date ,400,388 Blood 03/31/2024 10:5 4 AM EDT Johana Allen MD POINT OF CARE TEST ENTER /EDIT ORDERABLES Final Result * BI Mammogram Screening Tomosynthesis Bilateral (11/19/2023 1:12 PM EDT) Anatomical Region Laterality Modality Breast Bilateral Mammography 11/19/2023 1:12 PM EDT Narrative 12/07/2023 1:53 PM EDT ? [facility] ? [address] ?[place] [address] ? Mammography Report ? Signed ? Patient: Swan,Yue ?MR#: [id number] ?? [id number] ? : 1975 ?Acct:[id number] ? Age/Sex: 48 / F ?ADM Date: 11/19/23 ? Loc: HO.MAMMO ? Attending Dr: Jeannine Umana CNM ? Ordering Physician: JEANNINE UMANA CNM ?Results: 2 ?? Benign Findings ? Date of Service: 11/19/23 ?Follow Up: 1 Year From Orig ?? inal Mammogram ? Procedure(s): MM tomosynthesis screening BI ?? Accession Number(s): [id number] ? cc: Gladys Sibley MAT GAUGER; JEANNINE UMANAM ? EXAMINATION: ?? MM SCREENING [...] 1349 ? DD/ 1312 ? TD/TT: ? Factory Lay Out Engineer: ? Procedure Note Valeriano, Image - 12/07/2023 Nery [facility] [address] [place], [place] [address] Mammography Report Signed Patient: Blake Swan#: [id number] : 1975Acct:[id number] Age/Sex: 48 / FADM Date: 11/19/23 Loc: HO.MAMMO Attending Dr: Jeannine DRISCOLL Ordering Physician: JEANNINE UMANAesults: 2 Benign Findings Date of Service: 11/19/23Follow Up: 1 Year From Orig inal Mammogram Procedure(s): MM tomosynthesis screening BI Accession Number(s): [id number] cc: Gladys Sibley MAT GAUGER; JEANNINE UMANA CNM EXAMINATION: MM SCREENING DIGITAL [...] in OV> 12/07/23 1349 DD/ 1312 TD/TT: Factory Lay Out Engineer: Jeannine Umana CN IMG BI PROCEDURES Final R esult * Hm Colonoscopy (08/31/2023) Colonoscopy Normal Normal Johana Allen MD HEALTH MAINTENANCE Final Result * HIV-1/2 Antigen and Antibodies, Fourth Generation, with Reflexes (11/18/2022 11:55 AM EDT) HIV Antigen/Antibody, 4th Generation NON-REAC TIVE NON-REAC TIVE [email or web address] Comment: HIV-1 antigen and HIV-1/HIV-2 antibodies [...] ?? For additional information please refer to http://education.questdiagnostics.com/faq/DZO527 (This link is being provided for informational/ educational purposes only.) The performance of this assay has not been clinically validated in patients less than 2 years old. Blood Venous blood specimen / Unknown 11/18/2022 11:55 AM EDT 11/18/2022 11:56 AM EDT Narrative [facility] - 11/19/2022 6:04 PM EDT FASTING:YES FASTING: YES [facility] LAB BLOOD ORDERABLES Final Resul t [facility] [address], [place] [address] [facility] [address] [place] [address] * Image-Guided Pap with Age-Based Screening??with CT/NG,??Trichomonas (10/22/2022 10:08 AM EDT) Comment [facility] Comment: This order for age-based cervical cancer and STI screening follows ACOG guidelines(PB 168, 140, LOF853). See individual assays for performing site location. Clinical Information: HX ABNORMAL [facility] LMP: NONE GIVEN [facility] Prev. PAP: NONE GIVEN [facility] Prev. BX: NONE GIVEN [facility] SOURCE: None given [facility] Statement Of Adequacy: [employer] Comment: Satisfactory for evaluation. Endocervical/transformation zone component present. Interpretation/Re sult: Negative for intraepithelial lesion or malignancy. [facility] [employer] COMMENT: This Pap test has been evaluated with computer assisted technology. [facility] Roller Painter: Rachid [facility] Comment: DMM, CT(ASCP) CT screening location: [address] ??[address] Review Roller Painter: [employer] Comment: JXM, CT(ASCP) CT screening location: [address] ??[address] (Always Message) [employer] [place] [employer] Comment: EXPLANATORY NOTE: The Pap is a [...] HPV nRNA E6/E7 Not Detected Not Detected [facility] Comment: Methodology: Aoc Operations Intelligence Officer-Mediated Amplification This assay detects E6/E7 viral messenger RNA (mRNA) from 14 high-risk HPV types (16,18,31,33,35,39,45,51,52,56,58,59,66,68). Cervical sources are required for HPV testing. If a vaginal source from a patient who has had a total hysterectomy with removal of cervix was submitted, please contact the testing laboratory for alternative testing options. For additional information, please refer to http://[employer]/faq/ICY256j8 (This link if provided for information/ educational purposes only.) Chlamydia trachomatis RNA, TMA, Urogenital NOT DETECTED NOT DETECTED [facility] Neisseria gonorrhoeae RNA, TMA, Urogenital NOT DETECTED NOT DETECTED [employer] (Always Message) [employer] [place] [facility] Comment: The analytical performance characteristics of this assay, when used to test SurePath(TM) specimens have been determined by [facility]. The modifications have not been cleared or approved by the FDA. This assay has been validated pursuant to the CLIA regulations and is used for clinical purposes. For additional information, please refer to https://[employer]/faq/DBQ468 (This link is being provided for information/ educational purposes only.) Trichomonas vaginalis, QL, TMA, PAP Vial NOT DETECTED NOT DETECTED [facility] Comment: The analytical performance characteristics of this assay have been determined by [employer] [facility]. The modifications have not been cleared or approved by the FDA. This assay has been validated pursuant to the CLIA regulations and is used for clinical purposes. For additional information, please refer to http://[employer]/ faq/Trichomonastma (This link is being provided for information/ educational purposes only.) Pap Vial 10/22/2022 10:0 8 AM EDT 10/23/2022 2:07 AM EDT Jeannine Adam CN LAB CYTOLOGY ORDERABLES F inal Result [facility] [address], [place] [address] [facility] [address] [place] [address] from Last 3 Months or Most Recently Relevant to Health Maintenance Insurance [facility] C3 HSN FULL Care Teams School Commissioner Relationship Specialty Start Date End Date Johana Allen MD [address] [place] [phone] PCP - General Internal Medicine 12/20/23
--- OUTSIDE RECORDS SUMMARY | 2024-10-26 14:17 | XMS_ITS | Encounter Summary ---
Author Organization [employer] Address [address] 7t [place] [address] Care Team Providers Care Sales Commissions Analyst Name Role Phone Johana Allen MD Primary Care Provider + Blade Noel RN Unavailable [phone] Reason for Visit * Reason Onset Date Comments Med Refill 04/06/2024 Encounter Details Date Type Department Care Team ([facility] st Contact Info) Description 04/06/2024 Refill [facility] [address] [place], [place] [phone] Johana Allen MD [address] [place], [place] [phone] Class 3 severe obesity due to excess [...] your housing situation today? I have ronni knowlse 03/20/[address] you li [...] documented as of this encounter Care Teams Sales Commissions Analyst Relationship Specialty Start Date End Date Johana Allen MD [address] [place] [address] PCP - General Internal Medicine 12/20/23 Blade Noel RN [address] [place] [phone] Business ExecutiveDrug Enforcement Administration Agent 06/09/24 09/03/24 documented as of this encounter
== END 2024-10-26 13:46 | disposition home or self-care (01) ==
LOC: HO.HCS 13:13
PROVIDERS: PCP Internal Medicine; Visit Provider Internal Medicine
DX: R55 Syncope and collapse (principal); I35.0 Nonrheumatic aortic (valve) stenosis; I10 Essential (primary) hypertension; R00.2 Palpitations
CPT/HCPCS: 93010; 99214

== ENCOUNTER → 2024-11-02 13:15 | Outpatient (REF) | payer MEDICAID, SELFPAY ==
--- OUTSIDE RECORDS SUMMARY | 2024-11-02 13:50 | XMS_ITS | Clinical Summary ---
Author Organization [facility] Address [address] [place] [address] Phone Care Team Providers Care Commercial Technician Name Role Phone Unavailable Primary Care Provider Unavailabl e Social History Tobacco Use Types Packs/Day Years Used Date Smoking Tobacco: Never Assessed Comments Unknown Sex and Gender Information Value Date Recorded Sex Assigned at Not on file Legal Sex Female 8:21 AM EDT Gender Identity Not on file Sexual Orientation Not on file Plan of Treatment Upcoming Encounters Date Type Department Care Team ([facility] Contact Info) Description 01/23/2025 1:45 AM EDT Appointment [facility] [address] [place] [address] Health Maintenance Due Date Last Done Comments Breast Cancer Screening 1975 DTaP,Tdap,and Td Vaccines (1 - Tdap) 1994 Hepatitis B Vaccines (1 of 3 - 19+ 3-dose series) 1994 Cervical Cancer Screening: P ap Smear 1996 COVID-19 Vaccine (2023-2 5 season) 2024 Colorectal Cancer Screening: Colonoscopy 10/27/2024 Depression Screening 10/27/2024 HIV Screening 10/27/2024 Hepatitis C Screening 10/27/2024 Social Influencers of Health Screening 10/27/2024 Influenza Vaccine (Season Ended) 2025 HIB Vaccines Aged Out No longer eligi [...] on patient's age to complete this topic MMR Vaccines Aged Out No longer eligi ble based on patient's age to complete this topic Meningococcal ACWY Vaccine Aged Out N o longer eligible based on patient's age to complete this topic Meningococcal B Vaccine Aged Out No l onger eligible based on patient's age to complete this topic Pneumococcal Vaccine: Pediat rics (0 to 5 Years) and At-Risk Patients (6 to 64 Years) Aged Out No longer eligible b ased on patient's age to complete this topic RSV Immunization Patients Un radha 20 months Aged Out No longer eligible b ased on patient's age to complete this topic Varicella Vaccines Aged Out No longer eligible based on patient's age to complete this topic
--- OUTSIDE RECORDS SUMMARY | 2024-11-02 13:50 | XMS_ITS | Encounter Summary ---
Author Organization [facility] [employer] Address [address] [place] [address] 7t [place] [address] Care Team Providers Care Falafel Cart Cook Name Role Phone Lucrecia Mejia [facility] Primary Care Provider [phone] Gladys Sibley EGG CRATER Primary Care Provider [phone] Johana Allen MD Primary Care Provider + Blade Noel RN Unavailable [phone] Reason for Visit * Reason Onset Date Comments Med Refill 01/12/2023 Encounter Details Date Type Department Care Team (Late st Contact Info) Description 01/12/2023 Refill [facility] [address] [place] [phone] Lucrecia Mejia EGG CRATER [address] [facility] Dept [place] [address] Primary hypertension Social History Tobacco Use Types [...] documented as of this encounter Care Teams Falafel Cart Cook Relationship Specialty Start Date End Date Lucrecia Mejia FNP PCP - General Family Medicine 11/18/22 03/29/23 Gladys Sibley FNP [address] [place] [address] PCP - General Family Medicine 03/30/23 12/19/23 Johana Allen MD [address] [place] [address] PCP - General Internal Medicine 12/20/23 Blade Noel RN [address] [place] [phone] Diagnostics Sales DeveloperWhite Kid Buffer 06/09/24 09/03/24 documented as of this encounter
--- OUTSIDE RECORDS SUMMARY | 2024-11-02 13:50 | XMS_ITS | Encounter Summary ---
Author Organization [employer] Address [address] [facility] 7t [place] [address] Care Team Providers Care Pony Cylinder Press Operator Name Role Phone Johana Allen MD Primary Care Provider + Blade Noel RN Unavailable [phone] Reason for Visit * Reason Onset Date Comments Med Refill 04/06/2024 Encounter Details Date Type Department Care Team ([facility] st Contact Info) Description 04/06/[address] [facility] [address] [place], [place] [phone] Johana Allen MD [address] [place], [place] [phone] Class 3 severe obesity due to excess [...] documented as of this encounter Care Teams Pony Cylinder Press Operator Relationship Specialty Start Date End Date Johana Allen MD [address] [place] [address] PCP - General Internal Medicine 12/20/23 Blade Noel RN [address] [place] [phone] Wood Veneer TaperClothing Examiner 06/09/24 09/03/24 documented as of this encounter
--- OUTSIDE RECORDS SUMMARY | 2024-11-02 13:50 | XMS_ITS | Encounter Summary ---
Author Organization [employer] Address [address] [facility] 7t [place] [address] Care Team Providers Care Member Of The Legislative Assembly Name Role Phone Lucrecia Mejia Lamar AUTO STRIPER Primary Care Provider [phone] Gladys Sibley AUTO STRIPER Primary Care Provider [phone] Johana Allen MD Primary Care Provider + Blade Noel RN Unavailable [phone] Reason for Visit * Reason Onset Date Comments Med Refill 01/12/2023 Encounter Details Date Type Department Care Team (Late st Contact Info) Description 01/12/2023 Refill [facility] [address] [place] [phone] Keisha Gannon ANP [address] [place], [place] [phone] Primary hypertension Social History Tobacco Use Types [...] documented as of this encounter Care Teams Member Of The Legislative Assembly Relationship Specialty Start Date End Date Lucrecia Mejia FNP PCP - General Family Medicine 11/18/22 03/29/23 Gladys Sibley FNP [address] [place] [address] PCP - General Family Medicine 03/30/23 12/19/23 Johana Allen MD [address] [place] [address] PCP - General Internal Medicine 12/20/23 Blade Noel RN [address] [place] [address] [employer] Bi ArchitectMaterial Specialist 06/09/24 09/03/24 documented as of this encounter
--- OUTSIDE RECORDS SUMMARY | 2024-11-02 13:50 | XMS_ITS | Clinical Summary ---
Author Organization [employer] Address [address] [place] [address] 7t [place] [address] Care Team Providers Care Tour Sales Representative Name Role Phone Johana Allen MD Primary Care Provider + Allergies No known active allergies Medications * This document contains information received from the source organization and may not represent a complete record from that organization. butalbital-acetam inophen-caffeine 50-325-40 MG tablet TAKE 1 TABLET BY MOUTH EVERY 6 HOURS NEEDED FOR HEADACHE 4 Active lisinopril-hydroC HLOROthiazide 20-25 MG tabletIndications :Primary hypertension Take 1 tablet by mouth Once per day. 90 tablet 3 4 03/26/20 25 Active amLODIPine (Norvasc) 5 MG tabletIndications :Primary hypertension Take 1 tablet (5 mg) by mouth Once per day. 90 tablet 2 4 Active senna-docusate sodium (Senokot-S) 8.6-50 MG tablet Take 1 tablet by mouth Once per day. 90 tablet 4 06/16/20 25 Active fluticasone (Flonase) 50 MCG/ACT nasal spray Administer 1 spray into each nostril Once per day. 16 g 1 5 Active cetirizine (ZyrTEC) 10 MG tabletIndications :Seasonal allergic rhinitis, unspecified trigger Take 1 tablet (10 mg) by mouth Once per day. 90 tablet 2 5 Active Active Problems Problem Noted Date Diagnosed [...] intensity exercise. FU with endocrinology and their wood heel flap trimmer Witnessed episode of apnea 09/29/2024 Acanthosis nigricans 08/01/2024 Assessment & Plan (08/01/2024 9:37 AM EST): I discussed with pt that it is a marker for insulin resistance, will refer to mortgage loan specialist and rule out hyper cortisol conditions. Nonrheumatic [...] driving. Viral upper respiratory tract infection 06/15/20 24 Assessment & Plan (06/15/2024 2:17 PM EST): [...] hyper cortisol conditions, will refer to mortgage loan specialist. 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 Assessment & Plan (04/06/2024 4:23 PM EDT): [...] of 40.0 to 44.9 in adult 04/06/2024 04/11/202 5 Assessment & Plan (08/01/2024 9:27 AM EST): Pt tolerating low dose of Zepbound with no side effects, will increase to 5 mg and FU in 6 weeks. Assessment & Plan (06/15/2024 1:20 PM EST): Pt has lost 8 pounds since last month, unfortunately Donna is no longer covered by her insurance, [...] life style modifications, diet and referral to employment specialist. She has tried all that and is currently on a personal care aide program. Recommended to decrease soda and sugary [...] Description 09/29/2024 9:45 AM EDT Office Visit [facility] [address] [place] [phone] Johana Allen MD Witnessed episode of apnea (Primary Dx); Class 2 severe obesity due to excess calories with serious comorbidity and body mass index (BMI) of 39.0 to 39.9 in adult ([facility]); Primary hypertension; Abnormal uterine bleeding (AUB); Perimenopause; Seasonal allergic rhinitis, unspecified trigger; Dietary counseling; Exercise counseling 09/29/[address] [address] Johana Allen MD 09/29/2024 Travel 09/27/[address] [address] Johana Allen MD Chart prep 09/04/2024 Patient Outreach [address] [address] Johana Allen MD Care Coordination (W outreach) 09/04/[address] [address] Johana Allen MD Care Management (C3- f/u call lvm) 09/01/[address] [facility] () Department [address] [place] [phone] Provider, Population Health Generic 08/25/[address] [address] Johana Allen MD Care Management ([facility]- f/u call lvm) 08/23/2024 Patient Outreach [address] [address] Johana Allen MD Care Coordination (Appt reminder) 08/16/2024 Patient Outreach [address] [address] Johana Allen MD Care Coordination (Upcoming appts) 08/15/[address] [address] Johana Perla MD Care Management (C3- f/u call) 08/15/2024 Patient Outreach [address] [address] Johana Allen MD Care Coordination (SDOH) from Last 3 Months Immunizations Immunization Administration Dates Next Due Influenza Injectable Quadriv [...] 11:45 AM EDT) Triglycerides 91 <150 mg/dL [facility] Comment:Desirable Triglyceri de: less than 150 mg/dLBorderline High Triglyceride 150-199 mg/dLHigh Triglyceride: 200-499 mg/dLVery High Triglyceride: greater than or equal to 5OO mg/dL Cholesterol 186 <200 mg/dL [facility] Comment:Desirable Cholestero l: less than 200 mg/dLBorderline High Cholesterol: 200-239 mg/dLHigh Cholesterol: greater than 239 mg/dL LDL Cholesterol Calculated 105(H) <100 mg/dL [facility] Comment:Desirable LDL: less than 100 mg/dLNear Optimal/Above Optimal LDL: 110- 129 mg/dLBorderline High LDL: 130-159 mg/dLHigh LDL: 160-189 mg/dLVery High LDL: greater than or equal to 190 mg/dL HDL Cholesterol 63 >40 mg/dL [facility] Comment:Desirable HDL: great er than 40 mg/dL Note: This HDL assay may give artificially low results in patients with liver disease. Blood 04/18/2024 11:4 5 AM EDT 04/18/2024 1:24 PM EDT Johana Allen MD LAB BLOOD ORDERABLES Fin al Result Performing Organization Address [facility] Co de Phone Number [facility] [address] [place] [address] [phone] * Hepatitis Panel, General (04/18/2024 11:45 AM EDT) Hepatitis A IgM Nonreactive Nonreactive [facility] Comment:IgM antibodies to NAVAS V not detected; does not exclude earlyacute or recovered HAV infection. ~Hepatitis B Surface Antibody REACTIVE Nonreactive [facility] Comment:REACTIVE: > 11.99 mI U/mL Hepatitis B Core Antibody Nonreactive Nonreactive [facility] Hepatitis C Antibody Nonreactive Nonreactive [facility] Comment:Antibodies to HCV no t detected; does not exclude early acuteHCV infection. Hepatitis B Surface Ag Negative Negative [facility] Blood 04/18/2024 11:4 5 AM EDT 04/18/2024 1:24 PM EDT Johana Allen MD LAB BLOOD ORDERABLES Fin al Result Performing Organization Address [facility] Co de Phone Number [facility] [address] [place] [address] [phone] * POCT HGB A1C (03/31/2024 10:54 AM EDT) Hemoglobin A1C 5.8 4.0 - 6.0 % QC Media Lot # [id number] Lot# Expiration Date Blood 03/31/2024 10:5 4 AM EDT us Johana Allen MD POINT OF CARE TEST ENTER /EDIT ORDERABLES Final Result * BI Mammogram Screening Tomosynthesis Bilateral (11/19/2023 1:12 PM EDT) Anatomical Region Laterality Modality Breast Bilateral Mammography 11/19/2023 1:12 PM EDT Narrative 12/07/2023 1:53 PM EDT ? [facility] ? [address] ?[place] [address] ? Mammography Report ? Signed ? Patient: Swan,Yue ?MR#: [id number] ?? [id number] ? : 1975 ?Acct:[id number] ? Age/Sex: 48 / F ?ADM Date: 11/19/23 ? Loc: HO.MAMMO ? Attending Dr: Jeannine Umana CNM ? Ordering Physician: JEANNINE UMANA CNJitendra ?Results: 2 ?? Benign Findings ? Date of Service: 11/19/23 ?Follow Up: 1 Year From Orig ?? inal Mammogram ? Procedure(s): MM tomosynthesis screening BI ?? Accession Number(s): [id number] ? cc: Gladys Sibley MDM DEVELOPER; JEANNINE UMANA CNM ? EXAMINATION: ?? MM [...] 1349 ? DD/ 1312 ? TD/TT: ? Shank Scourer: ? Procedure Note Valeriano, Image - 12/07/2023 [facility] [address] [place] [address] Dr. Gabriel, [place]H [address] Mammography Report Signed Patient: Blake Swan#: [id number] : 1975Acct:[id number] Age/Sex: 48 / FADM Date: 11/19/23 Loc: HO.MAMMO Attending Dr: Jeannine Umana CNJitendra Ordering Physician: JEANNINE UMANAesults: 2 Benign Findings Date of Service: 11/19/23Follow Up: 1 Year From Orig ina Mammogram Procedure(s): MM tomosynthesis screening BI Accession Number(s): [id number] cc: Gladys Sibley MDM DEVELOPER; JEANNINE UMANA CNM EXAMINATION: MM SCREENING DIGITAL [...] in OV> 12/07/23 1349 DD/ 1312 TD/TT: Shank Scourer: us Jeannine DRISCOLL IMG BI PROCEDURES Final R esult * Hm Colonoscopy (08/31/2023) Colonoscopy Normal Normal us Johana Allen MD HEALTH MAINTENANCE Final Result * HIV-1/2 Antigen and Antibodies, Fourth Generation, with Reflexes (11/18/2022 11:55 AM EDT) HIV Antigen/Antibody, 4th Generation NON-REAC TIVE NON-REAC TIVE [facility] Comment: HIV-1 antigen and HIV-1/HIV-2 antibodies were [...] ?? For additional information please refer to http://education.139shop/faq/GUG665 (This link is being provided for informational/ educational purposes only.) The performance of this assay has not been clinically validated in patients less than 2 years old. Blood Venous blood specimen / Unknown 11/18/2022 11:55 AM EDT 11/18/2022 11:56 AM EDT Narrative [facility] - 11/19/2022 6:04 PM EDT FASTING:YES FASTING: YES [facility] LAB BLOOD ORDERABLES Final Resul t [facility] [address], [place] [address] [employer] [address] [place] [address] * Image-Guided Pap with Age-Based Screening??with CT/NG,??Trichomonas (10/22/2022 10:08 AM EDT) Comment [facility] Comment: This order for age-based cervical cancer and STI screening follows ACOG guidelines(PB 168, 140, LLE994). See individual assays for performing site location. Clinical Information: HX ABNORMAL [facility] LMP: NONE GIVEN [facility] [employer] Prev. PAP: NONE GIVEN [facility] [employer] Prev. BX: NONE GIVEN [facility] [employer] SOURCE: None given [facility] [employer] Statement Of Adequacy: [employer] Comment: Satisfactory for evaluation. Endocervical/transformation zone component present. Interpretation/Re sult: Negative for intraepithelial lesion or malignancy. [employer] COMMENT: This Pap test has been evaluated with computer assisted technology. [facility] [employer] Trailer Truck Driver: [employer] Comment: DMM, CT(ASCP) CT screening location: [address] ??[address] Review Trailer Truck Driver: [facility] [employer] Comment: JXM, CT(ASCP) CT screening location: [address] ??[address] (Always Message) Que st [employer] Comment: EXPLANATORY NOTE: The Pap is a [...] HPV nRNA E6/E7 Not Detected Not Detected [employer] Comment: Methodology: Matlab Developer-Mediated Amplification This assay detects E6/E7 viral messenger RNA (mRNA) from 14 high-risk HPV types (16,18,31,33,35,39,45,51,52,56,58,59,66,68). Cervical sources are required for HPV testing. If a vaginal source from a patient who has had a total hysterectomy with removal of cervix was submitted, please contact the testing laboratory for alternative testing options. For additional information, please refer to http://Simplesurance.139shop/faq/VHG162w6 (This link if provided for information/ educational purposes only.) Chlamydia trachomatis RNA, TMA, Urogenital NOT DETECTED NOT DETECTED [employer] [employer] Neisseria gonorrhoeae RNA, TMA, Urogenital NOT DETECTED NOT DETECTED [employer] (Always Message) [facility] Comment: The analytical performance characteristics of this assay, when used to test SurePath(TM) specimens have been determined by [facility]. The modifications have not been cleared or approved by the FDA. This assay has been validated pursuant to the CLIA regulations and is used for clinical purposes. For additional information, please refer to https://Simplesurance.139shop/faq/MRC437 (This link is being provided for information/ educational purposes only.) Trichomonas vaginalis, QL, TMA, PAP Vial NOT DETECTED NOT DETECTED [employer] Comment: The analytical performance characteristics of this assay have been determined by [facility]. The modifications have not been cleared or approved by the FDA. This assay has been validated pursuant to the CLIA regulations and is used for clinical purposes. For additional information, please refer to http://education.139shop/ faq/Trichomonastma (This link is being provided for information/ educational purposes only.) Pap Vial 10/22/2022 10:0 8 AM EDT 10/23/2022 2:07 AM EDT Jeannine Umana [facility] CYTOLOGY ORDERABLES F inal Result [facility] [address], [place] [address] [facility] [employer] [address] [place] [address] from Last 3 Months or Most Recently Relevant to Health Maintenance Insurance [facility] C3 HSN FULL Care Teams Tour Sales Representative Relationship Specialty Start Date End Date Johana Allen MD [address] [place] [phone] PCP - General Internal Medicine 12/20/23
== END ==
LOC: HO.CARD 13:15
PROVIDERS: PCP Internal Medicine; Visit Provider Internal Medicine
DX: R55 Syncope and collapse (principal)
CPT/HCPCS: 93270

== ENCOUNTER → 2024-11-02 13:18 | Outpatient (BNV) | payer MEDICAID, SELFPAY | PROVIDERS: PCP Internal Medicine; Visit Provider Internal Medicine | DX: I47.10 Supraventricular tachycardia, unspecified (principal) | CPT/HCPCS: 93272 ==

== ENCOUNTER 2024-11-21 09:18 | Outpatient (AMB) | payer MEDICAID, SELFPAY ==
--- NOTE | 2024-11-21 07:06 | A.OFFVIS_ITS ---
Vital Signs 11/21/24 09:25 Height 5 ft 4 in Weight 231 lb 7.766 oz BMI 39.7 BP 122/74 Blood Pressure Location Rt brachial Position Sitting Pulse 95 Pulse Source Pulse Oximeter Pulse Oximetry (%) 96 Oxygen Delivery Method Room Air Intake Visit Reasons: Obesity Intake Note: Patient presents here today for a follow-up on Weight Management: Pump Station Operator Required: No Accompanied by: Self / Same As Patient Allergies No Known Allergies Allergy (Verified 11/21/24 09:21) HPI Comments Details: This is a 49-year-old female sent to endocrinology for evaluation of obesity. She was seen one month ago. She collected salivary cortisol but was informed after the fact that the lab had given her an tube. She will repeat this test In the past she took Wegovy for 4 wks. Tried dietary attempts prior to this but was unsuccessful. Has been on Zepbound since 07/2024. Started on 5 mg dosing 4th week of July then advanced to 7.5mg and then again advanced to 10mg one month ago. weight: 11/21/24 231.7 08/31/24 239 10oz 10/18/24 227 She was seen by nutrition earlier last month with the recommendations to consume 60 carbs per meal, 2000 calorie diet and increase fiber. Weighs herself daily She following closely the diet given by nutrition. When she is unable to cook, she will use healthy choice. Exercise: you tube videos varied exercise, treadmill has a home gym Hasn't used treadmill Walks 30 min/day. 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 Has minimal constipation which she has increased water, fiber and activia yogurt and is doing well on this. Per Dr. Núñez's previous note: Noticed increased bruising and hair growth on face but no specific symptoms of Nel syndrome. Snores at night. Has not been worked up for sleep apnea. She reports her has noticed that she does stop breathing during the night. She reports that cardiology will be ordering this. Still gets menses irregular 2 mos ago. 3 children - no diabetes during . She has tried cutting back on portion size in the past and had increased fluids without any effect. Has family h/o dm in younger brother ZAKI screen Fibrosis-4 (Fib-4) Index for liver fibrosis (calculated on lab work done: 10/13) 0.51 points Advanced fibrosis excluded Approximate Fibrosis stage Kale 0-1 *Use with caution in patients <35 or >65 years old, as the score has been shown to be less reliable in these patients. Prior Imaging:none Action Plan: rescreen two years from date of screening labs:09/2026 [facility] Medical History External hemorrhoids with complication Cholesterol granuloma Abnormal CT scan Hypertension Morbid obesity Supraclavicular mass Surgical History History of hemorrhoidectomy (~01/14/24) History of tonsillectomy History of ankle surgery Hx of right knee surgery Hx of tubal ligation Family History Maternal Aunt Breast cancer Colon cancer Son Crohn's disease of both small and large intestine with fistula Other Ovarian cancer Prostate cancer Stomach cancer Social History Household Members Other:: 3 kids Alcohol intake: current Alcohol intake frequency: former alcohol drinker Alcohol type: wine Patient Tobacco Use Status: Former Tobacco user Tobacco use type: Smokeless Tobacco Second Hand Smoke Exposure: No Current occupational status: employed Current occupation: [employer] Female Reproductive History Menstrual Age of Menarche: 11 Physical Exam Vital Signs: Last Vital Signs BP 122/74 11/21/24 09:25 BMI result Body Mass Index 39.7 Const Other: Absence of Cushingoid features. Absence of acromegalic features. Has acanthosis nigricans. Neck exam reveals nl size thyroid about 15 gms. No thyroid nodules palpable. Heart S1 S2, Reg R/R. No M/R G. Skin exam reveals absence of vitiligo . Assessment & Plan Assessment & Plan (1) Morbid obesity: Code(s): E66.01 - Morbid (severe) obesity due to excess calories Category: Medical Plan: 49-year-old female who is being followed for weight management/obesity. She is doing well on Zepbound 10 mg. Her prior authorization expires 05/04/2025 and she has been informed of this and we will contact us 1 week prior. She is having a cardiology workup and reports they we will be ordering a sleep study for her. She is scheduled for knee surgery. She was advised to continue regular exercise, following a balanced diet. She plans to purchased the Learn method for weight control which has a behavioral modification strategy for weight loss that covers lifestyle, exercise, attitudes, relationships and nutrition. She will see the Nanette Thomason RD next month and Dr. Núñez in the month of January. Orders: Orders Saliva Cortisol Today E66.01 - Morbid (severe) obesity due to excess calories Coding Level of Care Code Est Pt Level 3 (91827) Complex EM visit Add On G2211 Diagnoses Morbid obesity E66.01 Time Spent (min) 30 Comment Time spent reviewing labs/provider notes, face to face, chart doc
[2024-11-21 09:25] VITALS: BP 122/74; PULSE 95; O2SAT 96; BMI 39.7
--- OUTSIDE RECORDS SUMMARY | 2024-11-21 10:15 | XMS_ITS | Encounter Summary ---
Author Organization [employer] Address [address] [place] [address] 7t [place] [address] Care Team Providers Care Tool Room Gear Machine Operator Name Role Phone Lucrecia Mejia [facility] Primary Care Provider [phone] Gladys Sibley SAT TUTOR Primary Care Provider [phone] Johana Allen MD Primary Care Provider + Blade Noel RN Unavailable [phone] Reason for Visit * Reason Onset Date Comments Med Refill 01/12/2023 Encounter Details Date Type Department Care Team (Late st Contact Info) Description 01/12/[address] [facility] [address] [place] [phone] Lucrecia Mejia SAT TUTOR [facility] Dept [place] [address] Primary hypertension Social History Tobacco Use Types [...] documented as of this encounter Care Teams Tool Room Gear Machine Operator Relationship Specialty Start Date End Date Lucrecia Mejia FNP PCP - General Family Medicine 11/18/22 03/29/23 Gladys Sibley FNP [address] [place] [address] PCP - General Family Medicine 03/30/23 12/19/23 Johana Allen MD [address] [place] [address] PCP - General Internal Medicine 12/20/23 Blade Noel RN [address] [place] [id number] Fine SanderStrategy Lead 06/09/24 09/03/24 documented as of this encounter
== END 2024-11-21 10:09 | disposition home or self-care (01) ==
LOC: HO.ENCR 09:19
PROVIDERS: PCP Internal Medicine; Visit Provider Nurse Practitioner Adult Health
DX: E66.01 Morbid (severe) obesity due to excess calories (principal)
CPT/HCPCS: 99213

== ENCOUNTER → 2024-11-21 09:18 | Outpatient (BNVA) | payer MEDICAID, SELFPAY | PROVIDERS: PCP Internal Medicine; Visit Provider Nurse Practitioner Adult Health | DX: E66.01 Morbid (severe) obesity due to excess calories (principal); Z68.39 Body mass index [BMI] 39.0-39.9, adult | CPT/HCPCS: 99212 ==

== ENCOUNTER → 2024-12-05 10:05 | Outpatient (BNVA) | payer MEDICAID, SELFPAY | PROVIDERS: PCP Internal Medicine; Visit Provider Obstetrics & Gynecology ==

== ENCOUNTER 2024-12-05 10:40 | Outpatient (REF) | payer MEDICAID, SELFPAY ==
[2024-12-25 01:54] LABS: Saliva Cortisol 0.14 mcg/dL
== END 2024-12-05 10:41 | disposition home or self-care (01) ==
LOC: HO.LNP 10:40
PROVIDERS: Visit Provider Nurse Practitioner Adult Health
DX: E66.01 Morbid (severe) obesity due to excess calories (principal)
CPT/HCPCS: 82530

== ENCOUNTER 2024-12-21 12:20 | Outpatient (AMB) | payer MEDICAID, SELFPAY ==
--- NOTE | 2024-12-21 12:28 | A.OFFVIS_ITS ---
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) HHO-Cccamrg-Jz.Jeor Equation Height: 5 ft 4 in Weight: 226 lb Resting Metabolic Rate: 1638.01 Calculated Activity Level: Sedentary Calories Needed to Maintain Weight: 1965.61 [facility] Medical History External hemorrhoids with complication Cholesterol granuloma Abnormal CT scan Hypertension Morbid obesity Supraclavicular mass Surgical History History of hemorrhoidectomy (~01/14/24) History of tonsillectomy History of ankle surgery Hx of right knee surgery Hx of tubal ligation Family History Maternal Aunt Breast cancer Colon cancer Son Crohn's disease of both small and large intestine with fistula Other Ovarian cancer Prostate cancer Stomach cancer Social History Household Members Other:: 3 kids Alcohol intake: current Alcohol intake frequency: former alcohol drinker Alcohol type: wine Patient Tobacco Use Status: Former Tobacco user Tobacco use type: Smokeless Tobacco Second Hand Smoke Exposure: No Current occupational status: employed Current occupation: [employer] Female Reproductive History Menstrual Age of Menarche: 11 Assessment & Plan Assessment & Plan (1) Morbid obesity: Code(s): E66.01 - Morbid (severe) obesity due to excess calories Category: Medical Plan: Wt: 105 Kg ( 10/13 ), 103 kg(01/13) Est kcal needs as per MSJ: 2000 (40% carb, 30% protein/fat) Est fluid needs as per 25-30 ml/d: 3000 Est prot per day as per 1 g/kg bw: 100 Recommend fiber intake : 8-10 g per day and gradually increase to 25-28 g per day for women and 35-38 g for men or as tolerated Recommend sodium intake per day : less than 2000 mg Educated patient on: ( R = reviewed V = verbalizes understanding N/R = needs review N/A = not applicable * Food sources of carbohydrate, adequate serving sizes and its role in various health conditions: R * Differences between complex carbohydrates a simple carbohydrates, role of fiber in diet: R * Lean protein sources of foods: R * Differences between types of fats and role in diet (mono on saturated fat fatty acids, saturated fatty acids, trans fats): R V N/R * Food sources of sodium in salt and healthy modifications for heart health in kidney health: R V R/V * Vitamins and minerals: R V N/R * Healthy plate method concept: R V N/R * Physical activity: Benefits a precaution: R Patient Instructions: Choose lower fat protein sources (boiled eggs, steamed seafood , baked poultry : Coding Level of Care Code Nutr Indiv Subseq (57469) Diagnoses Morbid obesity E66.01 Time Spent (min) 30
[2024-12-21 12:29] VITALS: BMI 38.9
--- OUTSIDE RECORDS SUMMARY | 2024-12-21 12:40 | XMS_ITS | Encounter Summary ---
Author Organization [facility] [employer] Address [address] [place] [address] 7t [place] [address] Care Team Providers Care Director Of Hotel Operations Name Role Phone Lucrecia Mejia [facility] Primary Care Provider [phone] Gladys Sibley SLUDGE CONTROL OPERATOR Primary Care Provider [phone] Johana Allen MD Primary Care Provider + Blade Noel RN Unavailable [phone] Reason for Visit * Reason Onset Date Comments Med Refill 01/12/2023 Encounter Details Date Type Department Care Team (Late st Contact Info) Description 01/12/2023 Refill [facility] MEDICINE [address] [place] [address] Lucrecia Mejia SLUDGE CONTROL OPERATOR [address] [facility] Dept [place] [address] Primary hypertension Social History Tobacco Use Types [...] documented as of this encounter Care Teams Director Of Hotel Operations Relationship Specialty Start Date End Date Lucrecia Mejia FNP PCP - General Family Medicine 11/18/22 03/29/23 Gladys Sibley FNP [address] [place] [address] PCP - General Family Medicine 03/30/23 12/19/23 Johana Allen MD [address] [place] [address] PCP - General Internal Medicine 12/20/23 Blade Noel RN [address] [place] [phone] Scaffold WorkerElectric Meter Repairer 06/09/24 09/03/24 documented as of this encounter
--- OUTSIDE RECORDS SUMMARY | 2024-12-21 12:40 | XMS_ITS | Clinical Summary ---
Author Organization [facility] Address [address] [place] [address] Phone Care Team Providers Care Foreign Banknote Teller Trader Name Role Phone Unavailable Primary Care Provider Unavailabl e Social History Tobacco Use Types Packs/Day Years Used Date Smoking Tobacco: Never Assessed Comments Unknown Sex and Gender Information Value Date Recorded Sex Assigned at Not on file Legal Sex Female 8:21 AM EDT Gender Identity Not on file Sexual Orientation Not on file Plan of Treatment Upcoming Encounters Date Type Department Care Team ([facility] Contact Info) Description 02/20/2025 2:30 PM EDT Appointment [facility] Xray [address] [place] [address] Health Maintenance Due Date Last [...] on patient's age to complete this topic Insurance MEDICAID - [place]
[2025-01-04 12:30] VITALS: BMI 38.8
== END 2024-12-21 13:04 | disposition home or self-care (01) ==
LOC: HO.ENCR 12:21
PROVIDERS: PCP Internal Medicine; Visit Provider Dietitian, Registered
DX: E66.01 Morbid (severe) obesity due to excess calories (principal)

== ENCOUNTER → 2024-12-21 12:20 | Outpatient (BNVA) | payer MEDICAID, SELFPAY | PROVIDERS: PCP Internal Medicine; Visit Provider Dietitian, Registered | DX: E66.01 Morbid (severe) obesity due to excess calories (principal) | CPT/HCPCS: 97803 ==

== ENCOUNTER 2025-02-05 13:50 | Outpatient (AMB) | payer MEDICAID, SELFPAY ==
--- OUTSIDE RECORDS SUMMARY | 2025-01-30 13:45 | XMS_ITS | Encounter Summary ---
Author Organization [facility] Address [address] [place] [address] Care Team Providers Care Business Objects Developer Name Role Phone Johana Allen MD Primary Care Provider + [phone] Reason for Referral * Cardiac Stress Testing (Routine) - Pending Review Specialty Diagnoses / Procedures Referred By Vu cárdenas Referred To Contact Cardiology Diagnoses Syncope and collapse Procedures Tilt table Chay Daniel MD [address] [facility] [place] [address] Phone: tel: fax: [facility] Referral ID Status Reason Start Date Expiration Date V isits Requested Visits Authorized [id number] Pending Review 10/27/2024 10/27/2025 1 1 Reason for Visit * Cardiac Stress Testing (Routine) - Pending Review Specialty Diagnoses / Procedures Referred By Vu cárdenas Referred To Contact Cardiology Diagnoses Syncope and collapse Procedures Tilt table Chay Daniel MD [address] [facility] [place] [address] Phone: tel: fax: [facility] Referral ID Status Reason Start Date Expiration Date V isits Requested Visits Authorized [id number] Pending Review 10/27/2024 10/27/2025 1 1 Encounter Details Date Type Department Care Team (Latest Contact Info) Description 01/30/2025 1:45 PM EDT - 01/30/2025 11:59 PM EDT Hospital Encounter [facility] Xray [address] [place] [address] Syncope and collapse Discharge Disposition: Home or Self Care Social History Tobacco Use Types Packs/Day Years Used Date Smoking Tobacco: Never Assessed Comments Unknown Sex and Gender Information Value Date Recorded Sex Assigned at Not on file Legal Sex Female 8:21 AM EDT Gender Identity Not on file Sexual Orientation Not on file documented as of this encounter Discharge Disposition Disposition Code Departure Means Destination Home or Self Care documented in this encounter Plan of Treatment Not on file documented as of this encounter Procedures Procedure Name Priority Date/Time Associated Diagnosis Comments TILT TABLE Routine 01/30/2025 1:51 PM EDT Syncope and collapse documented in this encounter Results * Tilt table (01/30/2025 1:51 PM EDT) Anatomical Region Laterality Modality Radiographic Julia ging Narrative 01/30/2025 2:34 PM EDT Pt had occasional multifocal PVC's. She is asymptomatic with these. Tilt Table The patient was brought to lab in fasting state. Patient lied supine for 5 minutes for equilibrium. Baseline ECG showed normal sinus rhythm. Baseline supine minimum BP: 129/70 mmHg Baseline supine minimum HR: 78 bpm Patient tilted to 70 degrees. Tilt maintained for 20 minutes. Minimum BP during tilt: 100/62 mmHg Maximum BP during tilt: 145/78 mmHg Minimum heart rate during tilt: 86 bpm Maximum heart rate during tilt: 94 bpm Rhythm during tilt: normal sinus rhythm There was a clear orthostatic response not noted. Patient experienced a physiologic HR increase with tilt. No symptoms reported. Premonitory symptoms were not reproduced. us Chay Daniel MD [facility] CED[facility] Final Result documented in this encounter Visit Diagnoses Diagnosis Syncope and collapse documented in this encounter Care Teams Business Objects Developer Relationship Specialty Start Date End Date Johana Allen MD [address] [address] PCP - General Internal Medicine 01/02/25 documented as of this encounter
--- NOTE | 2025-02-05 14:04 | A.OFFVIS_ITS ---
Vital Signs 02/05/25 14:05 Height 5 ft 4 in Weight 220 lb 7.396 oz BMI 37.8 BP 114/72 Blood Pressure Location Rt brachial Position Sitting Pulse 75 Pulse Source Monitor Intake Visit Reasons: f/u after tilt table Accounts Clerk Required: No Research Home Economist: Research Home Economist Present Allergies No Known Allergies Allergy (Verified 02/05/25 14:08) Medication List - Last Reconciled 02/05/25 by Priya Garcia NP-C cetirizine (Zyrtec) 10 mg PO DAILY PRN diltiazem HCl CD 120 mg PO DAILY docusate sodium (Stool Softener) 50 mg PO DAILY PRN ibuprofen 600 mg PO Q6H PRN lisinopril-hydrochlorothiazide 20-25 mg 1 tab PO QAM multivitamin 1 tab PO DAILY Zepbound (tirzepatide (weight loss)) 10 mg (0.5 mL) subcut QWEEK 30 days NS Zepbound (tirzepatide (weight loss)) 12.5 mg (0.5 mL) subcut QWEEK 28 days NS HPI HPI f/u after tilt table: Details: Yue is a 49-year-old female with past medical history of hypertension, obesity, syncope, mild aortic stenosis, who presents for follow-up after tilt- table test, cardiac event monitor. Today she reports that she has had some lightheadedness since her last visit in October but no full syncope. She has no recent heart palpitations. She has said in the past she noticed fluttering prior to a syncopal event. No chest discomfort, shortness of breath, PND, orthopnea or edema. She reports good activity tolerance. 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 There has been times when she has had to lay down due to light headedness symptom. She is now taking diltiazem as directed and has no adverse effects. Family member present. [facility] Medical History External hemorrhoids with complication Cholesterol granuloma Abnormal CT scan Hypertension Morbid obesity Supraclavicular mass Surgical History History of hemorrhoidectomy (~01/14/24) History of tonsillectomy History of ankle surgery Hx of right knee surgery Hx of tubal ligation Family History Maternal Aunt Breast cancer Colon cancer Son Crohn's disease of both small and large intestine with fistula Other Ovarian cancer Prostate cancer Stomach cancer Social History Household Members Other:: 3 kids Alcohol intake: current Alcohol intake frequency: former alcohol drinker Alcohol type: wine Patient Tobacco Use Status: Former Tobacco user Tobacco use type: Smokeless Tobacco Second Hand Smoke Exposure: No Current occupational status: employed Current occupation: [employer] Female Reproductive History Menstrual Age of Menarche: 11 Review of Systems Const All systems reviewed & are unremarkable except as noted in HPI and below ENT Reports dizziness Card Details: palpitation at times Denies chest pain, Denies chest pain at rest, Denies chest pain with activity, Denies rapid heart rate, Denies pedal edema, Denies edema, Denies leg edema, Denies lightheadedness, Denies palpitations, Denies dyspnea, Denies dyspnea on exertion and Denies orthopnea Resp Denies cough, Denies dyspnea and Denies dyspnea on exertion GI Denies hematochezia and Denies change in stool character Musc Denies abnormal gait, Denies limited range of motion, Denies muscle cramps, Denies muscle weakness, Denies numbness, Denies radiating pain into limb, Denies stiffness and Denies tingling Neuro Denies abnormal gait, Reports dizziness, Denies numbness and Denies tingling Endo Denies palpitations Physical Exam Vital Signs: Last Vital Signs Pulse 75 02/05/25 14:05 BP 114/72 02/05/25 14:05 BMI result Body Mass Index 37.8 Const General: cooperative, healthy appearing, comfortable and no acute distress Orientation/consciousness: patient oriented x3 Neck Neck: Yes normal visual inspection and Yes no JVD Resp Effort & Inspection: normal respiratory effort Auscultation: clear to auscultation bilaterally, no crackles, no rales, no rhonchi and no wheezes Cardio Rate: regular rate Rhythm: regular rhythm Heart sounds: S1 normal heart sound present, S2 normal heart sound present, no gallops, no murmurs and no rubs Neuro General: patient oriented x3 Extrem General: Yes normal to inspection and No no pedal edema Psych Appearance: grossly normal Mental Status: mental status grossly normal Speech and movement: Normal speech and movement present Office Procedures EKG Details: Today, read by me, Normal sinus rhythm, rate 75, Qtc 433ms [id number], Complete Assessment & Plan Assessment & Plan (1) Orthostatic hypotension: Code(s): I95.1 - Orthostatic hypotension Category: Medical Plan: Syncopal events reported. She underwent cardiac testing including echocardiogram 07/26/2024 showing EF 55-60%, mild aortic stenosis. A cardiac event monitor 11/02/2024 worn for 25 days showed sinus rhythm with average heart rate 89 beats per minute, rare supraventricular and ventricular ectopy, frequent sinus tachycardia, episode of monomorphic VT, 21 beats which was asymptomatic. She has not had her heart palpitations or a syncopal events since last visit. She had a tilt-table test done 01/30/2025 which showed orthostatic hypotension. Diagnosis of orthostatic hypotension reviewed with her in detail. Reviewed good hydration, recognizing symptoms and sitting/lay down if needed, wear compression stockings during the day. Cardiology follow-up 3-4 months, sooner if needed. (2) NSVT (nonsustained ventricular tachycardia): Code(s): I47.29 - Other ventricular tachycardia Category: Medical Plan: Episode of NSVT seen on Holter monitor. Echocardiogram shows normal EF which is reassuring. Her episodes was asymptomatic. Continue diltiazem 120 mg daily. Will check with her primary archivist economic history to see if any further treatment is needed. (3) Non-rheumatic aortic stenosis: Code(s): I35.0 - Nonrheumatic aortic (valve) stenosis Category: Medical Plan: Echo shows mild aortic stenosis which will be followed with periodic echoes. (4) Hypertension: Code(s): I10 - Essential (primary) hypertension Category: Medical Plan: Blood pressure goal less than 130/80. Controlled at this time. Continue diltiazem. Reviewed good hydration. Plan I discussed with the patient the diagnosis of orthostatic hypotension and its management, including hydration and compression stockings. We reviewed the importance of laying down when feeling faint to prevent falls. I explained the role of diltiazem in managing blood pressure and heart rate. I will consult with a archivist economic history regarding further evaluation of heart rhythm issues. A follow-up appointment was scheduled to monitor progress. Patient Instructions: - Stay hydrated and use compression stockings. - Lay down if feeling faint to stabilize blood pressure. - Continue taking diltiazem as prescribed. - Attend follow-up appointment as scheduled. Patient was informed and verbally consented to the use of an ambient scribe for clinic note documentation during this visit. Visit time spent on chart review, interview, assessment, orders, documentation. Coding Level of Care Code Est Pt Level 4 (62274) Complex EM visit Add On G2211 Diagnoses Orthostatic hypotension I95.1 NSVT (nonsustained ventricular tachycardia) I47.29 Non-rheumatic aortic stenosis I35.0 Hypertension I10 CPT Codes EKG - CPT: 26604-[id number], Complete ([id number]) Time Spent (min) 36
[2025-02-05 14:05] VITALS: BP 114/72; PULSE 75; BMI 37.8
--- OUTSIDE RECORDS SUMMARY | 2025-02-05 14:39 | XMS_ITS | Encounter Summary ---
Author Organization [employer] Address [address] [facility] [address] [place] [address] Care Team Providers Care Berry Picker Machine Operator Name Role Phone Lucrecia Mejia BYPRODUCTS MAKER Primary Care Provider Isabel Gladys Keita [employer]PRODU[employer] MAKER Primary Care Provider [phone] Johana Allen MD Primary Care Provider + Blade Noel RN Unavailable [phone] Reason for Visit * Reason Onset Date Comments Med Refill 01/12/2023 Encounter Details Date Type Department Care Team (Late st Contact Info) Description 01/12/2023 Refill [facility] [address] [place] [id number] Lucrecia Mejia FNP Primary hypertension Social History Tobacco Use Types [...] documented as of this encounter Care Teams Berry Picker Machine Operator Relationship Specialty Start Date End Date Lucrecia Mejia FNP PCP - General Family Medicine 11/18/22 03/29/23 Gladys Sibley FNP [address] [place] [address] PCP - General Family Medicine 03/30/23 12/19/23 Johana Allen MD [address] [place] [address] PCP - General Internal Medicine 12/20/23 Blade Noel RN [address] [place] [address] Packing Machine Pilot Can RouterTanning Wheel Filler 06/09/24 09/03/24 documented as of this encounter
== END 2025-02-05 14:56 | disposition home or self-care (01) ==
LOC: HO.HCS 13:50
PROVIDERS: PCP Internal Medicine; Visit Provider Nurse Practitioner Family
DX: I95.1 Orthostatic hypotension (principal); I47.29 Other ventricular tachycardia; I35.0 Nonrheumatic aortic (valve) stenosis; I10 Essential (primary) hypertension
CPT/HCPCS: 93010; 99214

== ENCOUNTER → 2025-02-05 13:50 | Outpatient (BNVA) | payer MEDICAID, SELFPAY | PROVIDERS: PCP Internal Medicine; Visit Provider Nurse Practitioner Family | DX: I95.1 Orthostatic hypotension (principal); I47.29 Other ventricular tachycardia; I35.0 Nonrheumatic aortic (valve) stenosis; I10 Essential (primary) hypertension | CPT/HCPCS: 93005; 99212 ==

== ENCOUNTER 2025-02-07 09:24 | Outpatient (AMB) | payer MEDICAID, SELFPAY ==
[2025-02-07 09:36] VITALS: BMI 38.1
--- NOTE | 2025-02-07 09:36 | A.OFFVIS_ITS ---
VS Expanded 02/07/25 09:36 02/12/25 14:05 Height 5 ft 4 in 5 ft 4 in Weight 222 lb 3.615 oz 222 lb BMI 38.1 38.1 Intake Visit Reasons: obesity Allergies No Known Allergies Allergy (Verified 02/05/25 14:08) Nutrition Presentation Details: Pt presents for MNT f/u for obesity Pt reports doing well, working on diet modifications gradually, choosing lower calorie food options and choosing higher fiber rich foods Has questions regarding meal replacements OZE-Zwwpnjv-Wy.Jeor Equation Height: 5 ft 4 in Weight: 222 lb Resting Metabolic Rate: 1619.89 Calculated Activity Level: Sedentary Calories Needed to Maintain Weight: 1943.87 [facility] Medical History External hemorrhoids with complication Cholesterol granuloma Abnormal CT scan Hypertension Morbid obesity Supraclavicular mass Surgical History History of hemorrhoidectomy (~01/14/24) History of tonsillectomy History of ankle surgery Hx of right knee surgery Hx of tubal ligation Family History Maternal Aunt Breast cancer Colon cancer Son Crohn's disease of both small and large intestine with fistula Other Ovarian cancer Prostate cancer Stomach cancer Social History Household Members Other:: 3 kids Alcohol intake: current Alcohol intake frequency: former alcohol drinker Alcohol type: wine Patient Tobacco Use Status: Former Tobacco user Tobacco use type: Smokeless Tobacco Second Hand Smoke Exposure: No Current occupational status: employed Current occupation: [employer] Female Reproductive History Menstrual Age of Menarche: 11 Assessment & Plan Assessment & Plan (1) Morbid obesity: Code(s): E66.01 - Morbid (severe) obesity due to excess calories Category: Medical Plan: Wt: 105 Kg ( 10/13 ), 103 kg(01/13), 100 kg (02/12) Est kcal needs as per MSJ: 1900 (40% carb, 30% protein/fat) Est fluid needs as per 25-30 ml/d: 3000 Est prot per day as per 1 g/kg bw: 80-100 Recommend fiber intake : 8-10 g per day and gradually increase to 25-28 g per day for women and 35-38 g for men or as tolerated Recommend sodium intake per day : less than 2000 mg Educated patient on: ( R = reviewed V = verbalizes understanding N/R = needs review N/A = not applicable * Food sources of carbohydrate, adequate serving sizes and its role in various health conditions: R * Differences between complex carbohydrates a simple carbohydrates, role of fiber in diet: R * Lean protein sources of foods: R * meal replacements: R * Differences between types of fats and role in diet (mono on saturated fat fatty acids, saturated fatty acids, trans fats): R V N/R * Food sources of sodium in salt and healthy modifications for heart health in kidney health: R V R/V * Vitamins and minerals: R V N/R * Healthy plate method concept: R V N/R * Physical activity: Benefits a precaution: R Patient Instructions: Have 1 meal replacement as your lunch - see list options as meal replacement keep hydrated by having water with meals/snacks , choose fruit/herb infused beverages Keep physically active as able , walk 30 daily unless otherwise specified by your doctor Coding Level of Care Code Nutr Indiv Subseq (31841) Diagnoses Morbid obesity E66.01 Time Spent (min) 30
--- OUTSIDE RECORDS SUMMARY | 2025-02-07 10:08 | XMS_ITS | Clinical Summary ---
Author Organization [facility] Address [address] [place] [address] Phone Care Team Providers Care Medical Practitioners Name Role Phone Johana Allen MD Primary Care Provider + [phone] Allergies No known active allergies Encounters Date Type Department Care Team Description 01/30/2025 1:45 PM EDT - 01/30/2025 11:59 PM EDT Hospital Encounter [facility] Xray [address] [place] [address] Syncope and collapse Discharge Disposition: Home or Self Care 01/02/2025 4:42 PM EDT - 01/02/2025 9:20 PM EDT Emergency [facility] Emergency [address] [place] [address] Syncope and collapse (Primary Dx); Hypomagnesemia Discharge Disposition: Home or Self Care from Last 3 Months Social History Tobacco Use Types Packs/Day Years Used Date Smoking Tobacco: Never Assessed Comments Unknown Sex and Gender Information Value Date Recorded Sex Assigned at Not on file Legal Sex Female 8:21 AM EDT Gender Identity Not on file Sexual Orientation Not on file Last Filed Vital Signs Vital Sign Reading Time Taken Comments Blood Pressure 132/86 01/02/2025 8:09 PM EDT Pulse 83 01/02/2025 8:09 PM EDT Temperature 36.7 C (98.1 F) 01/02/2025 8:09 PM EDT Respiratory Rate 16 01/02/2025 8:09 PM EDT Oxygen Saturation 99% 01/02/2025 8:09 PM EDT Inhaled Oxygen Concentration - - Weight 103 kg (226 lb 6.4 oz) 01/02/2025 5:04 PM EDT Height 165.1 cm (5' 5 ) 01/02/2025 5:04 PM EDT Body Mass Index 37.67 01/02/2025 5:04 PM EDT Plan of Treatment Health Maintenance Due Date Last Done Comments Breast Cancer Screening 1975 Hepatitis B Vaccines (1 of 3 - 19+ 3-dose series) 1994 Cervical Cancer Screening: P ap Smear 1996 COVID-19 Vaccine ( - 2023-2 5 season) 2024 08/18/2021, 03/02/2021, 02/09/2021 Depression Screening 06/21/2024 Cholesterol Screening (Lipid Panel) 10/27/2024 Colorectal Cancer Screening: Colonoscopy 10/27/2024 Hepatitis C Screening 10/27/2024 Social Influencers of Health Screening 10/27/2024 Influenza Vaccine (#1) 2025 , 04/16/2023 Hypertension/CHF/CAD Annual BMP Blood Test 01/02/2026 01/02/2025 DTaP,Tdap,and Td Vaccines (2 - Td or Tdap) 12/20/2033 12/21/2023 HIV Screening Completed 11/18/2022 HIB Vaccines Aged Out No longer eligi [...] age to complete this topic Pneumococcal Vaccine: Pediatrics (0 to 5 Years) and At-Risk Patients (6 to 49 Years) Aged Out No longer eligible b ased on patient's age to complete this topic RSV Immunization Patients Under 20 months Aged Out No longer eligible b ased on patient's age to complete this topic Varicella Vaccines Aged Out No longer eligible based on patient's age to complete this topic Procedures Procedure Name Priority Date/Time Associated Diagnosis Comments TILT TABLE Routine 01/30/2025 1:51 PM EDT Syncope and collapse CT HEAD WO CONTRAST STAT 01/02/2025 7 :58 PM EDT XR CHEST 1 VIEW STAT 01/02/2025 5:44 PM EDT HCG, SERUM, QUALITATIVE STAT Add-on 01/02/2025 5:30 PM EDT TROPONIN I HIGH SENSITIVITY STAT 01/02/2025 5:30 PM EDT CBC WITH AUTO DIFFERENTIAL STAT 01/02/2025 5:30 PM EDT MAGNESIUM STAT 01/02/2025 5:30 PM EDT BASIC METABOLIC PANEL STAT 01/02/2025 5:30 PM EDT CBC AND DIFFERENTIAL STAT 01/02/2025 5:30 PM EDT ECG 12-LEAD STAT 01/02/2025 5:24 PM EDT from Last 3 Months Results * Tilt table (01/30/2025 1:51 PM [...] symptoms reported. Premonitory symptoms were not reproduced. Chay Daniel MD [facility] PRO CEDURES Final Result * CT Head wo Contrast (01/02/2025 7:58 PM EDT) Anatomical Region Laterality Modality Head and Neck Computed Tomogra phy 01/02/2025 8:34 PM EDT Impressions 01/02/2025 8:34 PM EDT Impression: 1. No acute intracranial abnormalities. This document has been electronically signed by: Corey Blanca MD on 01/02/2025 20:34:55 Narrative 01/02/2025 8:34 PM EDT INDICATION: Dizziness, non-specific CT head without contrast Comparison: None Findings: No intracranial mass, midline shift, hydrocephalus, or acute hemorrhage. No CT evidence of acute ischemia. Visualized paranasal sinuses and mastoid air cells normal. Orbits unremarkable. No skull fracture Procedure Note Corey Blanca MD - 01/02/2025 INDICATION: Dizziness, non-specific CT head without contrast Comparison: None Findings: No intracranial mass, midline shift, hydrocephalus, or acute hemorrhage. No CT evidence of acute ischemia. Visualized paranasal sinuses and mastoid air cells normal. Orbits unremarkable. No skull fracture IMPRESSION: Impression: 1. No acute intracranial abnormalities. This document has been electronically signed by: Corey Blanca MD on 01/02/2025 20:34:55 Maria Dolores Driscoll NP IMG CT PROCEDURES Final Result * XR Chest 1 View (01/02/2025 5:44 PM EDT) Anatomical Region Laterality Modality Body Radiographic Julia ging 01/03/2025 8:21 AM EDT Impressions 01/03/2025 8:22 AM EDT Impression: No active pulmonary process identified. Telerad RANULFO ([id number]) -------- FINAL REPORT -------- Dictated By: Hellen Quiroz Dictated Date: 01/03/2025 08:21 ET Assigned Physician: Hellen Quiroz Reviewed and Electronically Signed By: Hellen Quiroz Signed Date: 01/03/2025 08:22 ET Workstation ID: [id number] Transcribed By: Self Edit Transcribed Date: 01/03/2025 08:21 ET Narrative 01/03/2025 8:22 AM EDT History: Syncope. Comparison: No previous imaging at this institution. Findings: Portable AP upright chest at 5:40 PM. The cardiomediastinal silhouette, hilar contours and pulmonary vascularity are within normal limits. The lungs are clear. The costophrenic angles are sharp. Procedure Note Hellen Quiroz MD - 01/03/2025 History: Syncope. Comparison: No previous imaging at this institution. Findings: Portable AP upright chest at 5:40 PM. The cardiomediastinal silhouette,hilar contours and pulmonary vascularity are within normal limits. Thelungs are clear. The costophrenic angles are sharp. IMPRESSION: Impression: No active pulmonary process identified. Telerad PA ([id number]) -------- FINAL REPORT -------- Dictated By: Hellen Quiroz Dictated Date: 01/03/2025 08:21 ET Assigned Physician: Hellen Quiroz Reviewed and Electronically Signed By: Hellen Quiroz Signed Date: 01/03/2025 08:22 ET Workstation ID: [id number] Transcribed By: Self Edit Transcribed Date: 01/03/2025 08:21 ET us Maria Dolores Driscoll NP IMG XR PROCEDURES Final Result * Troponin I high sensitivity (01/02/2025 5:30 PM EDT) High Sensitivity Troponin I 7 <=54 ng/L LAB CHEMISTRY METHOD 01/02/2025 6:27 PM EDT [facility] Blood Venous blood specimen / Unknown Venipuncture / Unknown 01/02/2025 5:30 PM EDT 01/02/2025 5:53 PM EDT Narrative [facility] - 01/02/2025 6:27 PM EDT High levels of biotin in samples may falsely decrease hsTroponin values. Use caution when interpreting hsTroponin results in patients taking biotin who exhibit renal impairment (eGFR <60) or in patients taking more than 20 mg/day of biotin. us Maria Dolores Driscoll NP LAB BLOOD ORDERABLES Final Resu lt [facility] [address] [place] [address], * (ABNORMAL) CBC auto differential (01/02/2025 5:30 PM EDT) [facility] WBC 6.4 4.8 - 10.8 K/mcL LAB HEMETOLOGY METHOD 01/02/2025 6:00 PM EDT [facility] RBC 4.00 3.80 - 4.80 M/mcL LAB HEMETOLOGY [facility] Hemoglobin 11.4(L) 11.5 - 16.0 g/dL LAB HEMETOLOGY METHOD 01/02/2025 6:00 PM EDT [facility] Hematocrit 34.0(L) 35.0 - 47.0 % LAB HEMETOLOGY METHOD 01/02/2025 6:00 PM EDT [facility] MCV 85.4 79.0 - 98.0 FL LAB HEMETOLOGY METHOD 01/02/2025 6:00 PM EDT [facility] MCH 28.6 27.0 - 32.0 pcg LAB HEMETOLOGY METHOD 01/02/2025 6:00 PM EDT [facility] MCHC 33.5 32.0 - 37.0 g/dL LAB HEMETOLOGY METHOD 01/02/2025 6:[facility] RDW 14.2 11.0 - 15.0 % LAB HEMETOLOGY METHOD 01/02/2025 6:00 PM [facility] Platelets 398 130 - 400 K/mcL LAB HEMETOLOGY METHOD 01/02/2025 6:00 [facility] MPV 9.3 7.0 - 11.0 FL LAB HEMETOLOGY METHOD 01/02/2025 6:00 PM [facility] NRBC 0.0 <1.0 % LAB HEMETOLOGY METHOD 01/02/2025 6:00 PM [facility] NRBC Absolute 0.00 <0.10 K/mcL LAB HEMETOLOGY METHOD 01/02/2025 6:00 PM [facility] Neutrophils Relative 46.8 % LAB HEMETOLOGY METHOD 01/02/2025 6:00 PM [facility] Lymphocytes Relative 37.8 % LAB HEMETOLOGY METHOD 01/02/2025 6:00 PM [facility] Monocytes Relative 7.4 % LAB HEMETOLOGY METHOD 01/02/2025 6:00 PM [facility] Eosinophils Relative 6.9 % LAB HEMETOLOGY METHOD 01/02/2025 6:00 PM [facility] Basophils Relative 0.8 % LAB HEMETOLOGY METHOD 01/02/2025 6:00 PM [facility] Immature Granulocytes Relative 0.3 % LAB HEMETOLOGY METHOD 01/02/2025 6:00 PM [facility] Neutrophils Absolute 2.98 1.50 - 7.00 K/mcL LAB HEMETOLOGY METHOD 01/02/2025 6:00 PM [facility] Lymphocytes Absolute 2.41 1.00 - 5.00 K/mcL LAB HEMETOLOGY METHOD 01/02/2025 6:00 PM [facility] Monocytes Absolute 0.47 0.20 - 1.00 K/mcL LAB HEMETOLOGY METHOD 01/02/2025 6:00 PM [facility] Eosinophils Absolute 0.44 0.00 - 0.50 K/mcL LAB HEMETOLOGY METHOD 01/02/2025 6:00 PM EDT [facility] Basophils Absolute 0.05 0.00 - 0.20 K/[facility] LAB HEMETOLOGY METHOD 01/02/2025 6:00 PM EDT [facility] Immature Granulocytes Absolute 0.02 0.00 - 0.03 K/[facility] LAB HEMETOLOGY METHOD 01/02/2025 6:00 PM EDT [facility] Blood Venous blood specimen / Unknown Venipuncture / Unknown 01/02/2025 5:30 PM EDT 01/02/2025 5:53 PM EDT Jazmyne Morrison PA LAB BLOOD ORDERABLES Fin al Result Performing Organization Address [facility]/ZIP Co de Phone Number [facility] [address] [place] [address], * hCG, serum, qualitative (01/02/2025 5:30 PM EDT) Pathologist [facility] hCG Qual Negative Negative 01/02/2025 7:36 PM EDT [facility] Blood Venous blood specimen / Unknown Venipuncture / Unknown 01/02/2025 5:30 PM EDT 01/02/2025 5:53 PM EDT Maria Dolores Driscoll [employer] LAB BLOOD ORDERABLES Final Resu lt [facility] [address] [place] [address], [place] [phone] * (ABNORMAL) Magnesium (01/02/2025 5:30 PM EDT) Magnesium 1.5(L) 1.9 - 2.6 mg/dL LAB CHEMISTRY METHOD 01/02/2025 6:23 PM EDT [facility] Blood Venous blood specimen / Unknown Venipuncture / Unknown 01/02/2025 5:30 PM EDT 01/02/2025 5:53 PM EDT Jazmyne [facility] LAB BLOOD ORDERABLES Phill al Result [facility] [address] [place] [address], [place] [phone] * (ABNORMAL) Basic metabolic panel (01/02/2025 5:30 PM EDT) [facility] Sodium 139 133 - 145 mmol/L LAB CHEMISTRY METHOD 01/02/2025 6:23 PM EDT [facility] Potassium 3.9 3.5 - 5.5 mmol/L LAB CHEMISTRY METHOD 01/02/2025 6:23 PM [facility] Chloride 108 96 - 110 mmol/L LAB CHEMISTRY METHOD 01/02/2025 6:23 PM [facility] CO2 25 21 - 32 mmol/L LAB CHEMISTRY METHOD 01/02/2025 6:23 PM [facility] Anion Gap 6 3 - 11 LAB CHEMISTRY METHOD 01/02/2025 6:23 PM [facility] Glucose 87 70 - 100 mg/dL LAB CHEMISTRY METHOD 01/02/2025 6:23 PM [facility] BUN 24 5 - 25 mg/dL LAB CHEMISTRY METHOD 01/02/2025 6:23 PM T [facility] Creatinine 1.15(H) 0.50 - 1.10 mg/dL LAB CHEMISTRY METHOD 01/02/2025 6:23 PM [facility] eGFR 59(L) >=60 mL/min/1. 73m2 LAB CHEMISTRY METHOD 01/02/2025 6:23 PM [facility] Comment:Calculation based on the Chronic Kidney Disease Epidemiology Collaboration (CKD-EPI) equation refit without adjustment for race. BUN/Creatinine Ratio 20.9 LAB CHEMISTRY METHOD 01/02/2025 6:23 PM EDT [facility] Calcium 9.9 8.5 - 10.5 mg/dL LAB CHEMISTRY METHOD 01/02/2025 6:23 PM EDT [facility] Blood Venous blood specimen / Unknown Venipuncture / Unknown 01/02/2025 5:30 PM EDT 01/02/2025 5:53 PM EDT Jaz[facility]ne [facility] LAB BLOOD ORDERABLES Fin al Result Performing Organization Address [facility]/ZIP Co de Phone Number [facility] [address] [place] [address], * ECG 12 lead (01/02/2025 5:24 PM EDT) Ventricular Rate ECG 81 BPM GEMUSE Atrial Rate 81 BPM GEMUSE P-R Interval 142 ms GEMUSE QRS Duration 86 ms GEMUSE Q-T Interval 372 ms GEMUSE QTc 432 ms GEMUSE P Wave [place] 36 degrees GEMUSE R [place] 7 degrees GEMUSE T [place] 47 degrees GEMUSE ECG Interpretation Normal sinus rhythm Normal ECG No previous ECGs available Confirmed by Jose ALVAREZ, MARBELLA ([id number]) on 01/02/2025 7:30:59 PM GEMUSE 01/02/2025 5:24 PM EDT 01/02/2025 7:30 PM EDT Jazmyne [facility] ECG ORDERABLES Final Re sult GEMUSE from Last 3 Months Insurance MEDICAID - [place] Care Teams Medical Practitioners Relationship Specialty Start Date End Date Johana Allen MD [address] [place] [address] [phone] PCP - General Internal Medicine 01/02/25
--- OUTSIDE RECORDS SUMMARY | 2025-02-07 10:08 | XMS_ITS | Encounter Summary ---
Author Organization [employer] Address [address] [place] [address] [address] [place] [address] Care Team Providers Care Carton Making Machinist Name Role Phone Lucrecia Mejia CAN VACUUM TESTER Primary Care Provider Isabel Gladys Keita CAN VACUUM TESTER Primary Care Provider [phone] Johana Allen MD Primary Care Provider + Blade Noel RN Unavailable [phone] Reason for Visit * Reason Onset Date Comments Med Refill 01/12/2023 Encounter Details Date Type Department Care Team (Late st Contact Info) Description 01/12/2023 Refill [facility] [address] [place] [id number] Lucrecia Mejia FNP Primary hypertension Social History [...] documented as of this encounter Care Teams Carton Making Machinist Relationship Specialty Start Date End Date Lucrecia Mejia FNP PCP - General Family Medicine 11/18/22 03/29/23 Gladys Sibley FNP [address] [place] [address] PCP - General Family Medicine 03/30/23 12/19/23 Johana Allen MD [address] [place] [address] PCP - General Internal Medicine 12/20/23 Blade Noel RN [address] [place] [phone] Video Game Script WriterDiamond Cutter 06/09/24 09/03/24 documented as of this encounter
[2025-02-12 14:05] VITALS: BMI 38.1
== END 2025-02-07 09:57 | disposition home or self-care (01) ==
LOC: HO.ENCR 09:25
PROVIDERS: PCP Internal Medicine; Visit Provider Dietitian, Registered
DX: E66.01 Morbid (severe) obesity due to excess calories (principal)

== ENCOUNTER → 2025-02-07 09:24 | Outpatient (BNVA) | payer MEDICAID, SELFPAY | PROVIDERS: PCP Internal Medicine; Visit Provider Dietitian, Registered | DX: E66.01 Morbid (severe) obesity due to excess calories (principal) | CPT/HCPCS: 97803 ==

== ENCOUNTER 2025-03-19 09:24 | Outpatient (AMB) | payer MEDICAID, SELFPAY ==
--- NOTE | 2025-03-19 09:29 | MHC.OFFVIS ---
Vital Signs 03/19/25 09:31 Height 5 ft 4 in Weight 215 lb 9.793 oz BMI 37.0 BP 100/78 Blood Pressure Location Rt brachial Position Sitting Pulse 98 Pulse Source Pulse Oximeter Pulse Oximetry (%) 98 Oxygen Delivery Method Room Air Intake Visit Reasons: obesity Intake Note: Patient presents here today for a follow-up on Weight Management. Commercial Crabber Required: No Accompanied by: Self / Same As Patient Allergies No Known Allergies Allergy (Verified 03/19/25 09:32) Medication List - Last Reconciled 03/19/25 by Isaias Núñez MD cetirizine (Zyrtec) 10 mg PO DAILY PRN diltiazem HCl CD 120 mg PO DAILY docusate sodium (Stool Softener) 50 mg PO DAILY PRN ibuprofen 600 mg PO Q6H PRN lisinopril-hydrochlorothiazide 20-25 mg 1 tab PO QAM multivitamin 1 tab PO DAILY Zepbound (tirzepatide (weight loss)) 12.5 mg (0.5 mL) subcut QWEEK 28 days NS HPI Comments Details: This is a 49-year-old female sent to endocrinology for evaluation of obesity. Took Wegovy for 4 wks. Tried dietary attempts prior. On Zepbound since 07/2024. On 5 mg 3 wks ago. Not seen a sales associate cashier. Zepbound has not changed appetite or choice of foods . Walks 30 min/day. No family hx of DM. Noticed increased brsing and hair growth on face but no specific symptoms of [place] syndrome. Snores at night. Not been worked up for sleep apnea. Still gets menses irregular 2 mos ago. 3 children - no diabetes during . She has tried cutting back on portion size increase fluids without any effect. Currently on Zepbound 12 .5 mg Qwkly . Lost 7 lb since last visit. And normal 24 hour UFC [facility] Medical History (Updated 02/05/25 @ 16:55 by BILL Huynh) External hemorrhoids with complication Cholesterol granuloma Abnormal CT scan Hypertension Morbid obesity Supraclavicular mass Surgical History History of hemorrhoidectomy (~01/14/24) History of tonsillectomy History of ankle surgery Hx of right knee surgery Hx of tubal ligation Family History Maternal Aunt Breast cancer Colon cancer Son Crohn's disease of both small and large intestine with fistula Other Ovarian cancer Prostate cancer Stomach cancer Social History Household Members Other:: 3 kids Alcohol intake: current Alcohol intake frequency: former alcohol drinker Alcohol type: wine Patient Tobacco Use Status: Former Tobacco user Tobacco use type: Smokeless Tobacco Second Hand Smoke Exposure: No Current occupational status: employed Current occupation: [employer] Female Reproductive History Menstrual Age of Menarche: 11 Assessment & Plan Assessment & Plan (1) Morbid obesity: Code(s): E66.01 - Morbid (severe) obesity due to excess calories Category: Medical Plan This is a 49-year-old black female with a history of obesity and insulin resistance. There was no clear underlying endocrine etiology behind the obesity. Currently on Zepbound Plan is to continue Zepbound recently dose to 15 mg Q weekly. We will have patient follow up in about 4 months' time. Medications: New tirzepatide (weight loss) (Zepbound) 15 mg (0.5 mL) subcut QWEEK 2 mL 5RF Discontinued Zepbound (tirzepatide (weight loss)) Discontinued Reason: Doctor's Order 12.5 mg (0.5 mL) subcut QWEEK 28 days 2 mL 3RF NS Coding Level of Care Code Est Pt Level 3 (05144) Diagnoses Morbid obesity E66.01
[2025-03-19 09:31] VITALS: BP 100/78; PULSE 98; O2SAT 98; BMI 37.0
--- OUTSIDE RECORDS SUMMARY | 2025-03-19 10:10 | XMS_ITS | Clinical Summary ---
Author Organization [employer] Address [address] [place] [address] 7[address] [place] [address] Care Team Providers Care Birthing Nurse Name Role Phone Johana Allen MD [...] intensity exercise. FU with endocrinology and their nurse first assist Witnessed episode of apnea 09/29/2024 Acanthosis nigricans 08/01/2024 Assessment & Plan (08/01/2024 9:37 AM EST): I discussed with pt that it is a marker for insulin resistance, will refer to senior oracle dba and rule out hyper cortisol conditions. Nonrheumatic [...] nose drops to loosen mucus Take Acetaminophen (Tylenol )/Ibuprofen as needed to reduce fever, headache, body [...] 72 hours (temperature should be less than 100 F without medication). High liver transaminase level 04/19/2024 [...] associated hyper cortisol conditions, will refer to senior oracle dba. Assessment & Plan (06/15/2024 1:13 PM EST): [...] uterine bleeding (AUB) 12/30/2022 Overview (01/04/2023): 12/30/22 Clinical Analyst visit: Co testing with GC and chlamydia [...] This is not seen on the CT scan. Her CAT scan however shows a lesion [...] BP daily and follow-up with me or senior oracle dba. Assessment & Plan (04/06/2024 4:23 PM EDT): [...] of 40.0 to 44.9 in adult 04/06/2024 5 Assessment & Plan (08/01/2024 9:27 AM [...] life style modifications, diet and referral to technician inventory specialist. She has tried all that and is currently on a personal banker program. Recommended to decrease soda and sugary [...] Encounters Date Type Department Care Team Description 02/12/2025 Telephone [facility] MEDICINE [address] [place] [address] Johana Allen MD FYI from Last 3 Months Immunizations Immunization Administration [...] t he electric, gas, oil or water [employer] threatened to shut off services in your [...] 80 09/29/2024 10:17 AM EDT Temperature 36.8 C (98.2 F) 09/29/2024 10:17 AM EDT Respiratory Rate 16 09/29/2024 10:17 AM EDT Oxygen Saturation 100% 09/29/2024 10:17 AM EDT Inhaled Oxygen Concentration - - Weight 107 kg (235 lb 8 oz) 09/29/2024 10:17 AM EDT Height 165.1 cm (5' 5 ) 09/29/2024 10:17 AM EDT Body Mass Index 39.19 09/29/2024 10:17 AM EDT Plan of Treatment Upcoming Encounters Date Type Department Care Team (Late st Contact Info) Description 05/03/2025 9:45 AM EST Office Visit [facility] MEDICINE [address] [place], [place] [phone] Johana Allen MD [address] [place] [address] Health Maintenance Due Date Last Done Comments CT Colonography 1975 FIT DNA/Cologuard 1975 FIT 1975 FOBT 1975 Sigmoidoscopy 1975 Disability Screening 1975 Family Planning (PISQ) 1990 Hepatitis B Vaccines (1 of 3 - 19+ 3-dose series) 1994 Pneumococcal Vaccine: Pediatrics (0 to 5 Years) and At-Risk Patients (6 to 49) Years (1 of 2 - PCV) 1994 Mammogram 11/18/2024 11/19/2023, 06/0 12/2022, 11/25/2022, Additional history exists COVID-19 Vaccine ( season) 2025 08/18/2021, 03/02/2021, 02/09/2021 Influenza Vaccine (#1) 2025 03/31/2024, 2022 Diabetes: Hemoglobin A1C 03/31/2025 024, 10/20/2023, 11/18/2022 [...] 75+ series) 2050 HIV Screening Completed 11/18/2022 Hepatitis C Screening Completed 04/18/2024, 023 HIB [...] (BMI) of 40.0 to 44.9 in adult ([facility]) LIPID PANEL WITH REFLEX TO DIRECT LDL Routine 04/18/2024 11:45 AM EDT Class 3 severe obesity due to excess calories with serious comorbidity and body mass index (BMI) of 40.0 to 44.9 in adult (CMS/[facility]) POCT GLYCATED HEMOGLOBIN, TOTAL Routine 03/31/2024 10:54 [...] 11:45 AM EDT) Triglycerides 91 <150 mg/dL [facility] Comment:Desirable Triglyceri de: less than 150 mg/dLBorderline High Triglyceride 150-199 mg/dLHigh Triglyceride: 200-499 mg/dLVery High Triglyceride: greater than or equal to 5OO mg/dL Cholesterol 186 <200 mg/dL [facility] Comment:Desirable Cholestero l: less than 200 mg/dLBorderline High Cholesterol: 200-239 mg/dLHigh Cholesterol: greater than 239 mg/dL LDL Cholesterol Calculated 105(H) <100 mg/dL [facility] Comment:Desirable LDL: less than 100 mg/dLNear Optimal/Above Optimal LDL: 110- 129 mg/dLBorderline High LDL: 130-159 mg/dLHigh LDL: 160-189 mg/dLVery High LDL: greater than or equal to 190 mg/dL HDL Cholesterol 63 >40 mg/dL [facility] Comment:Desirable HDL: great er than 40 mg/dL Note: This HDL assay may give artificially low results in patients with liver disease. Blood 04/18/2024 11:4 5 AM EDT 04/18/2024 1:24 PM EDT Johana Allen MD LAB BLOOD ORDERABLES Fin al Result Performing Organization Address [facility] Co de Phone Number [facility] [address] [place] [address] [phone] * Hepatitis Panel, General (04/18/2024 11:45 AM EDT) Pathologist [facility] Hepatitis A IgM Nonreactive Nonreactive [facility] Comment:IgM antibodies to NAVAS V not detected; does not exclude earlyacute or recovered HAV infection. ~Hepatitis B Surface Antibody REACTIVE Nonreactive [facility] Comment:REACTIVE: > 11.99 mI U/mL Hepatitis B Core Antibody Nonreactive Nonreactive [facility] Hepatitis C Antibody Nonreactive Nonreactive [facility] Comment:Antibodies to HCV no t detected; does not exclude early acuteHCV infection. Hepatitis B Surface Ag Negative Negative [facility] Blood 04/18/2024 11:4 5 AM EDT 04/18/2024 1:24 PM EDT Johana Allen MD LAB BLOOD ORDERABLES Fin al Result Performing Organization Address [facility] Co de Phone Number [facility] [address] [place] [address] [phone] * POCT HGB A1C (03/31/2024 10:54 AM EDT) Pathologist [facility] Hemoglobin A1C 5.8 4.0 - 6.0 % QC Media Lot # [id number] Lot# Expiration Date ,[id number] Blood 03/31/2024 10:5 4 AM EDT Johana Allen MD POINT OF CARE TEST ENTER /EDIT ORDERABLES Final Result * BI Mammogram Screening Tomosynthesis Bilateral (11/19/2023 1:12 PM EDT) Anatomical Region Laterality Modality Breast Bilateral Mammography 11/19/2023 1:12 PM EDT Narrative 12/07/2023 1:53 PM EDT [facility] [address] [place] [address] Mammography Report Signed Patient: Yue Swan MR#: [id number] : 1975 Acct:[id number] Age/Sex: 48 / F ADM Date: 11/19/23 Loc: HO.MAMMO Attending Dr: Jeannine Umana CNM Ordering Physician: JEANNINE UMANA CNM Results: 2 Benign Findings Date of Service: 11/19/23 Follow Up: 1 Year From Orig ina Mammogram Procedure(s): MM tomosynthesis screening BI Accession Number(s): [id number] cc: Gladys Sibley GRADE FOREMAN; JEANNINE UMANA CNM EXAMINATION: MM SCREENING DIGITAL [...] in OV> 12/07/23 1349 DD/ 1312 TD/TT: Data Warehouse Consultant: Procedure Note Donotuseinterpreter, Image - 12/07/[facility] [address] [place] [address] Mammography Report Signed Patient: Yue SwanMR#: [id number] : 1975Acct:[id number] Age/Sex: 48 / FADM Date: 11/19/23 Loc: RUBIN.LIZZETTE Attending Dr: Jeannine Umana CNM Ordering Physician: JEANNINE UMANAesults: 2 Benign Findings Date of Service: 11/19/23Follow Up: 1 Year From Orig ina Mammogram Procedure(s): MM tomosynthesis screening BI Accession Number(s): [id number] cc: Gladys Sibley GRADE FOREMAN; JEANNINE UMANA CNM EXAMINATION: MM SCREENING DIGITAL [...] in OV> 12/07/23 1349 DD/ 1312 TD/TT: Data Warehouse Consultant: Jeannine Umana CNM IMG BI PROCEDURES Final R esult * Hm Colonoscopy (08/31/2023) Colonoscopy Normal Normal Johana Allen MD HEALTH MAINTENANCE Final Result * HIV-1/2 Antigen and Antibodies, Fourth Generation, with Reflexes (11/18/2022 11:55 AM EDT) HIV Antigen/Antibody, 4th Generation NON-REAC TIVE NON-REAC TIVE [facility] [place] [employer] Comment: HIV-1 antigen and HIV-1/HIV-2 antibodies were not detected. There is no laboratory evidence of HIV infection. PLEASE NOTE: This information has been disclosed to you from records whose confidentiality may be protected by state law. If your state requires such protection, then the state law prohibits you from making any further disclosure of the information without the specific written consent of the person to whom it pertains, or as otherwise permitted by law. A general authorization for the release of medical or other information is NOT sufficient for this purpose. For additional information please refer to http://education.ViroXis/faq/XPK561 (This link is being provided for informational/ educational purposes only.) The performance of this assay has not been clinically validated in patients less than 2 years old. Blood Venous blood specimen / Unknown 11/18/2022 11:55 AM EDT 11/18/2022 11:56 AM EDT Narrative [facility] - 11/19/2022 6:04 PM EDT FASTING:YES FASTING: YES Keisha CUEVAS LAB BLOOD ORDERABLES Final Resul t [facility] [address], [place] [address] [facility] [place] [facility] [address] [place] [address] * Image-Guided Pap with Age-Based Screening??with CT/NG,??Trichomonas (10/22/2022 10:08 AM EDT) Comment [facility] Comment: This order for age-based cervical cancer and STI screening follows ACOG guidelines(PB 168, 140, IFN246). See individual assays for performing site location. Clinical Information: HX ABNORMAL [employer] LMP: NONE GIVEN [employer] Prev. PAP: NONE GIVEN [employer] Prev. BX: NONE GIVEN [email or web address] [facility] SOURCE: None given [employer] Statement Of Adequacy: [facility] Comment: Satisfactory for evaluation. Endocervical/transformation zone component present. Interpretation/Re sult: Negative for intraepithelial lesion or malignancy. [facility] COMMENT: This Pap test has been evaluated with computer assisted technology. [facility] Toll Bridge Attendant: Meet You Comment: ALE CT(ASCP) CT screening location: [place] [address] Review Toll Bridge Attendant: [facility] Comment: DEMETRIO CT(ASCP) CT screening location: [place] [address] (Always Message) Que [email or web address] Comment: EXPLANATORY NOTE: The Pap is a [...] HPV nRNA E6/E7 Not Detected Not Detected [facility] Comment: Methodology: Improvement Auditor-Mediated Amplification This assay detects E6/E7 viral messenger RNA (mRNA) from 14 high-risk HPV types (16,18,31,33,35,39,45,51,52,56,58,59,66,68). Cervical sources are required for HPV testing. If a vaginal source from a patient who has had a total hysterectomy with removal of cervix was submitted, please contact the testing laboratory for alternative testing options. For additional information, please refer to http://StreetSpark.ViroXis/faq/BNW899u9 (This link if provided for information/ educational purposes only.) Chlamydia trachomatis RNA, TMA, Urogenital NOT DETECTED NOT DETECTED [facility] [place] [facility] Neisseria gonorrhoeae RNA, TMA, Urogenital NOT DETECTED NOT DETECTED [facility] [place] [facility] (Always Message) Que [facility] [place] [facility] Comment: The analytical performance characteristics of this assay, when used to test SurePath(TM) specimens have been determined by [facility]. The modifications have not been cleared or approved by the FDA. This assay has been validated pursuant to the CLIA regulations and is used for clinical purposes. For additional information, please refer to https://StreetSpark.ViroXis/faq/XMJ338 (This link is being provided for information/ educational purposes only.) Trichomonas vaginalis, QL, TMA, PAP Vial NOT DETECTED NOT DETECTED [facility] [place] [facility] Comment: The analytical performance characteristics of this assay have been determined by [facility]. The modifications have not been cleared or approved by the FDA. This assay has been validated pursuant to the CLIA regulations and is used for clinical purposes. For additional information, please refer to http://StreetSpark.ViroXis/ faq/Trichomonastma (This link is being provided for information/ educational purposes only.) Pap Vial 10/22/2022 10:0 8 AM EDT 10/23/2022 2:07 AM EDT Jeannine Umana [facility] CYTOLOGY ORDERABLES F inal Result [facility] [address], [place] [address] [facility] [place] [facility] [address] [place] [address] from Last 3 Months or Most Recently Relevant to Health Maintenance Insurance [facility] C3 HSN FULL Care Teams Birthing Nurse Relationship Specialty Start Date End Date Johana Allen MD [address] [place] [phone] PCP - General Internal Medicine 12/20/23
--- OUTSIDE RECORDS SUMMARY | 2025-03-19 10:10 | XMS_ITS | Encounter Summary ---
Author Organization [employer] Address [address] [facility] 7t [place] [address] Care Team Providers Care Director Of Head Start Name Role Phone Johana Allen MD Primary Care Provider + Blade Noel RN Unavailable [phone] Reason for Visit * Reason Onset Date Comments Med Refill 04/06/2024 Encounter Details Date Type Department Care Team ([facility] st Contact Info) Description 04/06/2024 Refill [facility] MEDICINE [address] [place], [place] [phone] Johana Allen MD [address] [place], [place] [phone] Class 3 severe obesity due to excess [...] Description 05/03/2025 9:45 AM EST Office Visit [facility] MEDICINE [address] [place] [phone] Johana Allen MD [address] [place] [address] documented as of this encounter Visit Diagnoses Diagnosis Class 3 severe obesity due to excess calories with serious comorbidity and body mass index (BMI) of 40.0 to 44.9 in adult (HCC) documented in this encounter Additional Health Concerns Assessment Noted Time PHQ-9 Depression Total Score: 11 023 8:15 AM EDT documented as of this encounter Care Teams Director Of Head Start Relationship Specialty Start Date End Date Johana Allen MD [address] [place] [address] PCP - General Internal Medicine 12/20/23 Blade Noel RN [address] [place] [phone] DoormakerInlayer Silver 06/09/24 09/03/24 documented as of this encounter
--- OUTSIDE RECORDS SUMMARY | 2025-03-19 10:10 | XMS_ITS | Encounter Summary ---
Author Organization [employer] Address [address] [place] [address] 7t [place] [address] Care Team Providers Care Toll Line Inspector Name Role Phone Lucrecia Mejia MANAGER URGENT CARE Primary Care Provider Isabel Gladys Keita MANAGER URGENT CARE Primary Care Provider [phone] Johana Allen MD Primary Care Provider + Blade Noel RN Unavailable [phone] Reason for Visit * Reason Onset Date Comments Med Refill 01/12/2023 Encounter Details Date Type Department Care Team ([facility] Contact Info) Description 01/12/2023 Refill [facility] MEDICINE [address] [place] [address] Lucrecia Mejia FNP Primary hypertension Social History [...] Upcoming Encounters Date Type Department Care Team ([facility] Contact Info) Description 05/03/2025 9:45 AM EST Office Visit [facility] MEDICINE [address] [place] [address] Johana Allen MD [address] [place] [address] documented as of this encounter Visit Diagnoses Diagnosis Primary hypertension Unspecified essential hypertension documented in this encounter Additional Health Concerns Assessment Noted Time PHQ-9 Depression Total Score: 11 023 8:15 AM EDT documented as of this encounter Care Teams Toll Line Inspector Relationship Specialty Start Date End Date Lucrecia Mejia FNP PCP - General Family Medicine 11/18/22 03/29/23 Gladys Sibley FNP [address] [place] [address] PCP - General Family Medicine 03/30/23 12/19/23 Johana Allen MD [address] [place] [address] PCP - General Internal Medicine 12/20/23 Blade Noel RN [address] [place] [address] Barrel BranderInformation Engineer 06/09/24 09/03/24 documented as of this encounter
--- OUTSIDE RECORDS SUMMARY | 2025-03-19 10:10 | XMS_ITS | Encounter Summary ---
Author Organization [employer] Address [address] [place] [address] Care Team Providers Care Beauty Consultant Name Role Phone Lucrecia Mejia [facility] Primary Care Provider Isabel dianeearlGaston Lunne ROD PULLER Primary Care Provider [phone] Johana Allen MD Primary Care Provider + Blade Noel RN Unavailable [phone] Reason for Visit * Reason Onset Date Comments Med Refill 01/12/2023 Encounter Details Date Type Department Care Team ([facility] st Contact Info) Description 01/12/2023 Refill [facility] [address] [place] [address] Keisha Gannon ANP [address] [place] [address] Primary hypertension Social History Tobacco Use Types [...] Description 05/03/2025 9:45 AM EST Office Visit [facility] MEDICINE [address] [place] [address] Johana Allen MD [address] [place] [address] documented as of this encounter Visit Diagnoses Diagnosis Primary hypertension Unspecified essential hypertension documented in this encounter Additional Health Concerns Assessment Noted Time PHQ-9 Depression Total Score: 11 023 8:15 AM EDT documented as of this encounter Care Teams Beauty Consultant Relationship Specialty Start Date End Date Lucrecia Mejia FNP PCP - General Family Medicine 11/18/22 03/29/23 Gladys Sibley FNP [address] [place] [address] PCP - General Family Medicine 03/30/23 12/19/23 Johana Allen MD [address] [place] [address] PCP - General Internal Medicine 12/20/23 Blade Noel, NANCY [address] [place] [phone] [employer] ProducerPole Incisor Operator 06/09/24 09/03/24 documented as of this encounter
--- OUTSIDE RECORDS SUMMARY | 2025-03-19 10:11 | XMS_ITS | Clinical Summary ---
Author Organization [facility] Address [address] [place] [address] Phone Care Team Providers Care Clinical Coder Name Role Phone Johana Allen MD Primary Care Provider + [phone] Allergies No known active allergies Encounters Date Type Department Care Team Description 01/30/2025 1:45 PM EDT - 01/30/2025 11:59 PM EDT Hospital Encounter [facility] Xray [address] [place] [address] Syncope and collapse Discharge Disposition: Home or Self Care 01/02/2025 4:42 PM EDT - 01/02/2025 9:20 PM EDT Emergency [facility] Emergency [address] [place] [address] Syncope and collapse (Primary Dx); [...] Last Done Comments Breast Cancer Screening 1975 Colorectal Cancer Screening: Colonoscopy 1975 Hepatitis B Vaccines (1 of 3 - 19+ 3-dose series) 1994 Cervical Cancer Screening: P ap Smear 1996 Depression Screening 06/21/2024 Cholesterol Screening (Lipid Panel) 10/27/2024 Hepatitis C Screening 10/27/2024 Social Influencers of Health Screening 10/27/2024 COVID-19 Vaccine (4 - 2024-2 6 season) 2025 08/18/2021, 03/02/2021, 02/09/2021 Influenza Vaccine (#1) 2025 , 04/16/2023 Hypertension/CHF/CAD Annual BMP Blood Test 01/02/2026 01/02/2025 DTaP,Tdap,and Td Vaccines (2 - Td or Tdap) 12/20/2033 12/21/2023 RSV Immunization Adult Patients (1 - 1-dose 75+ series) 2050 HIV Screening Completed 11/18/2022 HIB Vaccines Aged [...] No active pulmonary process identified. Telerad RANULFO ([id number]) -------- FINAL REPORT -------- Dictated By: Hellen Quiroz Dictated Date: 01/03/2025 08:21 ET Assigned Physician: Hellen Quiroz Reviewed and Electronically Signed By: Hellen Quiroz Signed Date: 01/03/2025 08:22 ET Workstation ID: [id number] Transcribed By: Self Edit Transcribed Date: 01/03/2025 [...] No active pulmonary process identified. Telerad PA ([id number]) -------- FINAL REPORT -------- Dictated By: Hellen Quiroz Dictated Date: 01/03/2025 08:21 ET Assigned Physician: Hellen Quiroz Reviewed and Electronically Signed By: Hellen Quiroz Signed Date: 01/03/2025 08:22 ET Workstation ID: [id number] Transcribed By: Self Edit Transcribed Date: 01/03/2025 08:21 ET us Maria Dolores Driscoll NP IMG XR PROCEDURES Final Result * Troponin I high sensitivity (01/02/2025 5:30 PM EDT) High Sensitivity Troponin I 7 <=54 ng/L LAB CHEMISTRY METHOD 01/02/2025 6:27 PM EDT [facility] Blood Venous blood specimen / Unknown Venipuncture / Unknown 01/02/2025 5:30 PM EDT 01/02/2025 5:53 PM EDT Narrative [facility] - 01/02/2025 6:27 PM EDT High levels of biotin in samples may falsely decrease hsTroponin values. Use caution when interpreting hsTroponin results in patients taking biotin who exhibit renal impairment (eGFR <60) or in patients taking more than 20 mg/day of biotin. us Maria Dolores Driscoll NP LAB BLOOD ORDERABLES Final Resu lt [facility] [address] [place] [address], [place] [phone] * (ABNORMAL) CBC auto differential (01/02/2025 5:30 PM EDT) [facility] WBC 6.4 4.8 - 10.8 K/mcL LAB HEMETOLOGY METHOD 01/02/2025 6:00 PM EDT [facility] RBC 4.00 3.80 - 4.80 M/mcL LAB HEMETOLOGY METHOD 01/02/2025 6:00 PM EDT [facility] Hemoglobin 11.4(L) 11.5 - 16.0 g/dL LAB HEMETOLOGY METHOD 01/02/2025 6:00 PM EDT [facility] Hematocrit 34.0(L) 35.0 - 47.0 % LAB HEMETOLOGY METHOD 01/02/2025 6:00 PM EDT [facility] MCV 85.4 79.0 - 98.0 FL LAB HEMETOLOGY METHOD 01/02/2025 6:00 PM EDT [facility] MCH 28.6 27.0 - 32.0 pcg LAB HEMETOLOGY METHOD [facility] MCHC 33.5 32.0 - 37.0 g/dL LAB HEMETOLOGY METHOD 01/02/2025 6:00 PM [facility] RDW 14.2 11.0 - 15.0 % LAB HEMETOLOGY METHOD 01/02/2025 6:00 PM EDT [facility] Platelets 398 130 - 400 K/mcL LAB HEMETOLOGY METHOD 01/02/2025 6:00 PM [facility] MPV 9.3 7.0 - 11.0 FL LAB HEMETOLOGY METHOD 01/02/2025 6:00 PM [facility] NRBC 0.0 <1.0 % LAB HEMETOLOGY METHOD 01/02/2025 6:00 PM [facility] NRBC Absolute 0.00 <0.10 K/mcL LAB HEMETOLOGY METHOD 01/02/2025 6:00 PM [facility] Neutrophils Relative 46.8 % LAB HEMETOLOGY METHOD 01/02/2025 6:00 PM [facility] Lymphocytes Relative 37.8 % LAB HEMETOLOGY METHOD 01/02/2025 6:00 PM [facility] Monocytes Relative 7.4 % LAB HEMETOLOGY METHOD 01/02/2025 6:00 PM [facility] Eosinophils Relative 6.9 % LAB HEMETOLOGY METHOD 01/02/2025 6:00 PM [facility] Basophils Relative 0.8 % LAB HEMETOLOGY METHOD 01/02/2025 6:00 PM [facility] Immature Granulocytes Relative 0.3 % LAB HEMETOLOGY METHOD 01/02/2025 6:00 PM [facility] Neutrophils Absolute 2.98 1.50 - 7.00 K/mcL LAB HEMETOLOGY METHOD 01/02/2025 6:00 PM [facility] Lymphocytes Absolute 2.41 1.00 - 5.00 K/mcL LAB HEMETOLOGY METHOD 01/02/2025 6:00 PM [facility] Monocytes Absolute 0.47 0.20 - 1.00 K/mcL LAB HEMETOLOGY METHOD 01/02/2025 6:00 PM [facility] Eosinophils Absolute 0.44 0.00 - 0.50 K/[facility] LAB HEMETOLOGY METHOD 01/02/2025 6:00 PM EDT [facility] Basophils Absolute 0.05 0.00 - 0.20 K/[facility] LAB HEMETOLOGY METHOD 01/02/2025 6:00 PM EDT [facility] Immature Granulocytes Absolute 0.02 0.00 - 0.03 K/[facility] LAB HEMETOLOGY METHOD 01/02/2025 6:00 PM EDT [facility] Blood Venous blood specimen / Unknown Venipuncture / Unknown 01/02/2025 5:30 PM EDT 01/02/2025 5:53 PM EDT Jazmyne [place] PA LAB BLOOD ORDERABLES Fin al Result Performing Organization Address City/[facility]/ZIP Co de Phone Number [facility] [address] [place] [address], * hCG, serum, qualitative (01/02/2025 5:30 PM EDT) [facility] hCG Qual Negative Negative 01/02/2025 7:36 PM EDT [facility] Blood Venous blood specimen / Unknown Venipuncture / Unknown 01/02/2025 5:30 PM EDT 01/02/2025 5:53 PM EDT Maria Dolores Driscoll [employer] LAB BLOOD ORDERABLES Final Resu lt Performing Organization Address City/[facility]/ZIP Co de Phone Number [facility] [address] [place] [address], * (ABNORMAL) Magnesium (01/02/2025 5:30 PM EDT) Pathologist [facility] Magnesium 1.5(L) 1.9 - 2.6 mg/dL LAB CHEMISTRY METHOD 01/02/2025 6:23 PM EDT [facility] Blood Venous blood specimen / Unknown Venipuncture / Unknown 01/02/2025 5:30 PM EDT 01/02/2025 5:53 PM EDT Jazmyne WINCHESTER LAB BLOOD ORDERABLES Fin al Result [facility] [address] [place] [address], * (ABNORMAL) Basic metabolic panel (01/02/2025 5:30 PM EDT) Sodium 139 133 - 145 mmol/L LAB CHEMISTRY METHOD 01/02/2025 6:23 PM [facility] Potassium 3.9 3.5 - 5.5 mmol/L LAB CHEMISTRY METHOD 01/02/2025 6:23 PM [facility] Chloride 108 96 - 110 mmol/L LAB CHEMISTRY METHOD 01/02/2025 6:23 PM [facility] CO2 25 21 - 32 mmol/L LAB CHEMISTRY METHOD 01/02/2025 6:23 PM [facility] Anion Gap 6 3 - 11 LAB CHEMISTRY METHOD 01/02/2025 6:23 PM [facility] Glucose 87 70 - 100 mg/dL LAB CHEMISTRY METHOD 01/02/2025 6:23 PM [facility] BUN 24 5 - 25 mg/dL LAB CHEMISTRY METHOD 01/02/2025 6:23 PM [facility] Creatinine 1.15(H) 0.50 - 1.10 mg/dL LAB CHEMISTRY METHOD 01/02/2025 6:23 PM [facility] eGFR 59(L) >=60 mL/min/1. 73m2 LAB CHEMISTRY METHOD 01/02/2025 6:23 PM [facility] Comment:Calculation based on the Chronic Kidney Disease Epidemiology Collaboration (CKD-EPI) equation refit without adjustment for race. BUN/Creatinine Ratio 20.9 LAB CHEMISTRY METHOD 01/02/2025 6:23 PM EDT [facility] Calcium 9.9 8.5 - 10.5 mg/dL LAB CHEMISTRY METHOD 01/02/2025 6:23 PM EDT [facility] Blood Venous blood specimen / Unknown Venipuncture / Unknown 01/02/2025 5:30 PM EDT 01/02/2025 5:53 PM EDT Jazmyne WINCHESTER LAB BLOOD ORDERABLES Fin al Result Performing Organization Address City/[facility]/ZIP Co de Phone Number [facility]) [facility] [address] [place] [address], * ECG 12 lead (01/02/2025 5:24 PM EDT) Ventricular Rate ECG 81 BPM GEMUSE Atrial Rate 81 BPM GEMUSE P-R Interval 142 ms GEMUSE QRS Duration 86 ms GEMUSE Q-T Interval 372 ms GEMUSE QTc 432 ms GEMUSE P Wave Bascom 36 degrees GEMUSE R Bascom 7 degrees GEMUSE T Bascom 47 degrees GEMUSE ECG Interpretation Normal sinus rhythm Normal ECG No previous ECGs available Confirmed by Jose ALVAREZ, MARBELLA ([id number]) on 01/02/2025 7:30:59 PM GEMUSE 01/02/2025 5:24 PM EDT 01/02/2025 7:30 PM EDT Jazmyne W[facility] ECG ORDERABLES Final Re sult GEMUSE from Last 3 Months Insurance MEDICAID - [place] Care Teams Clinical Coder Relationship Specialty Start Date End Date Johana Allen MD [address] [place] [phone] PCP - General Internal Medicine 01/02/25
== END 2025-03-19 09:45 | disposition home or self-care (01) ==
LOC: HO.ENCR 09:25
PROVIDERS: PCP Internal Medicine; Visit Provider Internal Medicine Endocrinology, Diabetes & Metabolism
DX: E66.01 Morbid (severe) obesity due to excess calories (principal)
CPT/HCPCS: 99213

== ENCOUNTER → 2025-03-19 09:24 | Outpatient (BNVA) | payer MEDICAID, SELFPAY | PROVIDERS: PCP Internal Medicine; Visit Provider Internal Medicine Endocrinology, Diabetes & Metabolism | DX: E66.01 Morbid (severe) obesity due to excess calories (principal) | CPT/HCPCS: 99212 ==